=== PATIENT | male | born 1965 | race American Indian/Alaskan Native ===

== ENCOUNTER 2018-07-21 19:07 | Inpatient (IN) | payer SELFPAY ==
[2018-07-21] MEDS ORDERED: DUONEB *Not for PRN Use IH ONE (19:19)
--- NOTE | 2018-07-21 19:19 | Emergency Department Report ---
Stated Complaint: JUAN Time Seen by Provider: 07/21/18 19:14 - HPI History of Present Illness: This is a 52 y.o. male that presents with JUAN for a few days. Patient states he took doxycycline and steroids given to him by a friend. - ROS Review of Systems: cough, sob, chills, and nausea MSE screening note: Focused history and physical exam performed. Due to findings the following was ordered: CXR duoneb ED Disposition for MSE Condition: Stable
--- NOTE | 2018-07-21 21:26 | XRay Report ---
PROCEDURE: XR CHEST ROUTINE 2V TECHNIQUE: 2 views of the chest HISTORY: sob COMPARISONS: None FINDINGS: Enlarged cardiac silhouette has a somewhat globular appearance which may represent pericardial effusi on versus cardiomegaly. There are reticular bilateral interstitial infiltrates. There appears to be sheeting material over the patient. Posterior costophrenic angles are sharp. IMPRESSION: Enlarged cardiac silhouette with a slightly water bottle configuration, consider pericardial effusion . Bilateral diffuse reticular interstitial infiltrates. Consider viral pneumonia or other pneumonia. At ypical for bacterial pneumonia. Findings slightly atypical for congestive heart failure.. This document is electronically signed by Stephany Wren MD., July 21 2018 09:25:06 PM ET
[2018-07-22 03:50] LABS: Basophils % (Auto) 0.5 % (0.0-1.8); Eosinophils # (Auto) 0.1 K/mm3 (0.0-0.4); Eosinophils % (Auto) 1.6 % (0.0-4.3); Hematocrit 45.2 % (35.5-45.6); Hemoglobin 15.2 gm/dl (11.8-15.2); Lymphocytes # (Auto) 2.5 K/mm3 (1.2-5.4); Lymphocytes % (Auto) 31.6 % (13.4-35.0); Mean Corpuscular HGB Conc 34 % (32-34); Mean Corpuscular Volume 93 fl (84-94); Monocytes # (Auto) 0.6 K/mm3 (0.0-0.8); Monocytes % (Auto) 7.8 % (0.0-7.3); Platelet Count 195 K/mm3 (140-440); Red Blood Count 4.85 M/mm3 (3.65-5.03); Red Cell Distribution Width 14.7 % (13.2-15.2)
[2018-07-22 04:00] LABS: INR 1.04 (0.87-1.13)
[2018-07-22 04:01] LABS: Partial Thromboplastin Time 28.3 Sec. (24.2-36.6)
[2018-07-22 04:22] LABS: Alanine Aminotransferase 60 units/L (7-56); Albumin 3.8 g/dL (3.9-5); BUN/Creatinine Ratio 12; Blood Urea Nitrogen 16 mg/dL (9-20); Hemolysis Index 17
[2018-07-22 04:34] LABS: LDL Cholesterol,Direct 97 mg/dL (50-130)
[2018-07-22] MEDS ORDERED: ATIVAN IV ONE (04:58)
[2018-07-22] MEDS ORDERED: LASIX ONE (05:09)
--- NOTE | 2018-07-22 05:19 | Emergency Department Report ---
ED Shortness of Breath HPI - General Chief Complaint: Dyspnea/Respdistress Stated Complaint: JUAN Time Seen by Provider: 07/21/18 19:14 Source: patient Mode of arrival: Stretcher Limitations: No Limitations - History of Present Illness Initial Comments: 52-year-old -[place] male with no past medical history presents to the emergency room for shortness of breath 1 month with the last 2 days getting worse. Patient reports she's had a cough. Patient reports shortness of breath is worse with lying flat and better with sitting up. Patient denies any fever chills no nausea no vomiting. Patient does not have a primary care provider has no past medical history and currently takes no medications on a daily basis. MD Complaint: shortness of breath -: days(s) (2 getting worst), month(s) (1 sob) Severity: moderate Improves With: upright position Worsens With: lying flat, exertion, coughing Associated Symptoms: cough Treatments Prior to Arrival: none - Related Data Home Oxygen Therapy: No Previous Rx's Medication Instructions Recorded Last Taken Type Aspirin 81 mg PO DAILY #30 tab.chew 07/27/18 Unknown Rx AtorvaSTATin [Lipitor] 20 mg PO QHS #30 tab 07/27/18 Unknown Rx Carvedilol [Coreg] 3.125 mg PO BID #60 tablet 07/27/18 Unknown Rx Furosemide [Lasix TAB] 40 mg PO QDAY #30 tablet 07/27/18 Unknown Rx Lisinopril [Zestril TAB] 5 mg PO QDAY #30 tablet 07/27/18 Unknown Rx Potassium Chloride [K-Dur] 10 meq PO QDAY #30 tablet 07/27/18 Unknown Rx Allergies Allergy/AdvReac Type Severity Reaction Status Date / Time No Known Allergies Allergy Unverified 07/21/18 20:38 ED Review of Systems ROS: Stated complaint: JUAN Other details as noted in HPI Comment: All other systems reviewed and negative Respiratory: cough, shortness of breath, SOB with exertion, SOB at rest ED Past Medical Hx - Past Medical History Previous Medical History?: Yes Additional medical history: Punctured lung, Broken ribs - Social History Smoking Status: Never Smoker Substance Use Type: None - Medications Home Medications: Home Medications Medication Instructions Recorded Confirmed Last Taken Type Aspirin 81 mg PO DAILY #30 tab.chew 07/27/18 Unknown Rx AtorvaSTATin [Lipitor] 20 mg PO QHS #30 tab 07/27/18 Unknown Rx Carvedilol [Coreg] 3.125 mg PO BID #60 tablet 07/27/18 Unknown Rx Furosemide [Lasix TAB] 40 mg PO QDAY #30 tablet 07/27/18 Unknown Rx Lisinopril [Zestril TAB] 5 mg PO QDAY #30 tablet 07/27/18 Unknown Rx Potassium Chloride [K-Dur] 10 meq PO QDAY #30 tablet 07/27/18 Unknown Rx ED Physical Exam - General Limitations: No Limitations General appearance: alert, in no apparent distress, other (patient is sitting up right in bed) - Head Head exam: Present: atraumatic, normocephalic - Eye Eye exam: Present: EOMI - ENT ENT exam: Present: mucous membranes moist - Neck Neck exam: Present: normal inspection, full ROM - Respiratory Respiratory exam: Present: decreased breath sounds - Cardiovascular Cardiovascular Exam: Present: tachycardia - GI/Abdominal GI/Abdominal exam: Present: soft, normal bowel sounds. Absent: distended, tenderness - Extremities Exam Extremities exam: Present: pedal edema (trace bilateral) - Back Exam Back exam: Present: normal inspection, full ROM - Neurological Exam Neurological exam: Present: alert, oriented X3 - Psychiatric Psychiatric exam: Present: normal affect, normal mood - Skin Skin exam: Present: warm, dry, intact, normal color. Absent: rash ED Course Vital Signs 07/21/18 07/21/18 07/21/18 19:10 19:40 20:20 Temperature 98.7 F Pulse Rate 114 H Pulse Rate [ 104 H 112 H Bilateral Throughout] Respiratory 18 Rate Respiratory 20 20 Rate [Bilateral Throughout] Blood Pressure 151/118 Blood Pressure [Right] O2 Sat by Pulse 96 Oximetry 07/22/18 07/22/18 07/22/18 03:20 03:34 03:45 Temperature Pulse Rate 102 H 104 H Pulse Rate [ Bilateral Throughout] Respiratory 22 19 Rate Respiratory Rate [Bilateral Throughout] Blood Pressure 151/101 151/105 Blood Pressure 159/111 [Right] O2 Sat by Pulse 96 95 Oximetry 07/22/18 07/22/18 07/22/18 04:00 04:15 04:30 Temperature Pulse Rate 104 H 102 H 102 H Pulse Rate [ Bilateral Throughout] Respiratory 12 19 20 Rate Respiratory Rate [Bilateral Throughout] Blood Pressure 150/106 143/101 148/104 Blood Pressure [Right] O2 Sat by Pulse 95 97 95 Oximetry 07/22/18 07/22/18 07/22/18 04:34 04:45 05:00 Temperature Pulse Rate 104 H 105 H 102 H Pulse Rate [ Bilateral Throughout] Respiratory 20 18 30 H Rate Respiratory Rate [Bilateral Throughout] Blood Pressure 151/105 156/115 Blood Pressure [Right] O2 Sat by Pulse 96 95 94 Oximetry 07/22/18 07/22/18 07/22/18 05:21 05:31 05:45 Temperature Pulse Rate 103 H 101 H 103 H Pulse Rate [ Bilateral Throughout] Respiratory 15 15 22 Rate Respiratory Rate [Bilateral Throughout] Blood Pressure 156/115 128/110 155/109 Blood Pressure [Right] O2 Sat by Pulse 100 96 90 Oximetry 07/22/18 07/22/18 07/22/18 06:13 06:15 06:31 Temperature Pulse Rate 98 H 98 H 96 H Pulse Rate [ Bilateral Throughout] Respiratory 23 26 H 22 Rate Respiratory Rate [Bilateral Throughout] Blood Pressure 131/82 136/84 132/78 Blood Pressure [Right] O2 Sat by Pulse 96 93 92 Oximetry 07/22/18 07/22/18 07/22/18 06:45 07:00 07:15 Temperature Pulse Rate 100 H 98 H 100 H Pulse Rate [ Bilateral Throughout] Respiratory 29 H 19 17 Rate Respiratory Rate [Bilateral Throughout] Blood Pressure 142/97 142/97 160/97 Blood Pressure [Right] O2 Sat by Pulse 97 98 91 Oximetry 07/22/18 07/22/18 07/22/18 07:30 07:45 08:00 Temperature Pulse Rate 103 H 103 H 96 H Pulse Rate [ Bilateral Throughout] Respiratory 24 24 27 H Rate Respiratory Rate [Bilateral Throughout] Blood Pressure 156/105 131/90 120/82 Blood Pressure [Right] O2 Sat by Pulse 98 94 96 Oximetry 07/22/18 07/22/18 07/22/18 08:15 08:30 08:45 Temperature Pulse Rate 99 H 98 H 98 H Pulse Rate [ Bilateral Throughout] Respiratory 27 H 26 H 21 Rate Respiratory Rate [Bilateral Throughout] Blood Pressure 124/88 124/91 142/85 Blood Pressure [Right] O2 Sat by Pulse 94 Oximetry 07/22/18 07/22/18 08:51 08:52 Temperature 98.4 F Pulse Rate 98 H Pulse Rate [ Bilateral Throughout] Respiratory 24 Rate Respiratory Rate [Bilateral Throughout] Blood Pressure 142/85 Blood Pressure [Right] O2 Sat by Pulse 94 Oximetry - Reevaluation(s) Reevaluation #1: 07/22/18 05:[address] Hannah Zhang regarding admission she wants a chest CT before consideration of admission. ED Medical Decision Making - Lab Data Result diagrams: 07/27/18 05:45 07/27/18 05:45 Laboratory Tests 07/22/18 07/22/18 07/22/18 03:37 03:37 03:37 WBC 8.0 RBC 4.85 Hgb 15.2 Hct 45.2 MCV 93 MCH 31 MCHC 34 RDW 14.7 Plt Count 195 Lymph % (Auto) 31.6 [place] % (Auto) 7.8 H Eos % (Auto) 1.6 Baso % (Auto) 0.5 Lymph # 2.5 [place] # 0.6 Eos # 0.1 Baso # 0.0 Seg Neutrophils % 58.5 Seg Neutrophils # 4.7 PT 14.2 INR 1.04 APTT 28.3 Sodium 139 Potassium 3.8 Chloride 102.9 Carbon Dioxide 22 Anion Gap 18 BUN 16 Creatinine 1.3 Estimated GFR > 60 BUN/Creatinine Ratio 12 Glucose 106 H Calcium 9.0 Total Bilirubin 0.50 AST 33 ALT 60 H Alkaline Phosphatase 74 Troponin T 0.040 H NT-Pro-B Natriuret Pep 1858 H Total Protein 6.2 L Albumin 3.8 L Albumin/Globulin Ratio 1.6 Triglycerides 109 Cholesterol 138 LDL Cholesterol Direct 97 - EKG Data Rate: tachycardia - Radiology Data Radiology results: report reviewed Patient: SHANKAR COSTA MR#: [id number] : 1965 Acct:[id number] Age/Sex: 52 / M ADM Date: 07/21/18 Loc: ED Attending Dr: Ordering Physician: POORNIMA GONZALES Date of Service: 07/21/18 Procedure(s): XR chest routine 2V Accession Number(s): [id number] cc: POORNIMA GONZALES Fluoro Time In Minutes: PROCEDURE: XR CHEST ROUTINE 2V TECHNIQUE: 2 views of the chest HISTORY: sob COMPARISONS: None FINDINGS: Enlarged cardiac silhouette has a somewhat globular appearance which may represent pericardial effusion versus cardiomegaly. There are reticular bilateral interstitial infiltrates. There appears to be sheeting material over the patient. Posterior costophrenic angles are sharp. IMPRESSION: Enlarged cardiac silhouette with a slightly water bottle configuration, consider pericardial effusion. Bilateral diffuse reticular interstitial infiltrates. Consider viral pneumonia or other pneumonia. Atypical for bacterial pneumonia. Findings slightly atypical for congestive heart failure.. This document is electronically signed by Stephany Wren MD., July 21 2018 09:25:06 PM ET Transcribed By: MP Dictated By: STEPHANY WREN Electronically Authenticated By: STEPHANY WREN Signed Date/Time: 07/21/182125 DD/ 00 TD/TT: 07/21/182101 Critical care attestation.: If time is entered above; I have spent that time in minutes in the direct care of this critically ill patient, excluding procedure time. ED Disposition Clinical Impression: Acute heart failure Qualifiers: Heart failure type: unspecified Qualified Code(s): I50.9 - Heart failure, unspecified Disposition: -09 OP ADMIT IP TO THIS HOSP Is pt being admited?: Yes Does the pt Need Aspirin: Yes Condition: Stable
[2018-07-22] MEDS ORDERED: LASIX IV ONE (05:28)
--- NOTE | 2018-07-22 06:33 | Cat Scan Report ---
PROCEDURE: CT CHEST WO CON TECHNIQUE: CT imaging is obtained through the chest without contrast HISTORY: sob, elevated trip,abnormaly cxr COMPARISONS: Chest radiographs 07/21/2018 FINDINGS: Cardiomegaly. No pericardial effusion. Thoracic aorta is normal in course and caliber. No pneumothorax. Small to moderate right larger than left pleural effusions. Right perihilar region o f groundglass attenuation measuring up to 3 cm is present on axial series 2, image 69. Smaller ill-de fined areas of groundglass attenuation are present in the superior segment of the right lower lung an d in the right middle lobe measuring up to 2 cm on axial series 2, image 88. Interlobular septal thic kening is present. Bibasilar atelectasis. Evaluation of fine pulmonary parenchymal detail is obscured by respiratory motion. The central airways are patent. No bronchiectasis. Imaged portion of the upper abdomen is remarkable for bilateral nonobstructive nephrolithiasis measur ing up to 2 mm. The superficial soft tissues are unremarkable. No acute bony abnormality or worrisome osseous lesions identified. IMPRESSION: Cardiomegaly, pulmonary edema and small to moderate right greater than left pleural effusions are sug gestive of heart failure. Several right lung groundglass nodules/areas of attenuation measuring up to 3 cm in the right lung ma y be infectious or represent additional sequela of edema. This document is electronically signed by Ori Gomez MD., July 22 2018 06:30:25 AM ET
[2018-07-22 06:53] LABS: HDL Cholesterol 43 mg/dL (40-59)
--- NOTE | 2018-07-22 12:03 | History and Physical Report ---
History of Present Illness Date of admission: 07/22/18 08:21 Chief complaint: sob History of present illness: 52-year-old male with no significant past medical history who presents with shortness of breath for over 3 months. Has gotten worse in the past 2 days. His symptoms have been progressive. He started out having dyspnea on exertion. Has gone to the point now that he can barely walk to the bathroom. He can barely dress himself. He is also complaining of orthopnea, paroxysmal nocturnal dyspnea. The patient denies chest pain. He denies palpitations. He is also complaining of leg edema. Which is bilateral. The patient denies any history of any cardiac conditions, Past History Past Medical History: No medical history Past Surgical History: Other (surgery for broken ribs and punctured lung after he fell off a truck) Social history: smoking, alcohol abuse (4 shots of hard liquor daily), other (he uses powder cocaine every other day) Family history: no significant family history (denies family history of heart failure or hypertension) Medications and Allergies Allergies Allergy/AdvReac Type Severity Reaction Status Date / Time No Known Allergies Allergy Unverified 07/21/18 20:38 Review of Systems All systems: negative Constitutional: no weight loss Ears, nose, mouth and throat: no deferred Cardiovascular: orthopnea, no chest pain Respiratory: cough Gastrointestinal: no abdominal pain Genitourinary Male: no dysuria Rectal: no pain Musculoskeletal: no neck stiffness Integumentary: no rash Neurological: no head injury Psychiatric: no anxiety Endocrine: no cold intolerance Hematologic/Lymphatic: no easy bruising Allergic/Immunologic: no urticaria Exam - Constitutional Vitals: Temp Pulse Resp BP Pulse Ox 98.4 F 98 H 21 142/85 94 07/22/18 08:52 07/22/18 08:45 07/22/18 08:45 07/22/18 08:45 07/22/18 08:45 General appearance: Present: no acute distress, well-nourished - EENT Eyes: Present: PERRL ENT: hearing intact, clear oral mucosa - Neck Neck: Present: supple, normal ROM - Respiratory Respiratory effort: normal Respiratory: bilateral: rales - Cardiovascular Heart Sounds: Present: S1 & S2. Absent: rub, click - Extremities Extremity abnormal: edema Peripheral Pulses: within normal limits - Abdominal General gastrointestinal: Present: soft, non-tender, non-distended, normal bowel sounds Male genitourinary: Present: normal - Integumentary Integumentary: Present: clear, warm, dry - Musculoskeletal Musculoskeletal: gait normal, strength equal bilaterally - Psychiatric Psychiatric: appropriate mood/affect, intact judgment & insight - Neurologic Neurologic: CNII-XII intact, moves all extremities Results - Labs CBC & Chem 7: 07/22/18 03:37 07/22/18 03:37 Labs: Laboratory Last Values WBC 8.0 K/mm3 (4.5-11.0) 07/22/18 03:37 RBC 4.85 M/mm3 (3.65-5.03) 07/22/18 03:37 Hgb 15.2 gm/dl (11.8-15.2) 07/22/18 03:37 Hct 45.2 % (35.5-45.6) 07/22/18 03:37 MCV 93 fl (84-94) 07/22/18 03:37 MCH 31 pg (28-32) 07/22/18 03:37 MCHC 34 % (32-34) 07/22/18 03:37 RDW 14.7 % (13.2-15.2) 07/22/18 03:37 Plt Count 195 K/mm3 (140-440) 07/22/18 03:37 Lymph % (Auto) 31.6 % (13.4-35.0) 07/22/18 03:37 [place] % (Auto) 7.8 % (0.0-7.3) H 07/22/18 03:37 Eos % (Auto) 1.6 % (0.0-4.3) 07/22/18 03:37 Baso % (Auto) 0.5 % (0.0-1.8) 07/22/18 03:37 Lymph # 2.5 K/mm3 (1.2-5.4) 07/22/18 03:37 [place] # 0.6 K/mm3 (0.0-0.8) 07/22/18 03:37 Eos # 0.1 K/mm3 (0.0-0.4) 07/22/18 03:37 Baso # 0.0 K/mm3 (0.0-0.1) 07/22/18 03:37 Seg Neutrophils % 58.5 % (40.0-70.0) 07/22/18 03:37 Seg Neutrophils # 4.7 K/mm3 (1.8-7.7) 07/22/18 03:37 PT 14.2 Sec. (12.2-14.9) 07/22/18 03:37 INR 1.04 (0.87-1.13) 07/22/18 03:37 APTT 28.3 Sec. (24.2-36.6) 07/22/18 03:37 Sodium 139 mmol/L (137-145) 07/22/18 03:37 Potassium 3.8 mmol/L (3.6-5.0) 07/22/18 03:37 Chloride 102.9 mmol/L (98-107) 07/22/18 03:37 Carbon Dioxide 22 mmol/L (22-30) 07/22/18 03:37 Anion Gap 18 mmol/L 07/22/18 03:37 BUN 16 mg/dL (9-20) 07/22/18 03:37 Creatinine 1.3 mg/dL (0.8-1.5) 07/22/18 03:37 Estimated GFR > 60 ml/min 07/22/18 03:37 BUN/Creatinine Ratio 12 % 07/22/18 03:37 Glucose 106 mg/dL (75-100) H 07/22/18 03:37 Calcium 9.0 mg/dL (8.4-10.2) 07/22/18 03:37 Total Bilirubin 0.50 mg/dL (0.1-1.2) 07/22/18 03:37 AST 33 units/L (5-40) 07/22/18 03:37 ALT 60 units/L (7-56) H 07/22/18 03:37 Alkaline Phosphatase 74 units/L (35-129) 07/22/18 03:37 Troponin T 0.033 ng/mL (0.00-0.029) H 07/22/18 07:04 NT-Pro-B Natriuret Pep 1858 pg/mL (0-900) H 07/22/18 03:37 Total Protein 6.2 g/dL (6.3-8.2) L 07/22/18 03:37 Albumin 3.8 g/dL (3.9-5) L 07/22/18 03:37 Albumin/Globulin Ratio 1.6 % 07/22/18 03:37 Triglycerides 109 mg/dL (2-149) 07/22/18 03:37 Cholesterol 138 mg/dL (50-199) 07/22/18 03:37 LDL Cholesterol Direct 97 mg/dL (50-130) 07/22/18 03:37 HDL Cholesterol 43 mg/dL (40-59) 07/22/18 03:37 Cholesterol/HDL Ratio 3.20 % 07/22/18 03:37 Assessment and Plan Assessment and plan: 52M with so significant pmh, who pw sob Diagnosis acute chf pulmonary edema pre-htn Polysubstance abuse; tobacco, cocaine and alcohol Plan IV lasix, obtain echo, cardiology consult highly doubt pna, will monitor off abx -monitor BP curve Patient was counseled greater than 10 minutes on smoking cessation, and he was counseled greater than 20 minutes on cessation of other substances and lifestyle modification. ciwa protocol initiated -dvt ppx- lovenox Plan of care discussed with patient/family: Yes
--- NOTE | 2018-07-22 16:02 | Consultation ---
History of Present Illness Consult date: 07/22/18 Requesting physician: TRACIE ALVARADO Consult reason: congestive heart failure History of present illness: The pt is a 52 YO male with a past medical history of ETOH use, tobacco use, occasional cocaine use. He is previously unknown to our practice. He presented with complaints of SOB, POP, orthopnea and BLE. He states that for approx the past 1 month, he has been progressively SOB with POP. Over the past few days, he has also noted BLE swelling. He denies any chest pain, palpitations, n/v, diaphoresis, dizziness or syncope. He denies any prior cardiac issues, including AMI, CAD or HF. Past History Past Medical History: No medical history Social history: smoking, alcohol abuse, other (occasional cocaine use) Medications and Allergies Allergies Allergy/AdvReac Type Severity Reaction Status Date / Time No Known Allergies Allergy Unverified 07/21/18 20:38 Active Meds: Active Medications Furosemide (Lasix) 40 mg IV BID@0600,1800 BHAVYA Review of Systems Constitutional: no fever, no chills, no sweats Ears, nose, mouth and throat: no ear pain, no nose pain, no sinus pressure, no sinus pain Cardiovascular: orthopnea, edema, dyspnea on exertion, paroxysmal nocturnal dyspnea, leg edema, decreased exercise tolerance, no chest pain, no palpitations, no rapid/irregular heart beat, no syncope, no lightheadedness, no shortness of breath Respiratory: shortness of breath, dyspnea on exertion, no cough, no congestion, no wheezing, no pain on inspiration Gastrointestinal: no abdominal pain, no nausea, no vomiting, no diarrhea, no constipation, no change in bowel habits Genitourinary Male: no dysuria, no hematuria, no flank pain, no discharge, no urinary frequency, no urinary hesitancy Musculoskeletal: no neck stiffness, no neck pain, no shooting arm pain, no arm numbness/tingling, no low back pain, no shooting leg pain Integumentary: no rash, no pruritis, no redness, no sores, no wounds Neurological: no head injury, no paralysis, no weakness, no parathesias, no numbness, no tingling, no seizures, no syncope Psychiatric: no anxiety Endocrine: no cold intolerance, no heat intolerance Hematologic/Lymphatic: no easy bruising, no easy bleeding Allergic/Immunologic: no urticaria, no wheezing Physical Examination Vital Signs Temp Pulse Resp BP Pulse Ox 98.7 F 114 H 18 151/118 96 07/21/18 19:10 07/21/18 19:10 07/21/18 19:10 07/21/18 19:10 07/21/18 19:10 General appearance: no acute distress HEENT: Positive: PERRL, Normocephaly, Mucus Membranes Moist Neck: Positive: neck supple, trachea midline Cardiac: Positive: Reg Rate and Rhythm, S1/S2 Lungs: Positive: Decreased Breath Sounds Neuro: Positive: Grossly Intact Abdomen: Positive: Soft. Negative: Tender Skin: Negative: Rash, Wound Musculoskeletal: No Pain Extremities: Present: edema (trace BLE) Results 07/22/18 03:37 07/22/18 03:37 Cardiac Enzymes 07/22/18 Range/Units 03:37 AST 33 (5-40) units/L Coagulation 07/22/18 Range/Units 03:37 PT 14.2 (12.2-14.9) Sec. INR 1.04 (0.87-1.13) APTT 28.3 (24.2-36.6) Sec. Lipids 07/22/18 Range/Units 03:37 Triglycerides 109 (2-149) mg/dL Cholesterol 138 (50-199) mg/dL HDL Cholesterol 43 (40-59) mg/dL Cholesterol/HDL Ratio 3.20 % CBC 07/22/18 Range/Units 03:37 WBC 8.0 (4.5-11.0) K/mm3 RBC 4.85 (3.65-5.03) M/mm3 Hgb 15.2 (11.8-15.2) gm/dl Hct 45.2 (35.5-45.6) % Plt Count 195 (140-440) K/mm3 Lymph # 2.5 (1.2-5.4) K/mm3 [place] # 0.6 (0.0-0.8) K/mm3 Eos # 0.1 (0.0-0.4) K/mm3 Baso # 0.0 (0.0-0.1) K/mm3 Comprehensive Metabolic Panel 07/22/18 Range/Units 03:37 Sodium 139 (137-145) mmol/L Potassium 3.8 (3.6-5.0) mmol/L Chloride 102.9 (98-107) mmol/L Carbon Dioxide 22 (22-30) mmol/L BUN 16 (9-20) mg/dL Creatinine 1.3 (0.8-1.5) mg/dL Glucose 106 H (75-100) mg/dL Calcium 9.0 (8.4-10.2) mg/dL AST 33 (5-40) units/L ALT 60 H (7-56) units/L Alkaline Phosphatase 74 (35-129) units/L Total Protein 6.2 L (6.3-8.2) g/dL Albumin 3.8 L (3.9-5) g/dL - Imaging and Cardiology Echo: pending EKG: report reviewed, image reviewed EKG interpretations - Telemetry EKG Rhythm: Sinus Rhythm - EKG Sinus rhythms and dysrhythmias: sinus rhythm Chamber hypertrophy or enlargement: left ventricular hypertro Repolarization changes or abnormalities: nonspecific abnormality, ST segment, and/or T wave Assessment and Plan Initiate GDMT and cont IV diuresis as tolerated. Await echo. The patient has been seen in conjunction with Dr. Amarjit Luis who agrees with the assessment and plan of care. - Patient Problems (1) Acute heart failure Current Visit: Yes Status: Acute (2) Elevated troponin Current Visit: Yes Status: Acute (3) HTN (hypertension) Current Visit: Yes Status: Chronic (4) EtOH dependence Current Visit: Yes Status: Chronic (5) Tobacco use Current Visit: Yes Status: Chronic
[2018-07-22] MEDS: LASIX IV SCH (18:04)
[2018-07-22] MEDS ORDERED: TYLENOL PO PRN (18:07)
[2018-07-22] MEDS ORDERED: SODIUM CHLORIDE FLUSH SYRINGE 10 ML IV PRN (18:07)
[2018-07-22] MEDS ORDERED: ZOFRAN IV PRN (18:07)
[2018-07-22] MEDS ORDERED: ATIVAN IV PRN ×2 (18:08)
[2018-07-22] MEDS ORDERED: ATIVAN PO PRN (18:08)
[2018-07-22] MEDS: LOVENOX SUB-Q SCH (22:50)
[2018-07-22] MEDS: COREG PO SCH (22:50)
[2018-07-22] MEDS: SODIUM CHLORIDE FLUSH SYRINGE 10 ML IV SCH (22:50)
[2018-07-23] MEDS: LASIX IV SCH ×2 (06:24→17:38)
[2018-07-23 06:41] LABS: BUN/Creatinine Ratio 9; Blood Urea Nitrogen 13 mg/dL (9-20); Calcium 9.1 mg/dL (8.4-10.2); Hemolysis Index 6
[2018-07-23] MEDS: COREG PO SCH ×2 (09:20→22:37)
[2018-07-23] MEDS: ZESTRIL PO SCH (09:20)
[2018-07-23] MEDS: HABITROL TD SCH (09:20)
[2018-07-23] MEDS: SODIUM CHLORIDE FLUSH SYRINGE 10 ML IV SCH ×2 (09:24→22:38)
--- NOTE | 2018-07-23 10:09 | Progress Note ---
Assessment and Plan Assessment and plan: 52M with so significant pmh, who pw sob Diagnosis acute chf pulmonary edema pre-htn Polysubstance abuse; tobacco, cocaine and alcohol Alcohol withdrawal Plan IV lasix, follow-up echo, cardiology consult appreciated highly doubt pna, will monitor off abx, will repeat chest x-ray tomorrow morning -monitor BP curve, currently normotensive Patient was counseled greater than 10 minutes on smoking cessation, and he was counseled greater than 20 minutes on cessation of other substances and lifestyle modification. ciwa protocol initiated -dvt ppx- lovenox History Interval history: Review of systems Constitutional: No fevers, no malaise, no joint pains CVS: No chest pain, orthopnea, dyspnea on exertion and bipedal edema is improving GI: No abdominal pain, no diarrhea, no vomiting, no constipation Respiratory: No shortness of breath, no wheezing, no coughing Hospitalist Physical - Physical exam Narrative exam: General.: Appears well, no distress, nontoxic HEENT: Moist mucous membranes, extraocular muscles intact, no lymphadenopathy Neck: supple Cardiac: S1-S2 heard Lungs: Crackles in bases Abdomen: soft , nontender, nondistended, bowel sounds positive Extremities: 1+ bipedal pitting edema, interval improvement Skin: no rash or lesions Neurologic: no gross focal deficits Psych: calm, and cooperative - Constitutional Vitals: Temp Pulse Resp BP Pulse Ox 98.4 F 62 20 124/85 95 07/23/18 08:32 07/23/18 08:32 07/23/18 08:32 07/23/18 08:32 07/23/18 08:32 General appearance: Present: no acute distress, well-nourished Results - Labs CBC & Chem 7: 07/22/18 03:37 07/23/18 04:50 Labs: Laboratory Last Values WBC 8.0 K/mm3 (4.5-11.0) 07/22/18 03:37 RBC 4.85 M/mm3 (3.65-5.03) 07/22/18 03:37 Hgb 15.2 gm/dl (11.8-15.2) 07/22/18 03:37 Hct 45.2 % (35.5-45.6) 07/22/18 03:37 MCV 93 fl (84-94) 07/22/18 03:37 MCH 31 pg (28-32) 07/22/18 03:37 MCHC 34 % (32-34) 07/22/18 03:37 RDW 14.7 % (13.2-15.2) 07/22/18 03:37 Plt Count 195 K/mm3 (140-440) 07/22/18 03:37 Lymph % (Auto) 31.6 % (13.4-35.0) 07/22/18 03:37 [place] % (Auto) 7.8 % (0.0-7.3) H 07/22/18 03:37 Eos % (Auto) 1.6 % (0.0-4.3) 07/22/18 03:37 Baso % (Auto) 0.5 % (0.0-1.8) 07/22/18 03:37 Lymph # 2.5 K/mm3 (1.2-5.4) 07/22/18 03:37 [place] # 0.6 K/mm3 (0.0-0.8) 07/22/18 03:37 Eos # 0.1 K/mm3 (0.0-0.4) 07/22/18 03:37 Baso # 0.0 K/mm3 (0.0-0.1) 07/22/18 03:37 Seg Neutrophils % 58.5 % (40.0-70.0) 07/22/18 03:37 Seg Neutrophils # 4.7 K/mm3 (1.8-7.7) 07/22/18 03:37 PT 14.2 Sec. (12.2-14.9) 07/22/18 03:37 INR 1.04 (0.87-1.13) 07/22/18 03:37 APTT 28.3 Sec. (24.2-36.6) 07/22/18 03:37 Sodium 143 mmol/L (137-145) 07/23/18 04:50 Potassium 3.4 mmol/L (3.6-5.0) L 07/23/18 04:50 Chloride 102.0 mmol/L (98-107) 07/23/18 04:50 Carbon Dioxide 25 mmol/L (22-30) 07/23/18 04:50 Anion Gap 19 mmol/L 07/23/18 04:50 BUN 13 mg/dL (9-20) 07/23/18 04:50 Creatinine 1.4 mg/dL (0.8-1.5) 07/23/18 04:50 Estimated GFR > 60 ml/min 07/23/18 04:50 BUN/Creatinine Ratio 9 % 07/23/18 04:50 Glucose 101 mg/dL (75-100) H 07/23/18 04:50 Calcium 9.1 mg/dL (8.4-10.2) 07/23/18 04:50 Total Bilirubin 0.50 mg/dL (0.1-1.2) 07/22/18 03:37 AST 33 units/L (5-40) 07/22/18 03:37 ALT 60 units/L (7-56) H 07/22/18 03:37 Alkaline Phosphatase 74 units/L (35-129) 07/22/18 03:37 Troponin T 0.033 ng/mL (0.00-0.029) H 07/22/18 07:04 NT-Pro-B Natriuret Pep 1858 pg/mL (0-900) H 07/22/18 03:37 Total Protein 6.2 g/dL (6.3-8.2) L 07/22/18 03:37 Albumin 3.8 g/dL (3.9-5) L 07/22/18 03:37 Albumin/Globulin Ratio 1.6 % 07/22/18 03:37 Triglycerides 109 mg/dL (2-149) 07/22/18 03:37 Cholesterol 138 mg/dL (50-199) 07/22/18 03:37 LDL Cholesterol Direct 97 mg/dL (50-130) 07/22/18 03:37 HDL Cholesterol 43 mg/dL (40-59) 07/22/18 03:37 Cholesterol/HDL Ratio 3.20 % 07/22/18 03:37 Active Medications - Current Medications Current Medications: Generic Name Dose Route Start Last Admin Trade Name Freq PRN Reason Stop Dose Admin Acetaminophen 650 mg 07/22/18 18:07 Tylenol PO Q4H PRN Pain MILD(1-3)/Fever >100.5/LAURENT Carvedilol 3.125 mg 07/22/18 22:00 07/23/18 09:20 Coreg PO 3.125 mg BID BHAVYA Administration Enoxaparin Sodium 40 mg 07/22/18 22:00 07/22/18 22:50 Lovenox SUB-Q 40 mg QDAY@2200 BHAVYA Administration Furosemide 40 mg 07/22/18 18:00 07/23/18 06:24 Lasix IV 40 mg BID@0600,1800 BHAVYA Administration Lisinopril 5 mg 07/23/18 10:00 07/23/18 09:20 Zestril PO 5 mg QDAY BHAVYA Administration Lorazepam 2 mg 07/22/18 18:08 07/23/18 00:07 Ativan PO 2 mg Q1H PRN Administration CIWA-Ar 8-15 Lorazepam 4 mg 07/22/18 18:08 Ativan IV Q1H PRN CIWA-Ar 16-25 Lorazepam 4 mg 07/22/18 18:08 Ativan IV Q15MIN PRN CIWA-Ar >25 Nicotine 7 mg 07/23/18 10:00 07/23/18 09:20 Habitrol TD 7 mg QDAY BHAVYA Administration Ondansetron HCl 4 mg 07/22/18 18:07 Zofran IV Q8H PRN Nausea And Vomiting Sodium Chloride 10 ml 07/22/18 22:00 07/23/18 09:24 Sodium Chloride Flush Syringe 10 Ml IV 10 ml BID BHAVYA Administration Sodium Chloride 10 ml 07/22/18 18:07 Sodium Chloride Flush Syringe 10 Ml IV PRN PRN LINE FLUSH
--- NOTE | 2018-07-23 14:21 | Progress Note ---
Assessment and Plan Cont GDMT and cont IV diuresis as tolerated. Await echo. Consider ischemic evaluation pending echo findings. The patient has been seen in conjunction with Dr. Amarjit Luis who agrees with the assessment and plan of care. - Patient Problems (1) Acute heart failure Current Visit: Yes Status: Acute (2) Elevated troponin Current Visit: Yes Status: Acute (3) HTN (hypertension) Current Visit: Yes Status: Chronic (4) EtOH dependence Current Visit: Yes Status: Chronic (5) Tobacco use Current Visit: Yes Status: Chronic Subjective Date of service: 07/23/18 Principal diagnosis: HF Interval history: pt resting in bed, states he is feeling better today. Objective Last Vital Signs Temp 98.4 F 07/23/18 11:03 Pulse 98 H 07/23/18 11:03 Resp 20 07/23/18 11:03 BP 129/90 07/23/18 11:03 Pulse Ox 94 07/23/18 11:03 - Physical Examination General: No Apparent Distress HEENT: Positive: PERRL, Normocephaly, Mucus Membranes Moist Neck: Positive: neck supple, trachea midline Cardiac: Positive: Reg Rate and Rhythm, S1/S2 Lungs: Positive: Decreased Breath Sounds Neuro: Positive: Grossly Intact Abdomen: Positive: Soft. Negative: Tender Skin: Negative: Rash, Wound Musculoskeletal: No Pain Extremities: Present: edema (trace BLE) - Labs and Meds Comprehensive Metabolic Panel 07/23/18 Range/Units 04:50 Sodium 143 (137-145) mmol/L Potassium 3.4 L (3.6-5.0) mmol/L Chloride 102.0 (98-107) mmol/L Carbon Dioxide 25 (22-30) mmol/L BUN 13 (9-20) mg/dL Creatinine 1.4 (0.8-1.5) mg/dL Glucose 101 H (75-100) mg/dL Calcium 9.1 (8.4-10.2) mg/dL - Imaging and Cardiology EKG: report reviewed, image reviewed Echo: pending - EKG Sinus rhythms and dysrhythmias: sinus rhythm Chamber hypertrophy or enlargement: left ventricular hypertro Repolarization changes or abnormalities: nonspecific abnormality, ST segment, and/or T wave
[2018-07-23] MEDS: K-DUR PO SCH (17:38)
[2018-07-23] MEDS: LOVENOX SUB-Q SCH (22:37)
[2018-07-24] MEDS: LASIX IV SCH ×2 (05:53→18:03)
[2018-07-24] MEDS: ZESTRIL PO SCH (09:13)
[2018-07-24] MEDS: COREG PO SCH ×2 (09:13→21:52)
[2018-07-24] MEDS: K-DUR PO SCH (09:13)
[2018-07-24] MEDS: HABITROL TD SCH (09:14)
[2018-07-24] MEDS: SODIUM CHLORIDE FLUSH SYRINGE 10 ML IV SCH ×2 (09:14→21:52)
--- NOTE | 2018-07-24 12:16 | XRay Report ---
CHEST XRAY, 2 VIEWS: History: Shortness of breath. Findings: There is mild cardiomegaly. Pulmonary vessels are within normal limits. Pulmonary venous congestion has decreased significantly since 07/21/18. The lungs are clear and fully expanded. No infiltrate, pleural effusion or pneumothorax. Chronic right rib deformities are noted. IMPRESSION: Cardiomegaly.
--- NOTE | 2018-07-24 13:23 | Progress Note ---
Assessment and Plan Patient is feeling better today. No chest pain. Dyspnea is improving. Echocardiogram showed severe LV dysfunction. Plan is to obtain cardiac catheterization for further evaluation. Case discussed with Dr. Andres. - Patient Problems (1) LV dysfunction Current Visit: Yes Status: Acute (2) Acute heart failure Current Visit: Yes Status: Acute (3) HTN (hypertension) Current Visit: Yes Status: Chronic Subjective Date of service: 07/24/18 Principal diagnosis: HF Interval history: Patient is feeling better today. Denies significant cardiac symptoms. Objective Vital Signs Temp Pulse Resp BP BP Pulse Ox 07/24/18 11:08 98.2 F 96 H 20 122/89 98 07/24/18 07:20 97.9 F 95 H 20 122/90 99 07/24/18 03:56 98.1 F 96 H 18 126/92 98 07/23/18 23:00 98.5 F 96 H 18 127/97 99 07/23/18 20:20 96 H 07/23/18 20:00 98.2 F 107 H 18 136/94 99 07/23/18 15:40 98.0 F 104 H 20 120/86 95 - Physical Examination General: Appears Well, No Apparent Distress HEENT: Positive: PERRL, Normocephaly, Mucus Membranes Moist Neck: Positive: neck supple, trachea midline Cardiac: Positive: Regular Rate Lungs: Positive: clear to auscultation Neuro: Positive: Grossly Intact Abdomen: Positive: Soft. Negative: Tender Skin: Negative: Rash, Wound Musculoskeletal: No Pain Extremities: Present: normal, edema ( ) - Imaging and Cardiology EKG: report reviewed, image reviewed Echo: pending - EKG Sinus rhythms and dysrhythmias: sinus rhythm Chamber hypertrophy or enlargement: left ventricular hypertro Repolarization changes or abnormalities: nonspecific abnormality, ST segment, and/or T wave
--- NOTE | 2018-07-24 17:46 | Progress Note ---
Assessment and Plan 52-year-old male with no significant past medical history who presents with shortness of breath for over 3 months. Has gotten worse in the past 2 days. His symptoms have been progressive. He started out having dyspnea on exertion. Has gone to the point now that he can barely walk to the bathroom. He can barely dress himself. He is also complaining of orthopnea, paroxysmal nocturnal dyspnea. The patient denies chest pain. He denies palpitations. He is also complaining of jada leg edema. The patient denies any history of any cardiac conditions, Acute systolic heart failure Pulmonary edema Pre-htn Polysubstance abuse; tobacco, cocaine and alcohol Alcohol withdrawal Plan IV lasix, Echo showed ejection fraction of 10-15% Discussed with hub cutter apprentice. Patient may need a vest, cardiology consult appreciated highly doubt pna, will monitor off abx, will repeat chest x-ray tomorrow morning -monitor BP curve, currently normotensive Patient was counseled greater than 10 minutes on smoking cessation, and he was counseled greater than 20 minutes on cessation of other substances and lifestyle modification. wa protocol initiated -dvt ppx- lovenox Subjective Date of service: 07/24/18 Principal diagnosis: HF, hypertension Objective - Exam Narrative Exam: Constitutional: Well-nourished well-developed. In no distress Head: Normocephalic atraumatic Eyes: Pupils are equal round and reactive to light Nose: No enlarged turbinates, no septal deviation. Mouth: Moist mucous membranes. Neck: Supple no thyromegaly. No bruit. No JVD Heart: Regular rate and rhythm, S1-S2 normal. No rubs murmurs or gallop Lungs: Clear to auscultation bilaterally. no rales or rhonchi Abdomen: Soft, nontender. Bowel sound are present. Extremities: No edema, no cyanosis, no clubbing. Neuro: Alert oriented Oriented x3. No focal sensory or motor deficit. Skin: No rashes or hyperpigmented spots Musculoskeletal system: No joint pain or swelling Hematological: No petechia or subcutanous hemorrhages. Immunological: No multiple septic spots on the skin Lymphatic: No generalized lymphadenopathy Psychiatry: Euthymic. Calm. - Constitutional Vitals: Vital Signs - 12hr 07/24/18 07/24/18 07/24/18 07:20 11:08 15:55 Temperature 97.9 F 98.2 F 98.0 F Pulse Rate 95 H 96 H 95 H Respiratory 20 20 Rate Blood Pressure 122/90 122/89 Blood Pressure 118/78 [Right] O2 Sat by Pulse 99 98 Oximetry - Labs CBC & Chem 7: 07/22/18 03:37 07/23/18 04:50
[2018-07-24] MEDS: LOVENOX SUB-Q SCH (21:52)
[2018-07-25] MEDS: LASIX IV SCH ×2 (06:05→19:03)
[2018-07-25 07:32] LABS: Basophils % (Auto) 0.6 % (0.0-1.8); Eosinophils # (Auto) 0.1 K/mm3 (0.0-0.4); Eosinophils % (Auto) 2.5 % (0.0-4.3); Hematocrit 47.2 % (35.5-45.6); Hemoglobin 15.8 gm/dl (11.8-15.2); Lymphocytes # (Auto) 2.5 K/mm3 (1.2-5.4); Lymphocytes % (Auto) 43.5 % (13.4-35.0); Mean Corpuscular HGB Conc 33 % (32-34); Mean Corpuscular Volume 94 fl (84-94); Monocytes # (Auto) 0.6 K/mm3 (0.0-0.8); Monocytes % (Auto) 10.3 % (0.0-7.3); Platelet Count 202 K/mm3 (140-440); Red Blood Count 5.03 M/mm3 (3.65-5.03); Red Cell Distribution Width 15.4 % (13.2-15.2)
[2018-07-25 07:56] LABS: Albumin 3.6 g/dL (3.9-5); Calcium 9.4 mg/dL (8.4-10.2)
[2018-07-25] MEDS: K-DUR PO SCH (10:42)
[2018-07-25] MEDS: COREG PO SCH ×2 (10:42→22:10)
[2018-07-25] MEDS: ZESTRIL PO SCH (10:42)
[2018-07-25] MEDS: HABITROL TD SCH (10:42)
--- NOTE | 2018-07-25 10:43 | Progress Note ---
Assessment and Plan Patient is improving. He has significant left ventricular systolic dysfunction. Plan is to obtain cardiac catheterization on Friday for further evaluation. This is explained to the patient in detail again. - Patient Problems (1) LV dysfunction Current Visit: Yes Status: Acute (2) Acute heart failure Current Visit: Yes Status: Acute (3) HTN (hypertension) Current Visit: Yes Status: Chronic Subjective Date of service: 07/25/18 Principal diagnosis: HF, hypertension Interval history: Patient is feeling better today denies chest pain. Dyspnea is improving Objective Vital Signs Temp Pulse Resp BP BP Pulse Ox 07/25/18 08:59 97.7 F 93 H 16 116/69 98 07/25/18 03:21 98.4 F 93 H 20 117/88 95 07/24/18 23:12 98.4 F 91 H 20 102/65 98 07/24/18 20:30 99.0 F 92 H 20 118/86 98 07/24/18 20:16 95 H 07/24/18 15:55 98.0 F 95 H 118/78 07/24/18 11:08 98.2 F 96 H 20 122/89 98 - Physical Examination General: Appears Well, No Apparent Distress HEENT: Positive: PERRL, Normocephaly, Mucus Membranes Moist Neck: Positive: neck supple, trachea midline Cardiac: Positive: Reg Rate and Rhythm Lungs: Positive: clear to auscultation Neuro: Positive: Grossly Intact Abdomen: Positive: Soft. Negative: Tender Skin: Negative: Rash, Wound Musculoskeletal: No Pain Extremities: Present: normal, edema ( ) - Labs and Meds Cardiac Enzymes 07/25/18 Range/Units 06:30 AST 18 (5-40) units/L CBC 07/25/18 Range/Units 06:30 WBC 5.8 (4.5-11.0) K/mm3 RBC 5.03 (3.65-5.03) M/mm3 Hgb 15.8 H (11.8-15.2) gm/dl Hct 47.2 H (35.5-45.6) % Plt Count 202 (140-440) K/mm3 Lymph # 2.5 (1.2-5.4) K/mm3 [place] # 0.6 (0.0-0.8) K/mm3 Eos # 0.1 (0.0-0.4) K/mm3 Baso # 0.0 (0.0-0.1) K/mm3 Comprehensive Metabolic Panel 07/25/18 Range/Units 06:30 Sodium 142 (137-145) mmol/L Potassium 4.4 D (3.6-5.0) mmol/L Chloride 102.1 (98-107) mmol/L Carbon Dioxide 27 (22-30) mmol/L BUN 17 (9-20) mg/dL Creatinine 1.8 H (0.8-1.5) mg/dL Glucose 97 (75-100) mg/dL Calcium 9.4 (8.4-10.2) mg/dL AST 18 (5-40) units/L ALT 35 (7-56) units/L Alkaline Phosphatase 67 (35-129) units/L Total Protein 6.6 (6.3-8.2) g/dL Albumin 3.6 L (3.9-5) g/dL - Imaging and Cardiology EKG: report reviewed, image reviewed Echo: pending - EKG Sinus rhythms and dysrhythmias: sinus rhythm Chamber hypertrophy or enlargement: left ventricular hypertro Repolarization changes or abnormalities: nonspecific abnormality, ST segment, and/or T wave
--- NOTE | 2018-07-25 17:21 | Progress Note ---
Assessment and Plan 52-year-old male with no significant past medical history who presents with shortness of breath for over 3 months. Has gotten worse in the past 2 days. His symptoms have been progressive. He started out having dyspnea on exertion. Has gone to the point now that he can barely walk to the bathroom. He can barely dress himself. He is also complaining of orthopnea, paroxysmal nocturnal dyspnea. The patient denies chest pain. He denies palpitations. He is also complaining of jada leg edema. The patient denies any history of any cardiac conditions, Acute systolic heart failure Pulmonary edema Pre-htn Polysubstance abuse with tobacco, cocaine and alcohol Alcohol withdrawal Plan IV lasix, Echo showed ejection fraction of 10-15% Discussed with pattern clerk. Patient may need a vest. For cardiac cath on 07/27/2018 -monitor BP curve, currently normotensive Patient was counseled greater than 10 minutes on smoking cessation, and he was counseled greater than 20 minutes on cessation of other substances and lifestyle modification. [facility] protocol initiated -dvt ppx- lovenox Subjective Date of service: 07/25/18 Principal diagnosis: HF, hypertension Interval history: Sitting up in bed. Denies any chest pain or shortness of breath and orthopnea or paroxysmal nocturnal dyspnea Objective - Exam Narrative Exam: Constitutional: Well-nourished well-developed. In no distress Head: Normocephalic atraumatic Eyes: Pupils are equal round and reactive to light Nose: No enlarged turbinates, no septal deviation. Mouth: Moist mucous membranes. Neck: Supple no thyromegaly. No bruit. No JVD Heart: Regular rate and rhythm, S1-S2 normal. No rubs murmurs or gallop Lungs: Clear to auscultation bilaterally. no rales or rhonchi Abdomen: Soft, nontender. Bowel sound are present. Extremities: No edema, no cyanosis, no clubbing. Neuro: Alert oriented Oriented x3. No focal sensory or motor deficit. Skin: No rashes or hyperpigmented spots Musculoskeletal system: No joint pain or swelling Hematological: No petechia or subcutanous hemorrhages. Immunological: No multiple septic spots on the skin Lymphatic: No generalized lymphadenopathy Psychiatry: Euthymic. Calm. - Constitutional Vitals: Vital Signs - 12hr 07/25/18 07/25/18 07/25/18 08:59 10:00 12:00 Temperature 97.7 F Pulse Rate 93 H 92 H Respiratory 16 20 Rate Blood Pressure 116/69 O2 Sat by Pulse 98 Oximetry - Labs CBC & Chem 7: 07/25/18 06:30 07/25/18 06:30 Labs: Abnormal lab results 07/25/18 07/25/18 Range/Units 06:30 06:30 Hgb 15.8 H (11.8-15.2) gm/dl Hct 47.2 H (35.5-45.6) % RDW 15.4 H (13.2-15.2) % Lymph % (Auto) 43.5 H (13.4-35.0) % [place] % (Auto) 10.3 H (0.0-7.3) % Creatinine 1.8 H (0.8-1.5) mg/dL Albumin 3.6 L (3.9-5) g/dL
[2018-07-25] MEDS: LOVENOX SUB-Q SCH (22:09)
[2018-07-25] MEDS: SODIUM CHLORIDE FLUSH SYRINGE 10 ML IV SCH (22:14)
[2018-07-26] MEDS: LASIX IV SCH ×2 (05:07→17:46)
[2018-07-26 09:54] LABS: Basophils % (Auto) 0.8 % (0.0-1.8); Eosinophils # (Auto) 0.1 K/mm3 (0.0-0.4); Hematocrit 50.3 % (35.5-45.6); Hemoglobin 16.7 gm/dl (11.8-15.2); Lymphocytes # (Auto) 2.4 K/mm3 (1.2-5.4); Lymphocytes % (Auto) 40.1 % (13.4-35.0); Mean Corpuscular HGB Conc 33 % (32-34); Mean Corpuscular Volume 94 fl (84-94); Monocytes # (Auto) 0.7 K/mm3 (0.0-0.8); Monocytes % (Auto) 11.8 % (0.0-7.3); Platelet Count 230 K/mm3 (140-440); Red Blood Count 5.34 M/mm3 (3.65-5.03); Red Cell Distribution Width 15.6 % (13.2-15.2)
[2018-07-26 10:12] LABS: Albumin 4.3 g/dL (3.9-5); Calcium 9.6 mg/dL (8.4-10.2)
[2018-07-26] MEDS: COREG PO SCH ×2 (10:34→21:21)
[2018-07-26] MEDS: ZESTRIL PO SCH (10:34)
[2018-07-26] MEDS: HABITROL TD SCH (10:35)
[2018-07-26] MEDS: K-DUR PO SCH (10:35)
--- NOTE | 2018-07-26 11:43 | Progress Note ---
Assessment and Plan Clinically patient is improving. Plan is to obtain cardiac catheterization for further evaluation of severe cardiomyopathy. Plan is explained again to the patient. BUN and creatinine are noted to be elevated. Will hold the Lasix and repeat BMP in the morning. - Patient Problems (1) LV dysfunction Current Visit: Yes Status: Acute (2) Acute heart failure Current Visit: Yes Status: Acute (3) HTN (hypertension) Current Visit: Yes Status: Chronic Subjective Date of service: 07/26/18 Principal diagnosis: HF, hypertension Interval history: Patient is ambulating in the room and denies any chest pain or difficulty in breathing. Overall is feeling better Objective Vital Signs Temp Pulse Resp BP BP Pulse Ox 07/26/18 09:22 98.3 F 101 H 16 103/76 96 07/26/18 08:37 98 07/26/18 08:25 91 H 07/26/18 04:03 97.9 F 92 H 24 105/79 96 07/26/18 04:00 97.9 F 24 105/79 98 07/25/18 22:10 91 H 111/71 07/25/18 20:00 98 H 07/25/18 17:23 98.5 F 97 H 16 106/67 99 07/25/18 12:00 92 H - Physical Examination General: Appears Well, No Apparent Distress HEENT: Positive: PERRL, Normocephaly, Mucus Membranes Moist Neck: Positive: neck supple, trachea midline Cardiac: Positive: Reg Rate and Rhythm Lungs: Positive: clear to auscultation Neuro: Positive: Grossly Intact Abdomen: Positive: Soft. Negative: Tender Skin: Negative: Rash, Wound Musculoskeletal: No Pain Extremities: Present: normal, edema ( ) - Labs and Meds Cardiac Enzymes 07/26/18 Range/Units 09:13 AST 20 (5-40) units/L CBC 07/26/18 Range/Units 09:13 WBC 6.1 (4.5-11.0) K/mm3 RBC 5.34 H (3.65-5.03) M/mm3 Hgb 16.7 H (11.8-15.2) gm/dl Hct 50.3 H (35.5-45.6) % Plt Count 230 (140-440) K/mm3 Lymph # 2.4 (1.2-5.4) K/mm3 [place] # 0.7 (0.0-0.8) K/mm3 Eos # 0.1 (0.0-0.4) K/mm3 Baso # 0.0 (0.0-0.1) K/mm3 Comprehensive Metabolic Panel 07/26/18 Range/Units 09:13 Sodium 139 (137-145) mmol/L Potassium 4.3 (3.6-5.0) mmol/L Chloride 97.9 L (98-107) mmol/L Carbon Dioxide 29 (22-30) mmol/L BUN 30 H (9-20) mg/dL Creatinine 1.9 H (0.8-1.5) mg/dL Glucose 107 H (75-100) mg/dL Calcium 9.6 (8.4-10.2) mg/dL AST 20 (5-40) units/L ALT 34 (7-56) units/L Alkaline Phosphatase 69 (35-129) units/L Total Protein 7.7 (6.3-8.2) g/dL Albumin 4.3 (3.9-5) g/dL - Imaging and Cardiology EKG: report reviewed, image reviewed Echo: pending - EKG Sinus rhythms and dysrhythmias: sinus rhythm Chamber hypertrophy or enlargement: left ventricular hypertro Repolarization changes or abnormalities: nonspecific abnormality, ST segment, and/or T wave
--- NOTE | 2018-07-26 12:44 | Progress Note ---
Assessment and Plan 52-year-old male with no significant past medical history who presents with shortness of breath for over 3 months. Has gotten worse in the past 2 days. His symptoms have been progressive. He started out having dyspnea on exertion. Has gone to the point now that he can barely walk to the bathroom. He can barely dress himself. He is also complaining of orthopnea, paroxysmal nocturnal dyspnea. The patient denies chest pain. He denies palpitations. He is also complaining of jada leg edema. The patient denies any history of any cardiac conditions, Acute systolic heart failure Pulmonary edema Polysubstance abuse with tobacco, cocaine and alcohol Alcohol withdrawal Plan IV lasix, Echo showed ejection fraction of 10-15% Discussed with slitter operator. Patient may need a vest. For cardiac cath on 07/27/2018 -monitor BP curve, currently normotensive Patient was counseled greater than 10 minutes on smoking cessation, and he was counseled greater than 20 minutes on cessation of other substances and lifestyle modification. ciwa protocol initiated -dvt ppx- lovenox Subjective Date of service: 07/26/18 Principal diagnosis: Acute SHF, hypertension Interval history: Ambulating in the room. No more shortness of breath or chest pain. Objective - Exam Narrative Exam: Constitutional: Well-nourished well-developed. In no distress. Has a life vest on. Head: Normocephalic atraumatic Eyes: Pupils are equal round and reactive to light Nose: No enlarged turbinates, no septal deviation. Mouth: Moist mucous membranes. Neck: Supple no thyromegaly. No bruit. No JVD Heart: Regular rate and rhythm, S1-S2 normal. No rubs murmurs or gallop Lungs: Clear to auscultation bilaterally. no rales or rhonchi Abdomen: Soft, nontender. Bowel sound are present. Extremities: No edema, no cyanosis, no clubbing. Neuro: Alert oriented Oriented x3. No focal sensory or motor deficit. Skin: No rashes or hyperpigmented spots Musculoskeletal system: No joint pain or swelling Hematological: No petechia or subcutanous hemorrhages. Immunological: No multiple septic spots on the skin Lymphatic: No generalized lymphadenopathy Psychiatry: Euthymic. Calm. - Constitutional Vitals: Vital Signs - 12hr 07/26/18 07/26/18 07/26/18 04:00 04:03 08:25 Temperature 97.9 F 97.9 F Pulse Rate 92 H 91 H Respiratory 24 24 Rate Blood Pressure 105/79 Blood Pressure 105/79 [Right] O2 Sat by Pulse 98 96 Oximetry 07/26/18 07/26/18 08:37 09:22 Temperature 98.3 F Pulse Rate 101 H Respiratory 16 Rate Blood Pressure 103/76 Blood Pressure [Right] O2 Sat by Pulse 98 96 Oximetry - Labs CBC & Chem 7: 07/26/18 09:13 07/26/18 09:13 Labs: Abnormal lab results 07/26/18 07/26/18 Range/Units 09:13 09:13 RBC 5.34 H (3.65-5.03) M/mm3 Hgb 16.7 H (11.8-15.2) gm/dl Hct 50.3 H (35.5-45.6) % RDW 15.6 H (13.2-15.2) % Lymph % (Auto) 40.1 H (13.4-35.0) % [place] % (Auto) 11.8 H (0.0-7.3) % Chloride 97.9 L (98-107) mmol/L BUN 30 H (9-20) mg/dL Creatinine 1.9 H (0.8-1.5) mg/dL Glucose 107 H (75-100) mg/dL
[2018-07-26] MEDS: SODIUM CHLORIDE FLUSH SYRINGE 10 ML IV SCH ×2 (18:11→21:21)
[2018-07-26] MEDS: LOVENOX SUB-Q SCH (21:21)
[2018-07-27 06:07] LABS: Basophils # (Auto) 0.1 K/mm3 (0.0-0.1); Basophils % (Auto) 1.1 % (0.0-1.8); Eosinophils # (Auto) 0.2 K/mm3 (0.0-0.4); Eosinophils % (Auto) 2.7 % (0.0-4.3); Hematocrit 49.4 % (35.5-45.6); Hemoglobin 16.7 gm/dl (11.8-15.2); Lymphocytes % (Auto) 47.3 % (13.4-35.0); Mean Corpuscular HGB Conc 34 % (32-34); Mean Corpuscular Volume 94 fl (84-94); Monocytes # (Auto) 0.7 K/mm3 (0.0-0.8); Monocytes % (Auto) 10.9 % (0.0-7.3); Platelet Count 220 K/mm3 (140-440); Red Blood Count 5.26 M/mm3 (3.65-5.03); Red Cell Distribution Width 15.1 % (13.2-15.2)
[2018-07-27 06:12] LABS: Partial Thromboplastin Time 24.7 Sec. (24.2-36.6)
[2018-07-27 06:23] LABS: Albumin 3.9 g/dL (3.9-5); Calcium 9.4 mg/dL (8.4-10.2)
[2018-07-27] MEDS: LASIX IV SCH (07:15)
[2018-07-27] MEDS: K-DUR PO SCH (10:01)
[2018-07-27] MEDS: COREG PO SCH (10:01)
[2018-07-27] MEDS: ZESTRIL PO SCH (10:02)
[2018-07-27] MEDS ORDERED: XYLOCAINE 2% INFILTRATI ONE (10:05)
[2018-07-27] MEDS ORDERED: CALAN ONE (10:05)
[2018-07-27] MEDS ORDERED: HEPARIN/NS 5000 UNIT/500ML(CATH LAB) 1,000 ML IR ONE (10:05)
[2018-07-27] MEDS ORDERED: NITROGLYCERIN SYRINGE 3 ML ONE (10:05)
[2018-07-27] MEDS ORDERED: HEPARIN 10,000 UNITS/10 ML ONE (10:05)
[2018-07-27] MEDS ORDERED: SUBLIMAZE ONE (10:06)
[2018-07-27] MEDS ORDERED: VERSED ONE (10:06)
[2018-07-27] MEDS ORDERED: NACL 0.9% 500 ML 500 ML ONE (10:11)
[2018-07-27] MEDS ORDERED: HALFPRIN EC PO ONE ×2 (10:26→11:00)
--- NOTE | 2018-07-27 11:27 | Progress Note ---
Assessment and Plan pt has non ischemic cardiomyoapthy, is compensated and renal function is better cont coreg, lisinopril , lasix 40mg and low dose kcl and discuss with patient the need to stop smoking and last cocaine use 1 month ago. pt expressed understanding , may be discharge this pm. and followup with cardiology in one week. - Patient Problems (1) Acute systolic CHF (congestive heart failure), NYHA class 4 Current Visit: Yes Status: Acute (2) NSTEMI (non-ST elevated myocardial infarction) Current Visit: Yes Status: Acute Plan to address problem: type 2 (3) EtOH dependence Current Visit: Yes Status: Chronic Qualifiers: Substance use status: uncomplicated Qualified Code(s): F10.20 - Alcohol dependence, uncomplicated (4) HTN (hypertension) Current Visit: Yes Status: Chronic Qualifiers: Hypertension type: essential hypertension Qualified Code(s): I10 - Essential (primary) hypertension (5) Tobacco use Current Visit: Yes Status: Chronic (6) Acute renal failure Current Visit: Yes Status: Acute Qualifiers: Acute renal failure type: with acute tubular necrosis Qualified Code(s): N17.0 - Acute kidney failure with tubular necrosis Subjective Date of service: 07/27/18 Principal diagnosis: Acute SHF, hypertension Interval history: no pnd Objective Vital Signs Temp Pulse Pulse Pulse Pulse Resp BP 07/27/18 10:02 92 H 112/81 07/27/18 10:01 92 H 112/81 07/27/18 10:00 95 H 95 H 95 H 19 07/27/18 07:31 98.0 F 95 H 20 103/75 07/27/18 04:21 98.3 F 16 98/65 07/26/18 23:50 97.9 F 94 H 16 99/65 07/26/18 19:33 98.5 F 87 16 07/26/18 19:00 91 H 07/26/18 15:45 98.4 F 98 H 18 103/83 BP Pulse Ox 07/27/18 10:02 07/27/18 10:01 07/27/18 10:00 98 07/27/18 07:31 97 07/27/18 04:21 07/26/18 23:50 96 07/26/18 19:33 111/79 98 07/26/18 19:00 07/26/18 15:45 99 - Physical Examination General: Appears Well, No Apparent Distress HEENT: Positive: PERRL, Normocephaly, Mucus Membranes Moist Neck: Positive: neck supple, trachea midline Cardiac: Positive: Reg Rate and Rhythm Lungs: Positive: clear to auscultation Neuro: Positive: Grossly Intact Abdomen: Positive: Soft. Negative: Tender Skin: Negative: Rash, Wound Musculoskeletal: No Pain Extremities: Present: normal. Absent: edema ( ) - Labs and Meds Cardiac Enzymes 07/27/18 Range/Units 05:45 AST 23 (5-40) units/L Coagulation 07/27/18 Range/Units 05:45 PT 13.8 (12.2-14.9) Sec. INR 1.00 (0.87-1.13) APTT 24.7 (24.2-36.6) Sec. CBC 07/27/18 Range/Units 05:45 WBC 6.4 (4.5-11.0) K/mm3 RBC 5.26 H (3.65-5.03) M/mm3 Hgb 16.7 H (11.8-15.2) gm/dl Hct 49.4 H (35.5-45.6) % Plt Count 220 (140-440) K/mm3 Lymph # 3.0 (1.2-5.4) K/mm3 Brule # 0.7 (0.0-0.8) K/mm3 Eos # 0.2 (0.0-0.4) K/mm3 Baso # 0.1 (0.0-0.1) K/mm3 Comprehensive Metabolic Panel 07/27/18 Range/Units 05:45 Sodium 141 (137-145) mmol/L Potassium 4.5 (3.6-5.0) mmol/L Chloride 101.0 (98-107) mmol/L Carbon Dioxide 28 (22-30) mmol/L BUN 25 H (9-20) mg/dL Creatinine 1.7 H (0.8-1.5) mg/dL Glucose 117 H (75-100) mg/dL Calcium 9.4 (8.4-10.2) mg/dL AST 23 (5-40) units/L ALT 36 (7-56) units/L Alkaline Phosphatase 68 (35-129) units/L Total Protein 7.0 (6.3-8.2) g/dL Albumin 3.9 (3.9-5) g/dL - Imaging and Cardiology EKG: report reviewed, image reviewed Echo: report reviewed (severe lv dsyfunction ef 10-15%) Cardiac cath: report reviewed (normal coronaries and severe lv dsyfunction ) - Telemetry EKG Rhythm: Sinus Rhythm - EKG Sinus rhythms and dysrhythmias: sinus rhythm Chamber hypertrophy or enlargement: left ventricular hypertro Repolarization changes or abnormalities: nonspecific abnormality, ST segment, and/or T wave
[2018-07-27] MEDS: HABITROL TD SCH (11:40)
[2018-07-27] MEDS: SODIUM CHLORIDE FLUSH SYRINGE 10 ML IV SCH (12:10)
--- NOTE | 2018-07-27 13:01 | Cardiac Catherization Report ---
LEFT HEART CATHETERIZATION Done by Dr. Mejia. CLINICAL INFORMATION: This is a 52-year-old -Spanish gentleman with severe LV dysfunction, has mild renal insufficiency, history of tobacco and cocaine use, presents with [id number]-PF-didutzpdi CA with severe LV dysfunction is here for a left heart catheterization. DESCRIPTION OF THE PROCEDURE: 1. The patient underwent moderate sedation. Total sedation time was 12 minutes, started at 10:56 a.m. and finished at 11:08 a.m. 0.5 mg Versed and 25 mcg of fentanyl was given. 2. Left heart catheterization was performed via the right radial artery, sterile technique, local anesthesia, 6-Comoran radial sheath inserted. 3. Left system engaged with JL3.5 catheter. Left main is large and patent, bifurcates into large LAD, wraparound LAD is patent. Diagonal 1, 2, 3 and 4 [id number] caliber vessels patent. Circumflex is a large caliber vessel that is patent, goes into a large OM1 is patent. RCA engaged with JR4 catheter, large caliber vessel that is patent from proximally and distally, bifurcates to a large PDA and PLV that are patent. Severe left ventricular dysfunction, ejection fraction 15%. LVEDP 22 mmHg, LV is 101/22, aortic is 103/56. No gradient across the aortic valve on pullback. 5-Comoran catheter taken over guidewire, 6-Comoran radial sheath was discontinued. Radial band applied. No hematoma, no bleeding. SUMMARY: 1. Normal coronaries, large epicardial vessel. This is nonischemic cardiomyopathy. Minimal dye was used, 35 mL of Visipaque was used. 2. Severe left ventricular dysfunction, LVEDP at 22 mmHg. JOB# [id number] KIRILL/NTS
[2018-07-27 16:22] VITALS: BP 108/80
--- NOTE | 2018-07-27 16:56 | Discharge Summary ---
Providers - Providers Date of Admission: 07/22/18 08:21 Date of discharge: 07/27/18 Attending physician: GAURANG KIM 07/22/18 11:58 Consult to Physician [CONS] Routine Comment: Consulting Provider: WILIAM GONSALES Physician Instructions: Reason For Exam: heart failure 07/27/18 11:18 Consult to Cardiac Rehabilitation [CONS] Routine Reason For Exam: Cardiac Rehab Evaluation Primary care physician: SCHEDULING SPECIALIST Hospitalization Reason for admission: CHF Condition: Stable Pertinent studies: CXR - cardiomnegaly Echocardiogram ejection fraction of 10-50% with severe systolic dysfunction CT of the chest that shows slight pleural effusion suggestive of congestive heart failure. Procedures: Cardiac catheterization done on 07/27/2018 that showed no evidence of coronary artery disease Hospital course: 52-year-old male with no significant past medical history who presents with shortness of breath for over 3 months. Has gotten worse in the past 2 days. His symptoms have been progressive. He started having dyspnea on exertion. Has gone to the point now that he can barely walk to the bathroom. He can barely dress himself. He is also complaining of orthopnea, paroxysmal nocturnal dyspnea. The patient denies chest pain. He denies palpitations. He is also complaining of leg edema. Which is bilateral. The patient denies any history of any cardiac conditions. on admission was commenced on diauresis, BB, ACEI and statin. ECHO showed systolic HF with LVEF 10-15 %. Cardiac cath showed normal coronaries. Diagnoses of nonischemic cardiomyopathy was made counselling on alcohol cessation done. Patient was discharged to f/u with PCP and cardiology in 5 and 7 days respectively. Disposition: TO HOME OR SELFCARE Time spent for discharge: 35 mins - Discharge Diagnoses (1) Acute renal failure Status: Acute Qualifiers: Acute renal failure type: with acute tubular necrosis Qualified Code(s): N17.0 - Acute kidney failure with tubular necrosis (2) Acute systolic CHF (congestive heart failure), NYHA class 4 Status: Acute (3) Elevated troponin Status: Acute (4) NSTEMI (non-ST elevated myocardial infarction) Status: Acute (5) EtOH dependence Status: Chronic Qualifiers: Substance use status: uncomplicated Qualified Code(s): F10.20 - Alcohol dependence, uncomplicated Core Measure Documentation - Palliative Care Palliative Care/ Comfort Measures: Not Applicable - Core Measures Any of the following diagnoses?: acute NE, heart failure - Acute NE Discharge Requirements Aspirin at discharge: Yes SIERRA/ARB for LVSD if EF <40%: Yes Beta bella at discharge: Yes Statin for LDL = or >100 mg/dl on DC: Yes - Heart Failure Discharge Requirements SIERRA/ARB for LVSD if EF <40%: Yes Beta bella at discharge: Yes Exam - Physical Exam Narrative exam: Constitutional: Well-nourished well-developed. In no distress. Has a life vest on. Head: Normocephalic atraumatic Eyes: Pupils are equal round and reactive to light Nose: No enlarged turbinates, no septal deviation. Mouth: Moist mucous membranes. Neck: Supple no thyromegaly. No bruit. No JVD Heart: Regular rate and rhythm, S1-S2 normal. No rubs murmurs or gallop Lungs: Clear to auscultation bilaterally. no rales or rhonchi Abdomen: Soft, nontender. Bowel sound are present. Extremities: No edema, no cyanosis, no clubbing. Neuro: Alert oriented Oriented x3. No focal sensory or motor deficit. Skin: No rashes or hyperpigmented spots Musculoskeletal system: No joint pain or swelling Hematological: No petechia or subcutanous hemorrhages. Immunological: No multiple septic spots on the skin Lymphatic: No generalized lymphadenopathy Psychiatry: Euthymic. Calm. - Constitutional Vitals: Temp Pulse Resp BP Pulse Ox 97.9 F 98 H 20 108/80 92 07/27/18 16:21 07/27/18 16:21 07/27/18 16:21 07/27/18 16:21 07/27/18 16:21 Plan Activity: fall precautions Weight Bearing Status: Non-Weight Bearing Diet: low cholesterol, low salt [facility] - 3-5 Days WILIAM GONSALES MD [Staff Physician] - 7 Days Forms: CardCat PCI D/C Instructions Prescriptions: Aspirin 81 mg PO DAILY #30 tab.chew Carvedilol [Coreg] 3.125 mg PO BID #60 tablet Potassium Chloride [K-Dur] 10 meq PO QDAY #30 tablet Furosemide [Lasix TAB] 40 mg PO QDAY #30 tablet AtorvaSTATin [Lipitor] 20 mg PO QHS #30 tab Lisinopril [Zestril TAB] 5 mg PO QDAY #30 tablet
[2018-07-28] MEDS ORDERED: K-DUR PO SCH (10:00)
[2018-07-28] MEDS ORDERED: LASIX IV SCH (10:00)
[2018-07-28] MEDS ORDERED: LASIX PO SCH (10:00)
== END 2018-07-27 18:50 | disposition home or self-care (01) | DRG 280 ==
LOC: ED 19:07 → 4A 07-22 08:21
PROVIDERS: ADMIT Internal Medicine; ATTEND Family Medicine
PROC: 4A023N7 Measurement of Cardiac Sampling and Pressure, Left Heart, Percutaneous Approach (ICD-10-PCS; principal; 2018-07-27)
PROC: B2111ZZ Fluoroscopy of Multiple Coronary Arteries using Low Osmolar Contrast (ICD-10-PCS; 2018-07-27)
DX: I21.A1 Myocardial infarction type 2 (principal); I50.21 Acute systolic (congestive) heart failure; N17.0 Acute kidney failure with tubular necrosis; F10.239 Alcohol dependence with withdrawal, unspecified; I11.0 Hypertensive heart disease with heart failure; F17.200 Nicotine dependence, unspecified, uncomplicated; Y90.0 Blood alcohol level of less than 20 mg/100 ml; F14.10 Cocaine abuse, uncomplicated
CPT/HCPCS: 36415; 71046; 71250; 80048; 80053; 80061; 82962; 83880; 84484; 85025; 85610; 85730; 93005; 93010; 93306; 93458; 94640; G0378; C1894; J1644; J1650; J1940; J2060; J2250; J3010; J7040; Q9967

== ENCOUNTER 2019-05-05 06:40 | Inpatient (IN) | payer SELFPAY ==
[2019-05-05 07:24] LABS: Basophils % (Auto) 0.5 % (0.0-1.8); Eosinophils # (Auto) 0.1 K/mm3 (0.0-0.4); Eosinophils % (Auto) 1.3 % (0.0-4.3); Hematocrit 46.9 % (35.5-45.6); Hemoglobin 15.7 gm/dl (11.8-15.2); Lymphocytes # (Auto) 1.5 K/mm3 (1.2-5.4); Lymphocytes % (Auto) 27.1 % (13.4-35.0); Mean Corpuscular HGB Conc 34 % (32-34); Mean Corpuscular Volume 89 fl (84-94); Monocytes # (Auto) 0.5 K/mm3 (0.0-0.8); Monocytes % (Auto) 10.1 % (0.0-7.3); Platelet Count 185 K/mm3 (140-440); Red Blood Count 5.25 M/mm3 (3.65-5.03); Red Cell Distribution Width 14.4 % (13.2-15.2)
[2019-05-05 07:54] LABS: Albumin 3.6 g/dL (3.9-5); Calcium 9.4 mg/dL (8.4-10.2)
--- NOTE | 2019-05-05 07:54 | XRay Report ---
CHEST 2 VIEWS INDICATION: Dyspnea. COMPARISON: 07/24/2018 FINDINGS: Support devices: None. Heart: Slightly increased mild to moderate cardiomegaly. Lungs/pleura: Slightly increased pulmonary venous congestion. No infiltrate, pleural effusion or pne umothorax. Additional findings: Multiple chronic right rib deformities. IMPRESSION: Cardiomegaly and pulmonary venous congestion minimally increased since 07/24/2018. No CHF. Signer Name: Maximo Frank Jr, MD Signed: 05/05/2019 7:50 AM Workstation Name: [id number]
[2019-05-05 08:27] LABS: Chol/HDL Ratio 3.63 %
[2019-05-05] MEDS ORDERED: FUROSEMIDE 40 MG/4 ML INJ IV ONE (12:55)
[2019-05-05] MEDS ORDERED: ASPIRIN 81 MG TAB CHEW PO ONE (12:55)
--- NOTE | 2019-05-05 13:07 | Emergency Department Report ---
ED Shortness of Breath HPI - General Chief Complaint: Dyspnea/Respdistress Stated Complaint: JUAN Time Seen by Provider: 05/05/19 12:53 Source: patient Mode of arrival: Ambulatory Limitations: No Limitations - History of Present Illness Initial Comments: Patient reports he was admitted in June for similar symptoms dyspnea on exertion, PND. Reports he was told he had CHF. Reports non-compliant with medications since last June. Denies drugs/alcohol. MD Complaint: shortness of breath -: days(s) Severity: moderate Consistency: other (worsening) Known History Of: congestive heart failure Context: medication noncompliance - Related Data Previous Rx's Medication Instructions Recorded Last Taken Type Aspirin 81 mg PO DAILY #30 tab.chew 07/27/18 Unknown Rx AtorvaSTATin [Lipitor] 20 mg PO QHS #30 tab 07/27/18 Unknown Rx Furosemide [Lasix TAB] 40 mg PO QDAY #30 tablet 07/27/18 Unknown Rx Potassium Chloride [K-Dur] 10 meq PO QDAY #30 tablet 07/27/18 Unknown Rx carvediloL [Coreg] 3.125 mg PO BID #60 tablet 07/27/18 Unknown Rx lisinopriL [Zestril TAB] 5 mg PO QDAY #30 tablet 07/27/18 Unknown Rx Allergies Allergy/AdvReac Type Severity Reaction Status Date / Time No Known Allergies Allergy Unverified 07/21/18 20:38 ED Review of Systems ROS: Stated complaint: JUAN Other details as noted in HPI Other: GENERAL: No weight change, fatigue, fever, chills, or night sweats SKIN: No changes in skin or hair, no itching, no rashes, no jaundice HEAD: No trauma EYES: No blurriness, tearing, itching, acute visual loss, conjunctival discolo ration, or scleral icterus EARS: No hearing loss, tinnitus, vertigo, or earache NOSE: No rhinorrhea, stuffiness, sneezing, itching, or epistaxis MOUTH: No bleeding gums, hoarseness, sore throat, or swelling CARDIAC: Reports dyspnea on exertion, orthopnea, PND. No new murmur, chest pain, palpitations, or edema RESPIRATORY: No wheeze, cough, sputum production, hemoptysis GI: No abdominal pain, nausea, vomiting, dysphagia, diarrhea, constipation, hematemesis, melena, hematochezia URINARY: No frequency, urgency, polyuria, dysuria, hematuria, or incontinence MUSCULOSKELETAL: No muscle weakness, joint stiffness, decrease in range of motion, redness, swelling NEUROLOGIC: No headache, syncope, loss of sensation, numbness, tingling, tremors, weakness, paralysis, seizures HEMATOLOGIC: No anemia, easy bruising, bleeding, petechiae, or purpura ENDOCRINE: No hot or cold intolerance, sweating, polyuria, polydipsia or, polyphagia no thyroid problems PSYCHIATRIC: No change in mood, no anxiety, no depression ED Past Medical Hx - Past Medical History Hx Congestive Heart Failure: Yes Hx Diabetes: No Hx Asthma: No Hx COPD: No Additional medical history: Punctured lung, Broken ribs - Social History Smoking Status: Current Every Day Smoker - Medications Home Medications: Home Medications Medication Instructions Recorded Confirmed Last Taken Type Aspirin 81 mg PO DAILY #30 tab.chew 07/27/18 05/05/19 Unknown Rx AtorvaSTATin [Lipitor] 20 mg PO QHS #30 tab 07/27/18 05/05/19 Unknown Rx Furosemide [Lasix TAB] 40 mg PO QDAY #30 tablet 07/27/18 05/05/19 Unknown Rx Potassium Chloride [K-Dur] 10 meq PO QDAY #30 tablet 07/27/18 05/05/19 Unknown Rx carvediloL [Coreg] 3.125 mg PO BID #60 tablet 07/27/18 05/05/19 Unknown Rx lisinopriL [Zestril TAB] 5 mg PO QDAY #30 tablet 07/27/18 05/05/19 Unknown Rx ED Physical Exam - General Limitations: No Limitations - Other Other exam information: GENERAL: Patient in mild acute distress HEAD: Normocephalic, atraumatic EYES: PERRLA, EOM intact, no scleral icterus, no conjunctival hemorrhage, visual kwan and acuity wnl NOSE: No tenderness, discharge, sinus tenderness MOUTH: No erythema, bleeding, exudate HEART: Tachycardia, no murmur, S1-S2 are auscultated, no edema, pulses are symmetric LUNGS: Bibasilar rales, No respiratory distress. Bilateral breath sounds, No tachypnea, No retractions, No wheezing ABDOMEN: Normal bowel sounds, abdomen soft, no tenderness, no rebound, no guarding, no distention, no masses, no CVA tenderness MUSCULOSKELETAL: Normal joint range of motion, no redness, no swelling, no tenderness NEUROLOGIC: GCS 15, Alert and Oriented x3, Cranial nerves intact, normal sensation, normal strength, no cerebellar deficit, NIHSS 0 SKIN: Skin is warm and dry, no wounds, no rashes ED Course Vital Signs 05/05/19 05/05/19 05/05/19 06:47 07:03 12:50 Temperature 97.3 F L Pulse Rate 102 H 99 H Respiratory 24 15 Rate Blood Pressure 127/99 Blood Pressure [Right] O2 Sat by Pulse 100 Oximetry 05/05/19 05/05/19 05/05/19 13:00 13:06 14:00 Temperature 97.9 F Pulse Rate 103 H 94 H 94 H Respiratory 18 14 17 Rate Blood Pressure 128/97 131/97 Blood Pressure 128/97 [Right] O2 Sat by Pulse 98 98 98 Oximetry 05/05/19 16:28 Temperature 98.7 F Pulse Rate 93 H Respiratory 20 Rate Blood Pressure Blood Pressure 119/89 [Right] O2 Sat by Pulse 97 Oximetry ED Medical Decision Making - Lab Data Result diagrams: 05/05/19 07:03 05/05/19 07:03 Laboratory Results - last 24 hr 05/05/19 05/05/19 05/05/19 07:03 07:03 07:03 WBC 5.4 RBC 5.25 H Hgb 15.7 H Hct 46.9 H MCV 89 MCH 30 MCHC 34 RDW 14.4 Plt Count 185 Lymph % (Auto) 27.1 [place] % (Auto) 10.1 H Eos % (Auto) 1.3 Baso % (Auto) 0.5 Lymph # 1.5 [place] # 0.5 Eos # 0.1 Baso # 0.0 Seg Neutrophils % 61.0 Seg Neutrophils # 3.3 PT INR APTT D-Dimer 1047.40 H Sodium 142 Potassium 4.5 Chloride 105.8 Carbon Dioxide 23 Anion Gap 18 BUN 30 H Creatinine 1.6 H Estimated GFR 55 BUN/Creatinine Ratio 19 Glucose 115 H Calcium 9.4 Total Bilirubin 0.50 AST 75 H ALT 126 H Alkaline Phosphatase 90 Troponin T 0.508 H* NT-Pro-B Natriuret Pep Total Protein 6.7 Albumin 3.6 L Albumin/Globulin Ratio 1.2 Triglycerides 89 Cholesterol 131 LDL Cholesterol Direct 86 HDL Cholesterol 36 L Cholesterol/HDL Ratio 3.63 05/05/19 05/05/19 07:03 14:03 WBC RBC Hgb Hct MCV MCH MCHC RDW Plt Count Lymph % (Auto) [place] % (Auto) Eos % (Auto) Baso % (Auto) Lymph # [place] # Eos # Baso # Seg Neutrophils % Seg Neutrophils # PT 14.9 INR 1.15 H APTT 28.7 D-Dimer Sodium Potassium Chloride Carbon Dioxide Anion Gap BUN Creatinine Estimated GFR BUN/Creatinine Ratio Glucose Calcium Total Bilirubin AST ALT Alkaline Phosphatase Troponin T NT-Pro-B Natriuret Pep 6514 H Total Protein Albumin Albumin/Globulin Ratio Triglycerides Cholesterol LDL Cholesterol Direct HDL Cholesterol Cholesterol/HDL Ratio - EKG Data When compared to previous EKG there are: no significant change - Radiology Data Radiology results: report reviewed - Medical Decision Making At 1631 Dr. Ramirez hospitalist updated. Request consult cardiology in the ER and call back with cardiology recommendations. At 1732 Dr. Donald cardiology recommends admit and will see on consult. At 1734 Dr. Ramirez accepts admission. Critical Care Time: Yes Critical care time in (mins) excluding proc time.: 35 Critical care attestation.: If time is entered above; I have spent that time in minutes in the direct care of this critically ill patient, excluding procedure time. 35 ED Disposition Clinical Impression: NSTEMI (non-ST elevated myocardial infarction), Noncompliance with medication regimen Acute exacerbation of CHF (congestive heart failure) Qualifiers: Heart failure type: unspecified Qualified Code(s): I50.9 - Heart failure, unspecified Disposition: 09 OP ADMIT IP TO THIS HOSP Is pt being admited?: Yes Condition: Stable Referrals: PRIMARY CARE, [Primary Care Provider] - 3-5 Days
[2019-05-05 14:37] LABS: INR 1.15 (0.87-1.13)
[2019-05-05 14:41] LABS: Partial Thromboplastin Time 28.7 Sec. (24.2-36.6)
--- NOTE | 2019-05-05 16:11 | Cat Scan Report ---
CTA CHEST WITH IV CONTRAST INDICATION / CLINICAL INFORMATION: sob, elevated ddimer. TECHNIQUE: Axial CT images were obtained through the chest after injection of 60 cc Omnipaque 350 milligrams per cent IV contrast. 3 plane MIP and/or 3D reconstructions were produced. All CT scans at this location are performed using CT dose reduction for ALARA by means of automated exposure control. COMPARISON: None available. FINDINGS: PULMONARY ARTERIES: No pulmonary emboli. THORACIC AORTA: No significant abnormality. HEART: Mild cardiac enlargement is present. CORONARY ARTERIES: No significant calcification. PLEURA: No pleural effusion. No pneumothorax. LYMPH NODES: No significant adenopathy. LUNGS: No acute air space or interstitial disease. ADDITIONAL FINDINGS: None. UPPER ABDOMEN: No acute findings. SKELETAL STRUCTURES: No significant osseous abnormality. IMPRESSION: 1. No CT evidence for pulmonary embolism. 2. Cardiac enlargement Signer Name: Carlos De Dios MD Signed: 05/05/2019 4:06 PM Workstation Name: [id number]
[2019-05-05] MEDS ORDERED: HEPARIN 10,000 UNITS/10 ML VIAL IV ONE (16:17)
[2019-05-05] MEDS ORDERED: HEPARIN/ 0.45% NACL DRIP 25,000 UNIT/500 ML BAG IV SCH (17:00)
--- NOTE | 2019-05-05 18:24 | History and Physical Report ---
History of Present Illness Chief complaint: I cannot breathe when my chest feels kind of tight History of present illness: 53-year-old male with hypertension, Systolic CHF(EF 10%), nicotine dependence, cocaine dependence presents to ED for evaluation. Patient states that he has experienced difficulty breathing and tightness in his chest over the past 12 hours with persistent symptoms over the same timeframe. Patient acknowledges Orthopnea/PND, decreased exercise tolerance, dyspnea on exertion, and subjective weight gain over the past 2 weeks. Patient transported to [facility] via private vehicle. Patient seen and evaluated in the emergency department. Patient lab and imaging studies reviewed. Patient found to have clinical findings and symptoms consistent with CHF decompensation, as well as elevated troponin levels consistent with NSTEMI. Patient initiated on heparin drip in the emergency department. Cardiology team consulted in ED. Patient admitted to telemetry for medical stabilization and evaluation due to increased risk of cardiac decompensation. Patient denies fever, chills, chest pain, palpitations, syncope, bright red blood per rectum, hemoptysis, productive cough, recent ill contacts. Prior admission on 07/22/2018 reviewed. All medication listed at time of admission have been reconciled. Past History Past Medical History: heart failure, other (See HPI) Past Surgical History: No surgical history, Other (Reviewed) Social history: single, smoking Family history: hypertension Medications and Allergies Allergies Allergy/AdvReac Type Severity Reaction Status Date / Time No Known Allergies Allergy Unverified 07/21/18 20:38 Home Medications Medication Instructions Recorded Confirmed Last Taken Type Aspirin 81 mg PO DAILY #30 tab.chew 07/27/18 05/05/19 Unknown Rx AtorvaSTATin [Lipitor] 20 mg PO QHS #30 tab 07/27/18 05/05/19 Unknown Rx Furosemide [Lasix TAB] 40 mg PO QDAY #30 tablet 07/27/18 05/05/19 Unknown Rx Potassium Chloride [K-Dur] 10 meq PO QDAY #30 tablet 07/27/18 05/05/19 Unknown Rx carvediloL [Coreg] 3.125 mg PO BID #60 tablet 07/27/18 05/05/19 Unknown Rx lisinopriL [Zestril TAB] 5 mg PO QDAY #30 tablet 07/27/18 05/05/19 Unknown Rx Active Meds: Active Medications Heparin Sodium/Sodium Chloride (Heparin/ 0.45% Nacl-25,000 Unit/500 Ml) 25,000 unit in 500 mls @ 20 mls/hr IV TITRATE BHAVYA; Protocol Last Admin: 05/05/19 16:44 Dose: 1,000 units/hr, 20 mls/hr Documented by: Review of Systems Constitutional: weight gain, no weight loss, no fever, no chills, no sweats Ears, nose, mouth and throat: no ear pain, no ear discharge, no tinnitis, no nasal congestion Cardiovascular: orthopnea, edema, shortness of breath, dyspnea on exertion, paroxysmal nocturnal dyspnea, decreased exercise tolerance, no chest pain Respiratory: no cough, no cough with sputum, no excessive sputum, no hemoptysis Gastrointestinal: no nausea, no vomiting, no diarrhea, no constipation Genitourinary Male: no hematuria, no flank pain, no discharge, no urinary frequency, no urinary hesitancy Rectal: no pain, no incontinence, no bleeding Musculoskeletal: no neck stiffness, no neck pain, no shooting arm pain, no low back pain, no shooting leg pain Integumentary: no rash, no pruritis, no redness, no sores, no wounds Neurological: no paralysis, no weakness, no parathesias, no numbness, no tingling, no seizures Psychiatric: no anxiety, no memory loss, no change in sleep habits, no sleep disturbances, no insomnia, no change in appetite Endocrine: no cold intolerance, no heat intolerance, no polyphagia, no excessive thirst, no polydipsia, no polyuria Hematologic/Lymphatic: no easy bruising, no easy bleeding, no lymphadenopathy Allergic/Immunologic: no urticaria, no allergic rhinitis, no persistent infections, no angioedema Exam - Constitutional Vitals: Temp Pulse Resp BP Pulse Ox 98.7 F 82 22 148/119 97 05/05/19 16:28 05/05/19 17:01 05/05/19 17:01 05/05/19 17:01 05/05/19 16:28 General appearance: Present: mild distress - EENT Eyes: Present: PERRL ENT: hearing intact, clear oral mucosa - Neck Neck: Present: supple, normal ROM - Respiratory Respiratory effort: normal Respiratory: bilateral: CTA - Cardiovascular Heart Sounds: Present: S1 & S2. Absent: rub, click - Extremities Extremities: pulses symmetrical Extremity abnormal: edema Peripheral Pulses: within normal limits - Abdominal General gastrointestinal: Present: soft, non-tender, non-distended, normal bowel sounds Male genitourinary: Present: normal - Integumentary Integumentary: Present: clear, warm, dry - Musculoskeletal Musculoskeletal: gait normal, strength equal bilaterally - Psychiatric Psychiatric: appropriate mood/affect, intact judgment & insight - Neurologic Neurologic: CNII-XII intact, moves all extremities Results - Labs CBC & Chem 7: 05/05/19 07:03 05/05/19 19:38 Labs: Abnormal lab results 05/05/19 05/05/19 05/05/19 Range/Units 07:03 07:03 07:03 RBC 5.25 H (3.65-5.03) M/mm3 Hgb 15.7 H (11.8-15.2) gm/dl Hct 46.9 H (35.5-45.6) % [place] % (Auto) 10.1 H (0.0-7.3) % INR (0.87-1.13) D-Dimer 1047.40 H (0-234) ng/mlDDU BUN 30 H (9-20) mg/dL Creatinine 1.6 H (0.8-1.5) mg/dL Glucose 115 H (75-100) mg/dL AST 75 H (5-40) units/L ALT 126 H (7-56) units/L Troponin T 0.508 H* (0.00-0.029) ng/mL NT-Pro-B Natriuret Pep (0-900) pg/mL Albumin 3.6 L (3.9-5) g/dL HDL Cholesterol 36 L (40-59) mg/dL 05/05/19 05/05/19 Range/Units 07:03 14:03 RBC (3.65-5.03) M/mm3 Hgb (11.8-15.2) gm/dl Hct (35.5-45.6) % [place] % (Auto) (0.0-7.3) % INR 1.15 H (0.87-1.13) D-Dimer (0-234) ng/mlDDU BUN (9-20) mg/dL Creatinine (0.8-1.5) mg/dL Glucose (75-100) mg/dL AST (5-40) units/L ALT (7-56) units/L Troponin T (0.00-0.029) ng/mL NT-Pro-B Natriuret Pep 6514 H (0-900) pg/mL Albumin (3.9-5) g/dL HDL Cholesterol (40-59) mg/dL Assessment and Plan - Patient Problems (1) NSTEMI (non-ST elevated myocardial infarction) Current Visit: No Status: Acute Plan to address problem: Patient initiated on heparin drip in ED as per ED staff. Cardiology team consulted in ED. Pending repeat urine drug screen. Pain control. Supportive care (2) CHF (congestive heart failure) Current Visit: No Status: Acute Qualifiers: Heart failure type: systolic Heart failure chronicity: acute on chronic Qualified Code(s): I50.23 - Acute on chronic systolic (congestive) heart failure Plan to address problem: Strict I's/O, daily weight, BNP, pulse oximetry, supplemental oxygen, chest x- ray,afterload reduction, cardiology consulted in ED. (3) CHRIS (acute kidney injury) Current Visit: No Status: Acute Plan to address problem: Monitor urine output every shift, avoid nephrotoxic agent, repeat BMP to monitor serum creatinine. (4) Nicotine dependence Current Visit: No Status: Acute Qualifiers: Nicotine product type: cigarettes Substance use status: in withdrawal Qualified Code(s): F17.213 - Nicotine dependence, cigarettes, with withdrawal Plan to address problem: Supportive care, smoking cessation counseling, +15 minutes. (5) DVT prophylaxis Current Visit: No Status: Acute Plan to address problem: SCDs to bilateral lower extremities while in bed, patient on heparin drip.
[2019-05-05] MEDS ORDERED: ACETAMINOPHEN 325 MG TAB PO PRN (18:26)
[2019-05-05] MEDS ORDERED: ALBUTEROL 2.5 MG/3 ML NEBU IH PRN (18:26)
[2019-05-05] MEDS ORDERED: ONDANSETRON 4 MG/2 ML INJ IV PRN (18:26)
[2019-05-05 20:17] LABS: BUN/Creatinine Ratio 17; Blood Urea Nitrogen 24 mg/dL (9-20); Calcium 8.9 mg/dL (8.4-10.2); Hemolysis Index 11
[2019-05-05] MEDS ORDERED: carvediloL 3.125 MG TAB ONE (22:12)
[2019-05-05] MEDS ORDERED: FAMOTIDINE 20 MG TAB ONE (22:12)
[2019-05-05] MEDS: carvediloL 3.125 MG TAB PO SCH (22:15)
[2019-05-05] MEDS: FAMOTIDINE 10 MG TAB PO SCH (23:08)
[2019-05-06 01:36] LABS: Bilirubin,Urine NEG (Negative); Blood,Urine SM (Negative); Color,Urine Straw (Yellow); WBC,Urine < 1.0 /HPF (0.0-6.0)
[2019-05-06 01:50] LABS: Amphetamine Screen,Urine PRESUMPTIVE NEGATIVE; Benzodiazepines Screen,Urine PRESUMPTIVE NEGATIVE; Cannabinoid Screen,Urine PRESUMPTIVE NEGATIVE; Methadone Screen,Urine PRESUMPTIVE NEGATIVE; Opiate Screen,Urine PRESUMPTIVE NEGATIVE
[2019-05-06 02:10] LABS: Cocaine Screen,Urine PRESUMPTIVE POSITIVE
[2019-05-06] MEDS: FUROSEMIDE 20 MG/2 ML INJ IV SCH ×2 (06:04→17:58)
[2019-05-06 06:51] LABS: BUN/Creatinine Ratio 15; Blood Urea Nitrogen 19 mg/dL (9-20); Calcium 8.8 mg/dL (8.4-10.2); Hemolysis Index 8
[2019-05-06] MEDS ORDERED: ASPIRIN 81 MG TAB CHEW PO SCH (10:00)
[2019-05-06] MEDS: carvediloL 3.125 MG TAB PO SCH ×2 (11:01→23:39)
[2019-05-06] MEDS: FAMOTIDINE 10 MG TAB PO SCH ×2 (11:02→23:00)
[2019-05-06] MEDS: LISINOPRIL 5 MG TAB PO SCH (11:02)
[2019-05-06] MEDS: POTASSIUM CHLORIDE ER 10 MEQ TAB PO SCH (11:02)
--- NOTE | 2019-05-06 12:16 | Consultation ---
History of Present Illness Consult date: 05/06/19 Requesting physician: JILLIAN EL Consult reason: elevated troponin History of present illness: The pt is a 53 YO male with a past medical history of NICMP, HFrEF, HTN, ETOH use, tobacco use, cocaine use. He has been seen by our practice on a prior admission and has admittedly been noncompliant with OP follow up. He presented with complaints of SOB, POP, orthopnea and BLE for several days prior to arrival. Since discharge from [facility] in July,, he has only intermittently taken lasix and "over the counter water pills". He denies any chest pain, palpitations, n/v, diaphoresis, dizziness or syncope. He admits to recent cocaine use although he did recently quit smoking tobacco, no recent ETOH use. Echo done 07/22/2018 showed EF 10-15%, mild to mod LVH, abnormal diastolic function, LA mildly dilated, mod MR. LHC done 07/27/2018 showed normal coronaries, EF 15%. Past History Past Medical History: heart failure, other (See HPI) Past Surgical History: No surgical history, Other (Reviewed) Social history: single, smoking Family history: hypertension Medications and Allergies Allergies Allergy/AdvReac Type Severity Reaction Status Date / Time No Known Allergies Allergy Unverified 07/21/18 20:38 Home Medications Medication Instructions Recorded Confirmed Last Taken Type Aspirin 81 mg PO DAILY #30 tab.chew 07/27/18 05/05/19 Unknown Rx AtorvaSTATin [Lipitor] 20 mg PO QHS #30 tab 07/27/18 05/05/19 Unknown Rx Furosemide [Lasix TAB] 40 mg PO QDAY #30 tablet 07/27/18 05/05/19 Unknown Rx Potassium Chloride [K-Dur] 10 meq PO QDAY #30 tablet 07/27/18 05/05/19 Unknown Rx carvediloL [Coreg] 3.125 mg PO BID #60 tablet 07/27/18 05/05/19 Unknown Rx lisinopriL [Zestril TAB] 5 mg PO QDAY #30 tablet 07/27/18 05/05/19 Unknown Rx Active Meds: Active Medications Acetaminophen (Tylenol) 650 mg PO Q4H PRN PRN Reason: Pain MILD(1-3)/Fever >100.5/LAURENT Albuterol (Proventil) 2.5 mg IH Q4HRT PRN PRN Reason: Shortness Of Breath Aspirin (Baby Aspirin) 81 mg PO DAILY [facility] Last Admin: 05/06/19 10:59 Dose: 81 mg Documented by: Atorvastatin Calcium (Lipitor) 20 mg PO QHS [facility] Last Admin: 05/05/19 22:15 Dose: 20 mg Documented by: Carvedilol (Coreg) 3.125 mg PO BID [facility] Last Admin: 05/06/19 11:01 Dose: 3.125 mg Documented by: Famotidine (Pepcid) 10 mg PO BID [facility] Last Admin: 05/06/19 11:02 Dose: 10 mg Documented by: Furosemide (Lasix) 20 mg IV 0600,1800 [facility] Last Admin: 05/06/19 06:04 Dose: 20 mg Documented by: Heparin Sodium/Sodium Chloride (Heparin/ 0.45% Nacl-25,000 Unit/500 Ml) 25,000 unit in 500 mls @ 20 mls/hr IV TITRATE [facility]; Protocol Last Titration: 05/06/19 07:10 Dose: 1,300 units/hr, 26 mls/hr Documented by: Lisinopril (Zestril) 5 mg PO QDAY [facility] Last Admin: 05/06/19 11:02 Dose: 5 mg Documented by: Ondansetron HCl (Zofran) 4 mg IV Q8H PRN PRN Reason: Nausea And Vomiting Potassium Chloride (K-Dur) 10 meq PO QDAY [facility] Last Admin: 05/06/19 11:02 Dose: 10 meq Documented by: Sodium Chloride (Sodium Chloride Flush Syringe 10 Ml) 10 ml IV BID [facility] Last Admin: 05/06/19 11:02 Dose: 10 ml Documented by: Sodium Chloride (Sodium Chloride Flush Syringe 10 Ml) 10 ml IV PRN PRN PRN Reason: LINE FLUSH Sodium Chloride (Sodium Chloride Flush Syringe 10 Ml) 10 ml IV PRN PRN PRN Reason: LINE FLUSH Review of Systems Constitutional: no fever, no chills, no sweats Ears, nose, mouth and throat: no ear pain, no nose pain, no sinus pressure, no sinus pain Cardiovascular: orthopnea, shortness of breath, dyspnea on exertion, paroxysmal nocturnal dyspnea, high blood pressure, leg edema, decreased exercise tolerance, no chest pain, no palpitations, no rapid/irregular heart beat, no syncope, no lightheadedness Respiratory: shortness of breath, dyspnea on exertion, no cough, no congestion, no wheezing, no pain on inspiration Gastrointestinal: no abdominal pain, no nausea, no vomiting, no diarrhea, no constipation, no change in bowel habits Genitourinary Male: no dysuria, no hematuria, no flank pain, no discharge, no urinary frequency, no urinary hesitancy Musculoskeletal: no neck stiffness, no neck pain, no shooting arm pain, no arm numbness/tingling, no low back pain, no shooting leg pain Integumentary: no rash, no pruritis, no redness, no sores, no wounds Neurological: no head injury, no paralysis, no weakness, no parathesias, no numbness, no tingling, no seizures, no syncope Psychiatric: no anxiety Endocrine: no cold intolerance, no heat intolerance Hematologic/Lymphatic: no easy bruising, no easy bleeding Allergic/Immunologic: no urticaria, no wheezing Physical Examination Vital Signs Pulse Resp BP Pulse Ox 102 H 24 127/99 100 05/05/19 06:47 05/05/19 06:47 05/05/19 06:47 05/05/19 06:47 General appearance: no acute distress HEENT: Positive: PERRL, Normocephaly, Mucus Membranes Moist Neck: Positive: neck supple, trachea midline Cardiac: Positive: Reg Rate and Rhythm, S1/S2 Lungs: Positive: Decreased Breath Sounds Neuro: Positive: Grossly Intact Abdomen: Negative: Tender Male genitourinary: Negative: tender Skin: Negative: Rash Musculoskeletal: No Pain Extremities: Absent: edema Results 05/05/19 07:03 05/06/19 06:01 Cardiac Enzymes 05/05/19 Range/Units 07:03 AST 75 H (5-40) units/L Coagulation 05/05/19 Range/Units 14:03 PT 14.9 (12.2-14.9) Sec. INR 1.15 H (0.87-1.13) APTT 28.7 (24.2-36.6) Sec. Lipids 05/05/19 Range/Units 07:03 Triglycerides 89 (2-149) mg/dL Cholesterol 131 (50-199) mg/dL HDL Cholesterol 36 L (40-59) mg/dL Cholesterol/HDL Ratio 3.63 % Comprehensive Metabolic Panel 05/05/19 05/05/1920 Range/Units 07:03 19:38 06:01 Sodium 142 141 141 (137-145) mmol/L Potassium 4.5 3.8 4.0 (3.6-5.0) mmol/L Chloride 105.8 101.0 105.1 (98-107) mmol/L Carbon Dioxide 23 24 20 L (22-30) mmol/L BUN 30 H 24 H 19 (9-20) mg/dL Creatinine 1.6 H 1.4 1.3 (0.8-1.5) mg/dL Glucose 115 H 98 131 H (75-100) mg/dL Calcium 9.4 8.9 8.8 (8.4-10.2) mg/dL AST 75 H (5-40) units/L ALT 126 H (7-56) units/L Alkaline Phosphatase 90 (35-129) units/L Total Protein 6.7 (6.3-8.2) g/dL Albumin 3.6 L (3.9-5) g/dL - Imaging and Cardiology Echo: report reviewed (07/22/2018 showed EF 10-15%, mild to mod LVH, abnormal diastolic function, LA mildly dilated, mod MR. ) Cardiac cath: report reviewed (07/27/2018 showed normal coronaries, EF 15%. ) EKG: report reviewed, image reviewed EKG interpretations - Telemetry EKG Rhythm: Sinus Rhythm - EKG Sinus rhythms and dysrhythmias: sinus rhythm Chamber hypertrophy or enlargement: left ventricular hypertro Assessment and Plan Agree with present cardiac management. CE elevation appears c/w NSTEMI type II. ECG NAF, pt denies any occurrence of chest pain. LHC 07/27/2018 showed normal coronaries. No indication for additional ischemic evaluation at this time. Cont to trend Henrik and f/u ECG in AM. D/c heparin gtt. The patient has been seen in conjunction with Dr. Addison who agrees with the assessment and plan of care. - Patient Problems (1) Acute HFrEF (heart failure with reduced ejection fraction) Current Visit: Yes Status: Acute (2) NICM (nonischemic cardiomyopathy) Current Visit: Yes Status: Chronic (3) HTN (hypertension) Current Visit: Yes Status: Chronic Qualifiers: Hypertension type: essential hypertension Qualified Code(s): I10 - Essential (primary) hypertension (4) NSTEMI (non-ST elevated myocardial infarction) Current Visit: Yes Status: Acute Plan to address problem: suspect type II (5) Cocaine use Current Visit: Yes Status: Chronic (6) Noncompliance Current Visit: Yes Status: Chronic
--- NOTE | 2019-05-06 13:49 | Discharge Summary ---
Providers - Providers Date of Admission: 05/05/19 18:26 Attending physician: JILLIAN EL 05/05/19 Consult to Cardiac Rehabilitation [CONS] Routine Reason For Exam: Phase I 05/05/19 18:34 Consult to Physician [CONS] Routine Comment: Consulting Provider: SAUMYA STANTON Physician Instructions: Reason For Exam: nstemi Primary care physician: ARCHITECTURAL INSPECTOR Hospitalization Condition: Stable - Discharge Diagnoses (1) NSTEMI (non-ST elevated myocardial infarction) Status: Acute (2) CHF (congestive heart failure) Status: Acute Qualifiers: Heart failure type: systolic Heart failure chronicity: acute on chronic Qualified Code(s): I50.23 - Acute on chronic systolic (congestive) heart failure (3) CHRIS (acute kidney injury) Status: Acute (4) Nicotine dependence Status: Acute Qualifiers: Nicotine product type: cigarettes Substance use status: in withdrawal Qualified Code(s): F17.213 - Nicotine dependence, cigarettes, with withdrawal (5) DVT prophylaxis Status: Acute Exam - Constitutional Vitals: Temp Pulse Resp BP Pulse Ox 98.6 F 90 20 126/80 96 05/06/19 08:16 05/06/19 11:52 05/06/19 11:52 05/06/19 11:52 05/06/19 11:52 Plan Follow up with: MALAIKA TODD MD [Primary Care Provider] - 3-5 Days
--- NOTE | 2019-05-06 16:47 | Progress Note ---
Assessment and Plan - Patient Problems (1) CHF (congestive heart failure) Current Visit: No Status: Acute Qualifiers: Heart failure type: systolic Heart failure chronicity: acute on chronic Qualified Code(s): I50.23 - Acute on chronic systolic (congestive) heart failure Plan to address problem: Strict I's/O, daily weight, BNP, pulse oximetry, supplemental oxygen, chest x- ray,afterload reduction, cardiology consulted in ED. discharge home pending conclusion of cardiac work-up/treatment plan. (2) NSTEMI (non-ST elevated myocardial infarction) Current Visit: Yes Status: Acute Plan to address problem: Supportive care. Symptoms suspected secondary to cocaine ingestion. (3) CHRIS (acute kidney injury) Current Visit: No Status: Acute Plan to address problem: Monitor urine output every shift, avoid nephrotoxic agent, repeat BMP to monitor serum creatinine. (4) Nicotine dependence Current Visit: No Status: Acute Qualifiers: Nicotine product type: cigarettes Substance use status: in withdrawal Qualified Code(s): F17.213 - Nicotine dependence, cigarettes, with withdrawal Plan to address problem: Supportive care, smoking cessation counseling, +15 minutes. (5) DVT prophylaxis Current Visit: No Status: Acute Plan to address problem: SCDs to bilateral lower extremities while in bed, patient on heparin drip. History Interval history: 53-year-old gentleman hospital day 2 with cocaine induced chest pain, chronic congestive heart failure. Patient resting comfortably. Patient ambulating in his room. Patient denies fever, chills, chest pain, palpitations, nausea vomiting diarrhea, leg swelling, calf pain, shortness of breath. Patient pending conclusion of cardiac evaluation/work-up. Hospitalist Physical - Constitutional Vitals: Temp Pulse Resp BP Pulse Ox 98.9 F 87 18 98/71 98 05/06/19 15:48 05/06/19 15:48 05/06/19 15:48 05/06/19 15:48 05/06/19 15:48 General appearance: Present: no acute distress - EENT Eyes: Present: PERRL ENT: hearing intact - Neck Neck: Present: supple - Respiratory Respiratory effort: normal Respiratory: bilateral: CTA - Cardiovascular Rhythm: regular Heart Sounds: Present: S1 & S2 - Extremities Extremities: no ischemia Peripheral Pulses: within normal limits - Abdominal General gastrointestinal: soft, non-tender, non-distended - Integumentary Integumentary: Present: clear, warm, dry - Psychiatric Psychiatric: appropriate mood/affect, cooperative - Neurologic Neurologic: CNII-XII intact Results - Labs CBC & Chem 7: 05/05/19 07:03 05/06/19 06:01 Labs: Laboratory Last Values WBC 5.4 K/mm3 (4.5-11.0) 05/05/19 07:03 RBC 5.25 M/mm3 (3.65-5.03) H 05/05/19 07:03 Hgb 15.7 gm/dl (11.8-15.2) H 05/05/19 07:03 Hct 46.9 % (35.5-45.6) H 05/05/19 07:03 MCV 89 fl (84-94) 05/05/19 07:03 MCH 30 pg (28-32) 05/05/19 07:03 MCHC 34 % (32-34) 05/05/19 07:03 RDW 14.4 % (13.2-15.2) 05/05/19 07:03 Plt Count 185 K/mm3 (140-440) 05/05/19 07:03 Lymph % (Auto) 27.1 % (13.4-35.0) 05/05/19 07:03 [place] % (Auto) 10.1 % (0.0-7.3) H 05/05/19 07:03 Eos % (Auto) 1.3 % (0.0-4.3) 05/05/19 07:03 Baso % (Auto) 0.5 % (0.0-1.8) 05/05/19 07:03 Lymph # 1.5 K/mm3 (1.2-5.4) 05/05/19 07:03 [place] # 0.5 K/mm3 (0.0-0.8) 05/05/19 07:03 Eos # 0.1 K/mm3 (0.0-0.4) 05/05/19 07:03 Baso # 0.0 K/mm3 (0.0-0.1) 05/05/19 07:03 Seg Neutrophils % 61.0 % (40.0-70.0) 05/05/19 07:03 Seg Neutrophils # 3.3 K/mm3 (1.8-7.7) 05/05/19 07:03 PT 14.9 Sec. (12.2-14.9) 05/05/19 14:03 INR 1.15 (0.87-1.13) H 05/05/19 14:03 APTT 28.7 Sec. (24.2-36.6) 05/05/19 14:03 D-Dimer 1047.40 ng/mlDDU (0-234) H 05/05/19 07:03 Heparin Anti-Xa Level < 0.10 U.I./ml (0.3-0.7) L 05/06/19 13:27 Sodium 141 mmol/L (137-145) 05/06/19 06:01 Potassium 4.0 mmol/L (3.6-5.0) 05/06/19 06:01 Chloride 105.1 mmol/L (98-107) 05/06/19 06:01 Carbon Dioxide 20 mmol/L (22-30) L 05/06/19 06:01 Anion Gap 20 mmol/L 05/06/19 06:01 BUN 19 mg/dL (9-20) 05/06/19 06:01 Creatinine 1.3 mg/dL (0.8-1.5) 05/06/19 06:01 Estimated GFR > 60 ml/min 05/06/19 06:01 BUN/Creatinine Ratio 15 % 05/06/19 06:01 Glucose 131 mg/dL (75-100) H 05/06/19 06:01 Calcium 8.8 mg/dL (8.4-10.2) 05/06/19 06:01 Total Bilirubin 0.50 mg/dL (0.1-1.2) 05/05/19 07:03 AST 75 units/L (5-40) H 05/05/19 07:03 ALT 126 units/L (7-56) H 05/05/19 07:03 Alkaline Phosphatase 90 units/L (35-129) 05/05/19 07:03 Troponin T 0.422 ng/mL (0.00-0.029) H* 05/06/19 00:35 NT-Pro-B Natriuret Pep 6514 pg/mL (0-900) H 05/05/19 07:03 Total Protein 6.7 g/dL (6.3-8.2) 05/05/19 07:03 Albumin 3.6 g/dL (3.9-5) L 05/05/19 07:03 Albumin/Globulin Ratio 1.2 % 05/05/19 07:03 Triglycerides 89 mg/dL (2-149) 05/05/19 07:03 Cholesterol 131 mg/dL (50-199) 05/05/19 07:03 LDL Cholesterol Direct 86 mg/dL (50-130) 05/05/19 07:03 HDL Cholesterol 36 mg/dL (40-59) L 05/05/19 07:03 Cholesterol/HDL Ratio 3.63 % 05/05/19 07:03 Urine Color Straw (Yellow) 05/05/19 16:33 Urine Turbidity Clear (Clear) 05/05/19 16:33 Urine pH 6.0 (5.0-7.0) 05/05/19 16:33 Ur Specific [place] 1.011 (1.003-1.030) 05/05/19 16:33 Urine Protein 30 mg/dl mg/dL (Negative) 05/05/19 16:33 Urine Glucose (UA) Neg mg/dL (Negative) 05/05/19 16:33 Urine Ketones Neg mg/dL (Negative) 05/05/19 16:33 Urine Blood Sm (Negative) 05/05/19 16:33 Urine Nitrite Neg (Negative) 05/05/19 16:33 Urine Bilirubin Neg (Negative) 05/05/19 16:33 Urine Urobilinogen 2.0 mg/dL (<2.0) 05/05/19 16:33 Ur Leukocyte Esterase Neg (Negative) 05/05/19 16:33 Urine WBC (Auto) < 1.0 /HPF (0.0-6.0) 05/05/19 16:33 Urine RBC (Auto) 1.0 /HPF (0.0-6.0) 05/05/19 16:33 Urine Opiates Screen Presumptive negative 05/05/19 16:33 Urine Methadone Screen Presumptive negative 05/05/19 16:33 Ur Barbiturates Screen Presumptive negative 05/05/19 16:33 Ur Phencyclidine Scrn Presumptive negative 05/05/19 16:33 Ur Amphetamines Screen Presumptive negative 05/05/19 16:33 U Benzodiazepines Scrn Presumptive negative 05/05/19 16:33 Urine Cocaine Screen Presumptive positive 05/05/19 16:33 U Marijuana (THC) Screen Presumptive negative 05/05/19 16:33 Drugs of Abuse Note Disclamer 05/05/19 16:33 Active Medications - Current Medications Current Medications: Generic Name Dose Route Start Last Admin Trade Name Joseq PRN Reason Stop Dose Admin Acetaminophen 650 mg 05/05/19 18:26 Tylenol PO Q4H PRN Pain MILD(1-3)/Fever >100.5/LAURENT Albuterol 2.5 mg 05/05/19 18:26 Proventil IH Q4HRT PRN Shortness Of Breath Carvedilol 3.125 mg 05/05/19 22:00 05/06/19 11:01 Coreg PO 3.125 mg BID BHAVYA Administration Famotidine 10 mg 05/05/19 22:00 05/06/19 11:02 Pepcid PO 10 mg BID BHAVYA Administration Furosemide 20 mg 05/06/19 06:00 05/06/19 06:04 Lasix IV 20 mg 0600,1800 BHAVYA Administration Lisinopril 5 mg 05/06/19 10:00 05/06/19 11:02 Zestril PO 5 mg QDAY BHAVYA Administration Ondansetron HCl 4 mg 05/05/19 18:26 Zofran IV Q8H PRN Nausea And Vomiting Potassium Chloride 10 meq 05/06/19 10:00 05/06/19 11:02 K-Dur PO 10 meq QDAY BHAVYA Administration Sodium Chloride 10 ml 05/05/19 22:00 05/06/19 11:02 Sodium Chloride Flush Syringe 10 Ml IV 10 ml BID BHAVYA Administration Sodium Chloride 10 ml 05/05/19 18:26 Sodium Chloride Flush Syringe 10 Ml IV PRN PRN LINE FLUSH Sodium Chloride 10 ml 05/05/19 18:32 Sodium Chloride Flush Syringe 10 Ml IV PRN PRN LINE FLUSH
[2019-05-07] MEDS: FUROSEMIDE 20 MG/2 ML INJ IV SCH (06:38)
[2019-05-07 06:48] LABS: Calcium 9.3 mg/dL (8.4-10.2)
[2019-05-07 08:12] VITALS: BP 115/71
[2019-05-07] MEDS: FAMOTIDINE 10 MG TAB PO SCH (10:01)
[2019-05-07] MEDS: carvediloL 3.125 MG TAB PO SCH (10:01)
[2019-05-07] MEDS: POTASSIUM CHLORIDE ER 10 MEQ TAB PO SCH (10:02)
[2019-05-07] MEDS: LISINOPRIL 5 MG TAB PO SCH (10:02)
--- NOTE | 2019-05-07 11:22 | Discharge Summary ---
Providers - Providers Date of Admission: 05/05/19 18:26 Attending physician: JILLIAN EL 05/05/19 Consult to Cardiac Rehabilitation [CONS] Routine Reason For Exam: Phase I 05/05/19 18:34 Consult to Physician [CONS] Routine Comment: Consulting Provider: SAUMYA STANTON Physician Instructions: Reason For Exam: nstemi Primary care physician: STERILE [employer] PROCESSOR Hospitalization Condition: Stable - Discharge Diagnoses (1) CHF (congestive heart failure) Status: Acute Qualifiers: Heart failure type: systolic Heart failure chronicity: acute on chronic Qualified Code(s): I50.23 - Acute on chronic systolic (congestive) heart failure (2) NSTEMI (non-ST elevated myocardial infarction) Status: Acute (3) CHRIS (acute kidney injury) Status: Acute (4) Nicotine dependence Status: Acute Qualifiers: Nicotine product type: cigarettes Substance use status: in withdrawal Qualified Code(s): F17.213 - Nicotine dependence, cigarettes, with withdrawal (5) DVT prophylaxis Status: Acute Exam - Constitutional Vitals: Temp Pulse Resp BP Pulse Ox 97.6 F 63 18 115/71 95 05/07/19 07:56 05/07/19 10:02 05/07/19 08:28 05/07/19 10:02 05/07/19 08:49 Plan Follow up with: JEANETH ALMONTE MD [Staff Physician] - 7 Days PRIMARY CARE, [Primary Care Provider] - 3-5 Days Prescriptions: Aspirin [Aspirin BABY CHEW TAB] 81 mg PO QDAY #30 tab.chew carvediloL [Coreg] 3.125 mg PO BID #60 tablet Furosemide [Lasix TAB] 40 mg PO QDAY #30 tablet Potassium Chloride 10 meq PO DAILY #30 tablet.er Lisinopril [Zestril] 5 mg PO DAILY #30 tablet
--- NOTE | 2019-05-07 11:46 | Progress Note ---
Assessment and Plan Currently stable cardiac status. Pt is anxious to discharge, states he has to leave the hospital today. Pt may discharge home from cardiology standpoint on listed home cardiac regimen. We will plan to evaluate for AICD candidacy as OP. Recommend follow up in our office with Dr. Addison within 3-5 days ([phone]). Pt verbalizes understanding and states he will call and make his appt. The patient has been seen in conjunction with Dr. Addison who agrees with the assessment and plan of care. - Patient Problems (1) Acute HFrEF (heart failure with reduced ejection fraction) Current Visit: Yes Status: Acute (2) NICM (nonischemic cardiomyopathy) Current Visit: Yes Status: Chronic (3) HTN (hypertension) Current Visit: Yes Status: Chronic Qualifiers: Hypertension type: essential hypertension Qualified Code(s): I10 - Essential (primary) hypertension (4) NSTEMI (non-ST elevated myocardial infarction) Current Visit: Yes Status: Acute (5) Cocaine use Current Visit: Yes Status: Chronic (6) Noncompliance Current Visit: Yes Status: Chronic Subjective Date of service: 05/07/19 Principal diagnosis: hf Interval history: pt ambulating around unit, states he is feeling well, is anxious to discharge, states he has to leave the hospital today. in SR on tele. Objective Last Vital Signs Temp 97.6 F 05/07/19 07:56 Pulse 63 05/07/19 10:02 Resp 18 05/07/19 08:28 BP 115/71 05/07/19 10:02 Pulse Ox 95 05/07/19 08:49 - Physical Examination General: No Apparent Distress HEENT: Positive: PERRL, Normocephaly, Mucus Membranes Moist Neck: Positive: neck supple, trachea midline Cardiac: Positive: Reg Rate and Rhythm, S1/S2 Lungs: Positive: Decreased Breath Sounds Neuro: Positive: Grossly Intact Abdomen: Negative: Tender Skin: Negative: Rash Musculoskeletal: No Pain Extremities: Absent: edema - Labs and Meds Comprehensive Metabolic Panel 05/07/19 Range/Units 06:03 Sodium 144 (137-145) mmol/L Potassium 4.6 (3.6-5.0) mmol/L Chloride 103.2 (98-107) mmol/L Carbon Dioxide 30 D (22-30) mmol/L BUN 25 H (9-20) mg/dL Creatinine 1.6 H (0.8-1.5) mg/dL Glucose 100 (75-100) mg/dL Calcium 9.3 (8.4-10.2) mg/dL - Imaging and Cardiology EKG: report reviewed, image reviewed Echo: report reviewed (07/22/2018 showed EF 10-15%, mild to mod LVH, abnormal diastolic function, LA mildly dilated, mod MR. ) Cardiac cath: report reviewed (07/27/2018 showed normal coronaries, EF 15%. ) - EKG Sinus rhythms and dysrhythmias: sinus rhythm Chamber hypertrophy or enlargement: left ventricular hypertro
== END 2019-05-07 11:49 | disposition home or self-care (01) | DRG 280 ==
LOC: ED 06:40 → 4A 18:26
PROVIDERS: ADMIT Internal Medicine; ATTEND Internal Medicine
DX: I21.4 Non-ST elevation (NSTEMI) myocardial infarction (principal); I50.23 Acute on chronic systolic (congestive) heart failure; F14.20 Cocaine dependence, uncomplicated; N17.9 Acute kidney failure, unspecified; F17.213 Nicotine dependence, cigarettes, with withdrawal; I42.0 Dilated cardiomyopathy; I11.0 Hypertensive heart disease with heart failure; Z79.82 Long term (current) use of aspirin; Z91.14 Patient's other noncompliance with medication regimen
CPT/HCPCS: 36415; 71046; 71275; 80048; 80053; 80061; 80307; 81001; 83880; 84484; 85025; 85379; 85520; 85610; 85730; 87116; 93005; 93010; G0378; A9270-GY; J1644; J1940; Q9967

== ENCOUNTER 2020-10-16 20:17 | Inpatient (IN) | payer SELFPAY ==
--- NOTE | 2020-10-16 20:37 | Event Note ---
ED Screening Note Date of service: 10/16/20 Time: 20:33 ED Screening Note: 55 year old male with pmhx of CHF presents to ED with stroke like symptoms. Onset was around 11pm last night. He reports sudden onset of peripheral vision loss from the left eye, left-sided facial numbness and weakness to left upper and lower extremities. He denies any chest pain or SOB. His physical exam in triage shows no obvious neuro deficits. He states he has not noticed any improvement in his symptoms since he started last night. His vital signs are stable out in triage This initial assessment/diagnostic orders/clinical plan/treatment(s) is/are subject to change based on patients health status, clinical progression and re- assessment by fellow clinical providers in the ED. Further treatment and workup at subsequent clinical providers discretion. Patient/guardian urged not to elope from the ED as their condition may be serious if not clinically assessed and managed. Initial orders include: Stroke order set /visual acuity
--- NOTE | 2020-10-16 20:46 | Emergency Department Report ---
ED Neuro Deficit HPI - General Chief Complaint: Neuro Symptoms/Deficit Stated Complaint: Left-sided blurry vision, left arm, left leg numbness Time Seen by Provider: 10/16/20 20:43 Source: patient, RN notes reviewed Mode of arrival: Ambulatory Limitations: No Limitations - History of Present Illness Initial Comments: The patient is a 55-year-old gentleman. He reports that he is right-hand dominant. He presents to the ER today with a complaint of monocular left-sided blurry vision, and the left lateral/temporal aspect of his visual field, last known well time is an 11:00 PM, October 15, 2020, also has a history of nonischemic cardiomyopathy, heart failure with preserved ejection fraction, hypertension, alcohol abuse, tobacco abuse, cocaine abuse. The patient denies physical pain. The patient denies Covid symptomatology. The patient also reports left arm, and leg numbness, without weakness. He patient denies additional symptoms. -: days(s) Location: left arm, left leg, other (Left-sided visual field) Presenting Symptoms: Present: Blurred/Loss of Vision. Absent: Weak/Paralyzed One Side, Sudden, Severe Headache, Facial Droop/Numbness, Unable to Speak Clear ly History of same: No Place: home Quality: numb Improves With: none Worsens With: none On Anticoagulants: No Context: gradual onset Associated Symptoms: denies other symptoms - Related Data Home Medications: Previous Rx's Medication Instructions Recorded Last Taken Type Aspirin 81 mg PO DAILY #30 tab.chew 07/27/18 Unknown Rx AtorvaSTATin [Lipitor] 20 mg PO QHS #30 tab 07/27/18 Unknown Rx Furosemide [Lasix TAB] 40 mg PO QDAY #30 tablet 07/27/18 Unknown Rx Potassium Chloride [K-Dur] 10 meq PO QDAY #30 tablet 07/27/18 Unknown Rx carvediloL [Coreg] 3.125 mg PO BID #60 tablet 07/27/18 Unknown Rx lisinopriL [Zestril TAB] 5 mg PO QDAY #30 tablet 07/27/18 Unknown Rx Aspirin [Aspirin BABY CHEW TAB] 81 mg PO QDAY #30 tab.chew 05/07/19 Unknown Rx Furosemide [Lasix TAB] 40 mg PO QDAY #30 tablet 05/07/19 Unknown Rx Lisinopril [Zestril] 5 mg PO DAILY #30 tablet 05/07/19 Unknown Rx Potassium Chloride 10 meq PO DAILY #30 tablet.er 05/07/19 Unknown Rx carvediloL [Coreg] 3.125 mg PO BID #60 tablet 05/07/19 Unknown Rx Allergies/Adverse Reactions: Allergies Allergy/AdvReac Type Severity Reaction Status Date / Time No Known Allergies Allergy Verified 10/16/20 21:25 ED Review of Systems ROS: Stated complaint: POSSIBLE STROKE Other details as noted in HPI Constitutional: other (Denies loss of taste and smell). denies: fever Eyes: vision change. denies: eye pain, eye discharge ENT: denies: epistaxis Respiratory: denies: cough Cardiovascular: denies: chest pain Gastrointestinal: denies: abdominal pain Genitourinary: denies: dysuria Musculoskeletal: denies: back pain Neurological: numbness Hematological/Lymphatic: denies: easy bleeding ED Past Medical Hx - Past Medical History Previous Medical History?: Yes Hx Hypertension: Yes Hx Congestive Heart Failure: Yes Hx Diabetes: No Hx Asthma: No Hx COPD: No Additional medical history: Punctured lung, Broken ribs - Surgical History Past Surgical History?: No - Social History Smoking Status: Unknown if ever smoked - Medications Home Medications: Home Medications Medication Instructions Recorded Confirmed Last Taken Type Aspirin 81 mg PO DAILY #30 tab.chew 07/27/18 05/05/19 Unknown Rx AtorvaSTATin [Lipitor] 20 mg PO QHS #30 tab 07/27/18 05/05/19 Unknown Rx Furosemide [Lasix TAB] 40 mg PO QDAY #30 tablet 07/27/18 05/05/19 Unknown Rx Potassium Chloride [K-Dur] 10 meq PO QDAY #30 tablet 07/27/18 05/05/19 Unknown Rx carvediloL [Coreg] 3.125 mg PO BID #60 tablet 07/27/18 05/05/19 Unknown Rx lisinopriL [Zestril TAB] 5 mg PO QDAY #30 tablet 07/27/18 05/05/19 Unknown Rx Aspirin [Aspirin BABY CHEW TAB] 81 mg PO QDAY #30 tab.chew 05/07/19 Unknown Rx Furosemide [Lasix TAB] 40 mg PO QDAY #30 tablet 05/07/19 Unknown Rx Lisinopril [Zestril] 5 mg PO DAILY #30 tablet 05/07/19 Unknown Rx Potassium Chloride 10 meq PO DAILY #30 tablet.er 05/07/19 Unknown Rx carvediloL [Coreg] 3.125 mg PO BID #60 tablet 05/07/19 Unknown Rx ED Neuro Physical Exam - General Limitations: No Limitations General appearance: alert, in no apparent distress Suspected Stroke: Yes - Head Head exam: Present: atraumatic, normocephalic - Eye Eye exam: Present: normal appearance, PERRL, EOMI, other (Visual acuity intact to finger counting, color perception, reading at a close distance). Absent: nystagmus - ENT ENT exam: Present: normal exam, normal orophraynx, mucous membranes moist, normal external ear exam - Neck Neck exam: Present: normal inspection, full ROM. Absent: tenderness, meningismus - Respiratory Respiratory exam: Present: normal lung sounds bilaterally. Absent: respiratory distress, wheezes, rales, rhonchi, stridor, decreased breath sounds - Cardiovascular Cardiovascular Exam: Present: regular rate, normal rhythm, normal heart sounds. Absent: bradycardia, tachycardia, irregular rhythm, systolic murmur, diastolic murmur, rubs, gallop - GI/Abdominal GI/Abdominal exam: Present: soft. Absent: distended, tenderness, guarding, rebound, rigid, pulsatile mass - Rectal Rectal exam: Present: deferred - Extremities Exam Extremities exam: Present: normal inspection, full ROM, other (2+ pulses noted in the bilateral upper and lower extremities. There is no palpable cord. negative Homans sign. Muscular compartments are soft. The pelvis is stable.). Absent: pedal edema, calf tenderness - Back Exam Back exam: Present: normal inspection, full ROM. Absent: tenderness, CVA tenderness (R), CVA tenderness (L), paraspinal tenderness, vertebral tenderness - Neurological Exam Neurological exam: Present: alert, oriented X3, CN II-XII intact (There is no facial droop. The tongue is midline. Extraocular movements are intact bi laterally. Shoulder shrug is intact bilaterally. Hearing is intact bilaterally. Visual acuity intact to finger counting, color perception, reading at a close distance in the bilateral eyes. Trace), motor sensory deficit (There is decreased sensation to the light touch, left arm, left leg) - NIHSS Assessment Interval: Baseline 1a. Level of Consciousness: alert/keenly responsive 1b. LOC Questions: answers both correctly 1c. LOC Commands: performs tasks correctly 2. Best Gaze: normal 3. Visual: partial hemianopia 4. Facial Palsy: normal symmetrical movement 5b. Motor Arm Right: no drift 5a. Motor Arm Left: no drift 6a. Motor Leg Left: no drift 6b. Motor Leg Right: no drift 7. Limb Ataxia: absent 8. Sensory: mild/moderate sensory loss 9. Best Language: no aphasia 10. Dysarthria: normal 11. Extinction/Inattention: no abnormality Total Score: 2 Stroke Severity: Minor Stroke - Psychiatric Psychiatric exam: Present: normal affect, normal mood - Skin Skin exam: Present: warm, dry, intact, normal color. Absent: rash ED Course Vital Signs 10/16/20 10/16/20 10/16/20 20:28 21:22 22:22 Temperature 98.3 F Pulse Rate 47 L 95 H 87 Respiratory 18 17 15 Rate Blood Pressure 115/70 124/77 [Left] Blood Pressure 128/77 [Right] O2 Sat by Pulse 98 96 100 Oximetry - Lab Data Result diagrams: 10/16/20 21:04 10/16/20 21:48 Lab Results 10/16/20 10/16/20 10/16/20 Range/Units 21:04 21:04 21:04 WBC 5.7 (4.5-11.0) K/mm3 RBC 4.93 (3.65-5.03) M/mm3 Hgb 15.1 (11.8-15.2) gm/dl Hct 45.9 H (35.5-45.6) % MCV 93 (84-94) fl MCH 31 (28-32) pg MCHC 33 (32-34) % RDW 14.2 (13.2-15.2) % Plt Count 161 (140-440) K/mm3 Lymph % (Auto) 27.8 (13.4-35.0) % Blount % (Auto) 9.0 H (0.0-7.3) % Eos % (Auto) 1.3 (0.0-4.3) % Baso % (Auto) 1.0 (0.0-1.8) % Lymph # (Auto) 1.6 (1.2-5.4) K/mm3 Blount # (Auto) 0.5 (0.0-0.8) K/mm3 Eos # (Auto) 0.1 (0.0-0.4) K/mm3 Baso # (Auto) 0.1 (0.0-0.1) K/mm3 Seg Neutrophils % 60.9 (40.0-70.0) % Seg Neutrophils # 3.5 (1.8-7.7) K/mm3 PT 15.9 H (12.2-14.9) Sec. INR 1.22 H (0.87-1.13) APTT 29.6 (24.2-36.6) Sec. Thrombin Time 17.3 (15.1-19.6) Sec. Sodium (137-145) mmol/L Potassium (3.6-5.0) mmol/L Chloride (98-107) mmol/L Carbon Dioxide (22-30) mmol/L Anion Gap mmol/L BUN (9-20) mg/dL Creatinine (0.8-1.3) mg/dL Estimated GFR ml/min BUN/Creatinine Ratio % Glucose (75-100) mg/dL Calcium (8.4-10.2) mg/dL Magnesium 1.80 (1.7-2.3) mg/dL Total Creatine Kinase 87 (55-170) units/L CK-MB (CK-2) 3.0 (0.0-4.0) ng/mL CK-MB (CK-2) Rel Index 3.4 (0-4) Troponin T 0.099 H (0.00-0.029) ng/mL Plasma/Serum Alcohol (0-0.07) % 10/16/20 10/16/20 Range/Units 21:04 21:48 WBC (4.5-11.0) K/mm3 RBC (3.65-5.03) M/mm3 Hgb (11.8-15.2) gm/dl Hct (35.5-45.6) % MCV (84-94) fl MCH (28-32) pg MCHC (32-34) % RDW (13.2-15.2) % Plt Count (140-440) K/mm3 Lymph % (Auto) (13.4-35.0) % Blount % (Auto) (0.0-7.3) % Eos % (Auto) (0.0-4.3) % Baso % (Auto) (0.0-1.8) % Lymph # (Auto) (1.2-5.4) K/mm3 Blount # (Auto) (0.0-0.8) K/mm3 Eos # (Auto) (0.0-0.4) K/mm3 Baso # (Auto) (0.0-0.1) K/mm3 Seg Neutrophils % (40.0-70.0) % Seg Neutrophils # (1.8-7.7) K/mm3 PT (12.2-14.9) Sec. INR (0.87-1.13) APTT (24.2-36.6) Sec. Thrombin Time (15.1-19.6) Sec. Sodium 136 L (137-145) mmol/L Potassium 4.2 (3.6-5.0) mmol/L Chloride 99.7 (98-107) mmol/L Carbon Dioxide 27 (22-30) mmol/L Anion Gap 14 mmol/L BUN 37 H (9-20) mg/dL Creatinine 1.9 H (0.8-1.3) mg/dL Estimated GFR 45 ml/min BUN/Creatinine Ratio 19 % Glucose 112 H (75-100) mg/dL Calcium 9.2 (8.4-10.2) mg/dL Magnesium (1.7-2.3) mg/dL Total Creatine Kinase (55-170) units/L CK-MB (CK-2) (0.0-4.0) ng/mL CK-MB (CK-2) Rel Index (0-4) Troponin T (0.00-0.029) ng/mL Plasma/Serum Alcohol < 0.01 (0-0.07) % - EKG Data -: EKG Interpreted by Ri EKG shows normal: sinus rhythm 10/16/20 22:14 EKG interpreted at 21: 15 Sinus rhythm, 91 bpm, normal P wave axis, left axis deviation, left anterior fascicular block, QTC prolonged, left ventricular hypertrophy, abnormal EKG, not a STEMI, PVC, unchanged from prior EKG from May 05, 2019. - Radiology Data Radiology results: report reviewed, image reviewed CT head/brain wo con INDICATION / CLINICAL INFORMATION: 55 years Male; stroke like symptoms. TECHNIQUE: Routine CT head without contrast. All CT scans at this location are performed using CT dose reduction for ALARA by means of automated exposure control. COMPARISON: None. FINDINGS: BRAIN / INTRACRANIAL CONTENTS: Large lacunar infarct is seen in the lateral thalamic region on the right, most likely involving the posterior limb of the internal capsule. This finding measures 18-19 mm in maximum dimension and appears to be acute/subacute in age. There are not no signs of associated hemorrhage. There may be old, very small branch peripheral infarcts in the right MCA territory, predominantly in a parietal lobe. Otherwise, no acute hemorrhage, mass effect, midline shift, hydrocephalus, or acute, large territorial infarct. No signs of significant atrophy or chronic infarct. There are mild areas of decreased attenuation in the white matter of the cerebral hemispheres. These are nonspecific findings and may be related to microangiopathy (hypertension, diabetes, atherosclerosis), given the patient's age. CRANIOCERVICAL JUNCTION: No significant abnormality. ORBITS: No significant abnormality of visualized orbits. SINUSES / MASTOIDS: Visualized paranasal sinuses and mastoid air cells are essentially clear. ADDITIONAL FINDINGS: None. IMPRESSION: 1. Acute/early subacute lacunar infarct in the gangliocapsular region on the right as described above, without signs of hemorrhagic transformation. CODE STROKE: Exam Completed (ERP IMPLEMENTATION CONSULTANT/CDT): 10/16/20202052 (note, the current time of the dictation is 2049) Exam Reviewed (ERP IMPLEMENTATION CONSULTANT/CDT): 2037 Time of Communication (ERP IMPLEMENTATION CONSULTANT/CDT): 2044 Licensed Practitioner Receiving Report: Dr. Payton Signer Name: Isai Francisco MD, III Signed: 10/16/2020 8:51 PM Workstation Name: [facility] CT angio head INDICATION / CLINICAL INFORMATION: 55 years Male; cva. TECHNIQUE: Thin cut axial images obtained through the head during IV bolus contrast administration. Sagittal, coronal, and 3 plane MIP reconstructions performed by the technologist. NASCET type criteria used evaluate stenoses. Automated exposure control utilized for radiation reduction purposes. COMPARISON: None available. FINDINGS: INTERNAL CAROTID ARTERIES: No significant narrowing appreciated. VERTEBROBASILAR SYSTEM: No significant narr owing appreciated. DISTAL BRANCHES: Distal branches of the anterior, middle, and posterior cerebral arteries are fairly symmetric in appearance and number. ANEURYSM: 1-2 mm focus of dilatation is seen distally along the inferior surface of the communicating portion of the right internal carotid artery. This finding most likely represents a small infundibulum associated with a very small, non-visible posterior communicating artery on the right. However, a very small aneurysm cannot entirely be excluded. ADDITIONAL FINDINGS: Remainder of the surrounding soft tissues are grossly normal. IMPRESSION: 1. No significant narrowing appreciated. 2. Infundibulum versus very small aneurysm of the communicating portion of the right internal carotid artery as described above. Signer Name: Isai Francisco MD, III Signed: 10/16/2020 8:56 PM Workstation Name: [email or web address] CT angio neck INDICATION / CLINICAL INFORMATION: 55 years Male; cva. TECHNIQUE: Thin cut axial images obtained through the head during IV bolus contrast administration. Sagittal, coronal, and 3 plane MIP reconstructions performed by the technologist. NASCET type criteria used evaluate stenoses. All CT scans at this location are performed using CT dose reduction for ALARA by means of automated exposure control. COMPARISON: None available. FINDINGS: ARCH: Normal aortic arch branching suggested. CAROTID ARTERIES: The visualized common and internal carotid arteries are widely patent. Mild atherosclerotic d isease is seen at the origin of the right internal carotid artery-not felt to be hemodynamically significant. VERTEBRAL ARTERIES: Codominant vertebral system seen. No significant stenosis appreciated. ADDITIONAL FINDINGS: Disc space narrowing seen at C3-4 and C4-5. There is osseous foraminal narrowing on the right at these levels largely related uncinate and some degree of facet hypertrophy. Similar findings to lesser degree noted on the left at C4-5. Moderate facet hypertrophy seen on the right at C2-3. IMPRESSION: No significant stenosis appreciated on this CTA of the neck. Signer Name: Isai Francisco MD, III Signed: 10/16/2020 8:59 PM Workstation Name: [employer] - Medical Decision Making Differential diagnosis, including but not limited to: Stroke Assessment and plan: 55-year-old gentleman, presenting with left-sided monocular temporal visual field blurry vision/loss of vision, left arm, left leg numbness. Last known well time is 11:00 PM yesterday, more than 4.5 hours after last known well time, he is therefore not a TPA candidate. His examination is unlikely to be consistent with a large vessel occlusion, however, he is seen by stroke neurology, Dr. Tierney Laura, who recommended emergent CT angiogram head and neck to evaluate for large vessel occlusion and dissection, which were not present. Incidental arterial findings noted, history is not suggestive of ruptured aneurysm, and he will require MRI, MRA to better delineate cerebral anatomy, as well as identify stroke locus. He is not having chest pain, elevated troponin is likely a type II troponin leak, likely secondary to subacute stroke. He will be given fluids and aspirin, we will allow for permissive hypertension, admission is recommended to the medical service. The patient is amenable to this plan of care. Hospital physician, Dr. Elvira Berg to admit to [facility] - Core Measures Measure Exclusions: not indicated - Thrombolytic Inclusion/Exclusion Thrombolytic Exclusion Criteria: Symptom Onset > 3 Hours Critical care attestation.: If time is entered above; I have spent that time in minutes in the direct care of this critically ill patient, excluding procedure time. ED Disposition Clinical Impression: CVA (cerebral vascular accident) Disposition: OP ADMIT IP TO THIS HOSP Is pt being admited?: Yes Condition: Good Referrals: PRIMARY CARE,MD [Primary Care Provider] - 3-5 Days
--- NOTE | 2020-10-16 21:05 | Consultation ---
History of Present Illness History of present illness: [facility] Consult Note # Demographics Consult Type: Acute Stroke Level 2 (4.5-24 hrs) Patient Location: Emergency Room First Name: Brad Last Name: Yovany Date of : 1965 Age: 55 Gender: Male Time of Initial Page ( Time): 10/16/2020, 20:37 Time of Return Call ( Time): 10/16/2020, 20:37 # HPI History: 55 year-old male presents with left arm weakness/numbness and left- sided vision loss. Symptoms began last night before bed and have persisted since. # Scores Time of exam and NIHSS (): 10/16/2020, 20:41 Level of Consciousness 1a: [0] = Alert; keenly responsive LOC Questions 1b: [0] = Answers both questions correctly LOC Commands 1c: [0] = Performs both tasks correctly Best Gaze 2: [0] = Normal Visual 3: [1] = Partial hemianopia Facial Palsy 4: [1] = Minor paralysis Motor Arm Left 5a: [0] = No drift Motor Arm Right 5b: [0] = No drift Motor Leg Left 6a: [0] = No drift Motor Leg Right 6b: [0] = No drift Limb Ataxia 7: [0] = Absent Sensory 8: [1] = Iqsu-du-pucanket sensory loss Best Language 9: [0] = No aphasia Dysarthria 10: [0] = Normal Extinction and Inattention 11: [0] = No abnormality NIHSS Total: 3 # Exam Vitals: vital signs reviewed # Data Head CT: right basal ganglia ischemic stroke (subacute to chronic) # Assessment Impression: Ischemic Stroke (Subacute) # Plan Thrombolytic/Intervention: NOT IV Thrombolytic or IA Intervention Thrombolytic Exclusion: > 4.5 hours Intraarterial Exclusion: clinically consistent with small vessel disease CTA pending Labs: hemoglobin A1c lipid panel Imaging: (urgency: STAT): CT Angiogram Head and CT Angiogram Neck AND call back with results if abnormal Imaging: (urgency: routine): MRI Brain without contrast Diagnostic Test: echo with bubble study Therapy/Evaluation: NPO until swallow evaluation PT/OT evaluation speech/swallow consultation Medication: aspirin 81 mg PLUS clopidogrel (Plavix) 75 mg for 21 days, then monotherapy therafter start statin with goal of LDL < 70 Other: permissive hypertension telemetry monitoring I have discussed my recommendations with the referring provider Disposition: admit # Logistics Telemedicine: Interactive 2 way audio and visual telecommunication technology was utilized during this visit Medications and Allergies Allergies Allergy/AdvReac Type Severity Reaction Status Date / Time No Known Allergies Allergy Unverified 07/21/18 20:38 Home Medications Medication Instructions Recorded Confirmed Last Taken Type Aspirin 81 mg PO DAILY #30 tab.chew 07/27/18 05/05/19 Unknown Rx AtorvaSTATin [Lipitor] 20 mg PO QHS #30 tab 07/27/18 05/05/19 Unknown Rx Furosemide [Lasix TAB] 40 mg PO QDAY #30 tablet 07/27/18 05/05/19 Unknown Rx Potassium Chloride [K-Dur] 10 meq PO QDAY #30 tablet 07/27/18 05/05/19 Unknown Rx carvediloL [Coreg] 3.125 mg PO BID #60 tablet 07/27/18 05/05/19 Unknown Rx lisinopriL [Zestril TAB] 5 mg PO QDAY #30 tablet 07/27/18 05/05/19 Unknown Rx Aspirin [Aspirin BABY CHEW TAB] 81 mg PO QDAY #30 tab.chew 05/07/19 Unknown Rx Furosemide [Lasix TAB] 40 mg PO QDAY #30 tablet 05/07/19 Unknown Rx Lisinopril [Zestril] 5 mg PO DAILY #30 tablet 05/07/19 Unknown Rx Potassium Chloride 10 meq PO DAILY #30 tablet.er 05/07/19 Unknown Rx carvediloL [Coreg] 3.125 mg PO BID #60 tablet 05/07/19 Unknown Rx Physical Examination - Vital Signs Vital Signs: Vital Signs Temp Pulse Resp BP Pulse Ox 98.3 F 47 L 18 128/77 98 10/16/20 20:28 10/16/20 20:28 10/16/20 20:28 10/16/20 20:28 10/16/20 20:28
[2020-10-16 21:13] LABS: Basophils # (Auto) 0.1 K/mm3 (0.0-0.1); Eosinophils # (Auto) 0.1 K/mm3 (0.0-0.4); Eosinophils % (Auto) 1.3 % (0.0-4.3); Hematocrit 45.9 % (35.5-45.6); Hemoglobin 15.1 gm/dl (11.8-15.2); Lymphocytes # (Auto) 1.6 K/mm3 (1.2-5.4); Lymphocytes % (Auto) 27.8 % (13.4-35.0); Mean Corpuscular HGB Conc 33 % (32-34); Mean Corpuscular Volume 93 fl (84-94); Monocytes # (Auto) 0.5 K/mm3 (0.0-0.8); Platelet Count 161 K/mm3 (140-440); Red Blood Count 4.93 M/mm3 (3.65-5.03); Red Cell Distribution Width 14.2 % (13.2-15.2)
[2020-10-16 21:24] LABS: INR 1.22 (0.87-1.13); Partial Thromboplastin Time 29.6 Sec. (24.2-36.6); Thrombin Time 17.3 Sec. (15.1-19.6)
--- NOTE | 2020-10-16 21:56 | Cat Scan Report ---
CT head/brain wo con INDICATION / CLINICAL INFORMATION: 55 years Male; stroke like symptoms. TECHNIQUE: Routine CT head without contrast. All CT scans at this location are performed using CT dos e reduction for ALARA by means of automated exposure control. COMPARISON: None. FINDINGS: BRAIN / INTRACRANIAL CONTENTS: Large lacunar infarct is seen in the lateral thalamic region on the ri ght, most likely involving the posterior limb of the internal capsule. This finding measures 18-19 mm in maximum dimension and appears to be acute/subacute in age. There are not no signs of associated h emorrhage. There may be old, very small branch peripheral infarcts in the right MCA territory, predominantly in a parietal lobe. Otherwise, no acute hemorrhage, mass effect, midline shift, hydrocephalus, or acute, large territori al infarct. No signs of significant atrophy or chronic infarct. There are mild areas of decreased attenuation in the white matter of the cerebral hemispheres. These are nonspecific findings and may be related to microangiopathy (hypertension, diabetes, atheroscleros is), given the patient's age. CRANIOCERVICAL JUNCTION: No significant abnormality. ORBITS: No significant abnormality of visualized orbits. SINUSES / MASTOIDS: Visualized paranasal sinuses and mastoid air cells are essentially clear. ADDITIONAL FINDINGS: None. IMPRESSION: 1. Acute/early subacute lacunar infarct in the gangliocapsular region on the right as described above , without signs of hemorrhagic transformation. CODE STROKE: Exam Completed (MARKETING BUSINESS ANALYST/CDT): 10/16/20202052 (note, the current time of the dictation is 2049) Exam Reviewed (MARKETING BUSINESS ANALYST/CDT): 2037 Time of Communication (MARKETING BUSINESS ANALYST/CDT): 2044 Licensed Practitioner Receiving Report: Dr. Payton Signer Name: Isai Francisco MD, III Signed: 10/16/2020 9:51 PM Workstation Name: [facility] DEPARTMENTMeena
--- NOTE | 2020-10-16 22:01 | Cat Scan Report ---
CT angio head INDICATION / CLINICAL INFORMATION: 55 years Male; cva. TECHNIQUE: Thin cut axial images obtained through the head during IV bolus contrast administration. S agittal, coronal, and 3 plane MIP reconstructions performed by the technologist. NASCET type criteria used evaluate stenoses. Automated exposure control utilized for radiation reduction purposes. COMPARISON: None available. FINDINGS: INTERNAL CAROTID ARTERIES: No significant narrowing appreciated. VERTEBROBASILAR SYSTEM: No significant narrowing appreciated. DISTAL BRANCHES: Distal branches of the anterior, middle, and posterior cerebral arteries are fairly symmetric in appearance and number. ANEURYSM: 1-2 mm focus of dilatation is seen distally along the inferior surface of the communicating portion of the right internal carotid artery. This finding most likely represents a small infundibul um associated with a very small, non-visible posterior communicating artery on the right. However, a very small aneurysm cannot entirely be excluded. ADDITIONAL FINDINGS: Remainder of the surrounding soft tissues are grossly normal. IMPRESSION: 1. No significant narrowing appreciated. 2. Infundibulum versus very small aneurysm of the communicating portion of the right internal carotid artery as described above. Signer Name: Isai Francisco MD, III Signed: 10/16/2020 9:56 PM Workstation Name: [id number]
--- NOTE | 2020-10-16 22:04 | Cat Scan Report ---
CT angio neck INDICATION / CLINICAL INFORMATION: 55 years Male; cva. TECHNIQUE: Thin cut axial images obtained through the head during IV bolus contrast administration. S agittal, coronal, and 3 plane MIP reconstructions performed by the technologist. NASCET type criteria used evaluate stenoses. All CT scans at this location are performed using CT dose reduction for ALAR A by means of automated exposure control. COMPARISON: None available. FINDINGS: ARCH: Normal aortic arch branching suggested. CAROTID ARTERIES: The visualized common and internal carotid arteries are widely patent. Mild atheros clerotic disease is seen at the origin of the right internal carotid artery-not felt to be hemodynami kenzie significant. VERTEBRAL ARTERIES: Codominant vertebral system seen. No significant stenosis appreciated. ADDITIONAL FINDINGS: Disc space narrowing seen at C3-4 and C4-5. There is osseous foraminal narrowing on the right at these levels largely related uncinate and some degree of facet hypertrophy. Similar findings to lesser degree noted on the left at C4-5. Moderate facet hypertrophy seen on the right at C2-3. IMPRESSION: No significant stenosis appreciated on this CTA of the neck. Signer Name: Isai Francisco MD, III Signed: 10/16/2020 9:59 PM Workstation Name: [facility]DEyewitness SurveillanceJUSTIN VILLE [id number]
[2020-10-16 22:05] LABS: Calcium 9.2 mg/dL (8.4-10.2)
[2020-10-16] MEDS ORDERED: ASPIRIN 81 MG TAB CHEW PO ONE ×2 (22:12→22:23)
[2020-10-16] MEDS ORDERED: SODIUM CHLORIDE 0.9% 500 ML 500 ML IV ONE (22:12)
[2020-10-16] MEDS ORDERED: CLOPIDOGREL 75 MG TAB PO ONE (22:23)
--- NOTE | 2020-10-16 22:50 | History and Physical Report ---
History of Present Illness Date of examination: 10/16/20 Date of admission: 10/16/2020 Chief complaint: Left sided weakness Left sided blurry vision History of present illness: 55-year-old -Chinese male with known history of hypertension and nonischemic cardiomyopathy, tobacco and alcohol abuse presents to the emergency room today with a complaint of left-sided blurry vision. He also indicates that he has had some numbness in the left upper left lower extremity. He denies any weakness. Last well-known time was at about 11 PM yesterday October 15, 2020. He denies any headache or dizziness, no nausea vomiting, no fever or chills, no chest pain or shortness of breath. Patient was evaluated by the teleneurologist and deemed not to be a TPA candidat e. Work-up in the emergency room today reveals acute/early subacute lacunar infarct in the gangliocapsular region on the right. No signs of hemorrhagic transformation. CTA head and Neck- unremarkable. Patient is being admitted for CVA work-up. Aspirin and Plavix has been recommended by the neurologist. Past History Past Medical History: hypertension, hyperlipidemia, other (Ischemic cardiomyopathy) Past Surgical History: No surgical history Social history: smoking, alcohol abuse, IV drug use (Cocaine abuse) Family history: no significant family history Medications and Allergies Allergies Allergy/AdvReac Type Severity Reaction Status Date / Time No Known Allergies Allergy Verified 10/16/20 23:25 Home Medications Medication Instructions Recorded Confirmed Last Taken Type Aspirin 81 mg PO DAILY #30 tab.chew 07/27/18 05/05/19 Unknown Rx AtorvaSTATin [Lipitor] 20 mg PO QHS #30 tab 07/27/18 05/05/19 Unknown Rx Furosemide [Lasix TAB] 40 mg PO QDAY #30 tablet 07/27/18 05/05/19 Unknown Rx Potassium Chloride [K-Dur] 10 meq PO QDAY #30 tablet 07/27/18 05/05/19 Unknown Rx carvediloL [Coreg] 3.125 mg PO BID #60 tablet 07/27/18 05/05/19 Unknown Rx lisinopriL [Zestril TAB] 5 mg PO QDAY #30 tablet 07/27/18 05/05/19 Unknown Rx Aspirin [Aspirin BABY CHEW TAB] 81 mg PO QDAY #30 tab.chew 05/07/19 Unknown Rx Furosemide [Lasix TAB] 40 mg PO QDAY #30 tablet 05/07/19 Unknown Rx Lisinopril [Zestril] 5 mg PO DAILY #30 tablet 05/07/19 Unknown Rx Potassium Chloride 10 meq PO DAILY #30 tablet.er 05/07/19 Unknown Rx carvediloL [Coreg] 3.125 mg PO BID #60 tablet 05/07/19 Unknown Rx Review of Systems Constitutional: no fever, no chills Ears, nose, mouth and throat: no nasal congestion, no sore throat Cardiovascular: no chest pain, no palpitations Respiratory: no cough, no shortness of breath Gastrointestinal: no abdominal pain, no nausea, no vomiting, no diarrhea Genitourinary Male: no dysuria, no hematuria, no flank pain Musculoskeletal: no neck pain, no low back pain Integumentary: no rash, no pruritis Neurological: numbness (left upper extremity), loss of vision (On left eye), no headaches, no change in speech, no confusion Psychiatric: no anxiety, no depression Endocrine: no polyphagia, no polydipsia, no polyuria Exam - Constitutional Vitals: Temp Pulse Resp BP Pulse Ox 98.3 F 87 15 124/77 100 10/16/20 20:28 10/16/20 22:22 10/16/20 22:22 10/16/20 22:22 10/16/20 22:22 General appearance: Present: no acute distress, well-nourished - EENT Eyes: Present: PERRL, EOM intact. Absent: scleral icterus ENT: hearing intact, clear oral mucosa, dentition normal - Neck Neck: Present: supple, normal ROM - Respiratory Respiratory effort: normal Respiratory: bilateral: CTA - Cardiovascular Rhythm: regular Heart Sounds: Present: S1 & S2. Absent: gallop, systolic murmur, diastolic murmur, rub - Extremities Extremities: no ischemia, pulses intact, pulses symmetrical, No edema, normal temperature, normal color, Full ROM Peripheral Pulses: within normal limits - Abdominal General gastrointestinal: Present: soft, non-tender, non-distended, normal bowel sounds. Absent: mass - Integumentary Integumentary: Present: clear, warm, dry. Absent: rash - Musculoskeletal Musculoskeletal: strength equal bilaterally - Psychiatric Psychiatric: appropriate mood/affect, intact judgment & insight, memory intact, cooperative - Neurologic Neurologic: CNII-XII intact, no focal deficits, moves all extremities, other (Mild decreased sensory sensation on left upper and lower extremity) HEART Score - HEART Score Troponin: Troponin T 0.099 ng/mL (0.00-0.029) H 10/16/20 21:04 Results - Labs CBC & Chem 7: 10/16/20 21:04 10/16/20 21:48 Labs: Abnormal lab results 10/16/20 10/16/20 10/16/20 Range/Units 21:04 21:04 21:04 Hct 45.9 H (35.5-45.6) % Wilcox % (Auto) 9.0 H (0.0-7.3) % PT 15.9 H (12.2-14.9) Sec. INR 1.22 H (0.87-1.13) Sodium (137-145) mmol/L BUN (9-20) mg/dL Creatinine (0.8-1.3) mg/dL Glucose (75-100) mg/dL Troponin T 0.099 H (0.00-0.029) ng/mL 10/16/20 Range/Units 21:48 Hct (35.5-45.6) % Wilcox % (Auto) (0.0-7.3) % PT (12.2-14.9) Sec. INR (0.87-1.13) Sodium 136 L (137-145) mmol/L BUN 37 H (9-20) mg/dL Creatinine 1.9 H (0.8-1.3) mg/dL Glucose 112 H (75-100) mg/dL Troponin T (0.00-0.029) ng/mL Assessment and Plan - Patient Problems (1) CVA (cerebral vascular accident) Current Visit: Yes Status: Acute Plan to address problem: Patient admitted and placed on telemetry. We will commence patient on aspirin and Plavix as recommended by the neurologist. Patient will also be placed on statin. Consult placed to neurologist for follow-up. (2) Elevated troponin Current Visit: No Status: Acute Plan to address problem: Possibly troponin leak. Patient has denied any chest pain. (3) EtOH dependence Current Visit: No Status: Chronic Qualifiers: Substance use status: uncomplicated Qualified Code(s): F10.20 - Alcohol dependence, uncomplicated Plan to address problem: Patient will be placed on CIWA protocol. (4) HTN (hypertension) Current Visit: No Status: Chronic Qualifiers: Hypertension type: essential hypertension Qualified Code(s): I10 - Essential (primary) hypertension Plan to address problem: We will resume routine home medications and monitor vital signs closely. (5) Tobacco use Current Visit: No Status: Chronic Plan to address problem: Patient counseled on quitting tobacco use. We will offer nicotine patch as needed. (6) DVT prophylaxis Current Visit: No Status: Acute Plan to address problem: Patient placed on subcutaneous heparin. (7) Full code status Current Visit: Yes Status: Acute Plan to address problem: Patient is full code.
[2020-10-16] MEDS ORDERED: MORPHINE 2 MG/1 ML INJ IV PRN (23:20)
[2020-10-16] MEDS ORDERED: MAGNESIUM HYDROXIDE (MOM) ORAL LIQD UDC PO PRN ×2 (23:20)
[2020-10-16] MEDS ORDERED: ACETAMINOPHEN 325 MG TAB PO PRN ×2 (23:20)
[2020-10-16] MEDS ORDERED: METOCLOPRAMIDE 10 MG TAB PO PRN (23:20)
[2020-10-16] MEDS ORDERED: PROMETHAZINE 25 MG RECT SUPP PR PRN (23:20)
[2020-10-16] MEDS ORDERED: ONDANSETRON 4 MG/2 ML INJ IV PRN ×2 (23:20)
[2020-10-17] MEDS: HEPARIN 5,000 UNIT/1 ML VIAL SUB-Q SCH ×2 (05:36→13:39)
[2020-10-17 05:59] LABS: Basophils % (Auto) 0.5 % (0.0-1.8); Eosinophils # (Auto) 0.1 K/mm3 (0.0-0.4); Hematocrit 46.3 % (35.5-45.6); Hemoglobin 15.6 gm/dl (11.8-15.2); Lymphocytes # (Auto) 1.9 K/mm3 (1.2-5.4); Lymphocytes % (Auto) 35.9 % (13.4-35.0); Mean Corpuscular HGB Conc 34 % (32-34); Mean Corpuscular Volume 92 fl (84-94); Monocytes # (Auto) 0.6 K/mm3 (0.0-0.8); Monocytes % (Auto) 10.9 % (0.0-7.3); Platelet Count 167 K/mm3 (140-440); Red Blood Count 5.02 M/mm3 (3.65-5.03)
[2020-10-17 06:13] LABS: Calcium 9.1 mg/dL (8.4-10.2); Chol/HDL Ratio 3.66 %
[2020-10-17 06:17] LABS: INR 1.09 (0.87-1.13)
[2020-10-17] MEDS ORDERED: ASPIRIN 325 MG TAB PO SCH (10:00)
--- NOTE | 2020-10-17 10:19 | Magnetic Resonance Report ---
MRI BRAIN WITHOUT CONTRAST INDICATION / CLINICAL INFORMATION: Left-sided weakness. TECHNIQUE: Multiplanar, multisequence MR images of the brain were obtained. COMPARISON: Head CT on 10/16/2020 FINDINGS: BRAIN / INTRACRANIAL CONTENTS: There are multifocal acute infarcts involving the right TERMINAL MAKEUP OPERATOR territory including in the posterior mesial right temporal lobe, right thalamus, and mesial right occipital lob e. There is no associated hemorrhage or adverse mass effect. There is also a small focus of acute lacunar infarct in the left frontal silva radiata. Ventricular and cisternal size appears normal for age. CRANIOCERVICAL JUNCTION: No significant abnormality. VASCULAR FLOW-VOIDS: No significant abnormality. ORBITS: No significant abnormality of visualized orbits. SINUSES / MASTOIDS: No significant abnormality of visualized sinuses and mastoid air cells. ADDITIONAL FINDINGS: None. IMPRESSION: 1. Multifocal acute infarcts in the right TERMINAL MAKEUP OPERATOR territory including the right temporal and occipital lo bes and right thalamus. 2. Small focus of acute infarct in the left frontal silva radiata. 3. No hemorrhage or adverse mass effect. Signer Name: Bishop Schilling MD Signed: 10/17/2020 10:14 AM Workstation Name: [email or web address]
--- NOTE | 2020-10-17 12:20 | Vascular Lab Report ---
DUPLEX DOPPLER ULTRASOUND CAROTID, BILATERAL INDICATION / CLINICAL INFORMATION: Stroke. COMPARISON: CTA neck 10/16/2020. FINDINGS: RIGHT CAROTID: Intimal thickening noted within the CCA. Noncalcified atherosclerotic plaque is visual ized within the bulb and proximal ICA. - PLAQUE ESTIMATE (%): < 50% - CCA velocity: 57 cm/sec. - ICA peak systolic velocity: 72 cm/sec. - ICA/CCA PSV Ratio: Less than 2. Right Vertebral Artery: Antegrade flow. LEFT CAROTID: Intimal thickening noted within the CCA and bulb. - PLAQUE ESTIMATE (%): < 50% - CCA velocity: 63 cm/sec. - ICA peak systolic velocity: 83 cm/sec. - ICA/CCA PSV Ratio: Less than 2. Left Vertebral Artery: Antegrade flow. IMPRESSION: 1. Right Internal Carotid Artery: Less than 50% diameter stenosis. 2. Left Internal Carotid Artery: Less than 50% diameter stenosis. 3. Arrhythmia noted throughout exam. Velocity criteria are extrapolated from diameter data as defined by the Society of Radiologists in Ul trasound Consensus Conference, Radiology 2003; 229;340-346. NO STENOSIS (NORMAL) - Plaque = none; ICA PSV < 125 cm/sec; ICA/CCA PSV Ratio < 2.0 <50% STENOSIS - Plaque < 50%; ICA PSV < 125 cm/sec; ICA/CCA PSV Ratio < 2.0 50-69% STENOSIS - Plaque > 50%; ICA PSV = 125-230 cm/sec; ICA/CCA PSV Ratio = 2.0-4.0 >70% BUT <100% STENOSIS - Plaque > 50%; ICA PSV > 230 cm/sec; ICA/CCA PSV Ratio > 4.0 NEAR OCCLUSION - Plaque = visible lumen; ICA PSV = high/low/none; ICA/CCA PSV Ratio = variable TOTAL OCCLUSION - Plaque = no lumen; ICA PSV = none; ICA/CCA PSV Ratio = N/A Scribed by: Anna Jackson RDMS, RVT Scribed: 10/17/2020 11:08 AM I have reviewed the images, agree with this report, and edited this report as needed. Signer Name: Jae Duong MD Signed: 10/17/2020 12:15 PM Workstation Name: [id number]
--- NOTE | 2020-10-17 14:55 | Consultation ---
History of Present Illness Consult date: 10/17/20 Reason for Consult: Stroke Chief complaint: Left-sided numbness History of present illness: 55 yo male, right-handed, with htn, cardiomyopathy, chf, hx of debrillator placed and removed, who presents with acute onset of left-sided vision change with vertigo with left-sided numbness and weakness at approximately 23:00 on 10/15/20. In fact he was so vertiginous that he fell on the restroom floor, used the restroom, vomited saliva and then felt so bad that he decided to sleep it off. Yesterday he woke up with the same symptoms, talked to a friend, who was concerned about a stroke and so the patient decided to present to the hospital. Patient notes that he did not realize that he was having a stroke otherwise he would have come in, on the night of the itself. Notes improvement in his vision and his numbness/weakness in the last 24 hours. Notes episodes of hyperventilation w/ palpitations. Past History Past Medical History: hypertension, hyperlipidemia, other (Ischemic cardiomyopathy) Past Surgical History: No surgical history, Other (defibrillator placed/removed;) Social history: smoking, alcohol abuse, IV drug use (Cocaine abuse) Family history: no significant family history Medications and Allergies Allergies Allergy/AdvReac Type Severity Reaction Status Date / Time No Known Allergies Allergy Verified 10/16/20 23:25 Home Medications Medication Instructions Recorded Confirmed Last Taken Type Aspirin 81 mg PO DAILY #30 tab.chew 07/27/18 10/17/20 10/15/20 09:00 Rx AtorvaSTATin [Lipitor] 20 mg PO QHS #30 tab 07/27/18 10/17/20 10/15/20 21:00 Rx Furosemide [Lasix TAB] 40 mg PO QDAY #30 tablet 07/27/18 10/17/20 10/16/20 09:00 Rx Potassium Chloride [K-Dur] 10 meq PO QDAY #30 tablet 07/27/18 10/17/20 10/16/20 09:00 Rx carvediloL [Coreg] 3.125 mg PO BID #60 tablet 07/27/18 10/17/20 10/16/20 09:00 Rx lisinopriL [Zestril TAB] 5 mg PO QDAY #30 tablet 07/27/18 10/17/20 10/16/20 0 9:00 Rx Aspirin [Aspirin BABY CHEW TAB] 81 mg PO QDAY #30 tab.chew 05/07/19 10/17/20 10/16/20 09:00 Rx Furosemide [Lasix TAB] 40 mg PO QDAY #30 tablet 05/07/19 10/17/20 10/16/20 09:00 Rx Lisinopril [Zestril] 5 mg PO DAILY #30 tablet 05/07/19 10/17/20 10/16/20 09:00 Rx Potassium Chloride 10 meq PO DAILY #30 tablet.er 05/07/19 10/17/20 10/16/20 09:00 Rx carvediloL [Coreg] 3.125 mg PO BID #60 tablet 05/07/19 10/17/20 10/16/20 09:00 Rx Active Meds: Active Medications Acetaminophen (Acetaminophen 325 Mg Tab) 650 mg PO Q4H PRN PRN Reason: Pain, Mild (1-3) Aspirin (Aspirin 325 Mg Tab) 325 mg PO QDAY [facility] Last Admin: 10/17/20 10:21 Dose: 325 mg Documented by: Atorvastatin Calcium (Atorvastatin 40 Mg Tab) 40 mg PO QHS [facility] Bisacodyl (Bisacodyl 10 Mg Rect Supp) 10 mg [place] QDAY PRN PRN Reason: Constipation Carvedilol (Carvedilol 3.125 Mg Tab) 3.125 mg PO BID BHAVYA Furosemide (Furosemide 20 Mg Tab) 20 mg PO QDAY [facility] Heparin Sodium (Porcine) (Heparin 5,000 Unit/1 Ml Vial) 5,000 unit SUB-Q Q8HR [facility] Last Admin: 10/17/20 13:39 Dose: 5,000 unit Documented by: Magnesium Hydroxide (Magnesium Hydroxide (Mom) Oral Liqd Udc) 30 ml PO Q4H PRN PRN Reason: Constipation Metoclopramide HCl (Metoclopramide 10 Mg Tab) 10 mg PO Q6H PRN PRN Reason: Nausea And Vomiting Morphine Sulfate (Morphine 2 Mg/1 Ml Inj) 2 mg IV Q4H PRN PRN Reason: Pain, Moderate (4-6) Ondansetron HCl (Ondansetron 4 Mg/2 Ml Inj) 4 mg IV Q8H PRN PRN Reason: Nausea And Vomiting Promethazine HCl (Promethazine 25 Mg Rect Supp) 25 mg [place]V Q6H PRN PRN Reason: Nausea And Vomiting Sodium Chloride (Sodium Chloride 0.9% 10 Ml Flush Syringe) 10 ml IV BID BHAVYA Last Admin: 10/17/20 10:21 Dose: 10 ml Documented by: Sodium Chloride (Sodium Chloride 0.9% 10 Ml Flush Syringe) 10 ml IV PRN PRN PRN Reason: LINE FLUSH Review of Systems All systems: negative (as per HPI;) Physical Examination - Vital Signs Vital Signs: Vital Signs Temp Pulse Resp BP Pulse Ox 98.3 F 47 L 18 128/77 98 10/16/20 20:28 10/16/20 20:28 10/16/20 20:28 10/16/20 20:28 10/16/20 20:28 - Physical Exam Narrative exam: Gen: nad, well-nourished; Head: normocephalic; Eyes: no gaze deviation; no ptosis; ENT: normal vocalization; CVS: warm and well-perfused; Pulm: no respiratory distress; GI: appears non-distended, protuberant; Ext: no cyanosis at distal extremities; Skin: no acute rash or hives at distal extremities; Heme: no pathologic bruising at distal extremities; Neuro: alert, oriented to name, age, month, year, surroundings, no dysarthria, no aphasia, CN 2 - PERRL, visual kwan grossly intact, CN 3, 4, 6 - EOMI, CN 5 - facial sensation symmetric to light touch, CN 7 - facial movement symmetric, CN 8 - hearing grossly intact, CN 9, 10 - uvula midline, CN 11 - shrug symmetric, CN 12 - tongue midline; Motor - at least 4/5 in all exts with drift at left arm/leg; Sensory - light touch asymmetric w/ "increased sensitivity / roughness" at left arm/leg, Cerebellar - fnf /hts intact, Gait - deferred secondary to fall risk; NIHSS (1a.) Level of Consciousness:0 (1b.) LOC Questions:0 (1c.) LOC Commands:0 (2.) Best Gaze:0 (3.) Visual:0 (4.) Facial Palsy:0 (5a.) Motor Arm, Left:1 (5b.) Motor Arm, Right:0 (6a.) Motor Leg, Left:1 (6b.) Motor Leg, Right:0 (7.) Limb Ataxia:0 (8.) Sensory:1 (9.) Best Language:0 (10.) Dysarthria:0 (11.) Extinction and Inattention:0 NIHSS Total Score: 3 Results - Laboratory Findings CBC and BMP: 10/17/20 05:25 10/17/20 05:25 Abnormal Lab Findings: Abnormal Labs 10/16/20 10/16/20 10/16/20 21:04 21:04 21:04 Hgb Hct 45.9 H Lymph % (Auto) [place] % (Auto) 9.0 H PT 15.9 H INR 1.22 H Sodium BUN Creatinine Glucose POC Glucose Troponin T 0.099 H 10/16/20 10/16/20 10/17/20 21:15 21:48 05:25 Hgb 15.6 H Hct 46.3 H Lymph % (Auto) 35.9 H [place] % (Auto) 10.9 H PT INR Sodium 136 L BUN 37 H Creatinine 1.9 H Glucose 112 H POC Glucose 124 H Troponin T 10/17/20 05:25 Hgb Hct Lymph % (Auto) [place] % (Auto) PT INR Sodium BUN 32 H Creatinine 1.6 H Glucose POC Glucose Troponin T Assessment and Plan 55 yo male, right-handed, with htn, cardiomyopathy, chf, tobacco abuse, hx of debrillator placed and removed, who presents with acute onset of left-sided vision change with vertigo with left-sided numbness and weakness at approximately 23:00 on 10/15/20. Presented outside the tPA window and no LVO. Noted with a cardioembolic stroke in the setting of known cardiomyopathy with EF of 15-20%. 1. Acute Ischemic (Cardioembolic) Stroke - recommend anticoagulation with literature showing EF of <25 % with high risk of cardioembolic infarcts; recommend tte/maxime, cardiology consult (inpatient), cardiac monitoring for underlying paroxysmal afib, pt notes he is quitting tobacco, ldl, tsh-t4, pt/ot evaluation/monitoring. 2. Left-sided visual change - recommend outpatient ophthalmology e valuation/monitoring. 3. HTN - 24 more hours of permissive htn and then may normalize. 4. Left Hemiparesis w/ paresthesias - pt/ot evaluation/monitoring. 5. Vertgio - resolved at present. 6. Tobacco Abuse - pt notes he is quitting tobacco; may consider smoking cessation program. Maykel Freed MD Neurology
--- NOTE | 2020-10-17 15:31 | Progress Note ---
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 -- HTN Resume home meds after 24 hours --Left Hemiparesis w/ paresthesias - pt/ot evaluation/monitoring. -- Vertgio - resolved at present. --Tobacco Abuse - pt notes he is quitting tobacco; may consider smoking c essation program. --DVT prophylaxis, continue Lovenox for now --Full CODE STATUS Brief history: 55-year-old -Thai male with known history of hypertension and non ischemic cardiomyopathy, tobacco and alcohol abuse presents to the emergency room with a complaint of left-sided blurry vision, some numbness in the left upper left lower extremity. Patient was evaluated by the teleneurologist and deemed not to be a TPA candidate. Work-up in the emergency room reveals acute/early subacute lacunar infarct in the gangliocapsular region on the right. No signs of hemorrhagic transformation. CTA head and Neck- unremarkable. Patient was not admitted for CVA work-up Daily clinical course: 10/17/20; MRI suggestive for embolic CVA bilaterally. Neurology recommended anticoagulation in light of chronic nonischemic cardiomyopathy with ejection fraction less than 25% and to pursue DIOR while inpatient. Ordered for DIOR and consulted cardiology. Pending PT OT eval. Continue to follow clinically. Subjective Date of service: 10/17/20 Interval history: Patient seen and examined. Medical records and medication list reviewed. No acute event overnight noted by the RN. Patient wants to leave but discussed and explained the importance of the test that being pending right now. Discussed plan of care at bedside with patient. Ordered for DIOR Objective - Exam Narrative Exam: GENERAL: well-developed and well-nourished -Thai male lying on bed appeared to be in no discomfort. HEENT: Normocephalic. Atraumatic. No conjunctival congestion or icterus. Patient has moist mucous membranes. NECK: Supple. Trachea midline. CHEST/LUNGS: Clear to auscultated bilaterally, breathing nonlabored. No wheezes crackles or rhonchi. HEART/CARDIOVASCULAR: Regular in rate and rhythm. S1 and S2 positive. ABDOMEN: Abdomen is soft, nontender. Patient has normal bowel sounds. SKIN: There is no rash. Warm and dry. NEURO: Left-sided weakness. Follows command. MUSCULOSKELETAL: No joint effusion or tenderness. EXTRIMITY: No edema, no cyanosis or clubbing. PSYCH: Cooperative. - Constitutional Vitals: Vital Signs - 12hr 10/17/20 03:59 Temperature 98.2 F Pulse Rate 93 H Respiratory 18 Rate Blood Pressure 125/88 O2 Sat by Pulse 99 Oximetry - Labs CBC & Chem 7: 10/17/20 05:25 10/17/20 05:25 Labs: Abnormal lab results 10/16/20 10/16/20 10/16/20 Range/Units 21:04 21:04 21:04 Hgb (11.8-15.2) gm/dl Hct 45.9 H (35.5-45.6) % Lymph % (Auto) (13.4-35.0) % [place] % (Auto) 9.0 H (0.0-7.3) % PT 15.9 H (12.2-14.9) Sec. INR 1.22 H (0.87-1.13) Sodium (137-145) mmol/L BUN (9-20) mg/dL Creatinine (0.8-1.3) mg/dL Glucose (75-100) mg/dL POC Glucose (70-105) mg/dL Troponin T 0.099 H (0.00-0.029) ng/mL 10/16/20 10/16/20 10/17/20 Range/Units 21:15 21:48 05:25 Hgb 15.6 H (11.8-15.2) gm/dl Hct 46.3 H (35.5-45.6) % Lymph % (Auto) 35.9 H (13.4-35.0) % [place] % (Auto) 10.9 H (0.0-7.3) % PT (12.2-14.9) Sec. INR (0.87-1.13) Sodium 136 L (137-145) mmol/L BUN 37 H (9-20) mg/dL Creatinine 1.9 H (0.8-1.3) mg/dL Glucose 112 H (75-100) mg/dL POC Glucose 124 H (70-105) mg/dL Troponin T (0.00-0.029) ng/mL 10/17/20 Range/Units 05:25 Hgb (11.8-15.2) gm/dl Hct (35.5-45.6) % Lymph % (Auto) (13.4-35.0) % [place] % (Auto) (0.0-7.3) % PT (12.2-14.9) Sec. INR (0.87-1.13) Sodium (137-145) mmol/L BUN 32 H (9-20) mg/dL Creatinine 1.6 H (0.8-1.3) mg/dL Glucose (75-100) mg/dL POC Glucose (70-105) mg/dL Troponin T (0.00-0.029) ng/mL HEART Score - HEART Score Troponin: Troponin T 0.099 ng/mL (0.00-0.029) H 10/16/20 21:04
[2020-10-17 16:40] VITALS: BP 118/85
[2020-10-17] MEDS ORDERED: carvediloL 3.125 MG TAB PO SCH (22:00)
[2020-10-18] MEDS ORDERED: FUROSEMIDE 20 MG TAB PO SCH (10:00)
--- NOTE | 2020-10-18 19:17 | Electrocardiograph Report ---
[facility] Test Date: 2020-10-16 Test Time: 21:15:50 Pat Name: SHANKAR COSTA Department: Room: A473 1 Gender: M Remote Medical Coder: JUNI MACARIOB: 1965 Requested By: ALEX JESSICA Order Number: [id number] Reading MD: Cece Vela Measurements Intervals [place] Rate: 91 P: 60 OK: 171 QRS: -35 QRSD: 125 T: 82 QT: 412 QTc: 507 Interpretive Statements Sinus rhythm Intermittent PACs and PVCs Probable left atrial enlargement Left ventricular hypertrophy No previous ECG available for comparison Electronically Signed On 10-18-2020 19:16:36 EDT by Cece Vela
--- NOTE | 2020-10-20 08:00 | Discharge Summary ---
Providers - Providers Date of Admission: 10/17/20 08:57 Date of discharge: 10/17/20 Attending physician: THA SEGURA 10/16/20 23:20 Consult to Dietitian/Nutrition [CONS] Routine Physician Instructions: Reason For Exam: Reason for Consult: Nutrition Recommendations Reason for Consult: Diet education Consult to Physician [CONS] Routine Comment: Consulting Provider: CRISTINO STAPLES Physician Instructions: Reason For Exam: CVA Occupational Therapy Evaluate and Treat [CONS] Routine Comment: Reason For Exam: Neuro deficits Physical Therapy Evaluation and Treat [CONS] Routine Comment: Reason For Exam: Neuro deficits 10/17/20 15:26 Consult to Physician [CONS] Routine Comment: Consulting Provider: GRADY HOPPER Physician Instructions: Reason For Exam: DIOR Primary care physician: BANK VAULT CLERK Hospitalization Condition: Good Hospital course: 55-year-old -Cuban male with known history of hypertension and nonischemic cardiomyopathy, tobacco and alcohol abuse presents to the emergency room with a complaint of left-sided blurry vision, some numbness in the left upper left lower extremity. Patient was evaluated by the teleneurologist and deemed not to be a TPA candidate. Work-up in the emergency room reveals acute/early subacute lacunar infarct in the gangliocapsular region on the right. No signs of hemorrhagic transformation. CTA head and Neck- unremarkable. Patient was not admitted for CVA work-up Daily clinical course: 10/17/20; MRI suggestive for embolic CVA bilaterally. Neurology recommended anticoagulation in light of chronic nonischemic cardiomyopathy with ejection fraction less than 25% and to pursue DIOR while inpatient. Ordered for DIOR and consulted cardiology. Pending PT OT eval. but patient decided to leave [place]. Disposition: LEFT AGAINST MEDICAL ADVICE Final Discharge Diagnosis (Prints w/discharge instructions): Acute ischemic CVA. Chronic CHF with EF 15 to 20%. Left-sided visual change. Left-sided hemiparesis. Hypertension. Vertigo. Tobacco abuse. Noncompliance Time spent for discharge: 34 minutes Core Measure Documentation - Palliative Care Palliative Care/ Comfort Measures: Not Applicable - Core Measures Any of the following diagnoses?: stroke - Stroke Discharge Requirements Statin for LDL = or >70 mg/dl on DC: Yes (Left AMA) Anticoag for atrial fib/atrial flutter: Not Applicable (Left AMA) Antithrombotic for ischemic stroke: Yes Exam - Constitutional Vitals: Temp Pulse Resp BP Pulse Ox 98.0 F 98 H 18 118/85 99 10/17/20 15:28 10/17/20 15:28 10/17/20 15:28 10/17/20 15:28 10/17/20 15:28 Plan Follow up with: PRIMARY CARE, [Primary Care Provider] - 3-5 Days Forms: AMA Form
== END 2020-10-17 18:43 | disposition left against medical advice (07) | DRG 65 ==
LOC: ED 20:17 → 4A 23:16 → OBSVTOIN 10-17 08:57
PROVIDERS: ADMIT Internal Medicine Geriatric Medicine; ATTEND Internal Medicine
DX: I63.9 Cerebral infarction, unspecified (principal); I42.9 Cardiomyopathy, unspecified; F10.20 Alcohol dependence, uncomplicated; I10 Essential (primary) hypertension; E78.5 Hyperlipidemia, unspecified; Z79.82 Long term (current) use of aspirin; Z79.899 Other long term (current) drug therapy
CPT/HCPCS: 36415; 70450; 70496; 70498; 70551; 80048; 80061; 80320; 82550; 82553; 82962; 83735; 84484; 85025; 85610; 85670; 85730; 93005; 93306; 93880; 96374; 99406; G0378; G0480; J1644; J7040; Q9967

== ENCOUNTER 2021-05-13 08:03 | Emergency (ER) | payer SELFPAY ==
--- NOTE | 2021-05-13 08:33 | Emergency Department Report ---
ED Shortness of Breath HPI - General Chief Complaint: Dyspnea/Respdistress Stated Complaint: JUAN Time Seen by Provider: 05/13/21 08:26 Source: patient, family, old records reviewed Mode of arrival: Wheelchair Limitations: Physical Limitation - History of Present Illness Initial Comments: 55 year old male with past medical hx of CVA x 4, HTN, CHF, vertigo, tobacco abuse and non compliance presents to ED with complaints of SOB. Onset was 2-3 days ago. He reports SOB at rest and on exertion with associated substernal chest heaviness, nonproductive cough, nausea, diarrhea, and generalized weakness. He states that he felt dizzy this morning and was concerned that symptoms related to another stroke and so he came to the ER. Patient states that he has some mild swelling around his ankle which he thinks could be related to gout but has not had any significant increase in swelling to the lower extremities. He denies any fever or chills. No wheezing. He denies any abdominal pain. He denies any UTI symptoms. He denies any ill contacts or recent travel. He has not gotten COVID-19 testing has been sick. He states that he is never got any of the COVID-19 vaccines. Complaint: shortness of breath -: days(s) (2-3) - Related Data Previous Rx's Medication Instructions Recorded Last Taken Type Aspirin 81 mg PO DAILY #30 tab.chew 07/27/18 10/15/20 09:00 Rx AtorvaSTATin [Lipitor] 20 mg PO QHS #30 tab 07/27/18 10/15/20 21:00 Rx Potassium Chloride [K-Dur] 10 meq PO QDAY #30 tablet 07/27/18 10/16/20 09:00 Rx carvediloL [Coreg] 3.125 mg PO BID #60 tablet 07/27/18 10/16/20 09:00 Rx lisinopriL [Zestril TAB] 5 mg PO QDAY #30 tablet 07/27/18 10/16/20 09:00 Rx Aspirin [Aspirin BABY CHEW TAB] 81 mg PO QDAY #30 tab.chew 05/07/19 10/16/20 09:00 Rx Furosemide [Lasix TAB] 40 mg PO QDAY #30 tablet 05/07/19 10/16/20 09:00 Rx Lisinopril [Zestril] 5 mg PO DAILY #30 tablet 05/07/19 10/16/20 09:00 Rx Potassium Chloride 10 meq PO DAILY #30 tablet.er 05/07/19 10/16/20 09:00 Rx carvediloL [Coreg] 3.125 mg PO BID #60 tablet 05/07/19 10/16/20 09:00 Rx Furosemide [Lasix] 60 mg PO QDAY #15 tablet 05/13/21 Unknown Rx Hyoscyamine Subl [Levsin Sl 0.125 0.125 mg SL Q4HR PRN #15 tablet 05/13/21 Unknown Rx TAB] Ondansetron [Zofran Odt] 4 mg PO Q8HR PRN #15 tab.rapdis 05/13/21 Unknown Rx Allergies Allergy/AdvReac Type Severity Reaction Status Date / Time No Known Allergies Allergy Verified 10/16/20 23:25 ED Review of Systems ROS: Stated complaint: JUAN Other details as noted in HPI Comment: All other systems reviewed and negative Constitutional: weakness. denies: chills, fever ENT: other (mild rhinorrhea) Respiratory: cough, shortness of breath, SOB with exertion. denies: wheezing Cardiovascular: chest pain Gastrointestinal: nausea, diarrhea Neurological: weakness (generalized weakness), vertigo ED Past Medical Hx - Past Medical History Previous Medical History?: Yes Hx Hypertension: Yes Hx CVA: Yes Hx Congestive Heart Failure: Yes Hx Diabetes: No Hx Asthma: No Hx COPD: No Additional medical history: Punctured lung, Broken ribs - Surgical History Past Surgical History?: No - Social History Smoking Status: Current Every Day Smoker - Medications Home Medications: Home Medications Medication Instructions Recorded Confirmed Last Taken Type Aspirin 81 mg PO DAILY #30 tab.chew 07/27/18 10/17/20 10/15/20 09:00 Rx AtorvaSTATin [Lipitor] 20 mg PO QHS #30 tab 07/27/18 10/17/20 10/15/20 21:00 Rx Potassium Chloride [K-Dur] 10 meq PO QDAY #30 tablet 07/27/18 10/17/20 10/16/20 09:00 Rx carvediloL [Coreg] 3.125 mg PO BID #60 tablet 07/27/18 10/17/20 10/16/20 09:00 Rx lisinopriL [Zestril TAB] 5 mg PO QDAY #30 tablet 07/27/18 10/17/20 10/16/20 09:00 Rx Aspirin [Aspirin BABY CHEW TAB] 81 mg PO QDAY #30 tab.chew 05/07/19 10/17/20 10/16/20 09:00 Rx Furosemide [Lasix TAB] 40 mg PO QDAY #30 tablet 05/07/19 10/17/20 10/16/20 09:00 Rx Lisinopril [Zestril] 5 mg PO DAILY #30 tablet 05/07/19 10/17/20 10/16/20 09:00 Rx Potassium Chloride 10 meq PO DAILY #30 tablet.er 05/07/19 10/17/20 10/16/20 09:00 Rx carvediloL [Coreg] 3.125 mg PO BID #60 tablet 05/07/19 10/17/20 10/16/20 09:00 Rx Furosemide [Lasix] 60 mg PO QDAY #15 tablet 05/13/21 Unknown Rx Hyoscyamine Subl [Levsin Sl 0.125 0.125 mg SL Q4HR PRN #15 tablet 05/13/21 Unknown Rx TAB] Ondansetron [Zofran Odt] 4 mg PO Q8HR PRN #15 tab.rapdis 05/13/21 Unknown Rx ED Physical Exam - General Limitations: Physical Limitation General appearance: alert, in no apparent distress, anxious - Head Head exam: Present: atraumatic, normocephalic, normal inspection - Eye Eye exam: Present: normal appearance, PERRL, EOMI Pupils: Present: normal accommodation - Neck Neck exam: Present: normal inspection, full ROM. Absent: meningismus - Respiratory Respiratory exam: Present: rales (base of right lung). Absent: respiratory distress - Cardiovascular Cardiovascular Exam: Present: regular rate, normal rhythm, normal heart sounds - Extremities Exam Extremities exam: Present: normal inspection, full ROM. Absent: pedal edema, calf tenderness - Neurological Exam Neurological exam: Present: alert, oriented X3, CN II-XII intact. Absent: motor sensory deficit - Psychiatric Psychiatric exam: Present: normal mood, anxious - Skin Skin exam: Present: intact ED Course Vital Signs 05/13/21 05/13/21 05/13/21 08:16 10:35 11:13 Temperature 98.0 F 98.1 F Pulse Rate 99 H 103 H Respiratory 24 22 20 Rate Blood Pressure 133/97 Blood Pressure 124/100 [Right] O2 Sat by Pulse 100 100 Oximetry 05/13/21 13:18 Temperature 98.7 F Pulse Rate 102 H Respiratory 18 Rate Blood Pressure Blood Pressure 137/97 [Right] O2 Sat by Pulse 98 Oximetry ED Medical Decision Making - Lab Data Result diagrams: 05/13/21 09:26 05/13/21 09:26 Echocardiogram report September 2020: Conclusion Left Ventricle : Left ventricle is severely dilated. There is severe global hypokinesis of the left ventricle. Mild concentric left ventricular hypertrophy. LVEF is 15-20%. Right Ventricle : Right ventricle is mildly dilated. Atria : Left atrium is mildly dilated. Mitral Valve : Moderate mitral regurgitation. Pericardium : There is no pericardial effusion. Cardiac catheterization 2019: Normal coronary arteries. Large apical vessel. This is a nonischemic cardiomyopathy. Severe LVH dysfunction. - EKG Data EKG shows normal: sinus rhythm Rate: normal (99) - EKG Data When compared to previous EKG there are: no significant change Interpretation: nonspecific ST-T wave nirmala, LVH - Radiology Data Radiology results: report reviewed Patient: SHANKAR COSTA MR#: [id number] : 1965 Acct:[id number] Age/Sex: 55 / M ADM Date: 05/13/21 Loc: ED Attending Dr: Ordering Physician: ALEX JESSICA Date of Service: 05/13/21 Procedure(s): XR chest routine 2V Accession Number(s): [id number] cc: ALEX JESSICA Fluoro Time In Minutes: XR chest routine 2V INDICATION / CLINICAL INFORMATION: Dyspnea. COMPARISON: 05/05/2019 FINDINGS: SUPPORT DEVICES: None. HEART /PULMONARY VASCULATURE: The heart is enlarged. Pulmonary vasculature is not significantly congested. LUNGS / PLEURA: Lung volumes are slightly diminished. No definite airspace consolidation is identified. No sizable pleural effusion. No pneumothorax. ADDITIONAL FINDINGS: No significant additional findings. IMPRESSION: Cardiomegaly without overt failure or other acute chest process. Signer Name: Milton De La Garza MD Signed: 05/13/2021 9:01 AM Workstation Name: [id number] Transcribed By: EAN Dictated By: MILTON DE LA GARZA MD Electronically Authenticated By: MILTON DE LA GARZA MD Signed Date/Time: 05/13/21900 DD/ 9 TD/TT: Patient: SHANKAR COSTA MR#: [id number] : 1965 Acct:[id number] Age/Sex: 55 / M ADM Date: 05/13/21 Loc: ED Attending Dr: Ordering Physician: ALEX JESSICA Date of Service: 05/13/21 Procedure(s): CT abdomen pelvis wo con Accession Number(s): [id number] cc: ALEX JESSICA CT ABDOMEN AND PELVIS WITHOUT CONTRAST INDICATION / CLINICAL INFORMATION: abd pain/diarrhea. TECHNIQUE: Axial CT images were obtained through the abdomen and pelvis without IV contrast. All CT scans at this location are performed using CT dose reduction for ALARA by means of automated exposure control. COMPARISON: None available. FINDINGS: LOWER CHEST: The heart is markedly enlarged. No pericardial effusion. Patchy groundglass opacities and interlobular septal thickening in the lung bases. LIVER: No significant abnormality GALLBLADDER/BILIARY TREE: No significant abnormality PANCREAS: No significant abnormality SPLEEN: No significant abnormality ADRENALS: No significant abnormality KIDNEYS / URETER: Right renal cyst. Punctate nonobstructive nephrolithiasis noted bilaterally. No ureteral stone or hydronephrosis. URINARY BLADDER: No significant abnormality REPRODUCTIVE ORGANS: No significant abnormality STOMACH / BOWEL: Small bowel is normal in caliber. There is mild mural thickening and pericolonic inflammatory stranding of the distal descending colon. The appendix is normal in caliber. LYMPH NODES: No significant adenopathy. VASCULATURE: No significant abnormality. OTHER: No free air, free fluid, or focal fluid collection is identified. SKELETAL SYSTEM: There are pars defects at L4 with grade 1 anterolisthesis and severe disc and endplate changes. Moderate degenerative this disease at L5-S1. No acute process. IMPRESSION: 1. Mild infectious or inflammatory colitis of the distal descending colon. 2. Cardiomegaly with patchy groundglass opacities and interlobular septal thickening in the lung bases, consistent with pulmonary edema/CHF. 3. Punctate bilateral nonobstructive nephrolithiasis. No ureteral calculus or hydronephrosis 4. Other incidental findings as above. Signer Name: Milton De La Garza MD Signed: 05/13/2021 10:57 AM Workstation Name: [id number] Transcribed By: EAN Dictated By: MILTON DE L AGARZA MD Electronically Authenticated By: MILTON DE LA GARZA MD Signed Date/Time: 05/13/21 105 DD/ 1053 TD/TT: - Medical Decision Making Labs and CXR reviewed Work up today suggest CHF exacerbation and a CT abdomen shows colitis. Patient's VS have been reviewed, and stable including the fact that he is not hypoxic. Patient currently observed sitting comfortably in recliner engaging in conversation with other patients in the reassessment. He did have a couple episodes of diarrhea during his stay, but this has improved after he received Lomotil, and pain medication. He is not toxic, and not in any respiratory distress. He is not ill-appearing. His CT scan showed colitis but otherwise no other abnormality. Suspect that this is probably more viral and given that his white count is normal, and he is afebrile there is no indication for starting patient on antibiotics at this time. Discussed case as well all results with Dr. Allen, recommend giving patient a IV bolus of Lasix at 80 mg and since patient is not any respiratory distress and is not hypoxic patient can be discharged home and will increase his dose of Lasix for few days. Discussed all results and dx with patient. Patient thinks he takes lasix 40mg daily, so we will increase that to 60mg daily x 5 days; he will also be given medication to help with nausea, and abdominal cramps and he can take Imodium [id number] to help with any diarrhea. Patient was given clear instructions to follow-up with his PCP this week and he understands that if at any point the symptoms worsens to return immediately to the ER. Critical care attestation.: If time is entered above; I have spent that time in minutes in the direct care of this critically ill patient, excluding procedure time. ED Disposition Clinical Impression: CHF (congestive heart failure), Diarrhea, Colitis Disposition: HOME / SELF CARE / HOMELESS Is pt being admited?: No Does the pt Need Aspirin: No Condition: Stable Additional Instructions: The next 5 days we recommend that you increase your Lasix to 60 mg daily, after 5 days she can go back to her usual dose of Lasix. You can take the Levsin to help with abdominal cramps on the Zofran to help with any nausea vomiting. It is important that you to follow-up with your primary care doctor either Friday or Friday. Return to the ER if your symptoms worsens or changes in any way Prescriptions: Furosemide [Lasix] 60 mg PO QDAY #15 tablet Hyoscyamine Subl [Levsin Sl 0.125 TAB] 0.125 mg SL Q4HR PRN #15 tablet PRN Reason: abdominal Spasms Ondansetron [Zofran Odt] 4 mg PO Q8HR PRN #15 tab.rapdis PRN Reason: nausea/vomiting Referrals: PRIMARY CARE, [Primary Care Provider] - 2-3 Days Time of Disposition: 13:04
--- NOTE | 2021-05-13 09:05 | XRay Report ---
XR chest routine 2V INDICATION / CLINICAL INFORMATION: Dyspnea. COMPARISON: 05/05/2019 FINDINGS: SUPPORT DEVICES: None. HEART /PULMONARY VASCULATURE: The heart is enlarged. Pulmonary vasculature is not significantly conge sted. LUNGS / PLEURA: Lung volumes are slightly diminished. No definite airspace consolidation is identifie d. No sizable pleural effusion. No pneumothorax. ADDITIONAL FINDINGS: No significant additional findings. IMPRESSION: Cardiomegaly without overt failure or other acute chest process. Signer Name: Marcos De La Garza MD Signed: 05/13/2021 9:01 AM Workstation Name: [id number]
[2021-05-13 09:49] LABS: Basophils % (Auto) 0.7 % (0.0-1.8); Hematocrit 47.5 % (35.5-45.6); Hemoglobin 15.2 gm/dl (11.8-15.2); Lymphocytes # (Auto) 1.3 K/mm3 (1.2-5.4); Lymphocytes % (Auto) 26.6 % (13.4-35.0); Mean Corpuscular HGB Conc 32 % (32-34); Mean Corpuscular Volume 92 fl (84-94); Monocytes # (Auto) 0.3 K/mm3 (0.0-0.8); Monocytes % (Auto) 6.6 % (0.0-7.3); Platelet Count 157 K/mm3 (140-440); Red Blood Count 5.18 M/mm3 (3.65-5.03); Red Cell Distribution Width 14.4 % (13.2-15.2)
[2021-05-13 10:14] LABS: Albumin 4.1 g/dL (3.9-5); Calcium 9.5 mg/dL (8.4-10.2)
[2021-05-13] MEDS ORDERED: oxyCODONE /ACETAMINOPHEN 5-325MG TAB PO ONE (10:24)
[2021-05-13] MEDS ORDERED: ONDANSETRON 4 MG/2 ML INJ IV ONE ×2 (10:24→11:52)
--- NOTE | 2021-05-13 11:01 | Cat Scan Report ---
CT ABDOMEN AND PELVIS WITHOUT CONTRAST INDICATION / CLINICAL INFORMATION: abd pain/diarrhea. TECHNIQUE: Axial CT images were obtained through the abdomen and pelvis without IV contrast. All CT scans at this location are performed using CT dose reduction for ALARA by means of automated exposure control. COMPARISON: None available. FINDINGS: LOWER CHEST: The heart is markedly enlarged. No pericardial effusion. Patchy groundglass opacities an d interlobular septal thickening in the lung bases. LIVER: No significant abnormality GALLBLADDER/BILIARY TREE: No significant abnormality PANCREAS: No significant abnormality SPLEEN: No significant abnormality ADRENALS: No significant abnormality KIDNEYS / URETER: Right renal cyst. Punctate nonobstructive nephrolithiasis noted bilaterally. No ure teral stone or hydronephrosis. URINARY BLADDER: No significant abnormality REPRODUCTIVE ORGANS: No significant abnormality STOMACH / BOWEL: Small bowel is normal in caliber. There is mild mural thickening and pericolonic inf lammatory stranding of the distal descending colon. The appendix is normal in caliber. LYMPH NODES: No significant adenopathy. VASCULATURE: No significant abnormality. OTHER: No free air, free fluid, or focal fluid collection is identified. SKELETAL SYSTEM: There are pars defects at L4 with grade 1 anterolisthesis and severe disc and endpla te changes. Moderate degenerative this disease at L5-S1. No acute process. IMPRESSION: 1. Mild infectious or inflammatory colitis of the distal descending colon. 2. Cardiomegaly with patchy groundglass opacities and interlobular septal thickening in the lung base s, consistent with pulmonary edema/CHF. 3. Punctate bilateral nonobstructive nephrolithiasis. No ureteral calculus or hydronephrosis 4. Other incidental findings as above. Signer Name: Marcos De La Garza MD Signed: 05/13/2021 10:57 AM Workstation Name: [id number]
[2021-05-13] MEDS ORDERED: FUROSEMIDE 40 MG/4 ML INJ IV ONE ×2 (11:13→11:22)
[2021-05-13] MEDS ORDERED: DIPHENOXYLATE/ATROPINE TAB PO ONE (11:22)
[2021-05-13 13:22] VITALS: BP 137/97
--- NOTE | 2021-05-15 09:20 | Electrocardiograph Report ---
[facility] Test Date: 2021-05-13 Test Time: 08:31:43 Pat Name: SHANKAR COSTA Department: Room: Gender: M [employer] Supervisor: GLENNA MACARIOB: 1965 Requested By: ALEX JESSICA Order Number: [id number] Reading MD: Gabriele Luis Measurements Intervals [place] Rate: 99 P: 60 [place]: 176 QRS: -47 QRSD: 119 T: 88 QT: 380 QTc: 489 Interpretive Statements Sinus rhythm Probable left atrial enlargement Nonspecific IVCD with LAD LVH with secondary repolarization abnormality Inferior infarct, old Anterior ST elevation, probably due to LVH Compared to ECG 10/16/2020 21:15:50 Intraventricular conduction delay now present Early repolarization now present Myocardial infarct finding now present ST (T wave) deviation now present Ventricular premature complex(es) no longer present Electronically Signed On 05-15-2021 9:20:14 EST by Gabriele Luis
== END 2021-05-13 13:21 | disposition home or self-care (01) ==
LOC: ED 08:03
DX: I50.9 Heart failure, unspecified (principal); I11.0 Hypertensive heart disease with heart failure; F17.200 Nicotine dependence, unspecified, uncomplicated; K52.9 Noninfective gastroenteritis and colitis, unspecified
CPT/HCPCS: 36415; 71046; 74176; 80053; 83690; 83880; 84484; 85025; 93005; 96374; 96375; 96376; 99284; J1940; J2405

== ENCOUNTER 2021-06-18 19:48 | Emergency (ER) | payer SELFPAY ==
[2021-06-18 23:08] VITALS: BP 112/84
== END 2021-06-19 01:55 | disposition left against medical advice (07) ==
LOC: ED 19:48
DX: R11.10 Vomiting, unspecified (principal); Z53.21 Procedure and treatment not carried out due to patient leaving prior to being seen by health care provider

== ENCOUNTER 2021-06-22 18:49 | Inpatient (IN) | payer SELFPAY ==
[2021-06-22] MEDS ORDERED: ONDANSETRON 4 MG/2 ML INJ IV ONE (19:15)
[2021-06-22] MEDS ORDERED: SODIUM CHLORIDE 0.9% 1000 ML 1,000 ML IV ONE (19:15)
--- NOTE | 2021-06-22 19:41 | Emergency Department Report ---
HPI - General Chief Complaint: Weakness Time Seen by Provider: 06/22/21 19:01 - HPI HPI: Room 22 The patient is a 55-year-old male present with a chief complaint of shortness of breath nausea vomiting. The patient states for approximate 1 week he has had shortness of breath and a cough has been nonproductive. Patient denies history of fever. Patient also states for the approximate same on the time he has had nausea vomiting. Patient states he has been unable to eat or take his medications for the past week secondary to the nausea vomiting. Patient admits to some diarrhea. The patient states he has not been vaccinated against COVID. ED Past Medical Hx - Past Medical History Hx Hypertension: Yes Hx CVA: Yes Hx Congestive Heart Failure: Yes Additional medical history: Punctured lung, Broken ribs - Surgical History Past Surgical History?: No - Family History Family history: no significant - Social History Smoking Status: Former Smoker (None x3-weeks) Substance Use Type: None (Denies illicit drug use) - Medications Home Medications: Home Medications Medication Instructions Recorded Confirmed Last Taken Type Aspirin 81 mg PO DAILY #30 tab.chew 07/27/18 10/17/20 10/15/20 09:00 Rx AtorvaSTATin [Lipitor] 20 mg PO QHS #30 tab 07/27/18 10/17/20 10/15/20 21:00 Rx Potassium Chloride [K-Dur] 10 meq PO QDAY #30 tablet 07/27/18 10/17/20 10/16/20 09:00 Rx carvediloL [Coreg] 3.125 mg PO BID #60 tablet 07/27/18 10/17/20 10/16/20 09:00 Rx lisinopriL [Zestril TAB] 5 mg PO QDAY #30 tablet 07/27/18 10/17/20 10/16/20 09:00 Rx Aspirin [Aspirin BABY CHEW TAB] 81 mg PO QDAY #30 tab.chew 05/07/19 10/17/20 10/16/20 09:00 Rx Furosemide [Lasix TAB] 40 mg PO QDAY #30 tablet 05/07/19 10/17/20 10/16/20 09:00 Rx Lisinopril [Zestril] 5 mg PO DAILY #30 tablet 05/07/19 10/17/20 10/16/20 09:00 Rx Potassium Chloride 10 meq PO DAILY #30 tablet.er 05/07/19 10/17/20 10/16/20 09:00 Rx carvediloL [Coreg] 3.125 mg PO BID #60 tablet 05/07/19 10/17/20 10/16/20 09:00 Rx Furosemide [Lasix] 60 mg PO QDAY #15 tablet 05/13/21 Unknown Rx Hyoscyamine Subl [Levsin Sl 0.125 0.125 mg SL Q4HR PRN #15 tablet 05/13/21 Unknown Rx TAB] Ondansetron [Zofran Odt] 4 mg PO Q8HR PRN #15 tab.rapdis 05/13/21 Unknown Rx ED Review of Systems ROS: Stated complaint: generalized weakness Other details as noted in HPI Constitutional: denies: fever Eyes: denies: eye pain ENT: denies: throat pain Respiratory: cough, shortness of breath Cardiovascular: denies: chest pain Endocrine: no symptoms reported Gastrointestinal: nausea, vomiting, diarrhea Genitourinary: denies: dysuria Musculoskeletal: denies: back pain Neurological: denies: headache Physical Exam - Physical Exam Vital Signs: Vital Signs 06/22/21 18:54 Temperature 97.4 F L Pulse Rate 123 H Respiratory 16 Rate O2 Sat by Pulse 100 Oximetry Physical Exam: GENERAL: The patient is well-developed well-nourished male lying on stretcher exhibiting increased work of breathing. [] HEENT: Normocephalic. Atraumatic. Extraocular motions are intact. Patient has moist mucous membranes. NECK: Supple. Trachea midline CHEST/LUNGS: Clear to auscultation. There is increased work of breathing noted. HEART/CARDIOVASCULAR: Regular. There is no tachycardia. There is no gallop rub or murmur. ABDOMEN: Abdomen is soft, nontender. Patient has normal bowel sounds. There is no abdominal distention. SKIN: There is no rash. There is trace bilateral lower extremity pitting edema. There is no diaphoresis. NEURO: The patient is awake, alert, and oriented. The patient is cooperative. The patient has no focal neurologic deficits. The patient has normal speech. GCS 15 MUSCULOSKELETAL: There is no evidence of acute injury. ED Course Vital Signs 06/22/21 18:54 Temperature 97.4 F L Pulse Rate 123 H Respiratory 16 Rate O2 Sat by Pulse 100 Oximetry - Consultations Consultation #1: 06/22/21 22:05 Nephrology paged ED Medical Decision Making - Lab Data Result diagrams: 06/22/21 19:57 06/22/21 19:57 Laboratory Tests 06/22/21 06/22/21 06/22/21 19:56 19:57 19:57 WBC 10.4 RBC 4.91 Hgb 14.6 Hct 46.4 H MCV 94 MCH 30 MCHC 32 RDW 15.4 H Plt Count 83 L Lymph % (Auto) 11.8 L [place] % (Auto) 11.1 H Eos % (Auto) 0.0 Baso % (Auto) 0.3 Lymph # (Auto) 1.2 [place] # (Auto) 1.2 H Eos # (Auto) 0.0 Baso # (Auto) 0.0 Add Manual Diff Complete Total Counted 100 Seg Neutrophils % 76.8 H Seg Neuts % (Manual) 81.0 H Band Neutrophils % 1.0 Lymphocytes % (Manual) 7.0 L Reactive Lymphs % (Man) 0 Monocytes % (Manual) 11.0 H Eosinophils % (Manual) 0 Basophils % (Manual) 0 Metamyelocytes % 0 Myelocytes % 0 Promyelocytes % 0 Blast Cells % 0 Nucleated RBC % 3.0 H Seg Neutrophils # 8.0 H Seg Neutrophils # Man 8.4 H Band Neutrophils # 0.1 Lymphocytes # (Manual) 0.7 L Abs React Lymphs (Man) 0.0 Monocytes # (Manual) 1.1 H Eosinophils # (Manual) 0.0 Basophils # (Manual) 0.0 Metamyelocytes # 0.0 Myelocytes # 0.0 Promyelocytes # 0.0 Blast Cells # 0.0 WBC Morphology Not Reportable Hypersegmented Neuts Not Reportable Hyposegmented Neuts Not Reportable Hypogranular Neuts Not Reportable Smudge Cells Not Reportable Toxic Granulation Not Reportable Toxic Vacuolation Not Reportable Dohle Bodies Not Reportable Pelger-Huet Anomaly Not Reportable Annie Rods Not Reportable Platelet Estimate Appears decreased Clumped Platelets Not Reportable Plt Clumps, EDTA Not Reportable Large Platelets Not Reportable Giant Platelets Not Reportable Platelet Satelliting Not Reportable Plt Morphology Comment Not Reportable RBC Morphology Normal Dimorphic RBCs Not Reportable Polychromasia Not Reportable Hypochromasia Not Reportable Poikilocytosis Not Reportable Anisocytosis Not Reportable Microcytosis Not Reportable Macrocytosis Not Reportable Spherocytes Not Reportable Pappenheimer Bodies Not Reportable Sickle Cells Not Reportable Target Cells Not Reportable Tear Drop Cells Not Reportable Ovalocytes Not Reportable Helmet Cells Not Reportable Stewart-[place]onan Bodies Not Reportable [place] Rings Not Reportable Juliane Cells Not Reportable Bite Cells Not Reportable Crenated Cell Not Reportable Elliptocytes Not Reportable Acanthocytes (Spur) Not Reportable Rouleaux Not Reportable Hemoglobin C Crystals Not Reportable Schistocytes Not Reportable Malaria parasites Not Reportable Erik Bodies Not Reportable Hem Pathologist Commnt No PT 37.9 H INR 3.52 H D-Dimer Sodium Potassium Chloride Carbon Dioxide Anion Gap BUN Creatinine Estimated GFR BUN/Creatinine Ratio Glucose POC Glucose Lactic Acid Calcium Total Bilirubin AST ALT Alkaline Phosphatase Total Creatine Kinase CK-MB (CK-2) CK-MB (CK-2) Rel Index Troponin T NT-Pro-B Natriuret Pep Total Protein Albumin Albumin/Globulin Ratio Triglycerides Cholesterol LDL Cholesterol Direct HDL Cholesterol Cholesterol/HDL Ratio Influenza A (Rapid) Negative Influenza B (Rapid) Negative 06/22/21 06/22/21 06/22/21 19:57 19:57 19:57 WBC RBC Hgb Hct MCV MCH MCHC RDW Plt Count Lymph % (Auto) [place] % (Auto) Eos % (Auto) Baso % (Auto) Lymph # (Auto) [place] # (Auto) Eos # (Auto) Baso # (Auto) Add Manual Diff Total Counted Seg Neutrophils % Seg Neuts % (Manual) Band Neutrophils % Lymphocytes % (Manual) Reactive Lymphs % (Man) Monocytes % (Manual) Eosinophils % (Manual) Basophils % (Manual) Metamyelocytes % Myelocytes % Promyelocytes % Blast Cells % Nucleated RBC % Seg Neutrophils # Seg Neutrophils # Man Band Neutrophils # Lymphocytes # (Manual) Abs React Lymphs (Man) Monocytes # (Manual) Eosinophils # (Manual) Basophils # (Manual) Metamyelocytes # Myelocytes # Promyelocytes # Blast Cells # WBC Morphology Hypersegmented Neuts Hyposegmented Neuts Hypogranular Neuts Smudge Cells Toxic Granulation Toxic Vacuolation Dohle Bodies Pelger-Huet Anomaly Annie Rods Platelet Estimate Clumped Platelets Plt Clumps, EDTA Large Platelets Giant Platelets Platelet Satelliting Plt Morphology Comment RBC Morphology Dimorphic RBCs Polychromasia Hypochromasia Poikilocytosis Anisocytosis Microcytosis Macrocytosis Spherocytes Pappenheimer Bodies Sickle Cells Target Cells Tear Drop Cells Ovalocytes Helmet Cells Stewart-Noonan Bodies [place] Rings [place] Cells Bite Cells Crenated Cell Elliptocytes Acanthocytes (Spur) Rouleaux Hemoglobin C Crystals Schistocytes Malaria parasites Erik Bodies Hem Pathologist Commnt PT INR D-Dimer > 234 H Sodium 125 L Potassium 6.6 H* Chloride 87.6 L Carbon Dioxide 13 L Anion Gap 31 BUN 93 H Creatinine 3.9 H Estimated GFR 19 BUN/Creatinine Ratio 24 Glucose 111 H POC Glucose Lactic Acid 7.60 H* Calcium 8.8 Total Bilirubin 6.40 H AST 809 H ALT 1735 H Alkaline Phosphatase 109 Total Creatine Kinase 570 H CK-MB (CK-2) 11.8 H CK-MB (CK-2) Rel Index 2.0 Troponin T 0.067 H NT-Pro-B Natriuret Pep 58669 H Total Protein 7.0 Albumin 4.1 Albumin/Globulin Ratio 1.4 Triglycerides 90 Cholesterol 103 LDL Cholesterol Direct 61 HDL Cholesterol 26 L Cholesterol/HDL Ratio 3.96 Influenza A (Rapid) Influenza B (Rapid) 06/22/21 22:19 WBC RBC Hgb Hct MCV MCH MCHC RDW Plt Count Lymph % (Auto) [place] % (Auto) Eos % (Auto) Baso % (Auto) Lymph # (Auto) [place] # (Auto) Eos # (Auto) Baso # (Auto) Add Manual Diff Total Counted Seg Neutrophils % Seg Neuts % (Manual) Band Neutrophils % Lymphocytes % (Manual) Reactive Lymphs % (Man) Monocytes % (Manual) Eosinophils % (Manual) Basophils % (Manual) Metamyelocytes % Myelocytes % Promyelocytes % Blast Cells % Nucleated RBC % Seg Neutrophils # Seg Neutrophils # Man Band Neutrophils # Lymphocytes # (Manual) Abs React Lymphs (Man) Monocytes # (Manual) Eosinophils # (Manual) Basophils # (Manual) Metamyelocytes # Myelocytes # Promyelocytes # Blast Cells # WBC Morphology Hypersegmented Neuts Hyposegmented Neuts Hypogranular Neuts Smudge Cells Toxic Granulation Toxic Vacuolation Dohle Bodies Pelger-Huet Anomaly Annie Rods Platelet Estimate Clumped Platelets Plt Clumps, EDTA Large Platelets Giant Platelets Platelet Satelliting Plt Morphology Comment RBC Morphology Dimorphic RBCs Polychromasia Hypochromasia Poikilocytosis Anisocytosis Microcytosis Macrocytosis Spherocytes Pappenheimer Bodies Sickle Cells Target Cells Tear Drop Cells Ovalocytes Helmet Cells Stewart-Noonan Bodies [place] Rings Juliane Cells Bite Cells Crenated Cell Elliptocytes Acanthocytes (Spur) Rouleaux Hemoglobin C Crystals Schistocytes Malaria parasites Erik Bodies Hem Pathologist Commnt PT INR D-Dimer Sodium Potassium Chloride Carbon Dioxide Anion Gap BUN Creatinine Estimated GFR BUN/Creatinine Ratio Glucose POC Glucose 63 L Lactic Acid Calcium Total Bilirubin AST ALT Alkaline Phosphatase Total Creatine Kinase CK-MB (CK-2) CK-MB (CK-2) Rel Index Troponin T NT-Pro-B Natriuret Pep Total Protein Albumin Albumin/Globulin Ratio Triglycerides Cholesterol LDL Cholesterol Direct HDL Cholesterol Cholesterol/HDL Ratio Influenza A (Rapid) Influenza B (Rapid) - EKG Data -: EKG Interpreted by Me EKG shows normal: sinus rhythm Rate: tachycardia (108 beats per) - EKG Data When compared to previous EKG there are: no significant change Interpretation: unchanged when compared t (05/13/2021) - Radiology Data Radiology results: report reviewed (Chest x-ray), image reviewed (Chest x-ray) interpreted by me: Chest x-ray-no definite focal infiltrates. No pneumothorax. Cardiomegaly [facility] [address] [place] [address] XRay Report Signed Patient: SHANKAR COSTA MR#: [id number] : 1965 Acct:[id number] Age/Sex: 55 / M ADM Date: 06/22/21 Loc: ED Attending Dr: Ordering Physician: NAM RYAN MD Date of Service: 06/22/21 Procedure(s): XR chest 1V ap Accession Number(s): [id number] cc: NAM RYAN MD Fluoro Time In Minutes: CHEST 1 VIEW 06/22/2021 7:18 PM INDICATION / CLINICAL INFORMATION: Shortness of breath. COMPARISON: 2 views of the chest from 05/13/2021. FINDINGS: SUPPORT DEVICES: None. HEART / MEDIASTINUM: Similar cardiomegaly without additional significant abnormalities. LUNGS / PLEURA: No significant pulmonary abnormality. No significant pleural effusion. No pneumothorax. ADDITIONAL FINDINGS: No significant additional findings. IMPRESSION: Stable marked cardiomegaly without new acute findings. Signer Name: Gio Fofana MD Signed: 06/22/2021 7:42 PM Workstation Name: [id number] Transcribed By: [place] Dictated By: Gio Fofana MD Electronically Authenticated By: Gio Fofana MD Signed Date/Time: 06/22/211941 DD/ 40 TD/TT: Print Cancel - Differential Diagnosis Pneumonia, COVID-19, Critical care attestation.: If time is entered above; I have spent that time in minutes in the direct care of this critically ill patient, excluding procedure time. ED Disposition Clinical Impression: Shortness of breath, Acute renal failure, Hyperkalemia, CHF (congestive heart failure) Disposition: ADMITTED INPATIENT Is pt being admited?: Yes Does the pt Need Aspirin: No Condition: Fair Referrals: MAME RICHARDS MD [Primary Care Provider] - 3-5 Days Time of Disposition: 22:23 (Hospitalist called (Dr. Beltrán))
--- NOTE | 2021-06-22 19:46 | XRay Report ---
CHEST 1 VIEW 06/22/2021 7:18 PM INDICATION / CLINICAL INFORMATION: Shortness of breath. COMPARISON: 2 views of the chest from 05/13/2021. FINDINGS: SUPPORT DEVICES: None. HEART / MEDIASTINUM: Similar cardiomegaly without additional significant abnormalities. LUNGS / PLEURA: No significant pulmonary abnormality. No significant pleural effusion. No pneumothora x. ADDITIONAL FINDINGS: No significant additional findings. IMPRESSION: Stable marked cardiomegaly without new acute findings. Signer Name: Gio Fofana MD Signed: 06/22/2021 7:42 PM Workstation Name: [id number]
[2021-06-22 20:42] LABS: Hematocrit 46.4 % (35.5-45.6); Hemoglobin 14.6 gm/dl (11.8-15.2); Mean Corpuscular HGB Conc 32 % (32-34); Mean Corpuscular Volume 94 fl (84-94); Monocytes # (Auto) 1.2 K/mm3 (0.0-0.8); Monocytes % (Auto) 11.1 % (0.0-7.3); Red Blood Count 4.91 M/mm3 (3.65-5.03); Red Cell Distribution Width 15.4 % (13.2-15.2)
[2021-06-22 20:45] LABS: INR 3.52 (0.87-1.13); Platelet Count 83 K/mm3 (140-440)
[2021-06-22 20:59] LABS: Creatine Kinase MB 11.8 ng/mL (0.0-4.0)
[2021-06-22 21:03] LABS: Albumin 4.1 g/dL (3.9-5); Calcium 8.8 mg/dL (8.4-10.2)
[2021-06-22 21:19] LABS: Band Neutrophils # (Manual) 0.1 K/mm3; Basophils % (Manual) 0 % (0.0-1.8); Eosinophils % (Manual) 0 % (0.0-4.3); Platelet Estimate Appears Decreased; Total Cells Counted 100
[2021-06-22 21:32] LABS: RBC Morphology Normal
[2021-06-22 21:33] LABS: Basophils % (Auto) 0.3 % (0.0-1.8); Lymphocytes # (Auto) 1.2 K/mm3 (1.2-5.4); Lymphocytes % (Auto) 11.8 % (13.4-35.0)
[2021-06-22 21:42] LABS: Chol/HDL Ratio 3.96 %
[2021-06-22] MEDS ORDERED: DEXTROSE 50% IN WATER (25GM) 50 ML SYRINGE IV ONE (21:51)
[2021-06-22] MEDS ORDERED: INSULIN REGULAR, HUMAN 100 UNITS/1 ML IV ONE (21:51)
[2021-06-22] MEDS ORDERED: CALC GLUCONATE 1GM/NS 100 ML 1 GM/100 ML BAG IV ONE (21:51)
[2021-06-22] MEDS ORDERED: SODIUM BICARB 8.4% 50 MEQ/50 ML VIAL IV ONE (21:51)
[2021-06-22] MEDS ORDERED: SODIUM POLYSTYRENE 15 GM/60 ML ORAL LIQD PO ONE (21:51)
[2021-06-22] MEDS ORDERED: LEVALBUTEROL 0.63 MG/3 ML NEBU IH ONE (22:14)
[2021-06-22] MEDS ORDERED: DEXTROSE 10% *Hypoglycemia IV ONE ×2 (22:14→22:15)
[2021-06-22] MEDS ORDERED: METOCLOPRAMIDE 10 MG/2 ML INJ IV ONE (22:32)
[2021-06-22] MEDS ORDERED: DEXTROSE 5% IN WATER 1,000 ML with SODIUM BICARBONATE 150 MEQ IV SCH (23:00)
[2021-06-22] MEDS ORDERED: SODIUM CHLORIDE 0.9% 1000 ML 1,000 ML ONE (23:09)
[2021-06-22] MEDS ORDERED: D10W 250 ML IV SOLN IV STA (23:51)
[2021-06-23] MEDS ORDERED: ALBUTEROL 2.5 MG/3 ML NEBU IH PRN (01:48)
[2021-06-23] MEDS ORDERED: HYDROmorphone 1 MG/1 ML INJ IV PRN (01:48)
[2021-06-23] MEDS ORDERED: MORPHINE 2 MG/1 ML INJ IV PRN (01:48)
[2021-06-23] MEDS ORDERED: ONDANSETRON 4 MG/2 ML INJ IV PRN (01:48)
[2021-06-23] MEDS ORDERED: ACETAMINOPHEN 325 MG TAB PO PRN (01:48)
[2021-06-23] MEDS ORDERED: HYOSCYAMINE SUBL 0.125 MG TAB SL PRN (01:52)
--- NOTE | 2021-06-23 01:58 | History and Physical Report ---
History of Present Illness Date of examination: 06/23/21 Date of admission: 06/23/21 Chief complaint: Shortness of breath Weakness History of present illness: 55-year-old male present with a chief complaint of shortness of breath nausea vomiting. The patient states for approximate 1 week he has had shortness of breath and a cough has been nonproductive. Patient denies history of fever. Patient also states for the approximate same on the time he has had nausea vomiting. Patient states he has been unable to eat or take his medications for the past week secondary to the nausea vomiting. Patient admits to some diarrhea. The patient states he has not been vaccinated against COVID. In the emergency room patient is found to have potassium of 6.6, BUN 93 cre atinine 3.9, lactic acid 7.60, troponin 0 0.067, BNP 55354, AST 809 and ALT 1735. Subsequently Case discussed with nephrology patient already get insulin D50 Kayexalate and calcium gluconate repeat the BMP and nephrology will see the patient in the morning Past History Past Medical History: heart failure, hypertension, stroke, other (Punctured lung, broken ribs) Social history: other (Former smoker) Medications and Allergies Allergies Allergy/AdvReac Type Severity Reaction Status Date / Time No Known Allergies Allergy Verified 10/16/20 23:25 Home Medications Medication Instructions Recorded Confirmed Last Taken Type Aspirin 81 mg PO DAILY #30 tab.chew 07/27/18 10/17/20 10/15/20 09:00 Rx AtorvaSTATin [Lipitor] 20 mg PO QHS #30 tab 07/27/18 10/17/20 10/15/20 21:00 Rx Potassium Chloride [K-Dur] 10 meq PO QDAY #30 tablet 07/27/18 10/17/20 10/16/20 09:00 Rx carvediloL [Coreg] 3.125 mg PO BID #60 tablet 07/27/18 10/17/20 10/16/20 09:00 Rx lisinopriL [Zestril TAB] 5 mg PO QDAY #30 tablet 07/27/18 10/17/20 10/16/20 09:00 Rx Aspirin [Aspirin BABY CHEW TAB] 81 mg PO QDAY #30 tab.chew 05/07/19 10/17/20 10/16/20 09:00 Rx Furosemide [Lasix TAB] 40 mg PO QDAY #30 tablet 05/07/19 10/17/20 10/16/20 09:00 Rx Lisinopril [Zestril] 5 mg PO DAILY #30 tablet 05/07/19 10/17/20 10/16/20 09:00 Rx Potassium Chloride 10 meq PO DAILY #30 tablet.er 05/07/19 10/17/20 10/16/20 09:00 Rx carvediloL [Coreg] 3.125 mg PO BID #60 tablet 05/07/19 10/17/20 10/16/20 09:00 Rx Furosemide [Lasix] 60 mg PO QDAY #15 tablet 05/13/21 Unknown Rx Hyoscyamine Subl [Levsin Sl 0.125 0.125 mg SL Q4HR PRN #15 tablet 05/13/21 Unknown Rx TAB] Ondansetron [Zofran Odt] 4 mg PO Q8HR PRN #15 tab.rapdis 05/13/21 Unknown Rx Active Meds: Active Medications Sodium Bicarbonate 150 meq/ (Dextrose) 1,150 mls @ 100 mls/hr IV DIRECT BHAVYA Last Admin: 06/23/21 00:15 Dose: 100 mls/hr Review of Systems Constitutional: weakness Cardiovascular: edema, shortness of breath, dyspnea on exertion Respiratory: shortness of breath, dyspnea on exertion Gastrointestinal: nausea, vomiting Exam - Constitutional Vitals: Temp Pulse Resp BP Pulse Ox 97.4 F L 122 H 24 117/93 100 06/22/21 23:48 06/23/21 00:16 06/23/21 00:16 06/23/21 00:16 06/23/21 00:16 General appearance: Present: mild distress, well-nourished - EENT Eyes: Present: PERRL ENT: hearing intact, clear oral mucosa - Neck Neck: Present: supple, normal ROM - Respiratory Respiratory effort: normal Respiratory: bilateral: rales - Cardiovascular Heart Sounds: Present: S1 & S2. Absent: rub, click - Extremities Extremities: pulses symmetrical, No edema Peripheral Pulses: within normal limits - Abdominal General gastrointestinal: Present: soft, non-tender, non-distended, normal bowel sounds Male genitourinary: Present: normal - Integumentary Integumentary: Present: clear, warm, dry - Musculoskeletal Musculoskeletal: gait normal, strength equal bilaterally - Psychiatric Psychiatric: appropriate mood/affect, intact judgment & insight - Neurologic Neurologic: CNII-XII intact, moves all extremities HEART Score - HEART Score Troponin: Troponin T 0.067 ng/mL (0.00-0.029) H 06/22/21 19:57 Results - Labs CBC & Chem 7: 06/22/21 19:57 06/22/21 19:57 Labs: Laboratory Last Values WBC 10.4 K/mm3 (4.5-11.0) 06/22/21 19:57 RBC 4.91 M/mm3 (3.65-5.03) 06/22/21 19:57 Hgb 14.6 gm/dl (11.8-15.2) 06/22/21 19:57 Hct 46.4 % (35.5-45.6) H 06/22/21 19:57 MCV 94 fl (84-94) 06/22/21 19:57 MCH 30 pg (28-32) 06/22/21 19:57 MCHC 32 % (32-34) 06/22/21 19:57 RDW 15.4 % (13.2-15.2) H 06/22/21 19:57 Plt Count 83 K/mm3 (140-440) L 06/22/21 19:57 Lymph % (Auto) 11.8 % (13.4-35.0) L 06/22/21 19:57 Branch % (Auto) 11.1 % (0.0-7.3) H 06/22/21 19:57 Eos % (Auto) 0.0 % (0.0-4.3) 06/22/21 19:57 Baso % (Auto) 0.3 % (0.0-1.8) 06/22/21 19:57 Lymph # (Auto) 1.2 K/mm3 (1.2-5.4) 06/22/21 19:57 Branch # (Auto) 1.2 K/mm3 (0.0-0.8) H 06/22/21 19:57 Eos # (Auto) 0.0 K/mm3 (0.0-0.4) 06/22/21 19:57 Baso # (Auto) 0.0 K/mm3 (0.0-0.1) 06/22/21 19:57 Add Manual Diff Complete 06/22/21 19:57 Total Counted 100 06/22/21 19:57 Seg Neutrophils % 76.8 % (40.0-70.0) H 06/22/21 19:57 Seg Neuts % (Manual) 81.0 % (40.0-70.0) H 06/22/21 19:57 Band Neutrophils % 1.0 % 06/22/21 19:57 Lymphocytes % (Manual) 7.0 % (13.4-35.0) L 06/22/21 19:57 Reactive Lymphs % (Man) 0 % 06/22/21 19:57 Monocytes % (Manual) 11.0 % (0.0-7.3) H 06/22/21 19:57 Eosinophils % (Manual) 0 % (0.0-4.3) 06/22/21 19:57 Basophils % (Manual) 0 % (0.0-1.8) 06/22/21 19:57 Metamyelocytes % 0 % 06/22/21 19:57 Myelocytes % 0 % 06/22/21 19:57 Promyelocytes % 0 % 06/22/21 19:57 Blast Cells % 0 % 06/22/21 19:57 Nucleated RBC % 3.0 % (0.0-0.9) H 06/22/21 19:57 Seg Neutrophils # 8.0 K/mm3 (1.8-7.7) H 06/22/21 19:57 Seg Neutrophils # Man 8.4 K/mm3 (1.8-7.7) H 06/22/21 19:57 Band Neutrophils # 0.1 K/mm3 06/22/21 19:57 Lymphocytes # (Manual) 0.7 K/mm3 (1.2-5.4) L 06/22/21 19:57 Abs React Lymphs (Man) 0.0 K/mm3 06/22/21 19:57 Monocytes # (Manual) 1.1 K/mm3 (0.0-0.8) H 06/22/21 19:57 Eosinophils # (Manual) 0.0 K/mm3 (0.0-0.4) 06/22/21 19:57 Basophils # (Manual) 0.0 K/mm3 (0.0-0.1) 06/22/21 19:57 Metamyelocytes # 0.0 K/mm3 06/22/21 19:57 Myelocytes # 0.0 K/mm3 06/22/21 19:57 Promyelocytes # 0.0 K/mm3 06/22/21 19:57 Blast Cells # 0.0 K/mm3 06/22/21 19:57 WBC Morphology Not Reportable 06/22/21 19:57 Hypersegmented Neuts Not Reportable 06/22/21 19:57 Hyposegmented Neuts Not Reportable 06/22/21 19:57 Hypogranular Neuts Not Reportable 06/22/21 19:57 Smudge Cells Not Reportable 06/22/21 19:57 Toxic Granulation Not Reportable 06/22/21 19:57 Toxic Vacuolation Not Reportable 06/22/21 19:57 Dohle Bodies Not Reportable 06/22/21 19:57 Pelger-Huet Anomaly Not Reportable 06/22/21 19:57 Annie Rods Not Reportable 06/22/21 19:57 Platelet Estimate Appears decreased 06/22/21 19:57 Clumped Platelets Not Reportable 06/22/21 19:57 Plt Clumps, EDTA Not Reportable 06/22/21 19:57 Large Platelets Not Reportable 06/22/21 19:57 Giant Platelets Not Reportable 06/22/21 19:57 Platelet Satelliting Not Reportable 06/22/21 19:57 Plt Morphology Comment Not Reportable 06/22/21 19:57 RBC Morphology Normal 06/22/21 19:57 Dimorphic RBCs Not Reportable 06/22/21 19:57 Polychromasia Not Reportable 06/22/21 19:57 Hypochromasia Not Reportable 06/22/21 19:57 Poikilocytosis Not Reportable 06/22/21 19:57 Anisocytosis Not Reportable 06/22/21 19:57 Microcytosis Not Reportable 06/22/21 19:57 Macrocytosis Not Reportable 06/22/21 19:57 Spherocytes Not Reportable 06/22/21 19:57 Pappenheimer Bodies Not Reportable 06/22/21 19:57 Sickle Cells Not Reportable 06/22/21 19:57 Target Cells Not Reportable 06/22/21 19:57 Tear Drop Cells Not Reportable 06/22/21 19:57 Ovalocytes Not Reportable 06/22/21 19:57 Helmet Cells Not Reportable 06/22/21 19:57 Stewart-[place]wey Bodies Not Reportable 06/22/21 19:57 [place] Rings Not Reportable 06/22/21 19:57 [place] Cells Not Reportable 06/22/21 19:57 Bite Cells Not Reportable 06/22/21 19:57 Crenated Cell Not Reportable 06/22/21 19:57 Elliptocytes Not Reportable 06/22/21 19:57 Acanthocytes (Spur) Not Reportable 06/22/21 19:57 Rouleaux Not Reportable 06/22/21 19:57 Hemoglobin C Crystals Not Reportable 06/22/21 19:57 Schistocytes Not Reportable 06/22/21 19:57 Malaria parasites Not Reportable 06/22/21 19:57 Erik Bodies Not Reportable 06/22/21 19:57 Hem Pathologist Commnt No 06/22/21 19:57 PT 37.9 Sec. (12.2-14.9) H 06/22/21 19:57 INR 3.52 (0.87-1.13) H 06/22/21 19:57 D-Dimer > 234 ng/mlDDU (0-234) H 06/22/21 19:57 Sodium 125 mmol/L (137-145) L 06/22/21 19:57 Potassium 6.6 mmol/L (3.6-5.0) H* 06/22/21 19:57 Chloride 87.6 mmol/L (98-107) L 06/22/21 19:57 Carbon Dioxide 13 mmol/L (22-30) L 06/22/21 19:57 Anion Gap 31 mmol/L 06/22/21 19:57 BUN 93 mg/dL (9-20) H 06/22/21 19:57 Creatinine 3.9 mg/dL (0.8-1.3) H 06/22/21 19:57 Estimated GFR 19 ml/min 06/22/21 19:57 BUN/Creatinine Ratio 24 % 06/22/21 19:57 Glucose 111 mg/dL (75-100) H 06/22/21 19:57 POC Glucose 200 mg/dL (70-105) H 06/23/21 00:51 Lactic Acid 7.60 mmol/L (0.7-2.0) H* 06/22/21 19:57 Calcium 8.8 mg/dL (8.4-10.2) 06/22/21 19:57 Total Bilirubin 6.40 mg/dL (0.1-1.2) H 06/22/21 19:57 AST 809 units/L (5-40) H 06/22/21 19:57 ALT 1735 units/L (7-56) H 06/22/21 19:57 Alkaline Phosphatase 109 units/L (35-129) 06/22/21 19:57 Total Creatine Kinase 570 units/L (55-170) H 06/22/21 19:57 CK-MB (CK-2) 11.8 ng/mL (0.0-4.0) H 06/22/21 19:57 CK-MB (CK-2) Rel Index 2.0 (0-4) 06/22/21 19:57 Troponin T 0.067 ng/mL (0.00-0.029) H 06/22/21 19:57 NT-Pro-B Natriuret Pep 11317 pg/mL (0-900) H 06/22/21 19:57 Total Protein 7.0 g/dL (6.3-8.2) 06/22/21 19:57 Albumin 4.1 g/dL (3.9-5) 06/22/21 19:57 Albumin/Globulin Ratio 1.4 % 06/22/21 19:57 Triglycerides 90 mg/dL (2-149) 06/22/21 19:57 Cholesterol 103 mg/dL (50-199) 06/22/21 19:57 LDL Cholesterol Direct 61 mg/dL (50-130) 06/22/21 19:57 HDL Cholesterol 26 mg/dL (40-59) L 06/22/21 19:57 Cholesterol/HDL Ratio 3.96 % 06/22/21 19:57 Influenza A (Rapid) Negative (Negative) 06/22/21 19:56 Influenza B (Rapid) Negative (Negative) 06/22/21 19:56 Microbiology: Microbiology 06/22/21 19:57 Peripheral/Venous Blood Culture - Preliminary Culture in Progress 06/22/21 19:57 Peripheral/Venous Blood Culture - Preliminary Culture in Progress - Imaging and Cardiology Chest x-ray: report reviewed Assessment and Plan VTE prophylaxis?: Chemical Plan of care discussed with patient/family: Yes - Patient Problems (1) Acute renal failure Current Visit: Yes Status: Acute Qualifiers: Plan to address problem: Admit the patient to the [facility]. Avoid nephrotoxic drug. Patient already get 10 units of insulin, D50, calcium gluconate 1 g x 1 dose and Kayexalate 30 g p.o. every 4 hours x2 dose. We consulted nephrology for evaluation. We recheck the BMP (2) Shortness of breath Current Visit: Yes Status: Acute Plan to address problem: Patient is on BiPAP. DuoNeb by nebulizer every 4 hours. Albuterol via nebulizer every 4 hours as needed (3) Acute HFrEF (heart failure with reduced ejection fraction) Current Visit: No Status: Acute Plan to address problem: Fluid restriction. Maintain input output. Daily weight. Continue the home medication. Echocardiogram. Cardiology evaluation (4) CVA (cerebral vascular accident) Current Visit: No Status: Acute Plan to address problem: Stable. Aspirin 81 mg p.o. daily. Lipitor 20 mg p.o. nightly. We will continue the home medication (5) Elevated troponin Current Visit: No Status: Acute Plan to address problem: Aspirin 81 mg p.o. daily. Lipitor 20 mg p.o. nightly. Coreg 3.125 mg p.o. twice daily. Echocardiogram. Serial cardiac enzymes. Cardiology evaluation (6) Lactic acidosis Current Visit: Yes Status: Acute Plan to address problem: We will consult nephrology for evaluation. We also put the patient on Rocephin 2 g IV daily and Zithromax to 50 mg p.o. daily. We recheck the lactic acid level (7) DVT prophylaxis Current Visit: No Status: Acute Plan to address problem: Heparin 5000 units subcu every 12 hours for DVT prophylaxis. Protonix 40 mg p.o. twice daily for GI prophylaxis. Patient is a full code
[2021-06-23 02:32] LABS: Calcium 8.8 mg/dL (8.4-10.2)
[2021-06-23] MEDS: cefTRIAXone/NS 2 GM/100 ML 2 GM/100 ML BAG IV SCH (03:21)
[2021-06-23] MEDS: IPRATROPIUM/ALBUTEROL SULFATE 3 ML AMPUL.NEB IH SCH ×2 (08:41)
--- NOTE | 2021-06-23 09:08 | Consultation ---
History of Present Illness - Reason for Consult Consult date: 06/23/21 acute renal failure - History of Present Illness 55 year old M admitted with SHOB, N/V. Pt has also had cough. He has had low appetite. He has been found to have CHRIS with hyperkalemia and congested CXR. He is making some urine. He was give medical management for his K which is trending down now. ROS: As in HPI otherwise 12 point review of systems -ve Past History Past Medical History: heart failure, hypertension, stroke, other (Punctured lung, broken ribs) Social history: other (Former smoker) Medications and Allergies Allergies Allergy/AdvReac Type Severity Reaction Status Date / Time No Known Allergies Allergy Verified 10/16/20 23:25 Home Medications Medication Instructions Recorded Confirmed Last Taken Type Aspirin 81 mg PO DAILY #30 tab.chew 07/27/18 10/17/20 10/15/20 09:00 Rx AtorvaSTATin [Lipitor] 20 mg PO QHS #30 tab 07/27/18 10/17/20 10/15/20 21:00 Rx Potassium Chloride [K-Dur] 10 meq PO QDAY #30 tablet 07/27/18 10/17/20 10/16/20 09:00 Rx carvediloL [Coreg] 3.125 mg PO BID #60 tablet 07/27/18 10/17/20 10/16/20 09:00 Rx lisinopriL [Zestril TAB] 5 mg PO QDAY #30 tablet 07/27/18 10/17/20 10/16/20 09:00 Rx Aspirin [Aspirin BABY CHEW TAB] 81 mg PO QDAY #30 tab.chew 05/07/19 10/17/20 10/16/20 09:00 Rx Furosemide [Lasix TAB] 40 mg PO QDAY #30 tablet 05/07/19 10/17/20 10/16/20 09:00 Rx Lisinopril [Zestril] 5 mg PO DAILY #30 tablet 05/07/19 10/17/20 10/16/20 09:00 Rx Potassium Chloride 10 meq PO DAILY #30 tablet.er 05/07/19 10/17/20 10/16/20 09:00 Rx carvediloL [Coreg] 3.125 mg PO BID #60 tablet 05/07/19 10/17/20 10/16/20 09:00 Rx Furosemide [Lasix] 60 mg PO QDAY #15 tablet 05/13/21 Unknown Rx Hyoscyamine Subl [Levsin Sl 0.125 0.125 mg SL Q4HR PRN #15 tablet 05/13/21 Unknown Rx TAB] Ondansetron [Zofran Odt] 4 mg PO Q8HR PRN #15 tab.rapdis 05/13/21 Unknown Rx Active Meds: Active Medications Acetaminophen (Acetaminophen 325 Mg Tab) 650 mg PO Q4H PRN PRN Reason: Pain MILD(1-3)/Fever >100.5/LAURENT Albuterol (Albuterol 2.5 Mg/3 Ml Nebu) 2.5 mg IH Q3HRT PRN PRN Reason: Shortness Of Breath Albuterol/Ipratropium (Ipratropium/Albuterol Sulfate 3 Ml Ampul.Neb) 1 ampul IH Q6HRT [facility] Last Admin: 06/23/21 08:41 Dose: 1 ampul Aspirin (Aspirin 81 Mg Tab Chew) 81 mg PO DAILY [facility] Atorvastatin Calcium (Atorvastatin 20 Mg Tab) 20 mg PO QHS BHAVYA Azithromycin (Azithromycin 250 Mg Tab) 250 mg PO QDAY BHAVYA; Protocol Carvedilol (Carvedilol 3.125 Mg Tab) 3.125 mg PO BID BHAVYA Famotidine (Famotidine 10 Mg Tab) 10 mg PO BID BHAVYA Furosemide (Furosemide 20 Mg Tab) 60 mg PO QDAY [facility] Heparin Sodium (Porcine) (Heparin 5,000 Unit/1 Ml Vial) 5,000 unit SUB-Q Q12HR [facility] Hydromorphone HCl (Hydromorphone 1 Mg/1 Ml Inj) 0.5 mg IV Q3H PRN PRN Reason: Pain , Severe (7-10) Hyoscyamine (Hyoscyamine Subl 0.125 Mg Tab) 0.125 mg SL Q4HR PRN PRN Reason: abdominal Spasms Sodium Bicarbonate 150 meq/ (Dextrose) 1,150 mls @ 100 mls/hr IV DIRECT BHAVYA Last Admin: 06/23/21 00:15 Dose: 100 mls/hr Ceftriaxone Sodium (Rocephin/Ns 2 Gm/100 Ml) 2 gm in 100 mls @ 200 mls/hr IV Q24H BHAVYA; Protocol Last Admin: 06/23/21 03:21 Dose: 200 mls/hr Morphine Sulfate (Morphine 2 Mg/1 Ml Inj) 2 mg IV Q4H PRN PRN Reason: Pain, Moderate (4-6) Ondansetron HCl (Ondansetron 4 Mg/2 Ml Inj) 4 mg IV Q8H PRN PRN Reason: Nausea And Vomiting Sodium Chloride (Sodium Chloride 0.9% 10 Ml Flush Syringe) 10 ml IV BID BHAVYA Sodium Chloride (Sodium Chloride 0.9% 10 Ml Flush Syringe) 10 ml IV PRN PRN PRN Reason: LINE FLUSH Exam - Vital Signs Vital signs: Vital Signs Temp Pulse Resp Pulse Ox 97.4 F L 123 H 16 100 06/22/21 18:54 06/22/21 18:54 06/22/21 18:54 06/22/21 18:54 - Physical Exam Narrative exam: General appearance: Present: mild distress, well-nourished - EENT Eyes: Present: PERRL ENT: hearing intact, clear oral mucosa - Neck Neck: Present: supple, normal ROM - Respiratory Respiratory effort: normal Respiratory: bilateral: rales - Cardiovascular Heart Sounds: Present: S1 & S2. Absent: rub, click - Extremities Extremities: pulses symmetrical, No edema Peripheral Pulses: within normal limits - Abdominal General gastrointestinal: Present: soft, non-tender, non-distended, normal bowel sounds Male genitourinary: Present: normal - Integumentary Integumentary: Present: clear, warm, dry - Musculoskeletal Musculoskeletal: gait normal, strength equal bilaterally - Psychiatric Psychiatric: appropriate mood/affect, intact judgment & insight - Neurologic Neurologic: CNII-XII intact, moves all extremities Results - Lab Results 06/22/21 19:57 06/23/21 10:04 Most recent lab results Calcium 8.8 mg/dL (8.4-10.2) 06/23/21 01:55 Assessment and Plan Acute renal failure on top of CKD Metabolic acidosis Hyperkalemia Shortness of breath Acute HFrEF (heart failure with reduced ejection fraction) CVA (cerebral vascular accident) Elevated troponin Lactic acidosis -K better with medical management -CXR congested, stop bicarb drip, start bicarb tablets, on lasix -Check Urine studies, CK level, Renal US -Renally dose all meds -Avoid nephrotoxic meds -On milrinone drip, in ICU Adrian Albarran MD
[2021-06-23 09:19] LABS: Bilirubin,Urine NEG (Negative); Blood,Urine NEG (Negative); Color,Urine Yellow (Yellow); Mucus,Urine FEW /HPF
--- NOTE | 2021-06-23 09:32 | Electrocardiograph Report ---
Test Date: 2021-06-22 Test Time: 20:02:15 Pat Name: SHANKAR COSTA Department: Room: [place] [address] Gender: M Program Clerk: JUSTIN : 1965 Requested By: NAM RYAN Order Number: [id number] Reading MD: Denise Donald Measurements Intervals [place] Rate: 108 P: 97 LA: 170 QRS: 269 QRSD: 127 T: 64 QT: 383 QTc: 514 Interpretive Statements Sinus tachycardia Nonspecific IVCD with LAD Consider left ventricular hypertrophy Inferior infarct, old Anterior Q waves, possibly due to LVH Compared to ECG 05/13/2021 08:31:43 Q waves now present Sinus rhythm no longer present Early repolarization no longer present ST (T wave) deviation no longer present Myocardial infarct finding still present Electronically Signed On 06-23-2021 9:32:18 EST by Denise Donald
--- NOTE | 2021-06-23 09:45 | Consultation ---
History of Present Illness Consult date: 06/23/21 Requesting physician: AARON ADAM Consult reason: congestive heart failure, elevated troponin, hypertension, shortness of breath History of present illness: 55-year-old gentleman with multiple medical problems who is followed by Dr. Mando Addison at [facility] certified medical coding specialist presents to the emergency department complaining of increasing shortness of breath, nausea, and vomiting x1 week. In the emergency department he is tachycardic. He has a sodium of 125, a potassium of 6.6, creatinine of 3.9 platelets 83 AST 809 ALT 1735 BNP 29,000. He reports that in the past week he was coughing significantly and was unable to hold down anything orally. A chest x-ray does not reveal any acute findings except for cardiomegaly. A twelve-lead EKG reveals sinus tachycardia at 108 bpm with intraventricular conduction delay and left axis deviation. Past History Past Medical History: heart failure, hypertension, stroke, other (Punctured lung, broken ribs) Social history: other (Former smoker) Family history: other (Hypertension) Medications and Allergies Allergies Allergy/AdvReac Type Severity Reaction Status Date / Time No Known Allergies Allergy Verified 10/16/20 23:25 Home Medications Medication Instructions Recorded Confirmed Last Taken Type Aspirin 81 mg PO DAILY #30 tab.chew 07/27/18 10/17/20 10/15/20 09:00 Rx AtorvaSTATin [Lipitor] 20 mg PO QHS #30 tab 07/27/18 10/17/20 10/15/20 21:00 Rx Potassium Chloride [K-Dur] 10 meq PO QDAY #30 tablet 07/27/18 10/17/20 10/16/20 09:00 Rx carvediloL [Coreg] 3.125 mg PO BID #60 tablet 07/27/18 10/17/20 10/16/20 09:00 Rx lisinopriL [Zestril TAB] 5 mg PO QDAY #30 tablet 07/27/18 10/17/20 10/16/20 09:00 Rx Aspirin [Aspirin BABY CHEW TAB] 81 mg PO QDAY #30 tab.chew 05/07/19 10/17/20 10/16/20 09:00 Rx Furosemide [Lasix TAB] 40 mg PO QDAY #30 tablet 05/07/19 10/17/20 10/16/20 09:00 Rx Lisinopril [Zestril] 5 mg PO DAILY #30 tablet 05/07/19 10/17/20 10/16/20 09:00 Rx Potassium Chloride 10 meq PO DAILY #30 tablet.er 05/07/19 10/17/20 10/16/20 09:00 Rx carvediloL [Coreg] 3.125 mg PO BID #60 tablet 05/07/19 10/17/20 10/16/20 09:00 Rx Furosemide [Lasix] 60 mg PO QDAY #15 tablet 05/13/21 Unknown Rx Hyoscyamine Subl [Levsin Sl 0.125 0.125 mg SL Q4HR PRN #15 tablet 05/13/21 Unknown Rx TAB] Ondansetron [Zofran Odt] 4 mg PO Q8HR PRN #15 tab.rapdis 05/13/21 Unknown Rx Active Meds: Active Medications Acetaminophen (Acetaminophen 325 Mg Tab) 650 mg PO Q4H PRN PRN Reason: Pain MILD(1-3)/Fever >100.5/LAURENT Albuterol (Albuterol 2.5 Mg/3 Ml Nebu) 2.5 mg IH Q3HRT PRN PRN Reason: Shortness Of Breath Albuterol/Ipratropium (Ipratropium/Albuterol Sulfate 3 Ml Ampul.Neb) 1 ampul IH Q6HRT [facility] Last Admin: 06/23/21 08:41 Dose: 1 ampul Aspirin (Aspirin 81 Mg Tab Chew) 81 mg PO DAILY [facility] Atorvastatin Calcium (Atorvastatin 20 Mg Tab) 20 mg PO QHS [facility] Azithromycin (Azithromycin 250 Mg Tab) 250 mg PO QDAY [facility]; Protocol Carvedilol (Carvedilol 3.125 Mg Tab) 3.125 mg PO BID [facility] Famotidine (Famotidine 10 Mg Tab) 10 mg PO BID [facility] Furosemide (Furosemide 20 Mg Tab) 60 mg PO QDAY [facility] Heparin Sodium (Porcine) (Heparin 5,000 Unit/1 Ml Vial) 5,000 unit SUB-Q Q12HR [facility] Hydromorphone HCl (Hydromorphone 1 Mg/1 Ml Inj) 0.5 mg IV Q3H PRN PRN Reason: Pain , Severe (7-10) Hyoscyamine (Hyoscyamine Subl 0.125 Mg Tab) 0.125 mg SL Q4HR PRN PRN Reason: abdominal Spasms Sodium Bicarbonate 150 meq/ (Dextrose) 1,150 mls @ 100 mls/hr IV DIRECT BHAVYA Last Admin: 06/23/21 00:15 Dose: 100 mls/hr Ceftriaxone Sodium (Rocephin/Ns 2 Gm/100 Ml) 2 gm in 100 mls @ 200 mls/hr IV Q24H BHAVYA; Protocol Last Admin: 06/23/21 03:21 Dose: 200 mls/hr Morphine Sulfate (Morphine 2 Mg/1 Ml Inj) 2 mg IV Q4H PRN PRN Reason: Pain, Moderate (4-6) Ondansetron HCl (Ondansetron 4 Mg/2 Ml Inj) 4 mg IV Q8H PRN PRN Reason: Nausea And Vomiting Sodium Chloride (Sodium Chloride 0.9% 10 Ml Flush Syringe) 10 ml IV BID BHAVYA Sodium Chloride (Sodium Chloride 0.9% 10 Ml Flush Syringe) 10 ml IV PRN PRN PRN Reason: LINE FLUSH Review of Systems Constitutional: fatigue, weakness, no fever Ears, nose, mouth and throat: deferred Cardiovascular: orthopnea, palpitations, shortness of breath, dyspnea on exertion, no chest pain, no edema Respiratory: cough, no hemoptysis Gastrointestinal: nausea, vomiting, diarrhea Genitourinary Male: other (Decreased urinary output) Rectal: no pain, no incontinence Musculoskeletal: no neck stiffness, no neck pain Integumentary: no rash Neurological: weakness, no paralysis Psychiatric: no memory loss, no change in sleep habits Hematologic/Lymphatic: no easy bruising, no easy bleeding Physical Examination Vital Signs Temp Pulse Resp Pulse Ox 97.4 F L 123 H 16 100 06/22/21 18:54 06/22/21 18:54 06/22/21 18:54 06/22/21 18:54 General appearance: other (Moderate distress) HEENT: Positive: PERRL Neck: Negative: neck supple, trachea midline Cardiac: Positive: Regular Rhythm, Tachycardia Lungs: Positive: Decreased Breath Sounds Neuro: Positive: Grossly Intact Abdomen: Positive: Soft, Decreased Bowel Sounds Male genitourinary: Positive: deferred Skin: Negative: Rash Extremities: Present: warm Results 06/22/21 19:57 06/23/21 01:55 Cardiac Enzymes 06/22/21 Range/Units 19:57 AST 809 H (5-40) units/L CK-MB (CK-2) 11.8 H (0.0-4.0) ng/mL Coagulation 06/22/21 Range/Units 19:57 PT 37.9 H (12.2-14.9) Sec. INR 3.52 H (0.87-1.13) Lipids 06/22/21 Range/Units 19:57 Triglycerides 90 (2-149) mg/dL Cholesterol 103 (50-199) mg/dL HDL Cholesterol 26 L (40-59) mg/dL Cholesterol/HDL Ratio 3.96 % CBC 06/22/21 Range/Units 19:57 WBC 10.4 (4.5-11.0) K/mm3 RBC 4.91 (3.65-5.03) M/mm3 Hgb 14.6 (11.8-15.2) gm/dl Hct 46.4 H (35.5-45.6) % Plt Count 83 L (140-440) K/mm3 Lymph # (Auto) 1.2 (1.2-5.4) K/mm3 [place] # (Auto) 1.2 H (0.0-0.8) K/mm3 Eos # (Auto) 0.0 (0.0-0.4) K/mm3 Baso # (Auto) 0.0 (0.0-0.1) K/mm3 Comprehensive Metabolic Panel 06/22/21 06/23/21 Range/Units 19:57 01:55 Sodium 125 L 131 L (137-145) mmol/L Potassium 6.6 H* 5.1 H D (3.6-5.0) mmol/L Chloride 87.6 L 90.9 L (98-107) mmol/L Carbon Dioxide 13 L 17 L (22-30) mmol/L BUN 93 H 95 H (9-20) mg/dL Creatinine 3.9 H 4.0 H (0.8-1.3) mg/dL Glucose 111 H 159 H (75-100) mg/dL Calcium 8.8 8.8 (8.4-10.2) mg/dL AST 809 H (5-40) units/L ALT 1735 H (7-56) units/L Alkaline Phosphatase 109 (35-129) units/L Total Protein 7.0 (6.3-8.2) g/dL Albumin 4.1 (3.9-5) g/dL - Imaging and Cardiology Echo: report reviewed (ECHO 10/16/20: EF 15-20%, moderate MR) Cardiac cath: report reviewed ([facility] 2018: No angiographically significant CAD) EKG interpretations - Telemetry EKG Rhythm: Sinus Tachycardia Assessment and Plan ECHO 10/16/20: Severe global hypokinesis of the LV, EF15-20%, mild RVE, mod MR Echo done 07/22/2018 showed EF 10-15%, mild to mod LVH, abnormal diastolic function, LA mildly dilated, mod MR. LHC done 07/27/2018 showed normal coronaries, EF 15%, LVEDP 22mmHg. 55-year-old male Acute renal failure Hyponatremia Hyperkalemia Acute on chronic HFrEF 20% Respiratory failure Sinus tachycardia Transaminitis Hypertension CVA Noncompliance History of tobacco/EtOH/cocaine (patient denies tobacco/EtOH/cocaine in the past year) Consider IV inotropes/milrinone drip Strict I's and O's Hold carvedilol/lisinopril/Lipitor for now
[2021-06-23] MEDS: carvediloL 3.125 MG TAB PO SCH (09:59)
[2021-06-23] MEDS: ASPIRIN 81 MG TAB CHEW PO SCH (09:59)
[2021-06-23] MEDS: FAMOTIDINE 10 MG TAB PO SCH (10:00)
[2021-06-23] MEDS ORDERED: FUROSEMIDE 40 MG TAB PO SCH (10:00)
[2021-06-23] MEDS ORDERED: AZITHROMYCIN 250 MG TAB PO SCH (10:00)
[2021-06-23] MEDS ORDERED: FUROSEMIDE 20 MG TAB PO SCH (10:00)
[2021-06-23] MEDS ORDERED: HEPARIN 5,000 UNIT/1 ML VIAL SUB-Q SCH (10:00)
[2021-06-23] MEDS ORDERED: FAMOTIDINE 20 MG TAB PO SCH (10:00)
[2021-06-23 11:03] LABS: Calcium 8.6 mg/dL (8.4-10.2)
--- NOTE | 2021-06-23 11:48 | Event Note ---
Date: 06/23/21 Patient seen and examined remains 100% saturation on nasal cannula oxygen. He feels a sensation of shortness of breath and based on discussion with quality technician fiberglass will be started on milrinone drip. We will also put pulmonary consultation for evaluation on him. Trial of anxiety medications which is a low-dose Xanax. Discussed with nursing staff at bedside
[2021-06-23] MEDS: MILRINONE-D5W 20 MG/100 ML 20 MG/100 ML BAG IV SCH (13:15)
[2021-06-23] MEDS: ALPRAZolam 0.25 MG TAB PO PRN (13:20)
[2021-06-23] MEDS: ENOXAPARIN 100 MG/1 ML INJ SUB-Q SCH (16:41)
[2021-06-23] MEDS: FUROSEMIDE 40 MG/4 ML INJ IV SCH (17:57)
[2021-06-23 18:23] LABS: Bilirubin,Urine NEG (Negative); Blood,Urine SM (Negative); Color,Urine Yellow (Yellow); Hyaline Casts,Urine 2 /LPF; Protein,Urine <15 mg/dL mg/dL (Negative); Urobilinogen,Urine < 2.0 mg/dL (<2.0)
[2021-06-23 18:28] LABS: Protein/Creatinine Ratio,Urine 0.21
[2021-06-24] MEDS: carvediloL 3.125 MG TAB PO SCH (00:48)
[2021-06-24] MEDS: FAMOTIDINE 10 MG TAB PO SCH ×3 (00:48→22:05)
[2021-06-24] MEDS: ENOXAPARIN 100 MG/1 ML INJ SUB-Q SCH ×2 (00:48→22:05)
[2021-06-24] MEDS: SODIUM BICARBONATE 650 MG TAB PO SCH ×4 (00:52→20:18)
[2021-06-24] MEDS: ALPRAZolam 0.25 MG TAB PO PRN ×2 (00:56→22:07)
[2021-06-24] MEDS: cefTRIAXone/NS 2 GM/100 ML 2 GM/100 ML BAG IV SCH ×2 (01:15→22:09)
[2021-06-24] MEDS: MILRINONE-D5W 20 MG/100 ML 20 MG/100 ML BAG IV SCH ×2 (01:15→20:33)
[2021-06-24] MEDS: FUROSEMIDE 40 MG/4 ML INJ IV SCH ×2 (06:09→18:48)
[2021-06-24] MEDS ORDERED: ASPIRIN 81 MG TAB CHEW PO SCH (10:00)
--- NOTE | 2021-06-24 10:17 | Progress Note ---
Assessment and Plan Assessment and plan: 55-year-old male present with a chief complaint of shortness of breath nausea vomiting. The patient states for approximate 1 week he has had shortness of breath and a cough has been nonproductive. Patient denies history of fever. Patient also states for the approximate same on the time he has had nausea vomiting. Patient states he has been unable to eat or take his medications for the past week secondary to the nausea vomiting. Patient admits to some diarrhea. The patient states he has not been vaccinated against COVID. In the emergency room patient is found to have potassium of 6.6, BUN 93 creatinine 3.9, lactic acid 7.60, troponin 0 0.067, BNP 08619, AST 809 and ALT 1735. Subsequently Case discussed with nephrology patient already get insulin D50 Kayexalate and calcium gluconate repeat the BMP and nephrology will see the patient in the morning Acute hypoxic respiratory failure Acute on chronic combined systolic and diastolic congestive heart failure with last echo on 07/22/2018 noted to have ejection fraction of 10 to 15%. Sinus tachycardia likely indicating on the management cardiomyopathy Cardiomyopathy Acute kidney injury with vasomotor nephropathy Hyponatremia Hyperkalemia now resolved Transaminitis History of CVA Noncompliance Prior history of substance abuse including tobacco, EtOH, cocaine although patient states been sober for over a year. Systemic inflammatory response syndrome without organ dysfunction Lactic acidosis Anxiety Plan Continue supportive care Patient was started on milrinone drip this was held this morning due to hypotension We will discontinue beta-blockers at this time. Resume milrinone as allowed by hemodynamics and will defer to cardiology for further management. Continue diuresis if okay with nephrology and research scientist. Patient confirms improved respiration with increased urine output Await for today's labs Monitor and replace electrolytes as needed Medication compliance discussed with the patient in detail Continue as needed Xanax for anxiety. Continue aspirin we will hold Lipitor per suggestion by cardiology at this time likely due to elevated Ck DVT and GI prophylaxis Oxygen for supportive therapy History Interval history: Patient seen and examined this morning resting comfortably. States that his breathing has much improved he is actually off oxygen at this time. Heart rate is still elevated. Hospitalist Physical - Physical exam Narrative exam: VITAL SIGNS: Reviewed. GENERAL: The patient appears normally developed, Vital signs as documented. HEAD: No signs of head trauma. EYES: Pupils are equal. Extraocular motions intact. EARS: Hearing grossly intact. MOUTH: Oropharynx is normal. NECK: No adenopathy, no JVD. CHEST: Chest with clear breath sounds bilaterally. No wheezes, rales, or rhonchi. CARDIAC: Tachycardia but with Regular rate and rhythm. S1 and S2, without murmurs, gallops, or rubs. VASCULAR: No Edema. Peripheral pulses normal and equal in all extremities. ABDOMEN: Soft, non tender and non distended. No rebound or guarding, and no masses palpated. Bowel Sounds normal. MUSCULOSKELETAL: Good range of motion of all major joints. Extremities without clubbing, cyanosis or edema. NEUROLOGIC EXAM: Alert and oriented x 3 No focal sensory or strength def icits. Speech normal. Follows commands. PSYCHIATRIC: Mood normal. SKIN: detail exam as documented in skin assessment - Constitutional Vitals: Temp Pulse Resp BP Pulse Ox 97.5 F L 144 H 16 106/56 96 06/24/21 04:00 06/24/21 07:10 06/24/21 07:10 06/24/21 06:21 06/24/21 08:33 General appearance: Present: other (Moderate distress) HEART Score - HEART Score Troponin: Troponin T 0.067 ng/mL (0.00-0.029) H 06/22/21 19:57 Results - Labs CBC & Chem 7: 06/22/21 19:57 06/23/21 10:04 Labs: Laboratory Last Values WBC 10.4 K/mm3 (4.5-11.0) 06/22/21 19:57 RBC 4.91 M/mm3 (3.65-5.03) 06/22/21 19:57 Hgb 14.6 gm/dl (11.8-15.2) 06/22/21 19:57 Hct 46.4 % (35.5-45.6) H 06/22/21 19:57 MCV 94 fl (84-94) 06/22/21 19:57 MCH 30 pg (28-32) 06/22/21 19:57 MCHC 32 % (32-34) 06/22/21 19:57 RDW 15.4 % (13.2-15.2) H 06/22/21 19:57 Plt Count 83 K/mm3 (140-440) L 06/22/21 19:57 Lymph % (Auto) 11.8 % (13.4-35.0) L 06/22/21 19:57 [place] % (Auto) 11.1 % (0.0-7.3) H 06/22/21 19:57 Eos % (Auto) 0.0 % (0.0-4.3) 06/22/21 19:57 Baso % (Auto) 0.3 % (0.0-1.8) 06/22/21 19:57 Lymph # (Auto) 1.2 K/mm3 (1.2-5.4) 06/22/21 19:57 [place] # (Auto) 1.2 K/mm3 (0.0-0.8) H 06/22/21 19:57 Eos # (Auto) 0.0 K/mm3 (0.0-0.4) 06/22/21 19:57 Baso # (Auto) 0.0 K/mm3 (0.0-0.1) 06/22/21 19:57 Add Manual Diff Complete 06/22/21 19:57 Total Counted 100 06/22/21 19:57 Seg Neutrophils % 76.8 % (40.0-70.0) H 06/22/21 19:57 Seg Neuts % (Manual) 81.0 % (40.0-70.0) H 06/22/21 19:57 Band Neutrophils % 1.0 % 06/22/21 19:57 Lymphocytes % (Manual) 7.0 % (13.4-35.0) L 06/22/21 19:57 Reactive Lymphs % (Man) 0 % 06/22/21 19:57 Monocytes % (Manual) 11.0 % (0.0-7.3) H 06/22/21 19:57 Eosinophils % (Manual) 0 % (0.0-4.3) 06/22/21 19:57 Basophils % (Manual) 0 % (0.0-1.8) 06/22/21 19:57 Metamyelocytes % 0 % 06/22/21 19:57 Myelocytes % 0 % 06/22/21 19:57 Promyelocytes % 0 % 06/22/21 19:57 Blast Cells % 0 % 06/22/21 19:57 Nucleated RBC % 3.0 % (0.0-0.9) H 06/22/21 19:57 Seg Neutrophils # 8.0 K/mm3 (1.8-7.7) H 06/22/21 19:57 Seg Neutrophils # Man 8.4 K/mm3 (1.8-7.7) H 06/22/21 19:57 Band Neutrophils # 0.1 K/mm3 06/22/21 19:57 Lymphocytes # (Manual) 0.7 K/mm3 (1.2-5.4) L 06/22/21 19:57 Abs React Lymphs (Man) 0.0 K/mm3 06/22/21 19:57 Monocytes # (Manual) 1.1 K/mm3 (0.0-0.8) H 06/22/21 19:57 Eosinophils # (Manual) 0.0 K/mm3 (0.0-0.4) 06/22/21 19:57 Basophils # (Manual) 0.0 K/mm3 (0.0-0.1) 06/22/21 19:57 Metamyelocytes # 0.0 K/mm3 06/22/21 19:57 Myelocytes # 0.0 K/mm3 06/22/21 19:57 Promyelocytes # 0.0 K/mm3 06/22/21 19:57 Blast Cells # 0.0 K/mm3 06/22/21 19:57 WBC Morphology Not Reportable 06/22/21 19:57 Hypersegmented Neuts Not Reportable 06/22/21 19:57 Hyposegmented Neuts Not Reportable 06/22/21 19:57 Hypogranular Neuts Not Reportable 06/22/21 19:57 Smudge Cells Not Reportable 06/22/21 19:57 Toxic Granulation Not Reportable 06/22/21 19:57 Toxic Vacuolation Not Reportable 06/22/21 19:57 Dohle Bodies Not Reportable 06/22/21 19:57 Pelger-Huet Anomaly Not Reportable 06/22/21 19:57 Annie Rods Not Reportable 06/22/21 19:57 Platelet Estimate Appears decreased 06/22/21 19:57 Clumped Platelets Not Reportable 06/22/21 19:57 Plt Clumps, EDTA Not Reportable 06/22/21 19:57 Large Platelets Not Reportable 06/22/21 19:57 Giant Platelets Not Reportable 06/22/21 19:57 Platelet Satelliting Not Reportable 06/22/21 19:57 Plt Morphology Comment Not Reportable 06/22/21 19:57 RBC Morphology Normal 06/22/21 19:57 Dimorphic RBCs Not Reportable 06/22/21 19:57 Polychromasia Not Reportable 06/22/21 19:57 Hypochromasia Not Reportable 06/22/21 19:57 Poikilocytosis Not Reportable 06/22/21 19:57 Anisocytosis Not Reportable 06/22/21 19:57 Microcytosis Not Reportable 06/22/21 19:57 Macrocytosis Not Reportable 06/22/21 19:57 Spherocytes Not Reportable 06/22/21 19:57 Pappenheimer Bodies Not Reportable 06/22/21 19:57 Sickle Cells Not Reportable 06/22/21 19:57 Target Cells Not Reportable 06/22/21 19:57 Tear Drop Cells Not Reportable 06/22/21 19:57 Ovalocytes Not Reportable 06/22/21 19:57 Helmet Cells Not Reportable 06/22/21 19:57 Stewart-Rote Bodies Not Reportable 06/22/21 19:57 Froid Rings Not Reportable 06/22/21 19:57 Juliane Cells Not Reportable 06/22/21 19:57 Bite Cells Not Reportable 06/22/21 19:57 Crenated Cell Not Reportable 06/22/21 19:57 Elliptocytes Not Reportable 06/22/21 19:57 Acanthocytes (Spur) Not Reportable 06/22/21 19:57 Rouleaux Not Reportable 06/22/21 19:57 Hemoglobin C Crystals Not Reportable 06/22/21 19:57 Schistocytes Not Reportable 06/22/21 19:57 Malaria parasites Not Reportable 06/22/21 19:57 Erik Bodies Not Reportable 06/22/21 19:57 Hem Pathologist Commnt No 06/22/21 19:57 PT 37.9 Sec. (12.2-14.9) H 06/22/21 19:57 INR 3.52 (0.87-1.13) H 06/22/21 19:57 D-Dimer > 234 ng/mlDDU (0-234) H 06/22/21 19:57 Sodium 129 mmol/L (137-145) L 06/23/21 10:04 Potassium 4.7 mmol/L (3.6-5.0) 06/23/21 10:04 Chloride 92.2 mmol/L (98-107) L 06/23/21 10:04 Carbon Dioxide 18 mmol/L (22-30) L 06/23/21 10:04 Anion Gap 24 mmol/L 06/23/21 10:04 BUN 89 mg/dL (9-20) H 06/23/21 10:04 Creatinine 3.2 mg/dL (0.8-1.3) H 06/23/21 10:04 Estimated GFR 24 ml/min 06/23/21 10:04 BUN/Creatinine Ratio 28 % 06/23/21 10:04 Glucose 179 mg/dL (75-100) H 06/23/21 10:04 POC Glucose 191 mg/dL (70-105) H 06/23/21 07:21 Lactic Acid 6.60 mmol/L (0.7-2.0) H* 06/23/21 01:55 Calcium 8.6 mg/dL (8.4-10.2) 06/23/21 10:04 Total Bilirubin 6.40 mg/dL (0.1-1.2) H 06/22/21 19:57 AST 809 units/L (5-40) H 06/22/21 19:57 ALT 1735 units/L (7-56) H 06/22/21 19:57 Alkaline Phosphatase 109 units/L (35-129) 06/22/21 19:57 Total Creatine Kinase 503 units/L (55-170) H 06/23/21 10:04 CK-MB (CK-2) 11.8 ng/mL (0.0-4.0) H 06/22/21 19:57 CK-MB (CK-2) Rel Index 2.0 (0-4) 06/22/21 19:57 Troponin T 0.067 ng/mL (0.00-0.029) H 06/22/21 19:57 NT-Pro-B Natriuret Pep 36544 pg/mL (0-900) H 06/23/21 10:04 Total Protein 7.0 g/dL (6.3-8.2) 06/22/21 19:57 Albumin 4.1 g/dL (3.9-5) 06/22/21 19:57 Albumin/Globulin Ratio 1.4 % 06/22/21 19:57 Triglycerides 90 mg/dL (2-149) 06/22/21 19:57 Cholesterol 103 mg/dL (50-199) 06/22/21 19:57 LDL Cholesterol Direct 61 mg/dL (50-130) 06/22/21 19:57 HDL Cholesterol 26 mg/dL (40-59) L 06/22/21 19:57 Cholesterol/HDL Ratio 3.96 % 06/22/21 19:57 Urine Color Yellow (Yellow) 06/23/21 Unknown Urine Color Yellow (Yellow) 06/23/21 Unknown Urine Turbidity Clear (Clear) 06/23/21 Unknown Urine Turbidity Clear (Clear) 06/23/21 Unknown Urine pH 5.0 (5.0-7.0) 06/23/21 Unknown Urine pH 5.0 (5.0-7.0) 06/23/21 Unknown Ur Specific [place] 1.011 (1.003-1.030) 06/23/21 Unknown Ur Specific [place] 1.016 (1.003-1.030) 06/23/21 Unknown Urine Protein 30 mg/dl mg/dL (Negative) 06/23/21 Unknown Urine Protein <15 mg/dl mg/dL (Negative) 06/23/21 Unknown Urine Glucose (UA) 50 mg/dL (Negative) 06/23/21 Unknown Urine Glucose (UA) Neg mg/dL (Negative) 06/23/21 Unknown Urine Ketones Neg mg/dL (Negative) 06/23/21 Unknown Urine Ketones Neg mg/dL (Negative) 06/23/21 Unknown Urine Blood Neg (Negative) 06/23/21 Unknown Urine Blood Sm (Negative) 06/23/21 Unknown Urine Nitrite Neg (Negative) 06/23/21 Unknown Urine Nitrite Neg (Negative) 06/23/21 Unknown Urine Bilirubin Neg (Negative) 06/23/21 Unknown Urine Bilirubin Neg (Negative) 06/23/21 Unknown Urine Urobilinogen 2.0 mg/dL (<2.0) 06/23/21 Unknown Urine Urobilinogen < 2.0 mg/dL (<2.0) 06/23/21 Unknown Ur Leukocyte Esterase Neg (Negative) 06/23/21 Unknown Ur Leukocyte Esterase Neg (Negative) 06/23/21 Unknown Urine WBC (Auto) 1.0 /HPF (0.0-6.0) 06/23/21 Unknown Urine WBC (Auto) 1.0 /HPF (0.0-6.0) 06/23/21 Unknown Urine RBC (Auto) 2.0 /HPF (0.0-6.0) 06/23/21 Unknown Urine RBC (Auto) 4.0 /HPF (0.0-6.0) 06/23/21 Unknown U Epithel Cells (Auto) < 1.0 /HPF (0-13.0) 06/23/21 Unknown U Epithel Cells (Auto) < 1.0 /HPF (0-13.0) 06/23/21 Unknown Hyaline Casts 2 /LPF 06/23/21 Unknown Urine Mucus Few /HPF 06/23/21 Unknown Urine Creatinine 67.0 mg/dL (0.1-20.0) H 06/23/21 Unknown Protein/Creatinin Ratio 0.21 06/23/21 Unknown Urine Sodium 14 mmol/L 06/23/21 Unknown Urine Total Protein 14 mg/dL (5-11.8) H 06/23/21 Unknown Influenza A (Rapid) Negative (Negative) 06/22/21 19:56 Influenza B (Rapid) Negative (Negative) 06/22/21 19:56 Microbiology: Microbiology 06/22/21 19:57 Peripheral/Venous Blood Culture - Preliminary NO GROWTH AFTER 24 HOURS 06/22/21 19:57 Peripheral/Venous Blood Culture - Preliminary NO GROWTH AFTER 24 HOURS Sanchez/IV: Voiding Method Urinal Active Medications - Current Medications Current Medications: Generic Name Dose Route Start Last Admin Trade Name Freq PRN Reason Stop Dose Admin Acetaminophen 650 mg 06/23/21 01:48 Acetaminophen 325 Mg Tab PO Q4H PRN Pain MILD(1-3)/Fever >100.5/LAURENT Albuterol 2.5 mg 06/23/21 01:48 Albuterol 2.5 Mg/3 Ml Nebu IH Q3HRT PRN Shortness Of Breath Alprazolam 0.25 mg 06/23/21 12:00 06/24/21 00:56 Alprazolam 0.25 Mg Tab PO 0.25 mg Q8H PRN Administration Anxiety Aspirin 81 mg 06/23/21 10:00 06/23/21 09:59 Aspirin 81 Mg Tab Chew PO 81 mg DAILY BHAVYA Administration Atorvastatin Calcium 20 mg 06/23/21 22:00 06/24/21 00:48 Atorvastatin 20 Mg Tab PO 20 mg QHS BHAVYA Administration Azithromycin 500 mg 06/24/21 10:00 Azithromycin 250 Mg Tab PO QDAY [facility] Protocol Enoxaparin Sodium 90 mg 06/24/21 22:00 Enoxaparin 100 Mg/1 Ml Inj 1 mg/kg (90 mg) SUB-Q Q24H [facility] Protocol Famotidine 10 mg 06/23/21 10:00 06/24/21 00:48 Famotidine 10 Mg Tab PO 10 mg BID BHAVYA Administration Furosemide 40 mg 06/23/21 18:00 06/24/21 06:09 Furosemide 40 Mg/4 Ml Inj IV 40 mg 0600,1800 [facility] Administration Hydromorphone HCl 0.5 mg 06/23/21 01:48 Hydromorphone 1 Mg/1 Ml Inj IV Q3H PRN Pain , Severe (7-10) Hyoscyamine 0.125 mg 06/23/21 01:52 Hyoscyamine Subl 0.125 Mg Tab SL Q4HR PRN abdominal Spasms Milrinone Lactate/Dextrose 20 mg in 100 mls @ 9.696 mls/hr 06/23/21 12:00 06/24/21 06:04 Milrinone-D5w 20 Mg/100 Ml IV 0 mcg/kg/min DIRECT BHAVYA 0 mls/hr Infusion Protocol 0.375 MCG/KG/MIN Ceftriaxone Sodium 2 gm in 100 mls @ 200 mls/hr 06/24/21 22:00 Rocephin/Ns 2 Gm/100 Ml IV Q24H [facility] Protocol Morphine Sulfate 2 mg 06/23/21 01:48 Morphine 2 Mg/1 Ml Inj IV Q4H PRN Pain, Moderate (4-6) Ondansetron HCl 4 mg 06/23/21 01:48 Ondansetron 4 Mg/2 Ml Inj IV Q8H PRN Nausea And Vomiting Sodium Bicarbonate 1,300 mg 06/23/21 20:00 06/24/21 00:52 Sodium Bicarbonate 650 Mg Tab PO 1,300 mg TID BHAVYA Administration Sodium Chloride 10 ml 06/23/21 10:00 06/24/21 00:54 Sodium Chloride 0.9% 10 Ml Flush Syringe IV 10 ml BID BHAVYA Administration Sodium Chloride 10 ml 06/23/21 01:48 Sodium Chloride 0.9% 10 Ml Flush Syringe IV PRN PRN LINE FLUSH
--- NOTE | 2021-06-24 10:22 | Progress Note ---
Assessment and Plan Acute renal failure on top of CKD Metabolic acidosis Hyperkalemia Shortness of breath Acute HFrEF (heart failure with reduced ejection fraction) CVA (cerebral vascular accident) Elevated troponin Lactic acidosis -K better with medical management -CXR has been congested, on lasix -On bicarb tabs for acidosis -Check Urine studies, Renal US -CK 503, monitor. -Renally dose all meds -Avoid nephrotoxic meds -On milrinone drip, in ICU Adrian Albarran MD Subjective Date of service: 06/24/21 Interval history: Making urine. In IMCU. On Milrinone drip. Objective - Exam Narrative Exam: General appearance: Present: mild distress, well-nourished - EENT Eyes: Present: PERRL ENT: hearing intact, clear oral mucosa - Neck Neck: Present: supple, normal ROM - Respiratory Respiratory effort: normal Respiratory: bilateral: rales - Cardiovascular Heart Sounds: Present: S1 & S2. Absent: rub, click - Extremities Extremities: pulses symmetrical, No edema Peripheral Pulses: within normal limits - Abdominal General gastrointestinal: Present: soft, non-tender, non-distended, normal bowel sounds Male genitourinary: Present: normal - Integumentary Integumentary: Present: clear, warm, dry - Musculoskeletal Musculoskeletal: gait normal, strength equal bilaterally - Psychiatric Psychiatric: appropriate mood/affect, intact judgment & insight - Neurologic Neurologic: CNII-XII intact, moves all extremities - Vital Signs Vital signs: Vital Signs - 12hr 06/23/21 06/23/21 06/24/21 23:00 23:58 00:00 Temperature 97.9 F Pulse Rate 135 H Pulse Rate [ From Monitor] Pulse Rate [ 131 H 133 H Left Brachial] Respiratory 13 27 H 14 Rate Respiratory Rate [Chest] Blood Pressure 108/71 108/71 105/80 O2 Sat by Pulse 100 99 99 Oximetry 06/24/21 06/24/21 06/24/21 00:05 00:48 01:00 Temperature Pulse Rate 135 H 144 H Pulse Rate [ From Monitor] Pulse Rate [ 138 H Left Brachial] Respiratory 14 Rate Respiratory Rate [Chest] Blood Pressure 105/80 O2 Sat by Pulse 99 Oximetry 06/24/21 06/24/21 06/24/21 02:00 03:00 03:20 Temperature Pulse Rate 131 H Pulse Rate [ From Monitor] Pulse Rate [ 130 H 130 H Left Brachial] Respiratory 15 15 Rate Respiratory Rate [Chest] Blood Pressure 95/65 97/65 O2 Sat by Pulse 98 99 Oximetry 06/24/21 06/24/21 06/24/21 04:00 05:00 06:21 Temperature 97.5 F L Pulse Rate Pulse Rate [ 131 H From Monitor] Pulse Rate [ 131 H 128 H 131 H Left Brachial] Respiratory 18 15 19 Rate Respiratory Rate [Chest] Blood Pressure 107/73 98/62 106/56 O2 Sat by Pulse 95 94 97 Oximetry 06/24/21 06/24/21 06/24/21 06:25 07:10 08:33 Temperature Pulse Rate 144 H Pulse Rate [ From Monitor] Pulse Rate [ Left Brachial] Respiratory 16 Rate Respiratory 19 Rate [Chest] Blood Pressure O2 Sat by Pulse 97 96 Oximetry - Lab 06/24/21 10:30 06/23/21 10:04 Most recent lab results Calcium 8.6 mg/dL (8.4-10.2) 06/23/21 10:04 Urine Creatinine 67.0 mg/dL (0.1-20.0) H 06/23/21 Unknown Urine Sodium 14 mmol/L 06/23/21 Unknown Urine Total Protein 14 mg/dL (5-11.8) H 06/23/21 Unknown Medications & Allergies - Medications Allergies/Adverse Reactions: Allergies No Known Allergies Allergy (Verified 10/16/20 23:25) Home Medications: Home Medications Medication Instructions Recorded Confirmed Last Taken Type Aspirin 81 mg PO DAILY #30 tab.chew 07/27/18 06/23/21 06/19/21 09:00 Rx AtorvaSTATin [Lipitor] 20 mg PO QHS #30 tab 07/27/18 06/23/21 06/19/21 22:00 Rx lisinopriL [Zestril TAB] 5 mg PO QDAY #30 tablet 07/27/18 06/23/21 06/20/21 09:00 Rx Furosemide [Lasix TAB] 40 mg PO QDAY #30 tablet 05/07/19 06/23/21 06/19/21 09:00 Rx Potassium Chloride 10 meq PO DAILY #30 tablet.er 05/07/19 06/23/21 06/19/21 09:00 Rx carvediloL [Coreg] 3.125 mg PO BID #60 tablet 01/02/1406/23/21 06/20/21 09:00 Rx Hyoscyamine Subl [Levsin Sl 0.125 0.125 mg SL Q4HR PRN #15 tablet 05/13/21 06/23/21 06/19/21 15:00 Rx TAB] Ondansetron [Zofran Odt] 4 mg PO Q8HR PRN #15 tab.rapdis 05/13/21 06/23/21 06/19/21 09:00 Rx Active Medications: Generic Name Dose Route Start Last Admin Trade Name Freq PRN Reason Stop Dose Admin Acetaminophen 650 mg 06/23/21 01:48 Acetaminophen 325 Mg Tab PO Q4H PRN Pain MILD(1-3)/Fever >100.5/LAURENT Albuterol 2.5 mg 06/23/21 01:48 Albuterol 2.5 Mg/3 Ml Nebu IH Q3HRT PRN Shortness Of Breath Alprazolam 0.25 mg 06/23/21 12:00 06/24/21 00:56 Alprazolam 0.25 Mg Tab PO 0.25 mg Q8H PRN Administration Anxiety Aspirin 81 mg 06/23/21 10:00 06/23/21 09:59 Aspirin 81 Mg Tab Chew PO 81 mg DAILY BHAVYA Administration Atorvastatin Calcium 20 mg 06/23/21 22:00 06/24/21 00:48 Atorvastatin 20 Mg Tab PO 20 mg QHS BHAVYA Administration Azithromycin 500 mg 06/24/21 10:00 Azithromycin 250 Mg Tab PO QDAY [facility] Protocol Enoxaparin Sodium 90 mg 06/24/21 22:00 Enoxaparin 100 Mg/1 Ml Inj 1 mg/kg (90 mg) SUB-Q Q24H [facility] Protocol Famotidine 10 mg 06/23/21 10:00 06/24/21 00:48 Famotidine 10 Mg Tab PO 10 mg BID BHAVYA Administration Furosemide 40 mg 06/23/21 18:00 06/24/21 06:09 Furosemide 40 Mg/4 Ml Inj IV 40 mg 0600,1800 BHAVYA Administration Hydromorphone HCl 0.5 mg 06/23/21 01:48 Hydromorphone 1 Mg/1 Ml Inj IV Q3H PRN Pain , Severe (7-10) Hyoscyamine 0.125 mg 06/23/21 01:52 Hyoscyamine Subl 0.125 Mg Tab SL Q4HR PRN abdominal Spasms Milrinone Lactate/Dextrose 20 mg in 100 mls @ 9.696 mls/hr 06/23/21 12:00 06/24/21 06:04 Milrinone-D5w 20 Mg/100 Ml IV 0 mcg/kg/min DIRECT BHAVYA 0 mls/hr Infusion Protocol 0.375 MCG/KG/MIN Ceftriaxone Sodium 2 gm in 100 mls @ 200 mls/hr 06/24/21 22:00 Rocephin/Ns 2 Gm/100 Ml IV Q24H BHAVYA Protocol Morphine Sulfate 2 mg 06/23/21 01:48 Morphine 2 Mg/1 Ml Inj IV Q4H PRN Pain, Moderate (4-6) Ondansetron HCl 4 mg 06/23/21 01:48 Ondansetron 4 Mg/2 Ml Inj IV Q8H PRN Nausea And Vomiting Sodium Bicarbonate 1,300 mg 06/23/21 20:00 06/24/21 00:52 Sodium Bicarbonate 650 Mg Tab PO 1,300 mg TID BHAVYA Administration Sodium Chloride 10 ml 06/23/21 10:00 06/24/21 00:54 Sodium Chloride 0.9% 10 Ml Flush Syringe IV 10 ml BID BHAVYA Administration Sodium Chloride 10 ml 06/23/21 01:48 Sodium Chloride 0.9% 10 Ml Flush Syringe IV PRN PRN LINE FLUSH
[2021-06-24] MEDS: ASPIRIN 81 MG TAB CHEW PO SCH (10:50)
[2021-06-24] MEDS: AZITHROMYCIN 250 MG TAB PO SCH (10:50)
[2021-06-24 10:55] LABS: Basophils % (Auto) 0.1 % (0.0-1.8); Eosinophils % (Auto) 0.6 % (0.0-4.3); Hematocrit 41.5 % (35.5-45.6); Hemoglobin 13.2 gm/dl (11.8-15.2); Lymphocytes # (Auto) 0.5 K/mm3 (1.2-5.4); Lymphocytes % (Auto) 9.4 % (13.4-35.0); Mean Corpuscular HGB Conc 32 % (32-34); Mean Corpuscular Volume 93 fl (84-94); Monocytes # (Auto) 0.5 K/mm3 (0.0-0.8); Monocytes % (Auto) 10.4 % (0.0-7.3); Red Blood Count 4.45 M/mm3 (3.65-5.03); Red Cell Distribution Width 15.1 % (13.2-15.2)
[2021-06-24 11:06] LABS: Platelet Count 59 K/mm3 (140-440)
--- NOTE | 2021-06-24 12:06 | Consultation ---
History of Present Illness Consult date: 06/24/21 Requesting physician: AARON ADAM Reason for consult: hypoxemia History of present illness: 55 y/o male with known systolic heart failure and cardiomegaly admitted with acute respiratory failure requiring continuous bipap. CXR is stable but just shows massive heart size. Pulmonary consulted given need for bipap therapy. Past History Past Medical History: heart failure, hypertension, stroke, other (Punctured lung, broken ribs) Social history: other (Former smoker) Family history: other (Hypertension) Medications and Allergies Allergies Allergy/AdvReac Type Severity Reaction Status Date / Time No Known Allergies Allergy Verified 10/16/20 23:25 Home Medications Medication Instructions Recorded Confirmed Last Taken Type Aspirin 81 mg PO DAILY #30 tab.chew 07/27/18 06/23/21 06/19/21 09:00 Rx AtorvaSTATin [Lipitor] 20 mg PO QHS #30 tab 07/27/18 06/23/21 06/19/21 22:00 Rx lisinopriL [Zestril TAB] 5 mg PO QDAY #30 tablet 07/27/18 06/23/21 06/20/21 09:00 Rx Furosemide [Lasix TAB] 40 mg PO QDAY #30 tablet 05/07/19 06/23/21 06/19/21 09:00 Rx Potassium Chloride 10 meq PO DAILY #30 tablet.er 05/07/19 06/23/21 06/19/21 09:00 Rx carvediloL [Coreg] 3.125 mg PO BID #60 tablet 05/07/19 06/23/21 06/20/21 09:00 Rx Hyoscyamine Subl [Levsin Sl 0.125 0.125 mg SL Q4HR PRN #15 tablet 05/13/21 06/23/21 06/19/21 15:00 Rx TAB] Ondansetron [Zofran Odt] 4 mg PO Q8HR PRN #15 tab.rapdis 05/13/21 06/23/21 06/19/21 09:00 Rx Active Meds: Active Medications Acetaminophen (Acetaminophen 325 Mg Tab) 650 mg PO Q4H PRN PRN Reason: Pain MILD(1-3)/Fever >100.5/LAURENT Albuterol (Albuterol 2.5 Mg/3 Ml Nebu) 2.5 mg IH Q3HRT PRN PRN Reason: Shortness Of Breath Alprazolam (Alprazolam 0.25 Mg Tab) 0.25 mg PO Q8H PRN PRN Reason: Anxiety Last Admin: 06/24/21 00:56 Dose: 0.25 mg Aspirin (Aspirin 81 Mg Tab Chew) 81 mg PO DAILY [facility] Last Admin: 06/24/21 10:50 Dose: 81 mg Atorvastatin Calcium (Atorvastatin 20 Mg Tab) 20 mg PO QHS [facility] Last Admin: 06/24/21 00:48 Dose: 20 mg Azithromycin (Azithromycin 250 Mg Tab) 500 mg PO QDAY [facility]; Protocol Last Admin: 06/24/21 10:50 Dose: 500 mg Enoxaparin Sodium (Enoxaparin 100 Mg/1 Ml Inj) 90 mg 1 mg/kg (90 mg) SUB-Q Q24H [facility]; Protocol Famotidine (Famotidine 10 Mg Tab) 10 mg PO BID [facility] Last Admin: 06/24/21 10:51 Dose: 10 mg Furosemide (Furosemide 40 Mg/4 Ml Inj) 40 mg IV 0600,1800 [facility] Last Admin: 06/24/21 06:09 Dose: 40 mg Hydromorphone HCl (Hydromorphone 1 Mg/1 Ml Inj) 0.5 mg IV Q3H PRN PRN Reason: Pain , Severe (7-10) Hyoscyamine (Hyoscyamine Subl 0.125 Mg Tab) 0.125 mg SL Q4HR PRN PRN Reason: abdominal Spasms Milrinone Lactate/Dextrose (Milrinone-D5w 20 Mg/100 Ml) 20 mg in 100 mls @ 9.696 mls/hr IV DIRECT BHAVYA; Protocol Last Infusion: 06/24/21 06:04 Dose: 0 mcg/kg/min, 0 mls/hr Ceftriaxone Sodium (Rocephin/Ns 2 Gm/100 Ml) 2 gm in 100 mls @ 200 mls/hr IV Q24H [facility]; Protocol Morphine Sulfate (Morphine 2 Mg/1 Ml Inj) 2 mg IV Q4H PRN PRN Reason: Pain, Moderate (4-6) Ondansetron HCl (Ondansetron 4 Mg/2 Ml Inj) 4 mg IV Q8H PRN PRN Reason: Nausea And Vomiting Sodium Bicarbonate (Sodium Bicarbonate 650 Mg Tab) 1,300 mg PO TID [facility] Last Admin: 06/24/21 10:50 Dose: 1,300 mg Sodium Chloride (Sodium Chloride 0.9% 10 Ml Flush Syringe) 10 ml IV BID BHAVYA Last Admin: 06/24/21 10:51 Dose: 10 ml Sodium Chloride (Sodium Chloride 0.9% 10 Ml Flush Syringe) 10 ml IV PRN PRN PRN Reason: LINE FLUSH Physical Examination Vital signs: Vital Signs Temp Pulse Resp Pulse Ox 97.4 F L 123 H 16 100 06/22/21 18:54 06/22/21 18:54 06/22/21 18:54 06/22/21 18:54 General appearance: appears uncomfortable Eyes: non-icteric Neck: supple Ascultation: Bilateral: diminished breath sounds (secondary to heart size) Percussion: Bilateral: not dull Cardiovascular: other (tachycardic) Gastrointestinal: soft Results - Laboratory Findings CBC and BMP: 06/24/21 10:30 06/23/21 10:04 PT/INR, D-dimer PT 37.9 Sec. (12.2-14.9) H 06/22/21 19:57 INR 3.52 (0.87-1.13) H 06/22/21 19:57 D-Dimer > 234 ng/mlDDU (0-234) H 06/22/21 19:57 Abnormal lab findings: Abnormal Labs 06/22/21 06/22/21 06/22/21 19:57 19:57 19:57 Hct 46.4 H RDW 15.4 H Plt Count 83 L Lymph % (Auto) 11.8 L [place] % (Auto) 11.1 H Lymph # (Auto) [place] # (Auto) 1.2 H Seg Neutrophils % 76.8 H Seg Neuts % (Manual) 81.0 H Lymphocytes % (Manual) 7.0 L Monocytes % (Manual) 11.0 H Nucleated RBC % 3.0 H Seg Neutrophils # 8.0 H Seg Neutrophils # Man 8.4 H Lymphocytes # (Manual) 0.7 L Monocytes # (Manual) 1.1 H PT 37.9 H INR 3.52 H D-Dimer Sodium 125 L Potassium 6.6 H* Chloride 87.6 L Carbon Dioxide 13 L BUN 93 H Creatinine 3.9 H Glucose 111 H POC Glucose Lactic Acid Total Bilirubin 6.40 H AST 809 H ALT 1735 H Total Creatine Kinase 570 H CK-MB (CK-2) 11.8 H Troponin T 0.067 H NT-Pro-B Natriuret Pep 83899 H HDL Cholesterol 26 L Urine Creatinine Urine Total Protein 06/22/21 06/22/21 06/22/21 19:57 19:57 22:19 Hct RDW Plt Count Lymph % (Auto) [place] % (Auto) Lymph # (Auto) [place] # (Auto) Seg Neutrophils % Seg Neuts % (Manual) Lymphocytes % (Manual) Monocytes % (Manual) Nucleated RBC % Seg Neutrophils # Seg Neutrophils # Man Lymphocytes # (Manual) Monocytes # (Manual) PT INR D-Dimer > 234 H Sodium Potassium Chloride Carbon Dioxide BUN Creatinine Glucose POC Glucose 63 L Lactic Acid 7.60 H* Total Bilirubin AST ALT Total Creatine Kinase CK-MB (CK-2) Troponin T NT-Pro-B Natriuret Pep HDL Cholesterol Urine Creatinine Urine Total Protein 06/22/21 06/23/21 06/23/21 23:30 00:05 00:51 Hct RDW Plt Count Lymph % (Auto) [place] % (Auto) Lymph # (Auto) [place] # (Auto) Seg Neutrophils % Seg Neuts % (Manual) Lymphocytes % (Manual) Monocytes % (Manual) Nucleated RBC % Seg Neutrophils # Seg Neutrophils # Man Lymphocytes # (Manual) Monocytes # (Manual) PT INR D-Dimer Sodium Potassium Chloride Carbon Dioxide BUN Creatinine Glucose POC Glucose 109 H 199 H 200 H Lactic Acid Total Bilirubin AST ALT Total Creatine Kinase CK-MB (CK-2) Troponin T NT-Pro-B Natriuret Pep HDL Cholesterol Urine Creatinine Urine Total Protein 06/23/21 06/23/21 06/23/21 01:55 01:55 04:17 Hct RDW Plt Count Lymph % (Auto) [place] % (Auto) Lymph # (Auto) [place] # (Auto) Seg Neutrophils % Seg Neuts % (Manual) Lymphocytes % (Manual) Monocytes % (Manual) Nucleated RBC % Seg Neutrophils # Seg Neutrophils # Man Lymphocytes # (Manual) Monocytes # (Manual) PT INR D-Dimer Sodium 131 L Potassium 5.1 H D Chloride 90.9 L Carbon Dioxide 17 L BUN 95 H Creatinine 4.0 H Glucose 159 H POC Glucose 181 H Lactic Acid 6.60 H* Total Bilirubin AST ALT Total Creatine Kinase CK-MB (CK-2) Troponin T NT-Pro-B Natriuret Pep HDL Cholesterol Urine Creatinine Urine Total Protein 06/23/21 06/23/21 06/23/21 07:21 10:04 10:04 Hct RDW Plt Count Lymph % (Auto) [place] % (Auto) Lymph # (Auto) [place] # (Auto) Seg Neutrophils % Seg Neuts % (Manual) Lymphocytes % (Manual) Monocytes % (Manual) Nucleated RBC % Seg Neutrophils # Seg Neutrophils # Man Lymphocytes # (Manual) Monocytes # (Manual) PT INR D-Dimer Sodium 129 L Potassium Chloride 92.2 L Carbon Dioxide 18 L BUN 89 H Creatinine 3.2 H Glucose 179 H POC Glucose 191 H Lactic Acid Total Bilirubin AST ALT Total Creatine Kinase CK-MB (CK-2) Troponin T NT-Pro-B Natriuret Pep 49379 H HDL Cholesterol Urine Creatinine Urine Total Protein 06/23/21 06/23/21 06/24/21 10:04 Unknown 10:30 Hct RDW Plt Count 59 L Lymph % (Auto) 9.4 L [place] % (Auto) 10.4 H Lymph # (Auto) 0.5 L [place] # (Auto) Seg Neutrophils % 79.5 H Seg Neuts % (Manual) Lymphocytes % (Manual) Monocytes % (Manual) Nucleated RBC % Seg Neutrophils # Seg Neutrophils # Man Lymphocytes # (Manual) Monocytes # (Manual) PT INR D-Dimer Sodium Potassium Chloride Carbon Dioxide BUN Creatinine Glucose POC Glucose Lactic Acid Total Bilirubin AST ALT Total Creatine Kinase 503 H CK-MB (CK-2) Troponin T NT-Pro-B Natriuret Pep HDL Cholesterol Urine Creatinine 67.0 H Urine Total Protein 14 H - Diagnostic Findings Chest x-ray: image reviewed Assessment and Plan 55 y/o with acute respiratory failure secondary to CHF exacerbation. Bipap for support. Likely needs QHS as he could have a central component of TRACY Agree with cards and inotropic therapy/support Volume restriction Guarded prognosis.
[2021-06-24 17:30] LABS: Calcium 7.3 mg/dL (8.4-10.2)
[2021-06-25] MEDS: carvediloL 3.125 MG TAB PO SCH (01:16)
[2021-06-25] MEDS: FUROSEMIDE 40 MG/4 ML INJ IV SCH (06:49)
[2021-06-25 08:57] LABS: Hematocrit 39.5 % (35.5-45.6); Hemoglobin 12.6 gm/dl (11.8-15.2); Mean Corpuscular HGB Conc 32 % (32-34); Mean Corpuscular Volume 93 fl (84-94); Red Blood Count 4.24 M/mm3 (3.65-5.03); Red Cell Distribution Width 15.9 % (13.2-15.2)
[2021-06-25 08:59] LABS: Platelet Count 66 K/mm3 (140-440)
[2021-06-25 09:22] LABS: Calcium 7.6 mg/dL (8.4-10.2)
--- NOTE | 2021-06-25 09:31 | Progress Note ---
Assessment and Plan Assessment and plan: 55-year-old male present with a chief complaint of shortness of breath nausea vomiting. The patient states for approximate 1 week he has had shortness of breath and a cough has been nonproductive. Patient denies history of fever. Patient also states for the approximate same on the time he has had nausea vomiting. Patient states he has been unable to eat or take his medications for the past week secondary to the nausea vomiting. Patient admits to some diarrhea. The patient states he has not been vaccinated against COVID. In the emergency room patient is found to have potassium of 6.6, BUN 93 creatinine 3.9, lactic acid 7.60, troponin 0 0.067, BNP 87789, AST 809 and ALT 1735. Subsequently Case discussed with nephrology patient already get insulin D50 Kayexalate and calcium gluconate repeat the BMP and nephrology will see the patient in the morning Acute hypoxic respiratory failure Acute on chronic combined systolic and diastolic congestive heart failure with last echo on 07/22/2018 noted to have ejection fraction of 10 to 15%. Sinus tachycardia likely indicating on the management cardiomyopathy Cardiomyopathy Acute kidney injury with vasomotor nephropathy Hyponatremia Hyperkalemia now resolved Transaminitis History of CVA Noncompliance Prior history of substance abuse including tobacco, EtOH, cocaine although patient states been sober for over a year. Systemic inflammatory response syndrome without organ dysfunction Lactic acidosis Anxiety Plan 06/25: The IV milrinone dose will be reduced to 0.125/kg, in response to low blood pressure. Continue supportive care. We will also decrease Lasix to 20 mg IV twice daily await further input from cardiology. There is some improvement in renal function will monitor closely. Plan discussed with the patient Continue supportive care We will discontinue beta-blockers at this time. Resume milrinone as allowed by hemodynamics and will defer to cardiology for further management. 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 Patient confirms improved respiration with increased urine output Await for today's labs Monitor and replace electrolytes as needed Medication compliance discussed with the patient in detail Continue as needed Xanax for anxiety. Continue aspirin we will hold Lipitor per suggestion by cardiology at this time likely due to elevated Ck DVT and GI prophylaxis Oxygen for supportive therapy History Interval history: Patient seen and examined this morning resting comfortably. Sitting up this morning reports continued improvement with respiration and continued improvement in urine output although heart rate still elevated. Has been off the milrinone drip due to blood pressure. Hospitalist Physical - Physical exam Narrative exam: VITAL SIGNS: Reviewed. GENERAL: The patient appears normally developed, Vital signs as documented. Sitting up today. HEAD: No signs of head trauma. EYES: Pupils are equal. Extraocular motions intact. EARS: Hearing grossly intact. MOUTH: Oropharynx is normal. NECK: No adenopathy, no JVD. CHEST: Chest with clear breath sounds bilaterally. No wheezes, rales, or rhonchi. CARDIAC: Tachycardia but with Regular rate and rhythm. S1 and S2, without murmurs, gallops, or rubs. VASCULAR: No Edema. Peripheral pulses normal and equal in all extremities. ABDOMEN: Soft, non tender and non distended. No rebound or guarding, and no masses palpated. Bowel Sounds normal. MUSCULOSKELETAL: Good range of motion of all major joints. Extremities without clubbing, cyanosis or edema. NEUROLOGIC EXAM: Alert and oriented x 3 No focal sensory or strength deficits. Speech normal. Follows commands. PSYCHIATRIC: Mood normal. SKIN: detail exam as documented in skin assessment - Constitutional Vitals: Temp Pulse Resp BP Pulse Ox 98.9 F 132 H 18 103/68 100 06/25/21 07:24 06/25/21 09:01 06/25/21 09:01 06/25/21 09:01 06/25/21 09:01 General appearance: Present: other (Moderate distress) HEART Score - HEART Score Troponin: Troponin T 0.067 ng/mL (0.00-0.029) H 06/22/21 19:57 Results - Labs CBC & Chem 7: 06/25/21 08:46 06/25/21 08:46 Labs: Laboratory Last Values WBC 4.1 K/mm3 (4.5-11.0) L 06/25/21 08:46 RBC 4.24 M/mm3 (3.65-5.03) 06/25/21 08:46 Hgb 12.6 gm/dl (11.8-15.2) 06/25/21 08:46 Hct 39.5 % (35.5-45.6) 06/25/21 08:46 MCV 93 fl (84-94) 06/25/21 08:46 MCH 30 pg (28-32) 06/25/21 08:46 MCHC 32 % (32-34) 06/25/21 08:46 RDW 15.9 % (13.2-15.2) H 06/25/21 08:46 Plt Count 66 K/mm3 (140-440) L 06/25/21 08:46 Lymph % (Auto) 9.4 % (13.4-35.0) L 06/24/21 10:30 [place] % (Auto) 10.4 % (0.0-7.3) H 06/24/21 10:30 Eos % (Auto) 0.6 % (0.0-4.3) 06/24/21 10:30 Baso % (Auto) 0.1 % (0.0-1.8) 06/24/21 10:30 Lymph # (Auto) 0.5 K/mm3 (1.2-5.4) L 06/24/21 10:30 [place] # (Auto) 0.5 K/mm3 (0.0-0.8) 06/24/21 10:30 Eos # (Auto) 0.0 K/mm3 (0.0-0.4) 06/24/21 10:30 Baso # (Auto) 0.0 K/mm3 (0.0-0.1) 06/24/21 10:30 Add Manual Diff Complete 06/22/21 19:57 Total Counted 100 06/22/21 19:57 Seg Neutrophils % 79.5 % (40.0-70.0) H 06/24/21 10:30 Seg Neuts % (Manual) 81.0 % (40.0-70.0) H 06/22/21 19:57 Band Neutrophils % 1.0 % 06/22/21 19:57 Lymphocytes % (Manual) 7.0 % (13.4-35.0) L 06/22/21 19:57 Reactive Lymphs % (Man) 0 % 06/22/21 19:57 Monocytes % (Manual) 11.0 % (0.0-7.3) H 06/22/21 19:57 Eosinophils % (Manual) 0 % (0.0-4.3) 06/22/21 19:57 Basophils % (Manual) 0 % (0.0-1.8) 06/22/21 19:57 Metamyelocytes % 0 % 06/22/21 19:57 Myelocytes % 0 % 06/22/21 19:57 Promyelocytes % 0 % 06/22/21 19:57 Blast Cells % 0 % 06/22/21 19:57 Nucleated RBC % 3.0 % (0.0-0.9) H 06/22/21 19:57 Seg Neutrophils # 4.0 K/mm3 (1.8-7.7) 06/24/21 10:30 Seg Neutrophils # Man 8.4 K/mm3 (1.8-7.7) H 06/22/21 19:57 Band Neutrophils # 0.1 K/mm3 06/22/21 19:57 Lymphocytes # (Manual) 0.7 K/mm3 (1.2-5.4) L 06/22/21 19:57 Abs React Lymphs (Man) 0.0 K/mm3 06/22/21 19:57 Monocytes # (Manual) 1.1 K/mm3 (0.0-0.8) H 06/22/21 19:57 Eosinophils # (Manual) 0.0 K/mm3 (0.0-0.4) 06/22/21 19:57 Basophils # (Manual) 0.0 K/mm3 (0.0-0.1) 06/22/21 19:57 Metamyelocytes # 0.0 K/mm3 06/22/21 19:57 Myelocytes # 0.0 K/mm3 06/22/21 19:57 Promyelocytes # 0.0 K/mm3 06/22/21 19:57 Blast Cells # 0.0 K/mm3 06/22/21 19:57 WBC Morphology Not Reportable 06/22/21 19:57 Hypersegmented Neuts Not Reportable 06/22/21 19:57 Hyposegmented Neuts Not Reportable 06/22/21 19:57 Hypogranular Neuts Not Reportable 06/22/21 19:57 Smudge Cells Not Reportable 06/22/21 19:57 Toxic Granulation Not Reportable 06/22/21 19:57 Toxic Vacuolation Not Reportable 06/22/21 19:57 Dohle Bodies Not Reportable 06/22/21 19:57 Pelger-Huet Anomaly Not Reportable 06/22/21 19:57 Annie Rods Not Reportable 06/22/21 19:57 Platelet Estimate Appears decreased 06/22/21 19:57 Clumped Platelets Not Reportable 06/22/21 19:57 Plt Clumps, EDTA Not Reportable 06/22/21 19:57 Large Platelets Not Reportable 06/22/21 19:57 Giant Platelets Not Reportable 06/22/21 19:57 Platelet Satelliting Not Reportable 06/22/21 19:57 Plt Morphology Comment Not Reportable 06/22/21 19:57 RBC Morphology Normal 06/22/21 19:57 Dimorphic RBCs Not Reportable 06/22/21 19:57 Polychromasia Not Reportable 06/22/21 19:57 Hypochromasia Not Reportable 06/22/21 19:57 Poikilocytosis Not Reportable 06/22/21 19:57 Anisocytosis Not Reportable 06/22/21 19:57 Microcytosis Not Reportable 06/22/21 19:57 Macrocytosis Not Reportable 06/22/21 19:57 Spherocytes Not Reportable 06/22/21 19:57 Pappenheimer Bodies Not Reportable 06/22/21 19:57 Sickle Cells Not Reportable 06/22/21 19:57 Target Cells Not Reportable 06/22/21 19:57 Tear Drop Cells Not Reportable 06/22/21 19:57 Ovalocytes Not Reportable 06/22/21 19:57 Helmet Cells Not Reportable 06/22/21 19:57 [place] Bodies Not Reportable 06/22/21 19:57 [place] Rings Not Reportable 06/22/21 19:57 Juliane Cells Not Reportable 06/22/21 19:57 Bite Cells Not Reportable 06/22/21 19:57 Crenated Cell Not Reportable 06/22/21 19:57 Elliptocytes Not Reportable 06/22/21 19:57 Acanthocytes (Spur) Not Reportable 06/22/21 19:57 Rouleaux Not Reportable 06/22/21 19:57 Hemoglobin C Crystals Not Reportable 06/22/21 19:57 Schistocytes Not Reportable 06/22/21 19:57 Malaria parasites Not Reportable 06/22/21 19:57 Erik Bodies Not Reportable 06/22/21 19:57 Hem Pathologist Commnt No 06/22/21 19:57 PT 37.9 Sec. (12.2-14.9) H 02/25/22 19:57 INR 3.52 (0.87-1.13) H 06/22/21 19:57 D-Dimer > 234 ng/mlDDU (0-234) H 06/22/21 19:57 Sodium 137 mmol/L (137-145) 06/25/21 08:46 Potassium 3.1 mmol/L (3.6-5.0) L 06/25/21 08:46 Chloride 93.4 mmol/L (98-107) L 06/25/21 08:46 Carbon Dioxide 30 mmol/L (22-30) 06/25/21 08:46 Anion Gap 17 mmol/L 06/25/21 08:46 BUN 50 mg/dL (9-20) H 06/25/21 08:46 Creatinine 1.9 mg/dL (0.8-1.3) H 06/25/21 08:46 Estimated GFR 45 ml/min 06/25/21 08:46 BUN/Creatinine Ratio 26 % 06/25/21 08:46 Glucose 189 mg/dL (75-100) H 06/25/21 08:46 POC Glucose 111 mg/dL (70-105) H 06/25/21 07:16 Lactic Acid 6.60 mmol/L (0.7-2.0) H* 06/23/21 01:55 Calcium 7.6 mg/dL (8.4-10.2) L 06/25/21 08:46 Total Bilirubin 6.40 mg/dL (0.1-1.2) H 06/22/21 19:57 AST 809 units/L (5-40) H 06/22/21 19:57 ALT 1735 units/L (7-56) H 06/22/21 19:57 Alkaline Phosphatase 109 units/L (35-129) 06/22/21 19:57 Total Creatine Kinase 503 units/L (55-170) H 06/23/21 10:04 CK-MB (CK-2) 11.8 ng/mL (0.0-4.0) H 06/22/21 19:57 CK-MB (CK-2) Rel Index 2.0 (0-4) 06/22/21 19:57 Troponin T 0.067 ng/mL (0.00-0.029) H 06/22/21 19:57 NT-Pro-B Natriuret Pep 90116 pg/mL (0-900) H 06/23/21 10:04 Total Protein 7.0 g/dL (6.3-8.2) 06/22/21 19:57 Albumin 4.1 g/dL (3.9-5) 06/22/21 19:57 Albumin/Globulin Ratio 1.4 % 06/22/21 19:57 Triglycerides 90 mg/dL (2-149) 06/22/21 19:57 Cholesterol 103 mg/dL (50-199) 06/22/21 19:57 LDL Cholesterol Direct 61 mg/dL (50-130) 06/22/21 19:57 HDL Cholesterol 26 mg/dL (40-59) L 06/22/21 19:57 Cholesterol/HDL Ratio 3.96 % 06/22/21 19:57 Urine Color Yellow (Yellow) 06/23/21 Unknown Urine Color Yellow (Yellow) 06/23/21 Unknown Urine Turbidity Clear (Clear) 06/23/21 Unknown Urine Turbidity Clear (Clear) 06/23/21 Unknown Urine pH 5.0 (5.0-7.0) 06/23/21 Unknown Urine pH 5.0 (5.0-7.0) 06/23/21 Unknown Ur Specific [place] 1.011 (1.003-1.030) 06/23/21 Unknown Ur Specific [place] 1.016 (1.003-1.030) 06/23/21 Unknown Urine Protein 30 mg/dl mg/dL (Negative) 06/23/21 Unknown Urine Protein <15 mg/dl mg/dL (Negative) 06/23/21 Unknown Urine Glucose (UA) 50 mg/dL (Negative) 06/23/21 Unknown Urine Glucose (UA) Neg mg/dL (Negative) 06/23/21 Unknown Urine Ketones Neg mg/dL (Negative) 06/23/21 Unknown Urine Ketones Neg mg/dL (Negative) 06/23/21 Unknown Urine Blood Neg (Negative) 06/23/21 Unknown Urine Blood Sm (Negative) 06/23/21 Unknown Urine Nitrite Neg (Negative) 06/23/21 Unknown Urine Nitrite Neg (Negative) 06/23/21 Unknown Urine Bilirubin Neg (Negative) 06/23/21 Unknown Urine Bilirubin Neg (Negative) 06/23/21 Unknown Urine Urobilinogen 2.0 mg/dL (<2.0) 06/23/21 Unknown Urine Urobilinogen < 2.0 mg/dL (<2.0) 06/23/21 Unknown Ur Leukocyte Esterase Neg (Negative) 06/23/21 Unknown Ur Leukocyte Esterase Neg (Negative) 06/23/21 Unknown Urine WBC (Auto) 1.0 /HPF (0.0-6.0) 06/23/21 Unknown Urine WBC (Auto) 1.0 /HPF (0.0-6.0) 06/23/21 Unknown Urine RBC (Auto) 2.0 /HPF (0.0-6.0) 06/23/21 Unknown Urine RBC (Auto) 4.0 /HPF (0.0-6.0) 06/23/21 Unknown U Epithel Cells (Auto) < 1.0 /HPF (0-13.0) 06/23/21 Unknown U Epithel Cells (Auto) < 1.0 /HPF (0-13.0) 06/23/21 Unknown Hyaline Casts 2 /LPF 06/23/21 Unknown Urine Mucus Few /HPF 06/23/21 Unknown Urine Creatinine 67.0 mg/dL (0.1-20.0) H 06/23/21 Unknown Protein/Creatinin Ratio 0.21 06/23/21 Unknown Urine Sodium 14 mmol/L 06/23/21 Unknown Urine Total Protein 14 mg/dL (5-11.8) H 06/23/21 Unknown Nasal Screen MRSA (PCR) Positive (Negative) 06/23/21 Unknown Coronavirus (PCR) Negative (Negative) 06/24/21 Unknown Influenza A (Rapid) Negative (Negative) 06/22/21 19:56 Influenza B (Rapid) Negative (Negative) 06/22/21 19:56 Microbiology: Microbiology 06/22/21 19:57 Peripheral/Venous Blood Culture - Preliminary NO GROWTH AFTER 48 HOURS 06/22/21 19:57 Peripheral/Venous Blood Culture - Preliminary NO GROWTH AFTER 48 HOURS Sanchez/IV: Voiding Method Urinal Active Medications - Current Medications Current Medications: Generic Name Dose Route Start Last Admin Trade Name Freq PRN Reason Stop Dose Admin Acetaminophen 650 mg 06/23/21 01:48 Acetaminophen 325 Mg Tab PO Q4H PRN Pain MILD(1-3)/Fever >100.5/LAURENT Albuterol 2.5 mg 02/26/22 01:48 Albuterol 2.5 Mg/3 Ml Nebu IH Q3HRT PRN Shortness Of Breath Alprazolam 0.25 mg 06/23/21 12:00 06/24/21 22:07 Alprazolam 0.25 Mg Tab PO 0.25 mg Q8H PRN Administration Anxiety Aspirin 81 mg 06/23/21 10:00 06/24/21 10:50 Aspirin 81 Mg Tab Chew PO 81 mg DAILY BHAVYA Administration Atorvastatin Calcium 20 mg 06/23/21 22:00 06/24/21 22:05 Atorvastatin 20 Mg Tab PO 20 mg QHS BHAVYA Administration Azithromycin 500 mg 06/24/21 10:00 06/24/21 10:50 Azithromycin 250 Mg Tab PO 500 mg QDAY BHAVYA Administration Protocol Enoxaparin Sodium 90 mg 06/24/21 22:00 06/24/21 22:05 Enoxaparin 100 Mg/1 Ml Inj 1 mg/kg (90 mg) 90 mg SUB-Q Administration Q24H BHAVYA Protocol Famotidine 10 mg 06/23/21 10:00 06/24/21 22:05 Famotidine 10 Mg Tab PO 10 mg BID BHAVYA Administration Furosemide 40 mg 06/23/21 18:00 06/25/21 06:49 Furosemide 40 Mg/4 Ml Inj IV 40 mg 0600,1800 BHAVYA Administration Hydromorphone HCl 0.5 mg 06/23/21 01:48 Hydromorphone 1 Mg/1 Ml Inj IV Q3H PRN Pain , Severe (7-10) Hyoscyamine 0.125 mg 06/23/21 01:52 Hyoscyamine Subl 0.125 Mg Tab SL Q4HR PRN abdominal Spasms Milrinone Lactate/Dextrose 20 mg in 100 mls @ 9.696 mls/hr 06/23/21 12:00 06/24/21 20:33 Milrinone-D5w 20 Mg/100 Ml IV 0.375 mcg/kg/min DIRECT BHAVYA 9.696 mls/hr Administration Protocol 0.375 MCG/KG/MIN Ceftriaxone Sodium 2 gm in 100 mls @ 200 mls/hr 06/24/21 22:00 06/24/21 22:09 Rocephin/Ns 2 Gm/100 Ml IV 200 mls/hr Q24H BHAVYA Administration Protocol Morphine Sulfate 2 mg 06/23/21 01:48 Morphine 2 Mg/1 Ml Inj IV Q4H PRN Pain, Moderate (4-6) Ondansetron HCl 4 mg 06/23/21 01:48 Ondansetron 4 Mg/2 Ml Inj IV Q8H PRN Nausea And Vomiting Sodium Bicarbonate 1,300 mg 06/23/21 20:00 06/24/21 20:18 Sodium Bicarbonate 650 Mg Tab PO 1,300 mg TID BHAVYA Administration Sodium Chloride 10 ml 06/23/21 10:00 06/24/21 22:06 Sodium Chloride 0.9% 10 Ml Flush Syringe IV 10 ml BID BHAVYA Administration Sodium Chloride 10 ml 06/23/21 01:48 Sodium Chloride 0.9% 10 Ml Flush Syringe IV PRN PRN LINE FLUSH
[2021-06-25] MEDS: MILRINONE-D5W 20 MG/100 ML 20 MG/100 ML BAG IV SCH (09:32)
[2021-06-25] MEDS: SODIUM BICARBONATE 650 MG TAB PO SCH ×3 (10:51→22:03)
[2021-06-25] MEDS: AZITHROMYCIN 250 MG TAB PO SCH (10:51)
[2021-06-25] MEDS: FAMOTIDINE 10 MG TAB PO SCH ×2 (10:51→22:04)
[2021-06-25] MEDS: ASPIRIN 81 MG TAB CHEW PO SCH (10:51)
[2021-06-25] MEDS ORDERED: POTASSIUM CHLORIDE ER 20 MEQ TAB PO SCH (11:00)
--- NOTE | 2021-06-25 12:24 | Progress Note ---
Assessment and Plan 55 y/o with acute respiratory failure secondary to CHF exacerbation. 06/25/21: Continue nightly bipap therapy. Wean FiO2 as tolerated. Bipap for support. Likely needs QHS as he could have a central component of TRACY Agree with cards and inotropic therapy/support Volume restriction Guarded prognosis. Subjective Date of service: 06/25/21 Interval history: Asleep on nasal cannula. HR is still tachy. Objective Vital Signs - 12hr 06/25/21 06/25/21 06/25/21 00:30 00:50 01:00 Temperature Pulse Rate 127 H 128 H 129 H Pulse Rate [ From Monitor] Respiratory 17 16 Rate Blood Pressure 96/61 102/68 O2 Sat by Pulse 100 100 Oximetry 06/25/21 06/25/21 06/25/21 01:31 02:00 02:31 Temperature Pulse Rate 130 H 131 H 130 H Pulse Rate [ From Monitor] Respiratory 18 27 H 11 L Rate Blood Pressure 102/68 97/69 97/69 O2 Sat by Pulse 100 100 100 Oximetry 06/25/21 06/25/21 06/25/21 03:01 03:31 03:53 Temperature 98.0 F Pulse Rate 134 H 132 H Pulse Rate [ From Monitor] Respiratory 17 16 Rate Blood Pressure 92/64 92/64 O2 Sat by Pulse 100 100 Oximetry 06/25/21 06/25/21 06/25/21 04:00 04:15 04:31 Temperature Pulse Rate 129 H 129 H 129 H Pulse Rate [ 129 H From Monitor] Respiratory 17 15 Rate Blood Pressure 101/66 101/66 O2 Sat by Pulse 100 99 Oximetry 06/25/21 06/25/21 06/25/21 05:00 05:31 06:00 Temperature Pulse Rate 130 H 130 H 131 H Pulse Rate [ From Monitor] Respiratory 14 20 14 Rate Blood Pressure 101/67 101/67 95/67 O2 Sat by Pulse 99 100 98 Oximetry 06/25/21 06/25/21 06/25/21 06:31 07:00 07:24 Temperature 98.9 F Pulse Rate 131 H 131 H Pulse Rate [ From Monitor] Respiratory 16 16 Rate Blood Pressure 95/67 104/66 O2 Sat by Pulse 99 100 Oximetry 06/25/21 06/25/21 06/25/21 07:31 08:00 08:31 Temperature Pulse Rate 132 H 133 H 130 H Pulse Rate [ 130 H From Monitor] Respiratory 18 15 18 Rate Blood Pressure 104/66 103/68 103/68 O2 Sat by Pulse 100 98 99 Oximetry 06/25/21 06/25/21 06/25/21 09:01 09:31 10:00 Temperature Pulse Rate 132 H 134 H 131 H Pulse Rate [ From Monitor] Respiratory 18 26 H 17 Rate Blood Pressure 103/68 103/68 105/63 O2 Sat by Pulse 100 100 99 Oximetry 06/25/21 06/25/21 06/25/21 10:31 11:00 11:01 Temperature 98.3 F Pulse Rate 131 H 133 H Pulse Rate [ From Monitor] Respiratory 14 21 Rate Blood Pressure 105/63 104/73 O2 Sat by Pulse 100 100 Oximetry Constitutional: appears uncomfortable Eyes: non-icteric Neck: supple Ascultation: Bilateral: diminished breath sounds (secondary to heart size) Percussion: Bilateral: not dull Cardiovascular: other (tachycardic) Gastrointestinal: soft CBC and BMP: 06/25/21 08:46 06/25/21 08:46 ABG, PT/INR, D-dimer: PT/INR, D-dimer PT 37.9 Sec. (12.2-14.9) H 06/22/21 19:57 INR 3.52 (0.87-1.13) H 06/22/21 19:57 D-Dimer > 234 ng/mlDDU (0-234) H 06/22/21 19:57 Abnormal lab findings: Abnormal Labs 06/22/21 06/22/21 06/22/21 19:57 19:57 19:57 WBC Hct 46.4 H RDW 15.4 H Plt Count 83 L Lymph % (Auto) 11.8 L [place] % (Auto) 11.1 H Lymph # (Auto) [place] # (Auto) 1.2 H Seg Neutrophils % 76.8 H Seg Neuts % (Manual) 81.0 H Lymphocytes % (Manual) 7.0 L Monocytes % (Manual) 11.0 H Nucleated RBC % 3.0 H Seg Neutrophils # 8.0 H Seg Neutrophils # Man 8.4 H Lymphocytes # (Manual) 0.7 L Monocytes # (Manual) 1.1 H PT 37.9 H INR 3.52 H D-Dimer Sodium 125 L Potassium 6.6 H* Chloride 87.6 L Carbon Dioxide 13 L BUN 93 H Creatinine 3.9 H Glucose 111 H POC Glucose Lactic Acid Calcium Total Bilirubin 6.40 H AST 809 H ALT 1735 H Total Creatine Kinase 570 H CK-MB (CK-2) 11.8 H Troponin T 0.067 H NT-Pro-B Natriuret Pep 43518 H HDL Cholesterol 26 L Urine Creatinine Urine Total Protein 06/22/21 06/22/21 06/22/21 19:57 19:57 22:19 WBC Hct RDW Plt Count Lymph % (Auto) [place] % (Auto) Lymph # (Auto) [place] # (Auto) Seg Neutrophils % Seg Neuts % (Manual) Lymphocytes % (Manual) Monocytes % (Manual) Nucleated RBC % Seg Neutrophils # Seg Neutrophils # Man Lymphocytes # (Manual) Monocytes # (Manual) PT INR D-Dimer > 234 H Sodium Potassium Chloride Carbon Dioxide BUN Creatinine Glucose POC Glucose 63 L Lactic Acid 7.60 H* Calcium Total Bilirubin AST ALT Total Creatine Kinase CK-MB (CK-2) Troponin T NT-Pro-B Natriuret Pep HDL Cholesterol Urine Creatinine Urine Total Protein 06/22/21 06/23/21 06/23/21 23:30 00:05 00:51 WBC Hct RDW Plt Count Lymph % (Auto) [place] % (Auto) Lymph # (Auto) [place] # (Auto) Seg Neutrophils % Seg Neuts % (Manual) Lymphocytes % (Manual) Monocytes % (Manual) Nucleated RBC % Seg Neutrophils # Seg Neutrophils # Man Lymphocytes # (Manual) Monocytes # (Manual) PT INR D-Dimer Sodium Potassium Chloride Carbon Dioxide BUN Creatinine Glucose POC Glucose 109 H 199 H 200 H Lactic Acid Calcium Total Bilirubin AST ALT Total Creatine Kinase CK-MB (CK-2) Troponin T NT-Pro-B Natriuret Pep HDL Cholesterol Urine Creatinine Urine Total Protein 06/23/21 06/23/21 06/23/21 01:55 01:55 04:17 WBC Hct RDW Plt Count Lymph % (Auto) [place] % (Auto) Lymph # (Auto) [place] # (Auto) Seg Neutrophils % Seg Neuts % (Manual) Lymphocytes % (Manual) Monocytes % (Manual) Nucleated RBC % Seg Neutrophils # Seg Neutrophils # Man Lymphocytes # (Manual) Monocytes # (Manual) PT INR D-Dimer Sodium 131 L Potassium 5.1 H D Chloride 90.9 L Carbon Dioxide 17 L BUN 95 H Creatinine 4.0 H Glucose 159 H POC Glucose 181 H Lactic Acid 6.60 H* Calcium Total Bilirubin AST ALT Total Creatine Kinase CK-MB (CK-2) Troponin T NT-Pro-B Natriuret Pep HDL Cholesterol Urine Creatinine Urine Total Protein 06/23/21 06/23/21 06/23/21 07:21 10:04 10:04 WBC Hct RDW Plt Count Lymph % (Auto) [place] % (Auto) Lymph # (Auto) [place] # (Auto) Seg Neutrophils % Seg Neuts % (Manual) Lymphocytes % (Manual) Monocytes % (Manual) Nucleated RBC % Seg Neutrophils # Seg Neutrophils # Man Lymphocytes # (Manual) Monocytes # (Manual) PT INR D-Dimer Sodium 129 L Potassium Chloride 92.2 L Carbon Dioxide 18 L BUN 89 H Creatinine 3.2 H Glucose 179 H POC Glucose 191 H Lactic Acid Calcium Total Bilirubin AST ALT Total Creatine Kinase CK-MB (CK-2) Troponin T NT-Pro-B Natriuret Pep 51044 H HDL Cholesterol Urine Creatinine Urine Total Protein 06/23/21 06/23/21 06/24/21 10:04 Unknown 10:30 WBC Hct RDW Plt Count 59 L Lymph % (Auto) 9.4 L [place] % (Auto) 10.4 H Lymph # (Auto) 0.5 L [place] # (Auto) Seg Neutrophils % 79.5 H Seg Neuts % (Manual) Lymphocytes % (Manual) Monocytes % (Manual) Nucleated RBC % Seg Neutrophils # Seg Neutrophils # Man Lymphocytes # (Manual) Monocytes # (Manual) PT INR D-Dimer Sodium Potassium Chloride Carbon Dioxide BUN Creatinine Glucose POC Glucose Lactic Acid Calcium Total Bilirubin AST ALT Total Creatine Kinase 503 H CK-MB (CK-2) Troponin T NT-Pro-B Natriuret Pep HDL Cholesterol Urine Creatinine 67.0 H Urine Total Protein 14 H 06/24/21 06/24/21 06/25/21 17:00 21:07 07:16 WBC Hct RDW Plt Count Lymph % (Auto) [place] % (Auto) Lymph # (Auto) [place] # (Auto) Seg Neutrophils % Seg Neuts % (Manual) Lymphocytes % (Manual) Monocytes % (Manual) Nucleated RBC % Seg Neutrophils # Seg Neutrophils # Man Lymphocytes # (Manual) Monocytes # (Manual) PT INR D-Dimer Sodium 132 L Potassium 3.4 L D Chloride 92.1 L Carbon Dioxide BUN 66 H Creatinine 2.3 H Glucose 133 H POC Glucose 182 H 111 H Lactic Acid Calcium 7.3 L D Total Bilirubin AST ALT Total Creatine Kinase CK-MB (CK-2) Troponin T NT-Pro-B Natriuret Pep HDL Cholesterol Urine Creatinine Urine Total Protein 06/25/21 06/25/21 06/25/21 08:46 08:46 10:56 WBC 4.1 L Hct RDW 15.9 H Plt Count 66 L Lymph % (Auto) [place] % (Auto) Lymph # (Auto) [place] # (Auto) Seg Neutrophils % Seg Neuts % (Manual) Lymphocytes % (Manual) Monocytes % (Manual) Nucleated RBC % Seg Neutrophils # Seg Neutrophils # Man Lymphocytes # (Manual) Monocytes # (Manual) PT INR D-Dimer Sodium Potassium 3.1 L Chloride 93.4 L Carbon Dioxide BUN 50 H Creatinine 1.9 H Glucose 189 H POC Glucose 153 H Lactic Acid Calcium 7.6 L Total Bilirubin AST ALT Total Creatine Kinase CK-MB (CK-2) Troponin T NT-Pro-B Natriuret Pep HDL Cholesterol Urine Creatinine Urine Total Protein
--- NOTE | 2021-06-25 12:31 | Progress Note ---
Assessment and Plan Acute renal failure on top of CKD Metabolic acidosis Hyperkalemia Shortness of breath Acute HFrEF (heart failure with reduced ejection fraction) CVA (cerebral vascular accident) Elevated troponin Lactic acidosis -Cr is trending down -good UOP -On bicarb tabs for acidosis -Renally dose all meds -Avoid nephrotoxic meds Subjective Date of service: 06/25/21 Principal diagnosis: CHRIS Interval history: SOB is better Objective - Vital Signs Vital signs: Vital Signs - 12hr 06/25/21 06/25/21 06/25/21 00:30 00:50 01:00 Temperature Pulse Rate 127 H 128 H 129 H Pulse Rate [ From Monitor] Respiratory 17 16 Rate Blood Pressure 96/61 102/68 O2 Sat by Pulse 100 100 Oximetry 06/25/21 06/25/21 06/25/21 01:31 02:00 02:31 Temperature Pulse Rate 130 H 131 H 130 H Pulse Rate [ From Monitor] Respiratory 18 27 H 11 L Rate Blood Pressure 102/68 97/69 97/69 O2 Sat by Pulse 100 100 100 Oximetry 06/25/21 06/25/21 06/25/21 03:01 03:31 03:53 Temperature 98.0 F Pulse Rate 134 H 132 H Pulse Rate [ From Monitor] Respiratory 17 16 Rate Blood Pressure 92/64 92/64 O2 Sat by Pulse 100 100 Oximetry 06/25/21 06/25/21 06/25/21 04:00 04:15 04:31 Temperature Pulse Rate 129 H 129 H 129 H Pulse Rate [ 129 H From Monitor] Respiratory 17 15 Rate Blood Pressure 101/66 101/66 O2 Sat by Pulse 100 99 Oximetry 06/25/21 06/25/21 06/25/21 05:00 05:31 06:00 Temperature Pulse Rate 130 H 130 H 131 H Pulse Rate [ From Monitor] Respiratory 14 20 14 Rate Blood Pressure 101/67 101/67 95/67 O2 Sat by Pulse 99 100 98 Oximetry 06/25/21 06/25/21 06/25/21 06:31 07:00 07:24 Temperature 98.9 F Pulse Rate 131 H 131 H Pulse Rate [ From Monitor] Respiratory 16 16 Rate Blood Pressure 95/67 104/66 O2 Sat by Pulse 99 100 Oximetry 06/25/21 06/25/21 06/25/21 07:31 08:00 08:31 Temperature Pulse Rate 132 H 133 H 130 H Pulse Rate [ 130 H From Monitor] Respiratory 18 15 18 Rate Blood Pressure 104/66 103/68 103/68 O2 Sat by Pulse 100 98 99 Oximetry 06/25/21 06/25/21 06/25/21 09:01 09:31 10:00 Temperature Pulse Rate 132 H 134 H 131 H Pulse Rate [ From Monitor] Respiratory 18 26 H 17 Rate Blood Pressure 103/68 103/68 105/63 O2 Sat by Pulse 100 100 99 Oximetry 06/25/21 06/25/21 06/25/21 10:31 11:00 11:01 Temperature 98.3 F Pulse Rate 131 H 133 H Pulse Rate [ From Monitor] Respiratory 14 21 Rate Blood Pressure 105/63 104/73 O2 Sat by Pulse 100 100 Oximetry - General Appearance General appearance: well-developed, well-nourished EENT: ATNC, PERRL, mucous membranes moist Neck: no JVD, no carotid bruit Respiratory: Present: Decreased Breath Sounds Cardiology: tachycardia Gastrointestinal: normoactive bowel sounds, no tenderness, no distended, no masses Integumentary: no rash, warm and dry Neurologic: no focal deficit, no asterixis, alert and oriented x3 Musculoskeletal: other (trace pitting edema in BLE) Psychiatric: mood/affect appropriate, cooperative - Lab 06/25/21 08:46 06/25/21 08:46 Most recent lab results Calcium 7.6 mg/dL (8.4-10.2) L 06/25/21 08:46 Urine Creatinine 67.0 mg/dL (0.1-20.0) H 06/23/21 Unknown Urine Sodium 14 mmol/L 06/23/21 Unknown Urine Total Protein 14 mg/dL (5-11.8) H 06/23/21 Unknown Medications & Allergies - Medications Allergies/Adverse Reactions: Allergies No Known Allergies Allergy (Verified 10/16/20 23:25) Home Medications: Home Medications Medication Instructions Recorded Confirmed Last Taken Type Aspirin 81 mg PO DAILY #30 tab.chew 07/27/18 06/23/21 06/19/21 09:00 Rx AtorvaSTATin [Lipitor] 20 mg PO QHS #30 tab 07/27/18 06/23/21 06/19/21 22:00 Rx lisinopriL [Zestril TAB] 5 mg PO QDAY #30 tablet 07/27/18 06/23/21 06/20/21 09:00 Rx Furosemide [Lasix TAB] 40 mg PO QDAY #30 tablet 05/07/19 06/23/21 06/19/21 09:00 Rx Potassium Chloride 10 meq PO DAILY #30 tablet.er 05/07/19 06/23/21 06/19/21 09:00 Rx carvediloL [Coreg] 3.125 mg PO BID #60 tablet 05/07/19 06/23/21 06/20/21 09:00 Rx Hyoscyamine Subl [Levsin Sl 0.125 0.125 mg SL Q4HR PRN #15 tablet 05/13/21 06/23/21 06/19/21 15:00 Rx TAB] Ondansetron [Zofran Odt] 4 mg PO Q8HR PRN #15 tab.rapdis 05/13/21 06/23/21 06/19/21 09:00 Rx Active Medications: Generic Name Dose Route Start Last Admin Trade Name Freq PRN Reason Stop Dose Admin Acetaminophen 650 mg 06/23/21 01:48 Acetaminophen 325 Mg Tab PO Q4H PRN Pain MILD(1-3)/Fever >100.5/LAURENT Albuterol 2.5 mg 06/23/21 01:48 Albuterol 2.5 Mg/3 Ml Nebu IH Q3HRT PRN Shortness Of Breath Alprazolam 0.25 mg 06/23/21 12:00 06/24/21 22:07 Alprazolam 0.25 Mg Tab PO 0.25 mg Q8H PRN Administration Anxiety Atorvastatin Calcium 20 mg 06/23/21 22:00 06/24/21 22:05 Atorvastatin 20 Mg Tab PO 20 mg QHS BHAVYA Administration Enoxaparin Sodium 90 mg 06/24/21 22:00 06/24/21 22:05 Enoxaparin 100 Mg/1 Ml Inj 1 mg/kg (90 mg) 90 mg SUB-Q Administration Q24H BHAVYA Protocol Famotidine 10 mg 06/23/21 10:00 06/25/21 10:51 Famotidine 10 Mg Tab PO 10 mg BID BHAVYA Administration Furosemide 20 mg 06/25/21 18:00 Furosemide 20 Mg/2 Ml Inj IV 0600,1800 BHAVYA Hydromorphone HCl 0.5 mg 06/23/21 01:48 Hydromorphone 1 Mg/1 Ml Inj IV Q3H PRN Pain , Severe (7-10) Hyoscyamine 0.125 mg 06/23/21 01:52 Hyoscyamine Subl 0.125 Mg Tab SL Q4HR PRN abdominal Spasms Ceftriaxone Sodium 2 gm in 100 mls @ 200 mls/hr 06/24/21 22:00 06/24/21 22:09 Rocephin/Ns 2 Gm/100 Ml IV 06/25/21 22:29 200 mls/hr Q24H BHAVYA Administration Protocol Morphine Sulfate 2 mg 06/23/21 01:48 Morphine 2 Mg/1 Ml Inj IV Q4H PRN Pain, Moderate (4-6) Ondansetron HCl 4 mg 06/23/21 01:48 Ondansetron 4 Mg/2 Ml Inj IV Q8H PRN Nausea And Vomiting Potassium Chloride 40 meq 06/25/21 11:00 06/25/21 11:18 Potassium Chloride Er 20 Meq Tab PO 06/25/21 15:00 40 meq ONCE@1100 BHAVYA Administration Sodium Bicarbonate 1,300 mg 06/23/21 20:00 06/25/21 10:51 Sodium Bicarbonate 650 Mg Tab PO 1,300 mg TID BHAVYA Administration Sodium Chloride 10 ml 06/23/21 10:00 06/25/21 10:51 Sodium Chloride 0.9% 10 Ml Flush Syringe IV 10 ml BID BHAVYA Administration Sodium Chloride 10 ml 06/23/21 01:48 Sodium Chloride 0.9% 10 Ml Flush Syringe IV PRN PRN LINE FLUSH
--- NOTE | 2021-06-25 13:19 | XRay Report ---
CHEST 1 VIEW INDICATION: lung scan. COMPARISON: 06/22/2021 FINDINGS: Support devices: None. Heart: Moderate cardiomegaly is present although decreased since 06/22/2021 exam. Lungs/Pleura: The lungs are clear with no evidence for infiltrate, pleural effusion or pneumothorax. Additional findings: None. IMPRESSION: Cardiomegaly. Lungs clear. Signer Name: Maximo Frank Jr, MD Signed: 06/25/2021 1:14 PM Workstation Name: [id number]
--- NOTE | 2021-06-25 14:09 | Nuclear Medicine Report ---
NUCLEAR MEDICINE PERFUSION SCAN INDICATION: pulmonary embolism. Shortness of breath. Hypoxia. CORRELATION: AP chest performed the same day RADIOPHARMACEUTICAL: Perfusion: 5.2 mCi Tc-99m MAA given IV FINDINGS: Perfusion images show symmetric and uniform radiotracer distribution throughout bilateral lung zones with no evidence of unmatched segmental perfusion defects. The cardiac shadow is mildly enlarged. IMPRESSION: Very low probability perfusion scan for pulmonary embolism. Signer Name: Maximo Frank Jr, MD Signed: 06/25/2021 2:05 PM Workstation Name: [id number]
--- NOTE | 2021-06-25 15:27 | Vascular Lab Report ---
DUPLEX DOPPLER LOWER EXTREMITY VEINS, BILATERAL INDICATION / CLINICAL INFORMATION: dvt. TECHNIQUE: Duplex doppler imaging was performed through the veins of both lower extremities using gonzalo ous compression and other maneuvers. COMPARISON: None available. FINDINGS: RIGHT COMMON FEMORAL VEIN: Negative. RIGHT FEMORAL VEIN: Negative. RIGHT POPLITEAL VEIN: Negative. RIGHT CALF VEINS: Negative. LEFT COMMON FEMORAL VEIN: Negative. LEFT FEMORAL VEIN: Negative. LEFT POPLITEAL VEIN: Negative. LEFT CALF VEINS: Negative. ADDITIONAL FINDINGS: None. IMPRESSION: 1. No sonographic evidence for DVT in either lower extremity. Scribed by: Anna Jackson RDMS, RVT, JULIET Scribed: 06/25/2021 12:49 PM I have reviewed the images, agree with this report, and edited this report as needed. Signer Name: Randolph Camacho MD Signed: 06/25/2021 3:14 PM Workstation Name: [id number]
--- NOTE | 2021-06-25 15:48 | Progress Note ---
Assessment and Plan 55-year-old gentleman with multiple medical problems who is followed by Dr. Mando Addison at [facility] family program specialist presents to the emergency department complaining of increasing shortness of breath, nausea, and vomiting x1 week Acute renal failure-nephrology follow Hyponatremia Hyperkalemia Acute on chronic HFrEF Respiratory failure Sinus tachycardia Transaminitis Hypertension CVA Noncompliance History of tobacco/EtOH/cocaine (patient denies tobacco/EtOH/cocaine in the past year) Echo 06/23/2021-EF 10 to 15%. Severe global hypokinesis of LV. LV is severely dilated. Right ventricle is moderate to severely dilated. Severe mitral regurgitation ECHO 10/16/20: Severe global hypokinesis of the LV, EF15-20%, mild RVE, mod MR Echo done 07/22/2018 showed EF 10-15%, mild to mod LVH, abnormal diastolic function, LA mildly dilated, mod MR. LHC done 07/27/2018 showed normal coronaries, EF 15%, LVEDP 22mmHg Plan: Agree with Lasix for diuresis strict I's and O's Hold carvedilol/lisinopril/Lipitor for now due to soft BP, elevated creatinine, and transaminitis Will stop aspirin due to thrombocytopenia and normal coronaries per previous cardiac cath Due to sinus tach rate trending in 130s will hold milrinone for now. Patient seen in conjunction with Dr. Luis who agrees with this plan of care - Patient Problems (1) Acute renal failure Current Visit: Yes Status: Acute Qualifiers: (2) Lactic acidosis Current Visit: Yes Status: Acute (3) Shortness of breath Current Visit: Yes Status: Acute (4) Acute HFrEF (heart failure with reduced ejection fraction) Current Visit: No Status: Acute (5) Nicotine dependence Current Visit: No Status: Acute Qualifiers: Nicotine product type: cigarettes Substance use status: in withdrawal Qualified Code(s): F17.213 - Nicotine dependence, cigarettes, with withdrawal (6) Cocaine use Current Visit: No Status: Chronic (7) EtOH dependence Current Visit: No Status: Chronic Qualifiers: Substance use status: uncomplicated Qualified Code(s): F10.20 - Alcohol dependence, uncomplicated (8) NICM (nonischemic cardiomyopathy) Current Visit: No Status: Chronic Subjective Date of service: 06/25/21 Principal diagnosis: CHRIS, HFreF Interval history: Patient resting in bed in no acute distress. Patient reports feeling better Patient trending sinus tach 130s on monitor Objective Vital Signs Temp Pulse Pulse Resp BP Pulse Ox 06/25/21 13:00 130 H 16 105/68 100 06/25/21 12:57 130 H 104/73 06/25/21 12:01 131 H 24 104/73 100 06/25/21 11:31 131 H 18 104/73 100 06/25/21 11:01 133 H 21 104/73 100 06/25/21 11:00 98.3 F 06/25/21 10:31 131 H 14 105/63 100 06/25/21 10:00 131 H 17 105/63 100 06/25/21 09:31 134 H 26 H 103/68 100 06/25/21 09:01 132 H 18 103/68 100 06/25/21 08:31 130 H 18 103/68 99 06/25/21 08:00 133 H 130 H 15 103/68 98 06/25/21 07:31 132 H 18 104/66 100 06/25/21 07:24 98.9 F 06/25/21 07:00 131 H 16 104/66 100 06/25/21 06:31 131 H 16 95/67 99 06/25/21 06:00 131 H 14 95/67 98 06/25/21 05:31 130 H 20 101/67 100 06/25/21 05:00 130 H 14 101/67 99 06/25/21 04:31 129 H 15 101/66 99 06/25/21 04:15 129 H 06/25/21 04:00 129 H 129 H 17 101/66 100 06/25/21 03:53 98.0 F 06/25/21 03:31 132 H 16 92/64 100 06/25/21 03:01 134 H 17 92/64 100 06/25/21 02:31 130 H 11 L 97/69 100 06/25/21 02:00 131 H 27 H 97/69 100 06/25/21 01:31 130 H 18 102/68 100 06/25/21 01:00 129 H 16 102/68 100 06/25/21 00:50 128 H 06/25/21 00:30 127 H 17 96/61 100 06/25/21 00:05 129 H 23 96/61 100 06/25/21 00:00 128 H 128 H 17 96/61 100 06/24/21 23:59 97.8 F 06/24/21 23:30 127 H 94/70 100 06/24/21 23:00 126 H 94/70 100 06/24/21 22:30 128 H 102/72 06/24/21 22:00 129 H 18 102/72 100 06/24/21 21:30 128 H 19 94/64 100 06/24/21 21:00 128 H 22 101/76 100 06/24/21 20:45 128 H 23 101/76 100 06/24/21 20:30 126 H 22 101/76 100 06/24/21 20:00 97.3 F L 140 H 25 H 85/66 100 06/24/21 19:37 98 06/24/21 19:30 128 H 18 85/66 97 06/24/21 19:00 129 H 20 85/66 97 06/24/21 18:50 126 H 17 62 98 06/24/21 18:40 126 H 15 97 06/24/21 18:30 125 H 14 /62 93 06/24/21 18:21 97.5 F L 06/24/21 18:20 125 H 15 96 06/24/21 18:10 126 H 17 98 06/24/21 18:00 127 H 19 97 06/24/21 17:50 128 H 17 94/42 99 06/24/21 17:40 128 H 18 94/42 95 06/24/21 17:30 130 H 21 94/42 98 06/24/21 17:20 129 H 18 94/42 100 06/24/21 17:10 127 H 16 94/42 98 06/24/21 17:00 127 H 18 94/42 96 06/24/21 16:50 127 H 14 90/58 95 06/24/21 16:40 127 H 14 /58 96 06/24/21 16:30 127 H 14 /58 96 06/24/21 16:20 127 H 13 90/58 95 06/24/21 16:10 126 H 14 90/58 94 06/24/21 16:00 126 H 127 H 13 /58 100 06/24/21 15:50 126 H 15 105/71 95 - Physical Examination General: No Apparent Distress HEENT: Positive: PERRL Neck: Negative: neck supple, trachea midline Cardiac: Positive: Regular Rhythm, Tachycardia Lungs: Positive: Decreased Breath Sounds Neuro: Positive: Grossly Intact Abdomen: Positive: Soft, Decreased Bowel Sounds Skin: Negative: Rash Extremities: Present: upper extr. pulses, edema, warm - Labs and Meds CBC 06/25/21 Range/Units 08:46 WBC 4.1 L (4.5-11.0) K/mm3 RBC 4.24 (3.65-5.03) M/mm3 Hgb 12.6 (11.8-15.2) gm/dl Hct 39.5 (35.5-45.6) % Plt Count 66 L (140-440) K/mm3 Comprehensive Metabolic Panel 06/24/21 06/25/21 Range/Units 17:00 08:46 Sodium 132 L 137 (137-145) mmol/L Potassium 3.4 L D 3.1 L (3.6-5.0) mmol/L Chloride 92.1 L 93.4 L (98-107) mmol/L Carbon Dioxide 27 D 30 (22-30) mmol/L BUN 66 H 50 H (9-20) mg/dL Creatinine 2.3 H 1.9 H (0.8-1.3) mg/dL Glucose 133 H 189 H (75-100) mg/dL Calcium 7.3 L D 7.6 L (8.4-10.2) mg/dL - Imaging and Cardiology Echo: report reviewed (ECHO 10/16/20: EF 15-20%, moderate MR) Cardiac cath: report reviewed ([facility] 2018: No angiographically significant CAD) - Telemetry EKG Rhythm: Sinus Tachycardia - EKG Sinus rhythms and dysrhythmias: sinus tachycardia
--- NOTE | 2021-06-25 17:50 | Ultrasound Report ---
ULTRASOUND RENAL INDICATION: namrata. COMPARISON: No relevant prior imaging study available. FINDINGS: RIGHT KIDNEY: Size: 11.6 x 5.2 x 5.5 cm. Echogenicity: Normal. Parenchymal thickness: Normal. Hydronephrosis: None. Cyst or mass: Multiple simple right renal cysts measure up to 2.2 cm along the lower pole. No solid l esions. Stones: Multiple probable renal stones measure up to 3.9 mm. LEFT KIDNEY: Size: 12.8 x 5.8 x 4.7 cm. Echogenicity: Normal. Parenchymal thickness: Mild thinning. Hydronephrosis: None. Cyst or mass: None. Stones: None. Urinary Bladder: No significant abnormality. Free Fluid: None. Additional Findings: None. IMPRESSION 1. No acute sonographic abnormality of the kidneys. 2. Nonobstructive right renal stones measuring up to 3.9 mm. 3. Multiple simple right renal cyst measuring up to 2.2 cm. Signer Name: Gio Fofana MD Signed: 06/25/2021 5:45 PM Workstation Name: [id number]
[2021-06-25] MEDS: FUROSEMIDE 20 MG/2 ML INJ IV SCH (19:01)
[2021-06-25] MEDS: cefTRIAXone/NS 2 GM/100 ML 2 GM/100 ML BAG IV SCH (22:03)
[2021-06-25] MEDS: ENOXAPARIN 100 MG/1 ML INJ SUB-Q SCH (22:03)
[2021-06-26] MEDS: FUROSEMIDE 20 MG/2 ML INJ IV SCH ×2 (06:35→18:08)
--- NOTE | 2021-06-26 07:34 | Progress Note ---
Assessment and Plan Assessment and plan: 55-year-old male present with a chief complaint of shortness of breath nausea vomiting. The patient states for approximate 1 week he has had shortness of breath and a cough has been nonproductive. Patient denies history of fever. Patient also states for the approximate same on the time he has had nausea vomiting. Patient states he has been unable to eat or take his medications for the past week secondary to the nausea vomiting. Patient admits to some diarrhea. The patient states he has not been vaccinated against COVID. In the emergency room patient is found to have potassium of 6.6, BUN 93 creatinine 3.9, lactic acid 7.60, troponin 0 0.067, BNP 45499, AST 809 and ALT 1735. Subsequently Case discussed with nephrology patient already get insulin D50 Kayexalate and calcium gluconate repeat the BMP and nephrology will see the patient in the morning Acute hypoxic respiratory failure Acute on chronic combined systolic and diastolic congestive heart failure with last echo on 07/22/2018 noted to have ejection fraction of 10 to 15%. Sinus tachycardia likely indicating on the management cardiomyopathy Cardiomyopathy Acute kidney injury with vasomotor nephropathy Hyponatremia Hyperkalemia now resolved Transaminitis History of CVA Noncompliance Prior history of substance abuse including tobacco, EtOH, cocaine although patient states been sober for over a year. Systemic inflammatory response syndrome without organ dysfunction Lactic acidosis Anxiety Thrombocytopenia Plan 06/25: The IV milrinone dose will be reduced to 0.125/kg, in response to low blood pressure. Continue supportive care. We will also decrease Lasix to 20 mg IV twice daily await further input from cardiology. There is some improvement in renal function will monitor closely. Plan discussed with the patient 06/26: Hold anticoagulatng considering thormbocytpenia Continue supportive care We will discontinue beta-blockers at this time. Resume milrinone as allowed by hemodynamics and will defer to cardiology for further management. Continue diuresis if okay with nephrology and machine bander and cellophaner. Patient confirms improved respiration with increased urine output Await for today's labs Monitor and replace electrolytes as needed Medication compliance discussed with the patient in detail Continue as needed Xanax for anxiety. Continue aspirin we will hold Lipitor per suggestion by cardiology at this time likely due to elevated Ck DVT and GI prophylaxis Oxygen for supportive therapy Hospitalist Physical - Constitutional Vitals: Temp Pulse Resp BP Pulse Ox 98.4 F 137 H 15 105/72 96 06/26/21 04:00 06/26/21 06:00 06/26/21 06:00 06/26/21 06:00 06/26/21 06:00 General appearance: Present: other (Moderate distress) HEART Score - HEART Score Troponin: Troponin T 0.067 ng/mL (0.00-0.029) H 06/22/21 19:57 Results - Labs CBC & Chem 7: 06/25/21 08:46 06/25/21 08:46 Labs: Laboratory Last Values WBC 4.1 K/mm3 (4.5-11.0) L 06/25/21 08:46 RBC 4.24 M/mm3 (3.65-5.03) 06/25/21 08:46 Hgb 12.6 gm/dl (11.8-15.2) 06/25/21 08:46 Hct 39.5 % (35.5-45.6) 06/25/21 08:46 MCV 93 fl (84-94) 06/25/21 08:46 MCH 30 pg (28-32) 06/25/21 08:46 MCHC 32 % (32-34) 06/25/21 08:46 RDW 15.9 % (13.2-15.2) H 06/25/21 08:46 Plt Count 66 K/mm3 (140-440) L 06/25/21 08:46 Lymph % (Auto) 9.4 % (13.4-35.0) L 06/24/21 10:30 [place] % (Auto) 10.4 % (0.0-7.3) H 06/24/21 10:30 Eos % (Auto) 0.6 % (0.0-4.3) 06/24/21 10:30 Baso % (Auto) 0.1 % (0.0-1.8) 06/24/21 10:30 Lymph # (Auto) 0.5 K/mm3 (1.2-5.4) L 06/24/21 10:30 [place] # (Auto) 0.5 K/mm3 (0.0-0.8) 06/24/21 10:30 Eos # (Auto) 0.0 K/mm3 (0.0-0.4) 06/24/21 10:30 Baso # (Auto) 0.0 K/mm3 (0.0-0.1) 06/24/21 10:30 Add Manual Diff Complete 06/22/21 19:57 Total Counted 100 06/22/21 19:57 Seg Neutrophils % 79.5 % (40.0-70.0) H 06/24/21 10:30 Seg Neuts % (Manual) 81.0 % (40.0-70.0) H 06/22/21 19:57 Band Neutrophils % 1.0 % 06/22/21 19:57 Lymphocytes % (Manual) 7.0 % (13.4-35.0) L 06/22/21 19:57 Reactive Lymphs % (Man) 0 % 06/22/21 19:57 Monocytes % (Manual) 11.0 % (0.0-7.3) H 06/22/21 19:57 Eosinophils % (Manual) 0 % (0.0-4.3) 06/22/21 19:57 Basophils % (Manual) 0 % (0.0-1.8) 06/22/21 19:57 Metamyelocytes % 0 % 06/22/21 19:57 Myelocytes % 0 % 06/22/21 19:57 Promyelocytes % 0 % 06/22/21 19:57 Blast Cells % 0 % 06/22/21 19:57 Nucleated RBC % 3.0 % (0.0-0.9) H 06/22/21 19:57 Seg Neutrophils # 4.0 K/mm3 (1.8-7.7) 06/24/21 10:30 Seg Neutrophils # Man 8.4 K/mm3 (1.8-7.7) H 06/22/21 19:57 Band Neutrophils # 0.1 K/mm3 06/22/21 19:57 Lymphocytes # (Manual) 0.7 K/mm3 (1.2-5.4) L 06/22/21 19:57 Abs React Lymphs (Man) 0.0 K/mm3 06/22/21 19:57 Monocytes # (Manual) 1.1 K/mm3 (0.0-0.8) H 06/22/21 19:57 Eosinophils # (Manual) 0.0 K/mm3 (0.0-0.4) 06/22/21 19:57 Basophils # (Manual) 0.0 K/mm3 (0.0-0.1) 06/22/21 19:57 Metamyelocytes # 0.0 K/mm3 06/22/21 19:57 Myelocytes # 0.0 K/mm3 06/22/21 19:57 Promyelocytes # 0.0 K/mm3 06/22/21 19:57 Blast Cells # 0.0 K/mm3 06/22/21 19:57 WBC Morphology Not Reportable 06/22/21 19:57 Hypersegmented Neuts Not Reportable 06/22/21 19:57 Hyposegmented Neuts Not Reportable 06/22/21 19:57 Hypogranular Neuts Not Reportable 06/22/21 19:57 Smudge Cells Not Reportable 06/22/21 19:57 Toxic Granulation Not Reportable 06/22/21 19:57 Toxic Vacuolation Not Reportable 06/22/21 19:57 Dohle Bodies Not Reportable 06/22/21 19:57 Pelger-Huet Anomaly Not Reportable 06/22/21 19:57 Annie Rods Not Reportable 06/22/21 19:57 Platelet Estimate Appears decreased 06/22/21 19:57 Clumped Platelets Not Reportable 06/22/21 19:57 Plt Clumps, EDTA Not Reportable 06/22/21 19:57 Large Platelets Not Reportable 06/22/21 19:57 Giant Platelets Not Reportable 06/22/21 19:57 Platelet Satelliting Not Reportable 06/22/21 19:57 Plt Morphology Comment Not Reportable 06/22/21 19:57 RBC Morphology Normal 06/22/21 19:57 Dimorphic RBCs Not Reportable 06/22/21 19:57 Polychromasia Not Reportable 06/22/21 19:57 Hypochromasia Not Reportable 06/22/21 19:57 Poikilocytosis Not Reportable 06/22/21 19:57 Anisocytosis Not Reportable 06/22/21 19:57 Microcytosis Not Reportable 06/22/21 19:57 Macrocytosis Not Reportable 06/22/21 19:57 Spherocytes Not Reportable 06/22/21 19:57 Pappenheimer Bodies Not Reportable 06/22/21 19:57 Sickle Cells Not Reportable 06/22/21 19:57 Target Cells Not Reportable 06/22/21 19:57 Tear Drop Cells Not Reportable 06/22/21 19:57 Ovalocytes Not Reportable 06/22/21 19:57 Helmet Cells Not Reportable 06/22/21 19:57 [place] Bodies Not Reportable 06/22/21 19:57 [place] Rings Not Reportable 06/22/21 19:57 Juliane Cells Not Reportable 06/22/21 19:57 Bite Cells Not Reportable 06/22/21 19:57 Crenated Cell Not Reportable 06/22/21 19:57 Elliptocytes Not Reportable 06/22/21 19:57 Acanthocytes (Spur) Not Reportable 06/22/21 19:57 Rouleaux Not Reportable 06/22/21 19:57 Hemoglobin C Crystals Not Reportable 06/22/21 19:57 Schistocytes Not Reportable 06/22/21 19:57 Malaria parasites Not Reportable 06/22/21 19:57 Erik Bodies Not Reportable 06/22/21 19:57 Hem Pathologist Commnt No 06/22/21 19:57 PT 37.9 Sec. (12.2-14.9) H 06/22/21 19:57 INR 3.52 (0.87-1.13) H 06/22/21 19:57 D-Dimer > 234 ng/mlDDU (0-234) H 06/22/21 19:57 Sodium 137 mmol/L (137-145) 06/25/21 08:46 Potassium 3.1 mmol/L (3.6-5.0) L 06/25/21 08:46 Chloride 93.4 mmol/L (98-107) L 06/25/21 08:46 Carbon Dioxide 30 mmol/L (22-30) 06/25/21 08:46 Anion Gap 17 mmol/L 06/25/21 08:46 BUN 50 mg/dL (9-20) H 06/25/21 08:46 Creatinine 1.9 mg/dL (0.8-1.3) H 06/25/21 08:46 Estimated GFR 45 ml/min 06/25/21 08:46 BUN/Creatinine Ratio 26 % 06/25/21 08:46 Glucose 189 mg/dL (75-100) H 06/25/21 08:46 POC Glucose 158 mg/dL (70-105) H 06/25/21 23:56 Lactic Acid 6.60 mmol/L (0.7-2.0) H* 06/23/21 01:55 Calcium 7.6 mg/dL (8.4-10.2) L 06/25/21 08:46 Total Bilirubin 6.40 mg/dL (0.1-1.2) H 06/22/21 19:57 AST 809 units/L (5-40) H 06/22/21 19:57 ALT 1735 units/L (7-56) H 06/22/21 19:57 Alkaline Phosphatase 109 units/L (35-129) 06/22/21 19:57 Total Creatine Kinase 503 units/L (55-170) H 06/23/21 10:04 CK-MB (CK-2) 11.8 ng/mL (0.0-4.0) H 06/22/21 19:57 CK-MB (CK-2) Rel Index 2.0 (0-4) 06/22/21 19:57 Troponin T 0.067 ng/mL (0.00-0.029) H 06/22/21 19:57 NT-Pro-B Natriuret Pep 69717 pg/mL (0-900) H 06/23/21 10:04 Total Protein 7.0 g/dL (6.3-8.2) 06/22/21 19:57 Albumin 4.1 g/dL (3.9-5) 06/22/21 19:57 Albumin/Globulin Ratio 1.4 % 06/22/21 19:57 Triglycerides 90 mg/dL (2-149) 06/22/21 19:57 Cholesterol 103 mg/dL (50-199) 06/22/21 19:57 LDL Cholesterol Direct 61 mg/dL (50-130) 06/22/21 19:57 HDL Cholesterol 26 mg/dL (40-59) L 06/22/21 19:57 Cholesterol/HDL Ratio 3.96 % 06/22/21 19:57 Urine Color Yellow (Yellow) 06/23/21 Unknown Urine Color Yellow (Yellow) 06/23/21 Unknown Urine Turbidity Clear (Clear) 06/23/21 Unknown Urine Turbidity Clear (Clear) 06/23/21 Unknown Urine pH 5.0 (5.0-7.0) 06/23/21 Unknown Urine pH 5.0 (5.0-7.0) 06/23/21 Unknown Ur Specific [place] 1.011 (1.003-1.030) 06/23/21 Unknown Ur Specific [place] 1.016 (1.003-1.030) 06/23/21 Unknown Urine Protein 30 mg/dl mg/dL (Negative) 06/23/21 Unknown Urine Protein <15 mg/dl mg/dL (Negative) 06/23/21 Unknown Urine Glucose (UA) 50 mg/dL (Negative) 06/23/21 Unknown Urine Glucose (UA) Neg mg/dL (Negative) 06/23/21 Unknown Urine Ketones Neg mg/dL (Negative) 06/23/21 Unknown Urine Ketones Neg mg/dL (Negative) 06/23/21 Unknown Urine Blood Neg (Negative) 06/23/21 Unknown Urine Blood Sm (Negative) 06/23/21 Unknown Urine Nitrite Neg (Negative) 06/23/21 Unknown Urine Nitrite Neg (Negative) 06/23/21 Unknown Urine Bilirubin Neg (Negative) 06/23/21 Unknown Urine Bilirubin Neg (Negative) 06/23/21 Unknown Urine Urobilinogen 2.0 mg/dL (<2.0) 06/23/21 Unknown Urine Urobilinogen < 2.0 mg/dL (<2.0) 06/23/21 Unknown Ur Leukocyte Esterase Neg (Negative) 06/23/21 Unknown Ur Leukocyte Esterase Neg (Negative) 06/23/21 Unknown Urine WBC (Auto) 1.0 /HPF (0.0-6.0) 06/23/21 Unknown Urine WBC (Auto) 1.0 /HPF (0.0-6.0) 06/23/21 Unknown Urine RBC (Auto) 2.0 /HPF (0.0-6.0) 06/23/21 Unknown Urine RBC (Auto) 4.0 /HPF (0.0-6.0) 06/23/21 Unknown U Epithel Cells (Auto) < 1.0 /HPF (0-13.0) 06/23/21 Unknown U Epithel Cells (Auto) < 1.0 /HPF (0-13.0) 06/23/21 Unknown Hyaline Casts 2 /LPF 06/23/21 Unknown Urine Mucus Few /HPF 06/23/21 Unknown Urine Creatinine 67.0 mg/dL (0.1-20.0) H 06/23/21 Unknown Protein/Creatinin Ratio 0.21 06/23/21 Unknown Urine Sodium 14 mmol/L 06/23/21 Unknown Urine Total Protein 14 mg/dL (5-11.8) H 06/23/21 Unknown Nasal Screen MRSA (PCR) Positive (Negative) 06/23/21 Unknown Coronavirus (PCR) Negative (Negative) 06/24/21 Unknown Influenza A (Rapid) Negative (Negative) 06/22/21 19:56 Influenza B (Rapid) Negative (Negative) 06/22/21 19:56 Microbiology: Microbiology 06/22/21 19:57 Peripheral/Venous Blood Culture - Preliminary NO GROWTH AFTER 72 HOURS 06/22/21 19:57 Peripheral/Venous Blood Culture - Preliminary NO GROWTH AFTER 72 HOURS Sanchez/IV: Voiding Method Urinal Active Medications - Current Medications Current Medications: Generic Name Dose Route Start Last Admin Trade Name Freq PRN Reason Stop Dose Admin Acetaminophen 650 mg 06/23/21 01:48 Acetaminophen 325 Mg Tab PO Q4H PRN Pain MILD(1-3)/Fever >100.5/LAURENT Albuterol 2.5 mg 06/23/21 01:48 Albuterol 2.5 Mg/3 Ml Nebu IH Q3HRT PRN Shortness Of Breath Alprazolam 0.25 mg 06/23/21 12:00 06/24/21 22:07 Alprazolam 0.25 Mg Tab PO 0.25 mg Q8H PRN Administration Anxiety Atorvastatin Calcium 20 mg 06/23/21 22:00 06/25/21 22:03 Atorvastatin 20 Mg Tab PO 20 mg QHS BHAVYA Administration Enoxaparin Sodium 90 mg 06/24/21 22:00 06/25/21 22:03 Enoxaparin 100 Mg/1 Ml Inj 1 mg/kg (90 mg) 90 mg SUB-Q Administration Q24H BHAVYA Protocol Famotidine 10 mg 06/23/21 10:00 06/25/21 22:04 Famotidine 10 Mg Tab PO 10 mg BID BHAVYA Administration Furosemide 20 mg 06/25/21 18:00 06/26/21 06:35 Furosemide 20 Mg/2 Ml Inj IV 20 mg 0600,1800 BHAVYA Administration Hydromorphone HCl 0.5 mg 06/23/21 01:48 Hydromorphone 1 Mg/1 Ml Inj IV Q3H PRN Pain , Severe (7-10) Hyoscyamine 0.125 mg 06/23/21 01:52 Hyoscyamine Subl 0.125 Mg Tab SL Q4HR PRN abdominal Spasms Morphine Sulfate 2 mg 06/23/21 01:48 Morphine 2 Mg/1 Ml Inj IV Q4H PRN Pain, Moderate (4-6) Ondansetron HCl 4 mg 06/23/21 01:48 Ondansetron 4 Mg/2 Ml Inj IV Q8H PRN Nausea And Vomiting Sodium Bicarbonate 1,300 mg 06/23/21 20:00 06/25/21 22:03 Sodium Bicarbonate 650 Mg Tab PO 1,300 mg TID BHAVYA Administration Sodium Chloride 10 ml 06/23/21 10:00 06/25/21 22:20 Sodium Chloride 0.9% 10 Ml Flush Syringe IV 10 ml BID BHAVYA Administration Sodium Chloride 10 ml 06/23/21 01:48 Sodium Chloride 0.9% 10 Ml Flush Syringe IV PRN PRN LINE FLUSH
--- NOTE | 2021-06-26 09:25 | Progress Note ---
Assessment and Plan Assessment Acute renal failure on top of CKD Metabolic acidosis, Resolved Hyperkalemia Shortness of breath Acute HFrEF (heart failure with reduced ejection fraction) CVA (cerebral vascular accident) Elevated troponin Lactic acidosis Plan: -No new renal labs for today resulted at present. Serum creatinine yesterday was 1.9 and prior was 2.3, UOP 3600 ml -CHF-On Lasix 20 mg IV BID for now, diuresing well, Cardiology onboard -Co2 level was 30 yesterday, will stop Sodium bicarbonate tablets -Renally dose all medications -Avoid nephrotoxic agents -Monitor I/O's daily -Obtain daily weights -Continue to monitor renal function -Plan of care reviewed by Dr. Walker Subjective Date of service: 06/26/21 Principal diagnosis: CHRIS, HFreF Interval history: Patient seen lying in bed. States swelling has improved. States he wants a cup of ice. Notified RN at bedside. Objective - Vital Signs Vital signs: Vital Signs - 12hr 06/25/21 06/25/21 06/25/21 21:31 22:00 22:01 Temperature Pulse Rate 130 H 131 H Pulse Rate [ From Monitor] Respiratory 13 16 Rate Blood Pressure 106/80 88/59 O2 Sat by Pulse 100 100 99 Oximetry 06/25/21 06/25/21 06/25/21 22:31 23:01 23:19 Temperature Pulse Rate 130 H 130 H 128 H Pulse Rate [ From Monitor] Respiratory 15 20 19 Rate Blood Pressure 88/59 104/80 104/80 O2 Sat by Pulse 100 98 98 Oximetry 06/26/21 06/26/21 06/26/21 00:00 01:01 02:00 Temperature 98.2 F Pulse Rate 129 H 131 H 131 H Pulse Rate [ 128 H From Monitor] Respiratory 17 26 H 19 Rate Blood Pressure 104/65 110/60 93/62 O2 Sat by Pulse 100 100 99 Oximetry 06/26/21 06/26/21 06/26/21 03:01 04:00 04:01 Temperature 98.4 F Pulse Rate 144 H 126 H 128 H Pulse Rate [ 126 H From Monitor] Respiratory 22 18 15 Rate Blood Pressure 93/62 90/47 O2 Sat by Pulse 100 100 97 Oximetry 06/26/21 06/26/21 06/26/21 05:00 06:00 08:00 Temperature 98.3 F Pulse Rate 129 H 137 H Pulse Rate [ From Monitor] Respiratory 18 15 Rate Blood Pressure 88/59 105/72 O2 Sat by Pulse 97 96 Oximetry 06/26/21 08:15 Temperature Pulse Rate Pulse Rate [ From Monitor] Respiratory Rate Blood Pressure O2 Sat by Pulse 100 Oximetry - General Appearance General appearance: well-developed, appears stated age EENT: ATNC, PERRL, hearing intact, vision intact Neck: no JVD, supple Respiratory: Present: Decreased Breath Sounds Cardiology: S1S2 Gastrointestinal: normoactive bowel sounds Integumentary: warm and dry Neurologic: alert and oriented x3, other (has 1+ edema to BLE) - Lab 06/25/21 08:46 06/25/21 08:46 Most recent lab results Calcium 7.6 mg/dL (8.4-10.2) L 06/25/21 08:46 Urine Creatinine 67.0 mg/dL (0.1-20.0) H 06/23/21 Unknown Urine Sodium 14 mmol/L 06/23/21 Unknown Urine Total Protein 14 mg/dL (5-11.8) H 06/23/21 Unknown Medications & Allergies - Medications Allergies/Adverse Reactions: Allergies No Known Allergies Allergy (Verified 10/16/20 23:25) Home Medications: Home Medications Medication Instructions Recorded Confirmed Last Taken Type Aspirin 81 mg PO DAILY #30 tab.chew 07/27/18 06/23/21 06/19/21 09:00 Rx AtorvaSTATin [Lipitor] 20 mg PO QHS #30 tab 07/27/18 06/23/21 06/19/21 22:00 Rx lisinopriL [Zestril TAB] 5 mg PO QDAY #30 tablet 07/27/18 06/23/21 06/20/21 09:00 Rx Furosemide [Lasix TAB] 40 mg PO QDAY #30 tablet 05/07/19 06/23/21 06/19/21 09:00 Rx Potassium Chloride 10 meq PO DAILY #30 tablet.er 05/07/19 06/23/21 06/19/21 09:00 Rx carvediloL [Coreg] 3.125 mg PO BID #60 tablet 05/07/19 06/23/21 06/20/21 09:00 Rx Hyoscyamine Subl [Levsin Sl 0.125 0.125 mg SL Q4HR PRN #15 tablet 05/13/21 06/23/21 06/19/21 15:00 Rx TAB] Ondansetron [Zofran Odt] 4 mg PO Q8HR PRN #15 tab.rapdis 05/13/21 06/23/2106/19 09:00 Rx Active Medications: Generic Name Dose Route Start Last Admin Trade Name Freq PRN Reason Stop Dose Admin Acetaminophen 650 mg 06/23/21 01:48 Acetaminophen 325 Mg Tab PO Q4H PRN Pain MILD(1-3)/Fever >100.5/LAURENT Albuterol 2.5 mg 06/23/21 01:48 Albuterol 2.5 Mg/3 Ml Nebu IH Q3HRT PRN Shortness Of Breath Alprazolam 0.25 mg 06/23/21 12:00 06/24/21 22:07 Alprazolam 0.25 Mg Tab PO 0.25 mg Q8H PRN Administration Anxiety Atorvastatin Calcium 20 mg 06/23/21 22:00 06/25/21 22:03 Atorvastatin 20 Mg Tab PO 20 mg QHS BHAVYA Administration Famotidine 10 mg 06/23/21 10:00 06/25/21 22:04 Famotidine 10 Mg Tab PO 10 mg BID BHAVYA Administration Furosemide 20 mg 06/25/21 18:00 06/26/21 06:35 Furosemide 20 Mg/2 Ml Inj IV 20 mg 0600,1800 BHAVYA Administration Hydromorphone HCl 0.5 mg 06/23/21 01:48 Hydromorphone 1 Mg/1 Ml Inj IV Q3H PRN Pain , Severe (7-10) Hyoscyamine 0.125 mg 06/23/21 01:52 Hyoscyamine Subl 0.125 Mg Tab SL Q4HR PRN abdominal Spasms Morphine Sulfate 2 mg 06/23/21 01:48 Morphine 2 Mg/1 Ml Inj IV Q4H PRN Pain, Moderate (4-6) Ondansetron HCl 4 mg 06/23/21 01:48 Ondansetron 4 Mg/2 Ml Inj IV Q8H PRN Nausea And Vomiting Sodium Bicarbonate 1,300 mg 06/23/21 20:00 06/25/21 22:03 Sodium Bicarbonate 650 Mg Tab PO 1,300 mg TID BHAVYA Administration Sodium Chloride 10 ml 06/23/21 10:00 06/25/21 22:20 Sodium Chloride 0.9% 10 Ml Flush Syringe IV 10 ml BID BHAVYA Administration Sodium Chloride 10 ml 06/23/21 01:48 Sodium Chloride 0.9% 10 Ml Flush Syringe IV PRN PRN LINE FLUSH
--- NOTE | 2021-06-26 09:52 | Progress Note ---
Assessment and Plan Assessment and plan: 55-year-old male present with a chief complaint of shortness of breath nausea vomiting. The patient states for approximate 1 week he has had shortness of breath and a cough has been nonproductive. Patient denies history of fever. Patient also states for the approximate same on the time he has had nausea vomiting. Patient states he has been unable to eat or take his medications for the past week secondary to the nausea vomiting. Patient admits to some diarrhea. The patient states he has not been vaccinated against COVID. In the emergency room patient is found to have potassium of 6.6, BUN 93 creatinine 3.9, lactic acid 7.60, troponin 0 0.067, BNP 18246, AST 809 and ALT 1735. Subsequently Case discussed with nephrology patient already get insulin D50 Kayexalate and calcium gluconate repeat the BMP and nephrology will see the patient in the morning Acute hypoxic respiratory failure Acute on chronic combined systolic and diastolic congestive heart failure with last echo on 07/22/2018 noted to have ejection fraction of 10 to 15%. Sinus tachycardia likely indicating on the management cardiomyopathy Cardiomyopathy Acute kidney injury with vasomotor nephropathy Hyponatremia Hyperkalemia now resolved Transaminitis- IMPROVING History of CVA Noncompliance Prior history of substance abuse including tobacco, EtOH, cocaine although patient states been sober for over a year. Systemic inflammatory response syndrome without organ dysfunction Lactic acidosis Anxiety Thrombocytopenia Plan 06/25: The IV milrinone dose will be reduced to 0.125/kg, in response to low blood pressure. Continue supportive care. We will also decrease Lasix to 20 mg IV twice daily await further input from cardiology. There is some improvement in renal function will monitor closely. Plan discussed with the patient 06/26: Hold anticoagulant considering thormbocytpenia, this is showing improvement, Continue supportive care. Mirilone discontinued today due to persistent tachycardia. Patient likely with endstage cardiomyopathy. Discussed with cardiology, will transfer to Tele. Patient may be at baseline dry weight as Creatnine appears to have plateaued. Consider switching to PO lasix tomorrow if ok with cardiology and nephrology. LFTs sis also improving. Lipitor still held Continue supportive care We will discontinue beta-blockers at this time. 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 Patient confirms improved respiration with increased urine output Await for today's labs Monitor and replace electrolytes as needed Medication compliance discussed with the patient in detail Continue as needed Xanax for anxiety. Continue aspirin we will hold Lipitor per suggestion by cardiology at this time likely due to elevated Ck DVT and GI prophylaxis Oxygen for supportive therapy History Interval history: Patient seen and examined this morning resting comfortably. continue to show clinical improvement Hospitalist Physical - Physical exam Narrative exam: VITAL SIGNS: Reviewed. GENERAL: The patient appears normally developed, Vital signs as documented. Sitting up today. HEAD: No signs of head trauma. EYES: Pupils are equal. Extraocular motions intact. EARS: Hearing grossly intact. MOUTH: Oropharynx is normal. NECK: No adenopathy, no JVD. CHEST: Chest with clear breath sounds bilaterally. No wheezes, rales, or rhonchi. CARDIAC: Tachycardia but with Regular rate and rhythm. S1 and S2, without murmurs, gallops, or rubs. VASCULAR:+2 Edema. Peripheral pulses normal and equal in all extremities. ABDOMEN: Soft, non tender and non distended. No rebound or guarding, and no masses palpated. Bowel Sounds normal. MUSCULOSKELETAL: Good range of motion of all major joints. Extremities without clubbing, cyanosis improving+2 edema. NEUROLOGIC EXAM: Alert and oriented x 3 No focal sensory or strength deficits. Speech normal. Follows commands. PSYCHIATRIC: Mood normal. SKIN: detail exam as documented in skin assessment - Constitutional Vitals: Temp Pulse Resp BP Pulse Ox 98.3 F 137 H 15 105/72 100 06/26/21 08:00 06/26/21 06:00 06/26/21 06:00 06/26/21 06:00 06/26/21 08:15 General appearance: Present: other (Moderate distress) HEART Score - HEART Score Troponin: Troponin T 0.067 ng/mL (0.00-0.029) H 06/22/21 19:57 Results - Labs CBC & Chem 7: 06/26/21 11:08 06/26/21 11:08 Labs: Laboratory Last Values WBC 4.1 K/mm3 (4.5-11.0) L 06/25/21 08:46 RBC 4.24 M/mm3 (3.65-5.03) 06/25/21 08:46 Hgb 12.6 gm/dl (11.8-15.2) 06/25/21 08:46 Hct 39.5 % (35.5-45.6) 06/25/21 08:46 MCV 93 fl (84-94) 06/25/21 08:46 MCH 30 pg (28-32) 06/25/21 08:46 MCHC 32 % (32-34) 06/25/21 08:46 RDW 15.9 % (13.2-15.2) H 06/25/21 08:46 Plt Count 66 K/mm3 (140-440) L 06/25/21 08:46 Lymph % (Auto) 9.4 % (13.4-35.0) L 06/24/21 10:30 [place] % (Auto) 10.4 % (0.0-7.3) H 06/24/21 10:30 Eos % (Auto) 0.6 % (0.0-4.3) 06/24/21 10:30 Baso % (Auto) 0.1 % (0.0-1.8) 06/24/21 10:30 Lymph # (Auto) 0.5 K/mm3 (1.2-5.4) L 06/24/21 10:30 [place] # (Auto) 0.5 K/mm3 (0.0-0.8) 06/24/21 10:30 Eos # (Auto) 0.0 K/mm3 (0.0-0.4) 06/24/21 10:30 Baso # (Auto) 0.0 K/mm3 (0.0-0.1) 06/24/21 10:30 Add Manual Diff Complete 06/22/21 19:57 Total Counted 100 06/22/21 19:57 Seg Neutrophils % 79.5 % (40.0-70.0) H 06/24/21 10:30 Seg Neuts % (Manual) 81.0 % (40.0-70.0) H 06/22/21 19:57 Band Neutrophils % 1.0 % 06/22/21 19:57 Lymphocytes % (Manual) 7.0 % (13.4-35.0) L 06/22/21 19:57 Reactive Lymphs % (Man) 0 % 06/22/21 19:57 Monocytes % (Manual) 11.0 % (0.0-7.3) H 06/22/21 19:57 Eosinophils % (Manual) 0 % (0.0-4.3) 06/22/21 19:57 Basophils % (Manual) 0 % (0.0-1.8) 06/22/21 19:57 Metamyelocytes % 0 % 06/22/21 19:57 Myelocytes % 0 % 06/22/21 19:57 Promyelocytes % 0 % 06/22/21 19:57 Blast Cells % 0 % 06/22/21 19:57 Nucleated RBC % 3.0 % (0.0-0.9) H 06/22/21 19:57 Seg Neutrophils # 4.0 K/mm3 (1.8-7.7) 06/24/21 10:30 Seg Neutrophils # Man 8.4 K/mm3 (1.8-7.7) H 06/22/21 19:57 Band Neutrophils # 0.1 K/mm3 06/22/21 19:57 Lymphocytes # (Manual) 0.7 K/mm3 (1.2-5.4) L 06/22/21 19:57 Abs React Lymphs (Man) 0.0 K/mm3 06/22/21 19:57 Monocytes # (Manual) 1.1 K/mm3 (0.0-0.8) H 06/22/21 19:57 Eosinophils # (Manual) 0.0 K/mm3 (0.0-0.4) 06/22/21 19:57 Basophils # (Manual) 0.0 K/mm3 (0.0-0.1) 06/22/21 19:57 Metamyelocytes # 0.0 K/mm3 06/22/21 19:57 Myelocytes # 0.0 K/mm3 06/22/21 19:57 Promyelocytes # 0.0 K/mm3 06/22/21 19:57 Blast Cells # 0.0 K/mm3 06/22/21 19:57 WBC Morphology Not Reportable 06/22/21 19:57 Hypersegmented Neuts Not Reportable 06/22/21 19:57 Hyposegmented Neuts Not Reportable 06/22/21 19:57 Hypogranular Neuts Not Reportable 06/22/21 19:57 Smudge Cells Not Reportable 06/22/21 19:57 Toxic Granulation Not Reportable 06/22/21 19:57 Toxic Vacuolation Not Reportable 06/22/21 19:57 Dohle Bodies Not Reportable 06/22/21 19:57 Pelger-Huet Anomaly Not Reportable 06/22/21 19:57 Annie Rods Not Reportable 06/22/21 19:57 Platelet Estimate Appears decreased 06/22/21 19:57 Clumped Platelets Not Reportable 06/22/21 19:57 Plt Clumps, EDTA Not Reportable 06/22/21 19:57 Large Platelets Not Reportable 06/22/21 19:57 Giant Platelets Not Reportable 06/22/21 19:57 Platelet Satelliting Not Reportable 06/22/21 19:57 Plt Morphology Comment Not Reportable 06/22/21 19:57 RBC Morphology Normal 06/22/21 19:57 Dimorphic RBCs Not Reportable 06/22/21 19:57 Polychromasia Not Reportable 06/22/21 19:57 Hypochromasia Not Reportable 06/22/21 19:57 Poikilocytosis Not Reportable 06/22/21 19:57 Anisocytosis Not Reportable 06/22/21 19:57 Microcytosis Not Reportable 06/22/21 19:57 Macrocytosis Not Reportable 06/22/21 19:57 Spherocytes Not Reportable 06/22/21 19:57 Pappenheimer Bodies Not Reportable 06/22/21 19:57 Sickle Cells Not Reportable 06/22/21 19:57 Target Cells Not Reportable 06/22/21 19:57 Tear Drop Cells Not Reportable 06/22/21 19:57 Ovalocytes Not Reportable 06/22/21 19:57 Helmet Cells Not Reportable 06/22/21 19:57 [place] Bodies Not Reportable 06/22/21 19:57 [place] Rings Not Reportable 06/22/21 19:57 Juliane Cells Not Reportable 06/22/21 19:57 Bite Cells Not Reportable 06/22/21 19:57 Crenated Cell Not Reportable 06/22/21 19:57 Elliptocytes Not Reportable 06/22/21 19:57 Acanthocytes (Spur) Not Reportable 06/22/21 19:57 Rouleaux Not Reportable 06/22/21 19:57 Hemoglobin C Crystals Not Reportable 06/22/21 19:57 Schistocytes Not Reportable 06/22/21 19:57 Malaria parasites Not Reportable 06/22/21 19:57 Erik Bodies Not Reportable 06/22/21 19:57 Hem Pathologist Commnt No 06/22/21 19:57 PT 37.9 Sec. (12.2-14.9) H 06/22/21 19:57 INR 3.52 (0.87-1.13) H 06/22/21 19:57 D-Dimer > 234 ng/mlDDU (0-234) H 06/22/21 19:57 Sodium 137 mmol/L (137-145) 06/25/21 08:46 Potassium 3.1 mmol/L (3.6-5.0) L 06/25/21 08:46 Chloride 93.4 mmol/L (98-107) L 06/25/21 08:46 Carbon Dioxide 30 mmol/L (22-30) 06/25/21 08:46 Anion Gap 17 mmol/L 06/25/21 08:46 BUN 50 mg/dL (9-20) H 06/25/21 08:46 Creatinine 1.9 mg/dL (0.8-1.3) H 06/25/21 08:46 Estimated GFR 45 ml/min 06/25/21 08:46 BUN/Creatinine Ratio 26 % 06/25/21 08:46 Glucose 189 mg/dL (75-100) H 06/25/21 08:46 POC Glucose 109 mg/dL (70-105) H 06/26/21 07:35 Lactic Acid 6.60 mmol/L (0.7-2.0) H* 06/23/21 01:55 Calcium 7.6 mg/dL (8.4-10.2) L 06/25/21 08:46 Total Bilirubin 6.40 mg/dL (0.1-1.2) H 06/22/21 19:57 AST 809 units/L (5-40) H 06/22/21 19:57 ALT 1735 units/L (7-56) H 06/22/21 19:57 Alkaline Phosphatase 109 units/L (35-129) 06/22/21 19:57 Total Creatine Kinase 503 units/L (55-170) H 06/23/21 10:04 CK-MB (CK-2) 11.8 ng/mL (0.0-4.0) H 06/22/21 19:57 CK-MB (CK-2) Rel Index 2.0 (0-4) 06/22/21 19:57 Troponin T 0.067 ng/mL (0.00-0.029) H 06/22/21 19:57 NT-Pro-B Natriuret Pep 58561 pg/mL (0-900) H 06/23/21 10:04 Total Protein 7.0 g/dL (6.3-8.2) 06/22/21 19:57 Albumin 4.1 g/dL (3.9-5) 06/22/21 19:57 Albumin/Globulin Ratio 1.4 % 06/22/21 19:57 Triglycerides 90 mg/dL (2-149) 06/22/21 19:57 Cholesterol 103 mg/dL (50-199) 06/22/21 19:57 LDL Cholesterol Direct 61 mg/dL (50-130) 06/22/21 19:57 HDL Cholesterol 26 mg/dL (40-59) L 06/22/21 19:57 Cholesterol/HDL Ratio 3.96 % 06/22/21 19:57 Urine Color Yellow (Yellow) 06/23/21 Unknown Urine Color Yellow (Yellow) 06/23/21 Unknown Urine Turbidity Clear (Clear) 06/23/21 Unknown Urine Turbidity Clear (Clear) 06/23/21 Unknown Urine pH 5.0 (5.0-7.0) 06/23/21 Unknown Urine pH 5.0 (5.0-7.0) 06/23/21 Unknown Ur Specific [place] 1.011 (1.003-1.030) 06/23/21 Unknown Ur Specific [place] 1.016 (1.003-1.030) 06/23/21 Unknown Urine Protein 30 mg/dl mg/dL (Negative) 06/23/21 Unknown Urine Protein <15 mg/dl mg/dL (Negative) 06/23/21 Unknown Urine Glucose (UA) 50 mg/dL (Negative) 06/23/21 Unknown Urine Glucose (UA) Neg mg/dL (Negative) 06/23/21 Unknown Urine Ketones Neg mg/dL (Negative) 06/23/21 Unknown Urine Ketones Neg mg/dL (Negative) 06/23/21 Unknown Urine Blood Neg (Negative) 06/23/21 Unknown Urine Blood Sm (Negative) 06/23/21 Unknown Urine Nitrite Neg (Negative) 06/23/21 Unknown Urine Nitrite Neg (Negative) 06/23/21 Unknown Urine Bilirubin Neg (Negative) 06/23/21 Unknown Urine Bilirubin Neg (Negative) 06/23/21 Unknown Urine Urobilinogen 2.0 mg/dL (<2.0) 06/23/21 Unknown Urine Urobilinogen < 2.0 mg/dL (<2.0) 06/23/21 Unknown Ur Leukocyte Esterase Neg (Negative) 06/23/21 Unknown Ur Leukocyte Esterase Neg (Negative) 06/23/21 Unknown Urine WBC (Auto) 1.0 /HPF (0.0-6.0) 06/23/21 Unknown Urine WBC (Auto) 1.0 /HPF (0.0-6.0) 06/23/21 Unknown Urine RBC (Auto) 2.0 /HPF (0.0-6.0) 06/23/21 Unknown Urine RBC (Auto) 4.0 /HPF (0.0-6.0) 06/23/21 Unknown U Epithel Cells (Auto) < 1.0 /HPF (0-13.0) 06/23/21 Unknown U Epithel Cells (Auto) < 1.0 /HPF (0-13.0) 06/23/21 Unknown Hyaline Casts 2 /LPF 06/23/21 Unknown Urine Mucus Few /HPF 06/23/21 Unknown Urine Creatinine 67.0 mg/dL (0.1-20.0) H 06/23/21 Unknown Protein/Creatinin Ratio 0.21 06/23/21 Unknown Urine Sodium 14 mmol/L 06/23/21 Unknown Urine Total Protein 14 mg/dL (5-11.8) H 06/23/21 Unknown Nasal Screen MRSA (PCR) Positive (Negative) 06/23/21 Unknown Coronavirus (PCR) Negative (Negative) 06/24/21 Unknown Influenza A (Rapid) Negative (Negative) 06/22/21 19:56 Influenza B (Rapid) Negative (Negative) 06/22/21 19:56 Microbiology: Microbiology 06/22/21 19:57 Peripheral/Venous Blood Culture - Preliminary NO GROWTH AFTER 72 HOURS 06/22/21 19:57 Peripheral/Venous Blood Culture - Preliminary NO GROWTH AFTER 72 HOURS Sanchez/IV: Voiding Method Urinal Active Medications - Current Medications Current Medications: Generic Name Dose Route Start Last Admin Trade Name Freq PRN Reason Stop Dose Admin Acetaminophen 650 mg 06/23/21 01:48 Acetaminophen 325 Mg Tab PO Q4H PRN Pain MILD(1-3)/Fever >100.5/LAURENT Albuterol 2.5 mg 06/23/21 01:48 Albuterol 2.5 Mg/3 Ml Nebu IH Q3HRT PRN Shortness Of Breath Alprazolam 0.25 mg 06/23/21 12:00 06/24/21 22:07 Alprazolam 0.25 Mg Tab PO 0.25 mg Q8H PRN Administration Anxiety Atorvastatin Calcium 20 mg 06/23/21 22:00 06/25/21 22:03 Atorvastatin 20 Mg Tab PO 20 mg QHS BHAVYA Administration Famotidine 10 mg 06/23/21 10:00 06/25/21 22:04 Famotidine 10 Mg Tab PO 10 mg BID BHAVYA Administration Furosemide 20 mg 06/25/21 18:00 06/26/21 06:35 Furosemide 20 Mg/2 Ml Inj IV 20 mg 0600,1800 BHAVYA Administration Hydromorphone HCl 0.5 mg 06/23/21 01:48 Hydromorphone 1 Mg/1 Ml Inj IV Q3H PRN Pain , Severe (7-10) Hyoscyamine 0.125 mg 06/23/21 01:52 Hyoscyamine Subl 0.125 Mg Tab SL Q4HR PRN abdominal Spasms Morphine Sulfate 2 mg 06/23/21 01:48 Morphine 2 Mg/1 Ml Inj IV Q4H PRN Pain, Moderate (4-6) Ondansetron HCl 4 mg 06/23/21 01:48 Ondansetron 4 Mg/2 Ml Inj IV Q8H PRN Nausea And Vomiting Sodium Bicarbonate 1,300 mg 06/23/21 20:00 06/25/21 22:03 Sodium Bicarbonate 650 Mg Tab PO 1,300 mg TID BHAVYA Administration Sodium Chloride 10 ml 06/23/21 10:00 06/25/21 22:20 Sodium Chloride 0.9% 10 Ml Flush Syringe IV 10 ml BID BHAVYA Administration Sodium Chloride 10 ml 06/23/21 01:48 Sodium Chloride 0.9% 10 Ml Flush Syringe IV PRN PRN LINE FLUSH
[2021-06-26] MEDS: FAMOTIDINE 10 MG TAB PO SCH ×2 (10:03→22:10)
[2021-06-26] MEDS: SODIUM BICARBONATE 650 MG TAB PO SCH (10:03)
--- NOTE | 2021-06-26 10:25 | Progress Note ---
Assessment and Plan 55 y/o with acute respiratory failure secondary to CHF exacerbation. 06/26/21: Continue nocturnal NIV therapy. WIll need outpatient PSG. Suggest ambulatory pulse ox prior to discharge. 06/25/21: Continue nightly bipap therapy. Wean FiO2 as tolerated. Bipap for support. Likely needs QHS as he could have a central component of TRACY Agree with cards and inotropic therapy/support Volume restriction Guarded prognosis. Subjective Date of service: 06/26/21 Principal diagnosis: CHRIS, HFreF Interval history: Patient weaned to room air. Still tachycardic. Objective Vital Signs - 12hr 06/25/21 06/25/21 06/25/21 22:31 23:01 23:19 Temperature Pulse Rate 130 H 130 H 128 H Pulse Rate [ From Monitor] Respiratory 15 20 19 Rate Blood Pressure 88/59 104/80 104/80 O2 Sat by Pulse 100 98 98 Oximetry 06/26/21 06/26/21 06/26/21 00:00 01:01 02:00 Temperature 98.2 F Pulse Rate 129 H 131 H 131 H Pulse Rate [ 128 H From Monitor] Respiratory 17 26 H 19 Rate Blood Pressure 104/65 110/60 93/62 O2 Sat by Pulse 100 100 99 Oximetry 06/26/21 06/26/21 06/26/21 03:01 04:00 04:01 Temperature 98.4 F Pulse Rate 144 H 126 H 128 H Pulse Rate [ 126 H From Monitor] Respiratory 22 18 15 Rate Blood Pressure 93/62 90/47 O2 Sat by Pulse 100 100 97 Oximetry 06/26/21 06/26/21 06/26/21 05:00 06:00 08:00 Temperature 98.3 F Pulse Rate 129 H 137 H Pulse Rate [ From Monitor] Respiratory 18 15 Rate Blood Pressure 88/59 105/72 O2 Sat by Pulse 97 96 Oximetry 06/26/21 08:15 Temperature Pulse Rate Pulse Rate [ From Monitor] Respiratory Rate Blood Pressure O2 Sat by Pulse 100 Oximetry Constitutional: appears uncomfortable Eyes: non-icteric Neck: supple Ascultation: Bilateral: diminished breath sounds (secondary to heart size) Percussion: Bilateral: not dull Cardiovascular: other (tachycardic) Gastrointestinal: soft CBC and BMP: 06/25/21 08:46 06/25/21 08:46 ABG, PT/INR, D-dimer: PT/INR, D-dimer PT 37.9 Sec. (12.2-14.9) H 06/22/21 19:57 INR 3.52 (0.87-1.13) H 06/22/21 19:57 D-Dimer > 234 ng/mlDDU (0-234) H 06/22/21 19:57 Abnormal lab findings: Abnormal Labs 06/22/21 06/22/21 06/22/21 19:57 19:57 19:57 WBC Hct 46.4 H RDW 15.4 H Plt Count 83 L Lymph % (Auto) 11.8 L [place] % (Auto) 11.1 H Lymph # (Auto) [place] # (Auto) 1.2 H Seg Neutrophils % 76.8 H Seg Neuts % (Manual) 81.0 H Lymphocytes % (Manual) 7.0 L Monocytes % (Manual) 11.0 H Nucleated RBC % 3.0 H Seg Neutrophils # 8.0 H Seg Neutrophils # Man 8.4 H Lymphocytes # (Manual) 0.7 L Monocytes # (Manual) 1.1 H PT 37.9 H INR 3.52 H D-Dimer Sodium 125 L Potassium 6.6 H* Chloride 87.6 L Carbon Dioxide 13 L BUN 93 H Creatinine 3.9 H Glucose 111 H POC Glucose Lactic Acid Calcium Total Bilirubin 6.40 H AST 809 H ALT 1735 H Total Creatine Kinase 570 H CK-MB (CK-2) 11.8 H Troponin T 0.067 H NT-Pro-B Natriuret Pep 05949 H HDL Cholesterol 26 L Urine Creatinine Urine Total Protein 06/22/21 06/22/21 06/22/21 19:57 19:57 22:19 WBC Hct RDW Plt Count Lymph % (Auto) [place] % (Auto) Lymph # (Auto) [place] # (Auto) Seg Neutrophils % Seg Neuts % (Manual) Lymphocytes % (Manual) Monocytes % (Manual) Nucleated RBC % Seg Neutrophils # Seg Neutrophils # Man Lymphocytes # (Manual) Monocytes # (Manual) PT INR D-Dimer > 234 H Sodium Potassium Chloride Carbon Dioxide BUN Creatinine Glucose POC Glucose 63 L Lactic Acid 7.60 H* Calcium Total Bilirubin AST ALT Total Creatine Kinase CK-MB (CK-2) Troponin T NT-Pro-B Natriuret Pep HDL Cholesterol Urine Creatinine Urine Total Protein 06/22/21 06/23/21 06/23/21 23:30 00:05 00:51 WBC Hct RDW Plt Count Lymph % (Auto) [place] % (Auto) Lymph # (Auto) [place] # (Auto) Seg Neutrophils % Seg Neuts % (Manual) Lymphocytes % (Manual) Monocytes % (Manual) Nucleated RBC % Seg Neutrophils # Seg Neutrophils # Man Lymphocytes # (Manual) Monocytes # (Manual) PT INR D-Dimer Sodium Potassium Chloride Carbon Dioxide BUN Creatinine Glucose POC Glucose 109 H 199 H 200 H Lactic Acid Calcium Total Bilirubin AST ALT Total Creatine Kinase CK-MB (CK-2) Troponin T NT-Pro-B Natriuret Pep HDL Cholesterol Urine Creatinine Urine Total Protein 06/23/21 06/23/21 06/23/21 01:55 01:55 04:17 WBC Hct RDW Plt Count Lymph % (Auto) [place] % (Auto) Lymph # (Auto) [place] # (Auto) Seg Neutrophils % Seg Neuts % (Manual) Lymphocytes % (Manual) Monocytes % (Manual) Nucleated RBC % Seg Neutrophils # Seg Neutrophils # Man Lymphocytes # (Manual) Monocytes # (Manual) PT INR D-Dimer Sodium 131 L Potassium 5.1 H D Chloride 90.9 L Carbon Dioxide 17 L BUN 95 H Creatinine 4.0 H Glucose 159 H POC Glucose 181 H Lactic Acid 6.60 H* Calcium Total Bilirubin AST ALT Total Creatine Kinase CK-MB (CK-2) Troponin T NT-Pro-B Natriuret Pep HDL Cholesterol Urine Creatinine Urine Total Protein 06/23/21 06/23/21 06/23/21 07:21 10:04 10:04 WBC Hct RDW Plt Count Lymph % (Auto) [place] % (Auto) Lymph # (Auto) [place] # (Auto) Seg Neutrophils % Seg Neuts % (Manual) Lymphocytes % (Manual) Monocytes % (Manual) Nucleated RBC % Seg Neutrophils # Seg Neutrophils # Man Lymphocytes # (Manual) Monocytes # (Manual) PT INR D-Dimer Sodium 129 L Potassium Chloride 92.2 L Carbon Dioxide 18 L BUN 89 H Creatinine 3.2 H Glucose 179 H POC Glucose 191 H Lactic Acid Calcium Total Bilirubin AST ALT Total Creatine Kinase CK-MB (CK-2) Troponin T NT-Pro-B Natriuret Pep 31729 H HDL Cholesterol Urine Creatinine Urine Total Protein 06/23/21 06/23/21 06/24/21 10:04 Unknown 10:30 WBC Hct RDW Plt Count 59 L Lymph % (Auto) 9.4 L [place] % (Auto) 10.4 H Lymph # (Auto) 0.5 L [place] # (Auto) Seg Neutrophils % 79.5 H Seg Neuts % (Manual) Lymphocytes % (Manual) Monocytes % (Manual) Nucleated RBC % Seg Neutrophils # Seg Neutrophils # Man Lymphocytes # (Manual) Monocytes # (Manual) PT INR D-Dimer Sodium Potassium Chloride Carbon Dioxide BUN Creatinine Glucose POC Glucose Lactic Acid Calcium Total Bilirubin AST ALT Total Creatine Kinase 503 H CK-MB (CK-2) Troponin T NT-Pro-B Natriuret Pep HDL Cholesterol Urine Creatinine 67.0 H Urine Total Protein 14 H 06/24/21 06/24/21 06/25/21 17:00 21:07 07:16 WBC Hct RDW Plt Count Lymph % (Auto) [place] % (Auto) Lymph # (Auto) [place] # (Auto) Seg Neutrophils % Seg Neuts % (Manual) Lymphocytes % (Manual) Monocytes % (Manual) Nucleated RBC % Seg Neutrophils # Seg Neutrophils # Man Lymphocytes # (Manual) Monocytes # (Manual) PT INR D-Dimer Sodium 132 L Potassium 3.4 L D Chloride 92.1 L Carbon Dioxide BUN 66 H Creatinine 2.3 H Glucose 133 H POC Glucose 182 H 111 H Lactic Acid Calcium 7.3 L D Total Bilirubin AST ALT Total Creatine Kinase CK-MB (CK-2) Troponin T NT-Pro-B Natriuret Pep HDL Cholesterol Urine Creatinine Urine Total Protein 06/25/21 06/25/21 06/25/21 08:46 08:46 10:56 WBC 4.1 L Hct RDW 15.9 H Plt Count 66 L Lymph % (Auto) [place] % (Auto) Lymph # (Auto) [place] # (Auto) Seg Neutrophils % Seg Neuts % (Manual) Lymphocytes % (Manual) Monocytes % (Manual) Nucleated RBC % Seg Neutrophils # Seg Neutrophils # Man Lymphocytes # (Manual) Monocytes # (Manual) PT INR D-Dimer Sodium Potassium 3.1 L Chloride 93.4 L Carbon Dioxide BUN 50 H Creatinine 1.9 H Glucose 189 H POC Glucose 153 H Lactic Acid Calcium 7.6 L Total Bilirubin AST ALT Total Creatine Kinase CK-MB (CK-2) Troponin T NT-Pro-B Natriuret Pep HDL Cholesterol Urine Creatinine Urine Total Protein 06/25/21 06/26/21 23:56 07:35 WBC Hct RDW Plt Count Lymph % (Auto) [place] % (Auto) Lymph # (Auto) [place] # (Auto) Seg Neutrophils % Seg Neuts % (Manual) Lymphocytes % (Manual) Monocytes % (Manual) Nucleated RBC % Seg Neutrophils # Seg Neutrophils # Man Lymphocytes # (Manual) Monocytes # (Manual) PT INR D-Dimer Sodium Potassium Chloride Carbon Dioxide BUN Creatinine Glucose POC Glucose 158 H 109 H Lactic Acid Calcium Total Bilirubin AST ALT Total Creatine Kinase CK-MB (CK-2) Troponin T NT-Pro-B Natriuret Pep HDL Cholesterol Urine Creatinine Urine Total Protein
[2021-06-26 11:36] LABS: Hematocrit 41.9 % (35.5-45.6); Mean Corpuscular HGB Conc 34 % (32-34); Mean Corpuscular Volume 93 fl (84-94); Platelet Count 112 K/mm3 (140-440); Red Cell Distribution Width 17.1 % (13.2-15.2)
[2021-06-26 11:49] LABS: Albumin 3.6 g/dL (3.9-5); Calcium 8.3 mg/dL (8.4-10.2)
--- NOTE | 2021-06-26 13:39 | Progress Note ---
Assessment and Plan 55-year-old gentleman with multiple medical problems who is followed by Dr. 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 Severe global hypokinesis of LV. LV is severely dilated. Right ventricle is moderate to severely dilated. Severe mitral regurgitation ECHO 10/16/20: Severe global hypokinesis of the LV, EF15-20%, mild RVE, mod MR Echo done 07/22/2018 showed EF 10-15%, mild to mod LVH, abnormal diastolic function, LA mildly dilated, mod MR. LHC done 07/27/2018 showed normal coronaries, EF 15%, LVEDP 22mmHg Plan: Agree with transitioning to p.o. Lasix tomorrow Hold carvedilol/lisinopril/Lipitor for now due to soft BP, elevated creatinine, and transaminitis Continue to hold aspirin due to thrombocytopenia and normal coronaries per previous cardiac cath Milrinone not stopped yesterday. Patient continues to have sinus tach trending 130s to 140s. Stop milrinone and continue to monitor Patient may ultimately need to follow-up with [place] [facility] Patient seen in conjunction with Dr. Luis who agrees with this plan of care - Patient Problems (1) Acute renal failure Current Visit: Yes Status: Acute Qualifiers: (2) Lactic acidosis Current Visit: Yes Status: Acute (3) Shortness of breath Current Visit: Yes Status: Acute (4) Acute HFrEF (heart failure with reduced ejection fraction) Current Visit: No Status: Acute (5) Nicotine dependence Current Visit: No Status: Acute Qualifiers: Nicotine product type: cigarettes Substance use status: in withdrawal Qualified Code(s): F17.213 - Nicotine dependence, cigarettes, with withdrawal (6) Cocaine use Current Visit: No Status: Chronic (7) EtOH dependence Current Visit: No Status: Chronic Qualifiers: Substance use status: uncomplicated Qualified Code(s): F10.20 - Alcohol dependence, uncomplicated (8) NICM (nonischemic cardiomyopathy) Current Visit: No Status: Chronic Subjective Date of service: 06/26/21 Principal diagnosis: CHRIS, HFreF Interval history: Patient resting in bed in no acute distress. Patient reports feeling better Patient trending sinus tach 130s -140s on monitor Objective Vital Signs Temp Pulse Pulse Resp BP Pulse Ox 06/26/21 12:00 98 F 134 H 115 H 18 93/54 100 06/26/21 11:00 134 H 23 105/81 97 06/26/21 10:00 128 H 15 105/81 97 06/26/21 09:00 129 H 17 105/76 98 06/26/21 08:15 100 06/26/21 08:00 98.3 F 141 H 120 H 19 98/70 98 06/26/21 07:00 136 H 22 98/70 100 06/26/21 06:00 137 H 15 105/72 96 06/26/21 05:00 129 H 18 88/59 97 06/26/21 04:01 128 H 15 90/47 97 06/26/21 04:00 98.4 F 126 H 126 H 18 100 06/26/21 03:01 144 H 22 93/62 100 06/26/21 02:00 131 H 19 93/62 99 06/26/21 01:01 131 H 26 H 110/60 100 06/26/21 00:00 98.2 F 129 H 128 H 17 104/65 100 06/25/21 23:19 128 H 19 104/80 98 06/25/21 23:01 130 H 20 104/80 98 06/25/21 22:31 130 H 15 88/59 100 06/25/21 22:01 131 H 16 88/59 99 06/25/21 22:00 100 06/25/21 21:31 130 H 13 106/80 100 06/25/21 21:00 130 H 12 106/80 100 06/25/21 20:31 131 H 24 93/68 100 06/25/21 20:00 131 H 131 H 19 93/68 100 06/25/21 19:31 130 H 24 98/70 100 06/25/21 19:01 131 H 18 98/70 100 06/25/21 19:00 98.6 F 06/25/21 18:31 130 H 18 95/56 100 06/25/21 18:01 132 H 20 95/56 99 06/25/21 17:31 130 H 22 83/49 100 06/25/21 17:01 130 H 17 83/49 99 06/25/21 16:31 131 H 22 83/49 100 06/25/21 16:01 130 H 17 83/49 100 06/25/21 16:00 132 H 132 H 30 H 100 06/25/21 15:31 129 H 18 107/74 100 06/25/21 15:00 98.9 F 130 H 12 107/74 100 06/25/21 14:31 130 H 12 109/78 100 06/25/21 14:00 131 H 10 L 109/78 100 - Physical Examination General: No Apparent Distress HEENT: Positive: PERRL Neck: Negative: neck supple, trachea midline Cardiac: Positive: Regular Rhythm, Tachycardia Lungs: Positive: Normal Breath Sounds Neuro: Positive: Grossly Intact Abdomen: Positive: Soft, Decreased Bowel Sounds Skin: Negative: Rash Extremities: Present: upper extr. pulses, edema, warm - Labs and Meds Cardiac Enzymes 06/26/21 Range/Units 11:08 AST 207 H (5-40) units/L CBC 06/26/21 Range/Units 11:08 WBC 4.6 (4.5-11.0) K/mm3 RBC 4.50 (3.65-5.03) M/mm3 Hgb 14.0 (11.8-15.2) gm/dl Hct 41.9 (35.5-45.6) % Plt Count 112 L (140-440) K/mm3 Comprehensive Metabolic Panel 06/26/21 Range/Units 11:08 Sodium 135 L (137-145) mmol/L Potassium 3.6 (3.6-5.0) mmol/L Chloride 93.0 L (98-107) mmol/L Carbon Dioxide 30 (22-30) mmol/L BUN 37 H (9-20) mg/dL Creatinine 1.7 H (0.8-1.3) mg/dL Glucose 120 H (75-100) mg/dL Calcium 8.3 L (8.4-10.2) mg/dL AST 207 H (5-40) units/L ALT 694 H (7-56) units/L Alkaline Phosphatase 156 H (35-129) units/L Total Protein 6.6 (6.3-8.2) g/dL Albumin 3.6 L (3.9-5) g/dL - Imaging and Cardiology Echo: report reviewed (ECHO 10/16/20: EF 15-20%, moderate MR) Cardiac cath: report reviewed ([facility] 2019: No angiographically significant CAD) - Telemetry EKG Rhythm: Sinus Tachycardia - EKG Sinus rhythms and dysrhythmias: sinus tachycardia
[2021-06-26] MEDS: ALPRAZolam 0.25 MG TAB PO PRN (18:08)
[2021-06-27] MEDS: FUROSEMIDE 20 MG/2 ML INJ IV SCH (05:37)
[2021-06-27 06:17] LABS: Hematocrit 43.5 % (35.5-45.6); Hemoglobin 14.5 gm/dl (11.8-15.2); Mean Corpuscular HGB Conc 33 % (32-34); Mean Corpuscular Volume 93 fl (84-94); Platelet Count 125 K/mm3 (140-440); Red Blood Count 4.67 M/mm3 (3.65-5.03); Red Cell Distribution Width 17.6 % (13.2-15.2)
[2021-06-27 06:42] LABS: Albumin 3.7 g/dL (3.9-5); Calcium 8.4 mg/dL (8.4-10.2)
--- NOTE | 2021-06-27 09:18 | Progress Note ---
Assessment and Plan Acute renal failure on top of CKD Metabolic acidosis Hyperkalemia Shortness of breath Acute HFrEF (heart failure with reduced ejection fraction) CVA (cerebral vascular accident) Elevated troponin Lactic acidosis -Cr stable, making urine. -CHF-On Lasix 20 mg IV BID for now, diuresing well, Cardiology onboard -s/p bicarb tabs for acidosis, -Renally dose all medications -Avoid nephrotoxic agents -Monitor I/O's daily -Obtain daily weights -Continue to monitor renal function Adrian Albarran MD Subjective Date of service: 06/27/21 Principal diagnosis: CHRIS, HFreF Interval history: Making urine. NAD. Objective - Exam Narrative Exam: General appearance: Present: mild distress, well-nourished - EENT Eyes: Present: PERRL ENT: hearing intact, clear oral mucosa - Neck Neck: Present: supple, normal ROM - Respiratory Respiratory effort: normal Respiratory: bilateral: rales - Cardiovascular Heart Sounds: Present: S1 & S2. Absent: rub, click - Extremities Extremities: pulses symmetrical, No edema Peripheral Pulses: within normal limits - Abdominal General gastrointestinal: Present: soft, non-tender, non-distended, normal bowel sounds Male genitourinary: Present: normal - Integumentary Integumentary: Present: clear, warm, dry - Musculoskeletal Musculoskeletal: gait normal, strength equal bilaterally - Psychiatric Psychiatric: appropriate mood/affect, intact judgment & insight - Neurologic Neurologic: CNII-XII intact, moves all extremities - Vital Signs Vital signs: Vital Signs - 12hr 06/26/21 06/26/21 06/26/21 22:00 23:34 23:58 Temperature 98.3 F Pulse Rate 101 H Respiratory 20 Rate Blood Pressure 103/77 O2 Sat by Pulse 97 100 100 Oximetry 06/27/21 06/27/21 04:52 08:28 Temperature 97.7 F Pulse Rate 97 H Respiratory 20 Rate Blood Pressure 98/74 O2 Sat by Pulse 100 100 Oximetry - Lab 06/27/21 05:51 06/27/21 05:51 Most recent lab results Calcium 8.4 mg/dL (8.4-10.2) 06/27/21 05:51 Urine Creatinine 67.0 mg/dL (0.1-20.0) H 06/23/21 Unknown Urine Sodium 14 mmol/L 06/23/21 Unknown Urine Total Protein 14 mg/dL (5-11.8) H 06/23/21 Unknown Medications & Allergies - Medications Allergies/Adverse Reactions: Allergies No Known Allergies Allergy (Verified 10/16/20 23:25) Home Medications: Home Medications Medication Instructions Recorded Confirmed Last Taken Type Aspirin 81 mg PO DAILY #30 tab.chew 07/27/18 06/23/21 06/19/21 09:00 Rx AtorvaSTATin [Lipitor] 20 mg PO QHS #30 tab 07/27/18 06/23/21 06/19/21 22:00 Rx lisinopriL [Zestril TAB] 5 mg PO QDAY #30 tablet 07/27/18 06/23/21 06/20/21 09:00 Rx Furosemide [Lasix TAB] 40 mg PO QDAY #30 tablet 05/07/19 06/23/21 06/19/21 09:00 Rx Potassium Chloride 10 meq PO DAILY #30 tablet.er 05/07/19 06/23/21 06/19/21 09:00 Rx carvediloL [Coreg] 3.125 mg PO BID #60 tablet 05/07/19 06/23/21 06/20/21 09:00 Rx Hyoscyamine Subl [Levsin Sl 0.125 0.125 mg SL Q4HR PRN #15 tablet 05/13/21 06/23/21 06/19/21 15:00 Rx TAB] Ondansetron [Zofran Odt] 4 mg PO Q8HR PRN #15 tab.rapdis 05/13/21 06/23/21 06/19/21 09:00 Rx Active Medications: Generic Name Dose Route Start Last Admin Trade Name Freq PRN Reason Stop Dose Admin Acetaminophen 650 mg 06/23/21 01:48 Acetaminophen 325 Mg Tab PO Q4H PRN Pain MILD(1-3)/Fever >100.5/LAURENT Albuterol 2.5 mg 06/23/21 01:48 Albuterol 2.5 Mg/3 Ml Nebu IH Q3HRT PRN Shortness Of Breath Alprazolam 0.25 mg 06/23/21 12:00 06/26/21 18:08 Alprazolam 0.25 Mg Tab PO 0.25 mg Q8H PRN Administration Anxiety Atorvastatin Calcium 20 mg 06/23/21 22:00 06/26/21 22:10 Atorvastatin 20 Mg Tab PO 20 mg QHS BHAVYA Administration Famotidine 10 mg 06/23/21 10:00 06/26/21 22:10 Famotidine 10 Mg Tab PO 10 mg BID BHAVYA Administration Furosemide 20 mg 06/25/21 18:00 06/27/21 05:37 Furosemide 20 Mg/2 Ml Inj IV 20 mg 0600,1800 BHAVYA Administration Hydromorphone HCl 0.5 mg 06/23/21 01:48 Hydromorphone 1 Mg/1 Ml Inj IV Q3H PRN Pain , Severe (7-10) Hyoscyamine 0.125 mg 06/23/21 01:52 Hyoscyamine Subl 0.125 Mg Tab SL Q4HR PRN abdominal Spasms Morphine Sulfate 2 mg 06/23/21 01:48 Morphine 2 Mg/1 Ml Inj IV Q4H PRN Pain, Moderate (4-6) Ondansetron HCl 4 mg 06/23/21 01:48 Ondansetron 4 Mg/2 Ml Inj IV Q8H PRN Nausea And Vomiting Sodium Chloride 10 ml 06/23/21 10:00 06/26/21 22:10 Sodium Chloride 0.9% 10 Ml Flush Syringe IV 10 ml BID BHAVYA Administration Sodium Chloride 10 ml 06/23/21 01:48 Sodium Chloride 0.9% 10 Ml Flush Syringe IV PRN PRN LINE FLUSH
[2021-06-27] MEDS: FAMOTIDINE 10 MG TAB PO SCH ×2 (10:12→21:17)
[2021-06-27] MEDS ORDERED: MILRINONE-D5W 20 MG/100 ML 20 MG/100 ML BAG IV SCH (12:30)
[2021-06-27] MEDS ORDERED: FUROSEMIDE 20 MG/2 ML INJ IV SCH (13:00)
--- NOTE | 2021-06-27 13:06 | Progress Note ---
Assessment and Plan 55 y/o with acute respiratory failure secondary to CHF exacerbation. 06/27/21: Patient has no qualifying diagnosis to obtain NIV out of hospital. Follow up for outpatient PSG to see if central sleep apnea is present. Will discontinue NIV use in house. 06/26/21: Continue nocturnal NIV therapy. WIll need outpatient PSG. Suggest ambulatory pulse ox prior to discharge. 06/25/21: Continue nightly bipap therapy. Wean FiO2 as tolerated. Bipap for support. Likely needs QHS as he could have a central component of TRACY Agree with cards and inotropic therapy/support Volume restriction Guarded prognosis. Subjective Date of service: 06/27/21 Principal diagnosis: CHRIS, HFreF Interval history: Remains stable on Room air. STill wearing NIV at night Objective Vital Signs - 12hr 06/27/21 06/27/21 06/27/21 04:52 07:43 08:28 Temperature 97.7 F 97.7 F Pulse Rate 97 H 131 H Respiratory 20 20 Rate Blood Pressure 98/74 109/71 O2 Sat by Pulse 100 96 100 Oximetry 06/27/21 06/27/21 10:00 11:23 Temperature 98.7 F Pulse Rate 81 Respiratory 22 Rate Blood Pressure 122/86 O2 Sat by Pulse 97 100 Oximetry Constitutional: appears uncomfortable Eyes: non-icteric Neck: supple Ascultation: Bilateral: diminished breath sounds (secondary to heart size) Percussion: Bilateral: not dull Cardiovascular: other (tachycardic) Gastrointestinal: soft CBC and BMP: 06/27/21 05:51 06/27/21 05:51 ABG, PT/INR, D-dimer: PT/INR, D-dimer PT 37.9 Sec. (12.2-14.9) H 06/22/21 19:57 INR 3.52 (0.87-1.13) H 06/22/21 19:57 D-Dimer > 234 ng/mlDDU (0-234) H 06/22/21 19:57 Abnormal lab findings: Abnormal Labs 06/22/21 06/22/21 06/22/21 19:57 19:57 19:57 WBC Hct 46.4 H RDW 15.4 H Plt Count 83 L Lymph % (Auto) 11.8 L [place] % (Auto) 11.1 H Lymph # (Auto) [place] # (Auto) 1.2 H Seg Neutrophils % 76.8 H Seg Neuts % (Manual) 81.0 H Lymphocytes % (Manual) 7.0 L Monocytes % (Manual) 11.0 H Nucleated RBC % 3.0 H Seg Neutrophils # 8.0 H Seg Neutrophils # Man 8.4 H Lymphocytes # (Manual) 0.7 L Monocytes # (Manual) 1.1 H PT 37.9 H INR 3.52 H D-Dimer Sodium 125 L Potassium 6.6 H* Chloride 87.6 L Carbon Dioxide 13 L BUN 93 H Creatinine 3.9 H Glucose 111 H POC Glucose Lactic Acid Calcium Total Bilirubin 6.40 H AST 809 H ALT 1735 H Alkaline Phosphatase Total Creatine Kinase 570 H CK-MB (CK-2) 11.8 H Troponin T 0.067 H NT-Pro-B Natriuret Pep 49000 H Albumin HDL Cholesterol 26 L Urine Creatinine Urine Total Protein 06/22/21 06/22/21 06/22/21 19:57 19:57 22:19 WBC Hct RDW Plt Count Lymph % (Auto) [place] % (Auto) Lymph # (Auto) [place] # (Auto) Seg Neutrophils % Seg Neuts % (Manual) Lymphocytes % (Manual) Monocytes % (Manual) Nucleated RBC % Seg Neutrophils # Seg Neutrophils # Man Lymphocytes # (Manual) Monocytes # (Manual) PT INR D-Dimer > 234 H Sodium Potassium Chloride Carbon Dioxide BUN Creatinine Glucose POC Glucose 63 L Lactic Acid 7.60 H* Calcium Total Bilirubin AST ALT Alkaline Phosphatase Total Creatine Kinase CK-MB (CK-2) Troponin T NT-Pro-B Natriuret Pep Albumin HDL Cholesterol Urine Creatinine Urine Total Protein 06/22/21 06/23/21 06/23/21 23:30 00:05 00:51 WBC Hct RDW Plt Count Lymph % (Auto) [place] % (Auto) Lymph # (Auto) [place] # (Auto) Seg Neutrophils % Seg Neuts % (Manual) Lymphocytes % (Manual) Monocytes % (Manual) Nucleated RBC % Seg Neutrophils # Seg Neutrophils # Man Lymphocytes # (Manual) Monocytes # (Manual) PT INR D-Dimer Sodium Potassium Chloride Carbon Dioxide BUN Creatinine Glucose POC Glucose 109 H 199 H 200 H Lactic Acid Calcium Total Bilirubin AST ALT Alkaline Phosphatase Total Creatine Kinase CK-MB (CK-2) Troponin T NT-Pro-B Natriuret Pep Albumin HDL Cholesterol Urine Creatinine Urine Total Protein 06/23/21 06/23/21 06/23/21 01:55 01:55 04:17 WBC Hct RDW Plt Count Lymph % (Auto) [place] % (Auto) Lymph # (Auto) [place] # (Auto) Seg Neutrophils % Seg Neuts % (Manual) Lymphocytes % (Manual) Monocytes % (Manual) Nucleated RBC % Seg Neutrophils # Seg Neutrophils # Man Lymphocytes # (Manual) Monocytes # (Manual) PT INR D-Dimer Sodium 131 L Potassium 5.1 H D Chloride 90.9 L Carbon Dioxide 17 L BUN 95 H Creatinine 4.0 H Glucose 159 H POC Glucose 181 H Lactic Acid 6.60 H* Calcium Total Bilirubin AST ALT Alkaline Phosphatase Total Creatine Kinase CK-MB (CK-2) Troponin T NT-Pro-B Natriuret Pep Albumin HDL Cholesterol Urine Creatinine Urine Total Protein 06/23/21 06/23/21 06/23/21 07:21 10:04 10:04 WBC Hct RDW Plt Count Lymph % (Auto) [place] % (Auto) Lymph # (Auto) [place] # (Auto) Seg Neutrophils % Seg Neuts % (Manual) Lymphocytes % (Manual) Monocytes % (Manual) Nucleated RBC % Seg Neutrophils # Seg Neutrophils # Man Lymphocytes # (Manual) Monocytes # (Manual) PT INR D-Dimer Sodium 129 L Potassium Chloride 92.2 L Carbon Dioxide 18 L BUN 89 H Creatinine 3.2 H Glucose 179 H POC Glucose 191 H Lactic Acid Calcium Total Bilirubin AST ALT Alkaline Phosphatase Total Creatine Kinase CK-MB (CK-2) Troponin T NT-Pro-B Natriuret Pep 92516 H Albumin HDL Cholesterol Urine Creatinine Urine Total Protein 06/23/21 06/23/21 06/24/21 10:04 Unknown 10:30 WBC Hct RDW Plt Count 59 L Lymph % (Auto) 9.4 L [place] % (Auto) 10.4 H Lymph # (Auto) 0.5 L [place] # (Auto) Seg Neutrophils % 79.5 H Seg Neuts % (Manual) Lymphocytes % (Manual) Monocytes % (Manual) Nucleated RBC % Seg Neutrophils # Seg Neutrophils # Man Lymphocytes # (Manual) Monocytes # (Manual) PT INR D-Dimer Sodium Potassium Chloride Carbon Dioxide BUN Creatinine Glucose POC Glucose Lactic Acid Calcium Total Bilirubin AST ALT Alkaline Phosphatase Total Creatine Kinase 503 H CK-MB (CK-2) Troponin T NT-Pro-B Natriuret Pep Albumin HDL Cholesterol Urine Creatinine 67.0 H Urine Total Protein 14 H 06/24/21 06/24/21 06/25/21 17:00 21:07 07:16 WBC Hct RDW Plt Count Lymph % (Auto) [place] % (Auto) Lymph # (Auto) [place] # (Auto) Seg Neutrophils % Seg Neuts % (Manual) Lymphocytes % (Manual) Monocytes % (Manual) Nucleated RBC % Seg Neutrophils # Seg Neutrophils # Man Lymphocytes # (Manual) Monocytes # (Manual) PT INR D-Dimer Sodium 132 L Potassium 3.4 L D Chloride 92.1 L Carbon Dioxide BUN 66 H Creatinine 2.3 H Glucose 133 H POC Glucose 182 H 111 H Lactic Acid Calcium 7.3 L D Total Bilirubin AST ALT Alkaline Phosphatase Total Creatine Kinase CK-MB (CK-2) Troponin T NT-Pro-B Natriuret Pep Albumin HDL Cholesterol Urine Creatinine Urine Total Protein 06/25/21 06/25/21 06/25/21 08:46 08:46 10:56 WBC 4.1 L Hct RDW 15.9 H Plt Count 66 L Lymph % (Auto) [place] % (Auto) Lymph # (Auto) [place] # (Auto) Seg Neutrophils % Seg Neuts % (Manual) Lymphocytes % (Manual) Monocytes % (Manual) Nucleated RBC % Seg Neutrophils # Seg Neutrophils # Man Lymphocytes # (Manual) Monocytes # (Manual) PT INR D-Dimer Sodium Potassium 3.1 L Chloride 93.4 L Carbon Dioxide BUN 50 H Creatinine 1.9 H Glucose 189 H POC Glucose 153 H Lactic Acid Calcium 7.6 L Total Bilirubin AST ALT Alkaline Phosphatase Total Creatine Kinase CK-MB (CK-2) Troponin T NT-Pro-B Natriuret Pep Albumin HDL Cholesterol Urine Creatinine Urine Total Protein 06/25/21 06/26/21 06/26/21 23:56 07:35 11:08 WBC Hct RDW 17.1 H Plt Count 112 L Lymph % (Auto) [place] % (Auto) Lymph # (Auto) [place] # (Auto) Seg Neutrophils % Seg Neuts % (Manual) Lymphocytes % (Manual) Monocytes % (Manual) Nucleated RBC % Seg Neutrophils # Seg Neutrophils # Man Lymphocytes # (Manual) Monocytes # (Manual) PT INR D-Dimer Sodium Potassium Chloride Carbon Dioxide BUN Creatinine Glucose POC Glucose 158 H 109 H Lactic Acid Calcium Total Bilirubin AST ALT Alkaline Phosphatase Total Creatine Kinase CK-MB (CK-2) Troponin T NT-Pro-B Natriuret Pep Albumin HDL Cholesterol Urine Creatinine Urine Total Protein 06/26/21 06/27/21 06/27/21 11:08 05:51 05:51 WBC Hct RDW 17.6 H Plt Count 125 L Lymph % (Auto) [place] % (Auto) Lymph # (Auto) [place] # (Auto) Seg Neutrophils % Seg Neuts % (Manual) Lymphocytes % (Manual) Monocytes % (Manual) Nucleated RBC % Seg Neutrophils # Seg Neutrophils # Man Lymphocytes # (Manual) Monocytes # (Manual) PT INR D-Dimer Sodium 135 L 134 L Potassium Chloride 93.0 L 91.1 L Carbon Dioxide BUN 37 H 39 H Creatinine 1.7 H 1.7 H Glucose 120 H 137 H POC Glucose Lactic Acid Calcium 8.3 L Total Bilirubin 2.20 H 3.50 H AST 207 H 174 H ALT 694 H 630 H Alkaline Phosphatase 156 H 182 H Total Creatine Kinase CK-MB (CK-2) Troponin T NT-Pro-B Natriuret Pep Albumin 3.6 L 3.7 L HDL Cholesterol Urine Creatinine Urine Total Protein 06/27/21 06/27/21 07:35 12:11 WBC Hct RDW Plt Count Lymph % (Auto) [place] % (Auto) Lymph # (Auto) [place] # (Auto) Seg Neutrophils % Seg Neuts % (Manual) Lymphocytes % (Manual) Monocytes % (Manual) Nucleated RBC % Seg Neutrophils # Seg Neutrophils # Man Lymphocytes # (Manual) Monocytes # (Manual) PT INR D-Dimer Sodium Potassium Chloride Carbon Dioxide BUN Creatinine Glucose POC Glucose 120 H 115 H Lactic Acid Calcium Total Bilirubin AST ALT Alkaline Phosphatase Total Creatine Kinase CK-MB (CK-2) Troponin T NT-Pro-B Natriuret Pep Albumin HDL Cholesterol Urine Creatinine Urine Total Protein
--- NOTE | 2021-06-27 14:30 | Progress Note ---
Assessment and Plan 55-year-old gentleman with multiple medical problems who is followed by Dr. 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 Severe global hypokinesis of LV. LV is severely dilated. Right ventricle is moderate to severely dilated. Severe mitral regurgitation ECHO 10/16/20: Severe global hypokinesis of the LV, EF15-20%, mild RVE, mod MR Echo done 07/22/2018 showed EF 10-15%, mild to mod LVH, abnormal diastolic function, LA mildly dilated, mod MR. LHC done 07/27/2018 showed normal coronaries, EF 15%, LVEDP 22mmHg Plan: Patient remains sinus tach 130s to 140s on monitor. Patient also has developed cool extremities and bilateral lower extremity edema and he reports increased shortness of breath and weakness We will resume milrinone drip and diuresis with Lasix 20 mg IV twice daily Case discussed with [place] [facility]. Patient pending transfer to [place] for further evaluation Discussed plan of care with patient and patient family member who verbalized understanding and agreement Hold carvedilol/lisinopril/Lipitor for now due to soft BP, elevated creatinine, and transaminitis Continue to hold aspirin due to thrombocytopenia and normal coronaries per previous cardiac cath Patient seen in conjunction with Dr. Luis who agrees with this plan of care - Patient Problems (1) Acute renal failure Current Visit: Yes Status: Acute Qualifiers: (2) Lactic acidosis Current Visit: Yes Status: Acute (3) Shortness of breath Current Visit: Yes Status: Acute (4) Acute HFrEF (heart failure with reduced ejection fraction) Current Visit: No Status: Acute (5) Nicotine dependence Current Visit: No Status: Acute Qualifiers: Nicotine product type: cigarettes Substance use status: in withdrawal Qualified Code(s): F17.213 - Nicotine dependence, cigarettes, with withdrawal (6) Cocaine use Current Visit: No Status: Chronic (7) EtOH dependence Current Visit: No Status: Chronic Qualifiers: Substance use status: uncomplicated Qualified Code(s): F10.20 - Alcohol dependence, uncomplicated (8) NICM (nonischemic cardiomyopathy) Current Visit: No Status: Chronic Subjective Date of service: 06/27/21 Principal diagnosis: CHRIS, HFreF Interval history: Patient resting in bed in no acute distress. Patient reports feeling weak and SOB today Patient trending sinus tach 130s -140s on monitor Objective Vital Signs Temp Pulse Resp BP Pulse Ox 06/27/21 11:23 98.7 F 81 22 122/86 100 06/27/21 10:00 97 06/27/21 08:28 100 06/27/21 07:43 97.7 F 131 H 20 109/71 96 06/27/21 04:52 97.7 F 97 H 20 98/74 100 06/26/21 23:58 100 06/26/21 23:34 98.3 F 101 H 20 103/77 100 06/26/21 22:00 97 06/26/21 19:41 98.0 F 68 18 111/76 98 06/26/21 16:00 126 H 96 06/26/21 15:00 142 H 107/86 97 - Physical Examination General: No Apparent Distress HEENT: Positive: PERRL Neck: Positive: trachea midline Cardiac: Positive: Regular Rhythm, Tachycardia Lungs: Positive: Normal Breath Sounds Neuro: Positive: Grossly Intact Abdomen: Positive: Soft, Decreased Bowel Sounds Skin: Negative: Rash Extremities: Present: upper extr. pulses, edema, warm - Labs and Meds Cardiac Enzymes 06/27/21 Range/Units 05:51 AST 174 H (5-40) units/L CBC 06/27/21 Range/Units 05:51 WBC 6.4 (4.5-11.0) K/mm3 RBC 4.67 (3.65-5.03) M/mm3 Hgb 14.5 (11.8-15.2) gm/dl Hct 43.5 (35.5-45.6) % Plt Count 125 L (140-440) K/mm3 Comprehensive Metabolic Panel 06/27/21 Range/Units 05:51 Sodium 134 L (137-145) mmol/L Potassium 4.3 (3.6-5.0) mmol/L Chloride 91.1 L (98-107) mmol/L Carbon Dioxide 27 (22-30) mmol/L BUN 39 H (9-20) mg/dL Creatinine 1.7 H (0.8-1.3) mg/dL Glucose 137 H (75-100) mg/dL Calcium 8.4 (8.4-10.2) mg/dL AST 174 H (5-40) units/L ALT 630 H (7-56) units/L Alkaline Phosphatase 182 H (35-129) units/L Total Protein 6.8 (6.3-8.2) g/dL Albumin 3.7 L (3.9-5) g/dL - Imaging and Cardiology Echo: report reviewed (ECHO 10/16/20: EF 15-20%, moderate MR) Cardiac cath: report reviewed ([facility] 2018: No angiographically significant CAD) - Telemetry EKG Rhythm: Sinus Tachycardia - EKG Sinus rhythms and dysrhythmias: sinus tachycardia
--- NOTE | 2021-06-27 15:05 | Progress Note ---
Assessment and Plan 55-year-old male with a history of CHF present with a chief complaint of shortness of breath nausea vomiting. In the emergency room patient is found to have potassium of 6.6, BUN 93 creatinine 3.9, lactic acid 7.60, troponin 0 0.067, BNP 18255, AST 809 and ALT 1735. Subsequently Case discussed with nephrology patient already get insulin D50 Kayexalate and calcium gluconate repeat the BMP and nephrology, cardiology service is aware consulted. Problem list: Acute hypoxic respiratory failure, likely due to volume overload from CHF and renal failure Acute on chronic combined systolic and diastolic congestive heart failure with last echo on 07/22/2018 noted to have ejection fraction of 10 to 15%. Sinus tachycardia likely indicating on the management cardiomyopathy Cardiomyopathy Acute kidney injury with vasomotor nephropathy Hyponatremia Hyperkalemia now resolved Transaminitis- IMPROVING History of CVA Noncompliance Prior history of substance abuse including tobacco, EtOH, cocaine although patient states been sober for over a year. Systemic inflammatory response syndrome without organ dysfunction Lactic acidosis Anxiety Thrombocytopenia Plan 06/25: The IV milrinone dose will be reduced to 0.125/kg, in response to low blood pressure. Continue supportive care. We will also decrease Lasix to 20 mg IV twice daily await further input from cardiology. There is some improvement in renal function will monitor closely. Plan discussed with the patient 06/26: Hold anticoagulant considering thormbocytpenia, this is showing improvement, Continue supportive care. Mirilone discontinued today due to persistent tachycardia. Patient likely with endstage cardiomyopathy. Discussed with cardiology, will transfer to Tele. Patient may be at baseline dry weight as Creatnine appears to have plateaued. Consider switching to PO lasix tomorrow if ok with cardiology and nephrology. LFTs sis also improving. Lipitor still held Continue supportive care We will discontinue beta-blockers at this time. Continue diuresis if okay with nephrology and telehealth director. Patient confirms improved respiration with increased urine output Await for today's labs Monitor and replace electrolytes as needed Medication compliance discussed with the patient in detail Continue as needed Xanax for anxiety. Continue aspirin we will hold Lipitor per suggestion by cardiology at this time likely due to elevated Ck DVT and GI prophylaxis Oxygen for supportive therapy 06/27: Patient was restarted on mirilone drip. Plan to cont lasix iv. Patient persistently with signs of volume overload and lower extremity edema. Discussed with cardiology, plan to transfer the patient to [facility] when bed is available. Continue to provide supportive care, monitoring telemetry. Subjective Date of service: 06/27/21 Principal diagnosis: CHRIS, HFreF Interval history: Patient seen and examined. Medical records and medication list reviewed. No acute event overnight noted by the RN. Patient continued to complains of difficulty breathing and unable to lay flat on the bed. Patient is tolerating diet. He also complains of bilateral lower extremity swelling Discussed plan of care at bedside with patient. Objective - Exam Narrative Exam: GENERAL: -Citizen Of [place] male sitting on a bed HEENT: Normocephalic. Atraumatic. No conjunctival congestion or icterus. Patient has moist mucous membranes. NECK: Supple. Trachea midline. CHEST/LUNGS: Crackles auscultated bilaterally, breathing nonlabored. No wheezes HEART/CARDIOVASCULAR: Regular in rate and rhythm. S1 and S2 positive. ABDOMEN: Abdomen is soft, nontender. Patient has normal bowel sounds. SKIN: There is no rash. Warm and dry. NEURO: No focal motor deficit. Follows command. MUSCULOSKELETAL: No joint effusion or tenderness. EXTRIMITY: 2+ pitting edema, no cyanosis or clubbing. PSYCH: Cooperative. - Constitutional Vitals: Vital Signs - 12hr 06/27/21 06/27/21 06/27/21 04:52 07:43 08:28 Temperature 97.7 F 97.7 F Pulse Rate 97 H 131 H Respiratory 20 20 Rate Blood Pressure 98/74 109/71 O2 Sat by Pulse 100 96 100 Oximetry 06/27/21 06/27/21 10:00 11:23 Temperature 98.7 F Pulse Rate 81 Respiratory 22 Rate Blood Pressure 122/86 O2 Sat by Pulse 97 100 Oximetry - Labs CBC & Chem 7: 06/28/21 21:42 06/29/21 04:26 Labs: Abnormal lab results 06/27/21 06/27/21 06/27/21 Range/Units 05:51 05:51 07:35 RDW 17.6 H (13.2-15.2) % Plt Count 125 L (140-440) K/mm3 Sodium 134 L (137-145) mmol/L Chloride 91.1 L (98-107) mmol/L BUN 39 H (9-20) mg/dL Creatinine 1.7 H (0.8-1.3) mg/dL Glucose 137 H (75-100) mg/dL POC Glucose 120 H (70-105) mg/dL Total Bilirubin 3.50 H (0.1-1.2) mg/dL AST 174 H (5-40) units/L ALT 630 H (7-56) units/L Alkaline Phosphatase 182 H (35-129) units/L Albumin 3.7 L (3.9-5) g/dL 06/27/21 Range/Units 12:11 RDW (13.2-15.2) % Plt Count (140-440) K/mm3 Sodium (137-145) mmol/L Chloride (98-107) mmol/L BUN (9-20) mg/dL Creatinine (0.8-1.3) mg/dL Glucose (75-100) mg/dL POC Glucose 115 H (70-105) mg/dL Total Bilirubin (0.1-1.2) mg/dL AST (5-40) units/L ALT (7-56) units/L Alkaline Phosphatase (35-129) units/L Albumin (3.9-5) g/dL HEART Score - HEART Score Troponin: Troponin T 0.067 ng/mL (0.00-0.029) H 06/22/21 19:57
[2021-06-27] MEDS ORDERED: FUROSEMIDE 20 MG TAB PO SCH (18:00)
[2021-06-27] MEDS: ALPRAZolam 0.25 MG TAB PO PRN (21:17)
[2021-06-28] MEDS ORDERED: FUROSEMIDE 20 MG TAB PO SCH (06:00)
--- NOTE | 2021-06-28 08:35 | Progress Note ---
Assessment and Plan 55 y/o with acute respiratory failure secondary to CHF exacerbation. 06/28/21: As stated yesterday, no qualifying diagnosis for NIV, no ABG's drawn during this stay. Can attempt to obtain a room air abg tomorrow morning off bipap if able to do so to see if patient is hypercapnic. He most likely has central apnea given his heart failure but would need PSG to determine this. 06/27/21: Patient has no qualifying diagnosis to obtain NIV out of hospital. Follow up for outpatient PSG to see if central sleep apnea is present. Will discontinue NIV use in house. 06/26/21: Continue nocturnal NIV therapy. WIll need outpatient PSG. Suggest ambulatory pulse ox prior to discharge. 06/25/21: Continue nightly bipap therapy. Wean FiO2 as tolerated. Bipap for support. Likely needs QHS as he could have a central component of TRACY Agree with cards and inotropic therapy/support Volume restriction Guarded prognosis. Subjective Date of service: 06/28/21 Principal diagnosis: CHRIS, HFreF Interval history: Chart reviewed. Per RT note, placed patient on bipap even though I had discontinued my order but an order from the ED remains. No desats documented but states that patient had labored breathing. Objective Vital Signs - 12hr 06/27/21 06/27/21 06/28/21 22:00 23:20 05:05 Temperature 98.2 F 98.1 F Pulse Rate 132 H 55 L 67 Respiratory 16 16 Rate Blood Pressure 120/87 111/80 O2 Sat by Pulse 97 100 99 Oximetry 06/28/21 07:31 Temperature 97.6 F Pulse Rate 80 Respiratory 20 Rate Blood Pressure 95/69 O2 Sat by Pulse 96 Oximetry Constitutional: appears uncomfortable Eyes: non-icteric Neck: supple Ascultation: Bilateral: diminished breath sounds (secondary to heart size) Percussion: Bilateral: not dull Cardiovascular: other (tachycardic) Gastrointestinal: soft CBC and BMP: 06/27/21 05:51 06/27/21 05:51 ABG, PT/INR, D-dimer: PT/INR, D-dimer PT 37.9 Sec. (12.2-14.9) H 06/22/21 19:57 INR 3.52 (0.87-1.13) H 06/22/21 19:57 D-Dimer > 234 ng/mlDDU (0-234) H 06/22/21 19:57 Abnormal lab findings: Abnormal Labs 06/22/21 06/22/21 06/22/21 19:57 19:57 19:57 WBC Hct 46.4 H RDW 15.4 H Plt Count 83 L Lymph % (Auto) 11.8 L [place] % (Auto) 11.1 H Lymph # (Auto) [place] # (Auto) 1.2 H Seg Neutrophils % 76.8 H Seg Neuts % (Manual) 81.0 H Lymphocytes % (Manual) 7.0 L Monocytes % (Manual) 11.0 H Nucleated RBC % 3.0 H Seg Neutrophils # 8.0 H Seg Neutrophils # Man 8.4 H Lymphocytes # (Manual) 0.7 L Monocytes # (Manual) 1.1 H PT 37.9 H INR 3.52 H D-Dimer Sodium 125 L Potassium 6.6 H* Chloride 87.6 L Carbon Dioxide 13 L BUN 93 H Creatinine 3.9 H Glucose 111 H POC Glucose Lactic Acid Calcium Total Bilirubin 6.40 H AST 809 H ALT 1735 H Alkaline Phosphatase Total Creatine Kinase 570 H CK-MB (CK-2) 11.8 H Troponin T 0.067 H NT-Pro-B Natriuret Pep 15271 H Albumin HDL Cholesterol 26 L Urine Creatinine Urine Total Protein 06/22/21 06/22/21 06/22/21 19:57 19:57 22:19 WBC Hct RDW Plt Count Lymph % (Auto) [place] % (Auto) Lymph # (Auto) [place] # (Auto) Seg Neutrophils % Seg Neuts % (Manual) Lymphocytes % (Manual) Monocytes % (Manual) Nucleated RBC % Seg Neutrophils # Seg Neutrophils # Man Lymphocytes # (Manual) Monocytes # (Manual) PT INR D-Dimer > 234 H Sodium Potassium Chloride Carbon Dioxide BUN Creatinine Glucose POC Glucose 63 L Lactic Acid 7.60 H* Calcium Total Bilirubin AST ALT Alkaline Phosphatase Total Creatine Kinase CK-MB (CK-2) Troponin T NT-Pro-B Natriuret Pep Albumin HDL Cholesterol Urine Creatinine Urine Total Protein 06/22/21 06/23/21 06/23/21 23:30 00:05 00:51 WBC Hct RDW Plt Count Lymph % (Auto) [place] % (Auto) Lymph # (Auto) [place] # (Auto) Seg Neutrophils % Seg Neuts % (Manual) Lymphocytes % (Manual) Monocytes % (Manual) Nucleated RBC % Seg Neutrophils # Seg Neutrophils # Man Lymphocytes # (Manual) Monocytes # (Manual) PT INR D-Dimer Sodium Potassium Chloride Carbon Dioxide BUN Creatinine Glucose POC Glucose 109 H 199 H 200 H Lactic Acid Calcium Total Bilirubin AST ALT Alkaline Phosphatase Total Creatine Kinase CK-MB (CK-2) Troponin T NT-Pro-B Natriuret Pep Albumin HDL Cholesterol Urine Creatinine Urine Total Protein 06/23/21 06/23/21 06/23/21 01:55 01:55 04:17 WBC Hct RDW Plt Count Lymph % (Auto) [place] % (Auto) Lymph # (Auto) [place] # (Auto) Seg Neutrophils % Seg Neuts % (Manual) Lymphocytes % (Manual) Monocytes % (Manual) Nucleated RBC % Seg Neutrophils # Seg Neutrophils # Man Lymphocytes # (Manual) Monocytes # (Manual) PT INR D-Dimer Sodium 131 L Potassium 5.1 H D Chloride 90.9 L Carbon Dioxide 17 L BUN 95 H Creatinine 4.0 H Glucose 159 H POC Glucose 181 H Lactic Acid 6.60 H* Calcium Total Bilirubin AST ALT Alkaline Phosphatase Total Creatine Kinase CK-MB (CK-2) Troponin T NT-Pro-B Natriuret Pep Albumin HDL Cholesterol Urine Creatinine Urine Total Protein 06/23/21 06/23/21 06/23/21 07:21 10:04 10:04 WBC Hct RDW Plt Count Lymph % (Auto) [place] % (Auto) Lymph # (Auto) [place] # (Auto) Seg Neutrophils % Seg Neuts % (Manual) Lymphocytes % (Manual) Monocytes % (Manual) Nucleated RBC % Seg Neutrophils # Seg Neutrophils # Man Lymphocytes # (Manual) Monocytes # (Manual) PT INR D-Dimer Sodium 129 L Potassium Chloride 92.2 L Carbon Dioxide 18 L BUN 89 H Creatinine 3.2 H Glucose 179 H POC Glucose 191 H Lactic Acid Calcium Total Bilirubin AST ALT Alkaline Phosphatase Total Creatine Kinase CK-MB (CK-2) Troponin T NT-Pro-B Natriuret Pep 84325 H Albumin HDL Cholesterol Urine Creatinine Urine Total Protein 06/23/21 06/23/21 06/24/21 10:04 Unknown 10:30 WBC Hct RDW Plt Count 59 L Lymph % (Auto) 9.4 L [place] % (Auto) 10.4 H Lymph # (Auto) 0.5 L [place] # (Auto) Seg Neutrophils % 79.5 H Seg Neuts % (Manual) Lymphocytes % (Manual) Monocytes % (Manual) Nucleated RBC % Seg Neutrophils # Seg Neutrophils # Man Lymphocytes # (Manual) Monocytes # (Manual) PT INR D-Dimer Sodium Potassium Chloride Carbon Dioxide BUN Creatinine Glucose POC Glucose Lactic Acid Calcium Total Bilirubin AST ALT Alkaline Phosphatase Total Creatine Kinase 503 H CK-MB (CK-2) Troponin T NT-Pro-B Natriuret Pep Albumin HDL Cholesterol Urine Creatinine 67.0 H Urine Total Protein 14 H 06/24/21 06/24/21 06/25/21 17:00 21:07 07:16 WBC Hct RDW Plt Count Lymph % (Auto) [place] % (Auto) Lymph # (Auto) [place] # (Auto) Seg Neutrophils % Seg Neuts % (Manual) Lymphocytes % (Manual) Monocytes % (Manual) Nucleated RBC % Seg Neutrophils # Seg Neutrophils # Man Lymphocytes # (Manual) Monocytes # (Manual) PT INR D-Dimer Sodium 132 L Potassium 3.4 L D Chloride 92.1 L Carbon Dioxide BUN 66 H Creatinine 2.3 H Glucose 133 H POC Glucose 182 H 111 H Lactic Acid Calcium 7.3 L D Total Bilirubin AST ALT Alkaline Phosphatase Total Creatine Kinase CK-MB (CK-2) Troponin T NT-Pro-B Natriuret Pep Albumin HDL Cholesterol Urine Creatinine Urine Total Protein 06/25/21 06/25/21 06/25/21 08:46 08:46 10:56 WBC 4.1 L Hct RDW 15.9 H Plt Count 66 L Lymph % (Auto) [place] % (Auto) Lymph # (Auto) [place] # (Auto) Seg Neutrophils % Seg Neuts % (Manual) Lymphocytes % (Manual) Monocytes % (Manual) Nucleated RBC % Seg Neutrophils # Seg Neutrophils # Man Lymphocytes # (Manual) Monocytes # (Manual) PT INR D-Dimer Sodium Potassium 3.1 L Chloride 93.4 L Carbon Dioxide BUN 50 H Creatinine 1.9 H Glucose 189 H POC Glucose 153 H Lactic Acid Calcium 7.6 L Total Bilirubin AST ALT Alkaline Phosphatase Total Creatine Kinase CK-MB (CK-2) Troponin T NT-Pro-B Natriuret Pep Albumin HDL Cholesterol Urine Creatinine Urine Total Protein 06/25/21 06/26/21 06/26/21 23:56 07:35 11:08 WBC Hct RDW 17.1 H Plt Count 112 L Lymph % (Auto) [place] % (Auto) Lymph # (Auto) [place] # (Auto) Seg Neutrophils % Seg Neuts % (Manual) Lymphocytes % (Manual) Monocytes % (Manual) Nucleated RBC % Seg Neutrophils # Seg Neutrophils # Man Lymphocytes # (Manual) Monocytes # (Manual) PT INR D-Dimer Sodium Potassium Chloride Carbon Dioxide BUN Creatinine Glucose POC Glucose 158 H 109 H Lactic Acid Calcium Total Bilirubin AST ALT Alkaline Phosphatase Total Creatine Kinase CK-MB (CK-2) Troponin T NT-Pro-B Natriuret Pep Albumin HDL Cholesterol Urine Creatinine Urine Total Protein 06/26/21 06/27/21 06/27/21 11:08 05:51 05:51 WBC Hct RDW 17.6 H Plt Count 125 L Lymph % (Auto) [place] % (Auto) Lymph # (Auto) [place] # (Auto) Seg Neutrophils % Seg Neuts % (Manual) Lymphocytes % (Manual) Monocytes % (Manual) Nucleated RBC % Seg Neutrophils # Seg Neutrophils # Man Lymphocytes # (Manual) Monocytes # (Manual) PT INR D-Dimer Sodium 135 L 134 L Potassium Chloride 93.0 L 91.1 L Carbon Dioxide BUN 37 H 39 H Creatinine 1.7 H 1.7 H Glucose 120 H 137 H POC Glucose Lactic Acid Calcium 8.3 L Total Bilirubin 2.20 H 3.50 H AST 207 H 174 H ALT 694 H 630 H Alkaline Phosphatase 156 H 182 H Total Creatine Kinase CK-MB (CK-2) Troponin T NT-Pro-B Natriuret Pep Albumin 3.6 L 3.7 L HDL Cholesterol Urine Creatinine Urine Total Protein 06/27/21 06/27/21 06/27/21 07:35 12:11 16:16 WBC Hct RDW Plt Count Lymph % (Auto) [place] % (Auto) Lymph # (Auto) [place] # (Auto) Seg Neutrophils % Seg Neuts % (Manual) Lymphocytes % (Manual) Monocytes % (Manual) Nucleated RBC % Seg Neutrophils # Seg Neutrophils # Man Lymphocytes # (Manual) Monocytes # (Manual) PT INR D-Dimer Sodium Potassium Chloride Carbon Dioxide BUN Creatinine Glucose POC Glucose 120 H 115 H 141 H Lactic Acid Calcium Total Bilirubin AST ALT Alkaline Phosphatase Total Creatine Kinase CK-MB (CK-2) Troponin T NT-Pro-B Natriuret Pep Albumin HDL Cholesterol Urine Creatinine Urine Total Protein 06/27/21 06/28/21 20:48 07:33 WBC Hct RDW Plt Count Lymph % (Auto) [place] % (Auto) Lymph # (Auto) [place] # (Auto) Seg Neutrophils % Seg Neuts % (Manual) Lymphocytes % (Manual) Monocytes % (Manual) Nucleated RBC % Seg Neutrophils # Seg Neutrophils # Man Lymphocytes # (Manual) Monocytes # (Manual) PT INR D-Dimer Sodium Potassium Chloride Carbon Dioxide BUN Creatinine Glucose POC Glucose 133 H 115 H Lactic Acid Calcium Total Bilirubin AST ALT Alkaline Phosphatase Total Creatine Kinase CK-MB (CK-2) Troponin T NT-Pro-B Natriuret Pep Albumin HDL Cholesterol Urine Creatinine Urine Total Protein
--- NOTE | 2021-06-28 09:13 | Progress Note ---
Assessment and Plan Acute renal failure on top of CKD Metabolic acidosis Hyperkalemia Shortness of breath Acute HFrEF (heart failure with reduced ejection fraction) CVA (cerebral vascular accident) Elevated troponin Lactic acidosis -BMP is pending this AM -s/p bicarb tabs for acidosis, -Renally dose all medications -Avoid nephrotoxic agents -Monitor I/O's daily -Obtain daily weights -Continue to monitor renal function Subjective Date of service: 06/28/21 Principal diagnosis: CHRIS, HFreF Interval history: No overnight events Objective - Vital Signs Vital signs: Vital Signs - 12hr 06/27/21 06/27/21 06/28/21 22:00 23:20 05:05 Temperature 98.2 F 98.1 F Pulse Rate 132 H 55 L 67 Respiratory 16 16 Rate Blood Pressure 120/87 111/80 O2 Sat by Pulse 97 100 99 Oximetry 06/28/21 07:31 Temperature 97.6 F Pulse Rate 80 Respiratory 20 Rate Blood Pressure 95/69 O2 Sat by Pulse 96 Oximetry - Lab 06/27/21 05:51 06/27/21 05:51 Most recent lab results Calcium 8.4 mg/dL (8.4-10.2) 06/27/21 05:51 Urine Creatinine 67.0 mg/dL (0.1-20.0) H 06/23/21 Unknown Urine Sodium 14 mmol/L 06/23/21 Unknown Urine Total Protein 14 mg/dL (5-11.8) H 06/23/21 Unknown Medications & Allergies - Medications Allergies/Adverse Reactions: Allergies No Known Allergies Allergy (Verified 10/16/20 23:25) Home Medications: Home Medications Medication Instructions Recorded Confirmed Last Taken Type Aspirin 81 mg PO DAILY #30 tab.chew 07/27/18 06/23/21 06/19/21 09:00 Rx AtorvaSTATin [Lipitor] 20 mg PO QHS #30 tab 07/27/18 06/23/21 06/19/21 22:00 Rx lisinopriL [Zestril TAB] 5 mg PO QDAY #30 tablet 07/27/18 06/23/21 06/20/21 09:00 Rx Furosemide [Lasix TAB] 40 mg PO QDAY #30 tablet 05/07/19 06/23/21 06/19/21 09:00 Rx Potassium Chloride 10 meq PO DAILY #30 tablet.er 05/07/19 06/23/21 06/19/21 09:00 Rx carvediloL [Coreg] 3.125 mg PO BID #60 tablet 05/07/19 06/23/21 06/20/21 09:00 Rx Hyoscyamine Subl [Levsin Sl 0.125 0.125 mg SL Q4HR PRN #15 tablet 05/13/21 06/23/21 06/19/21 15:00 Rx TAB] Ondansetron [Zofran Odt] 4 mg PO Q8HR PRN #15 tab.rapdis 05/13/21 06/23/21 06/19/21 09:00 Rx Active Medications: Generic Name Dose Route Start Last Admin Trade Name Freq PRN Reason Stop Dose Admin Acetaminophen 650 mg 06/23/21 01:48 Acetaminophen 325 Mg Tab PO Q4H PRN Pain MILD(1-3)/Fever >100.5/LAURENT Albuterol 2.5 mg 06/23/21 01:48 Albuterol 2.5 Mg/3 Ml Nebu IH Q3HRT PRN Shortness Of Breath Alprazolam 0.25 mg 06/23/21 12:00 06/27/21 21:17 Alprazolam 0.25 Mg Tab PO 0.25 mg Q8H PRN Administration Anxiety Atorvastatin Calcium 20 mg 06/23/21 22:00 06/27/21 21:17 Atorvastatin 20 Mg Tab PO 20 mg QHS BHAVYA Administration Famotidine 10 mg 06/23/21 10:00 06/27/21 21:17 Famotidine 10 Mg Tab PO 10 mg BID BHAVYA Administration Furosemide 20 mg 06/28/21 06:00 06/28/21 05:38 Furosemide 20 Mg Tab PO 20 mg 0600,1800 BHAVYA Administration Hydromorphone HCl 0.5 mg 06/23/21 01:48 Hydromorphone 1 Mg/1 Ml Inj IV Q3H PRN Pain , Severe (7-10) Hyoscyamine 0.125 mg 06/23/21 01:52 Hyoscyamine Subl 0.125 Mg Tab SL Q4HR PRN abdominal Spasms Milrinone Lactate/Dextrose 20 mg in 100 mls @ 1.95 mls/hr 06/27/21 12:30 06/27/21 12:54 Milrinone-D5w 20 Mg/100 Ml IV 0.1 mcg/kg/min DIRECT BHAVYA 1.95 mls/hr Administration Protocol 0.1 MCG/KG/MIN Morphine Sulfate 2 mg 06/23/21 01:48 Morphine 2 Mg/1 Ml Inj IV Q4H PRN Pain, Moderate (4-6) Ondansetron HCl 4 mg 06/23/21 01:48 Ondansetron 4 Mg/2 Ml Inj IV Q8H PRN Nausea And Vomiting Sodium Chloride 10 ml 06/23/21 10:00 06/27/21 21:17 Sodium Chloride 0.9% 10 Ml Flush Syringe IV 10 ml BID BHAVYA Administration Sodium Chloride 10 ml 06/23/21 01:48 Sodium Chloride 0.9% 10 Ml Flush Syringe IV PRN PRN LINE FLUSH
[2021-06-28] MEDS: FAMOTIDINE 10 MG TAB PO SCH (11:57)
[2021-06-28] MEDS ORDERED: AMIODARONE 150 MG in DEXTROSE 5% IN WATER 97 ML IV ONE (12:40)
--- NOTE | 2021-06-28 12:41 | Event Note ---
Date: 06/28/21 I went and reevaluated the patient this afternoon. He is now apparently in a flutter with 2-1 conduction. This on top of his myriad of complex comorbidities including severe dilated nonischemic cardiomyopathy, severe mitral regurgitation, acute on chronic kidney disease. We will going to stop milrinone for now. Initiate IV amiodarone and systemic anticoagulation. Follow-up creatinine today. Nephrology is on board. He has an incredibly narrow fluid equilibrium. Several days ago I contacted the [facility] I felt like he needed advanced care from a heart failure perspective. They are tight on beds and he is still on the waiting list to be transferred. We will continue to update the family closely. Also had a long discussion with the patient regarding her findings and plan of care today. We will continue to follow the patient closely. All parties are aware that his overall prognosis is poor.
[2021-06-28] MEDS ORDERED: AMIODARONE 900 MG in DEXTROSE 5% IN WATER 482 ML IV SCH (13:00)
--- NOTE | 2021-06-28 15:00 | Progress Note ---
Assessment and Plan 55-year-old male with a history of CHF present with a chief complaint of shortness of breath nausea vomiting. In the emergency room patient is found to have potassium of 6.6, BUN 93 creatinine 3.9, lactic acid 7.60, troponin 0 0.067, BNP 72688, AST 809 and ALT 1735. Subsequently Case discussed with nephrology patient already get insulin D50 Kayexalate and calcium gluconate repeat the BMP and nephrology, cardiology service is aware consulted. Problem list: Acute hypoxic respiratory failure, likely due to volume overload from CHF and renal failure Acute on chronic combined systolic and diastolic congestive heart failure with last echo on 07/22/2018 noted to have ejection fraction of 10 to 15%. Sinus tachycardia likely indicating on the management cardiomyopathy Cardiomyopathy Acute kidney injury with vasomotor nephropathy Hyponatremia Hyperkalemia now resolved Transaminitis- IMPROVING History of CVA Noncompliance Prior history of substance abuse including tobacco, EtOH, cocaine although patient states been sober for over a year. Systemic inflammatory response syndrome without organ dysfunction Lactic acidosis Anxiety Thrombocytopenia Atrial flutter/fibrillation Plan 06/25: The IV milrinone dose will be reduced to 0.125/kg, in response to low blood pressure. Continue supportive care. We will also decrease Lasix to 20 mg IV twice daily await further input from cardiology. There is some improvement in renal function will monitor closely. Plan discussed with the patient 06/26: Hold anticoagulant considering thormbocytpenia, this is showing improvement, Continue supportive care. Mirilone discontinued today due to persistent tachycardia. Patient likely with endstage cardiomyopathy. Discussed with cardiology, will transfer to [facility]. Patient may be at baseline dry weight as Creatnine appears to have plateaued. Consider switching to PO lasix tomorrow if ok with cardiology and nephrology. LFTs sis also improving. Lipitor still held Continue supportive care We will discontinue beta-blockers at this time. Continue diuresis if okay with nephrology and corporate representative. Patient confirms improved respiration with increased urine output Await for today's labs Monitor and replace electrolytes as needed Medication compliance discussed with the patient in detail Continue as needed Xanax for anxiety. Continue aspirin we will hold Lipitor per suggestion by cardiology at this time likely due to elevated Ck DVT and GI prophylaxis Oxygen for supportive therapy 06/27: Patient was restarted on mirilone drip. Plan to cont lasix iv. Patient persistently with signs of volume overload and lower extremity edema. Discussed with cardiology, plan to transfer the patient to [place] when bed is available. Continue to provide supportive care, monitoring telemetry. 06/28: Patient remains tachycardic on the telemetry. Suspicion for atrial fibrillation versus flutter. placed on amioderone iv, stopped mirilone drip today. Continue IV Lasix. Pending transfer to [place]. Ordered morning labs, follow clinically. Guarded prognosis. Subjective Date of service: 06/28/21 Principal diagnosis: CHRIS, HFreF Interval history: Patient seen and examined. Medical records and medication list reviewed. No acute event overnight noted by the RN. Patient continued to complains of difficulty breathing and unable to lay flat on the bed. Patient is tolerating diet. He also complains of bilateral lower extremity swelling and appears more restless Discussed plan of care at bedside with patient. Objective - Exam Narrative Exam: GENERAL: -[place] male sitting on a bed appears little restless HEENT: Normocephalic. Atraumatic. No conjunctival congestion or icterus. Patient has moist mucous membranes. NECK: Supple. Trachea midline. CHEST/LUNGS: Crackles auscultated bilaterally, breathing nonlabored. No wheezes HEART/CARDIOVASCULAR: Regular in rate and rhythm. S1 and S2 positive. ABDOMEN: Abdomen is soft, nontender. Patient has normal bowel sounds. SKIN: There is no rash. Warm and dry. NEURO: No focal motor deficit. Follows command. MUSCULOSKELETAL: No joint effusion or tenderness. EXTRIMITY: 2+ pitting edema, no cyanosis or clubbing. PSYCH: Cooperative but complains that he feels very uncomfortable. - Constitutional Vitals: Vital Signs - 12hr 06/28/21 06/28/21 06/28/21 05:05 07:31 10:00 Temperature 98.1 F 97.6 F Pulse Rate 67 80 Respiratory 16 20 Rate Blood Pressure 111/80 95/69 O2 Sat by Pulse 99 96 92 Oximetry 06/28/21 11:22 Temperature 98.0 F Pulse Rate 79 Respiratory Rate Blood Pressure 113/84 O2 Sat by Pulse 98 Oximetry - Labs CBC & Chem 7: 06/28/21 21:42 06/29/21 04:26 Labs: Abnormal lab results 06/27/21 06/27/21 06/28/21 Range/Units 16:16 20:48 07:33 POC Glucose 141 H 133 H 115 H (70-105) mg/dL 06/28/21 Range/Units 11:23 POC Glucose 132 H (70-105) mg/dL HEART Score - HEART Score Troponin: Troponin T 0.067 ng/mL (0.00-0.029) H 06/22/21 19:57
[2021-06-28] MEDS: AMIODARONE 360 MG in DEXTROSE 5% IN WATER 192.8 ML IV SCH ×2 (15:06→22:50)
--- NOTE | 2021-06-28 15:14 | Progress Note ---
Assessment and Plan 55-year-old gentleman with multiple medical problems who is followed by Dr. Mando Addison at [facility] store receiving specialist presents to the emergency department complaining of increasing shortness of breath, nausea, and vomiting x1 week Acute renal failure-nephrology follow Hyponatremia Hyperkalemia Acute on chronic HFrEF Respiratory failure Sinus tachycardia Transaminitis Hypertension CVA Noncompliance History of tobacco/EtOH/cocaine (patient denies tobacco/EtOH/cocaine in the past year) Echo 06/23/2021-EF 10 to 15%. Severe global hypokinesis of LV. LV is severely dilated. Right ventricle is moderate to severely dilated. Severe mitral regurgitation ECHO 10/16/20: Severe global hypokinesis of the LV, EF15-20%, mild RVE, mod MR Echo done 07/22/2018 showed EF 10-15%, mild to mod LVH, abnormal diastolic function, LA mildly dilated, mod MR. LHC done 07/27/2018 showed normal coronaries, EF 15%, LVEDP 22mmHg Plan: Patient currently atrial flutter with RVR. Stop milrinone Initiate amiodarone bolus and drip. Anticoagulate with Eliquis BMP and CBC ordered Case discussed with [place] [facility]. Patient pending transfer to [place] for further evaluation. Discussed plan of care with patient and patient family member who verbalized understanding and agreement Hold carvedilol/lisinopril/Lipitor for now due to soft BP, elevated creatinine, and transaminitis Due to patient's multiple comorbidities may wish to consider transferring patient to [facility]. Discussed with hospitalist Patient seen in conjunction with Dr. Luis who agrees with this plan of care - Patient Problems (1) Acute renal failure Current Visit: Yes Status: Acute Qualifiers: (2) Lactic acidosis Current Visit: Yes Status: Acute (3) Shortness of breath Current Visit: Yes Status: Acute (4) Acute HFrEF (heart failure with reduced ejection fraction) Current Visit: No Status: Acute (5) Nicotine dependence Current Visit: No Status: Acute Qualifiers: Nicotine product type: cigarettes Substance use status: in withdrawal Qualified Code(s): F17.213 - Nicotine dependence, cigarettes, with withdrawal (6) Cocaine use Current Visit: No Status: Chronic (7) EtOH dependence Current Visit: No Status: Chronic Qualifiers: Substance use status: uncomplicated Qualified Code(s): F10.20 - Alcohol dependence, uncomplicated (8) NICM (nonischemic cardiomyopathy) Current Visit: No Status: Chronic Subjective Date of service: 06/28/21 Principal diagnosis: CHRIS, HFreF Interval history: Patient resting in bed in no acute distress. Patient reports feeling slightly better Patient trending atrial flutter 2-1 conduction 150s on monitor Objective Vital Signs Temp Pulse Resp BP BP Pulse Ox 06/28/21 11:22 98.0 F 79 113/84 98 06/28/21 10:00 92 06/28/21 07:31 97.6 F 80 20 95/69 96 06/28/21 05:05 98.1 F 67 16 111/80 99 06/27/21 23:20 98.2 F 55 L 16 120/87 100 06/27/21 22:00 132 H 97 06/27/21 20:07 98.0 F 106 H 20 103/79 97 06/27/21 19:58 110 H 20 100 06/27/21 19:57 99 06/27/21 16:30 98.6 F 79 20 113/88 100 06/27/21 16:25 97.9 F 159 H 16 113/88 100 - Physical Examination General: No Apparent Distress HEENT: Positive: PERRL Neck: Positive: trachea midline Cardiac: Positive: Irregularly Regular, Tachycardia Lungs: Positive: Decreased Breath Sounds Neuro: Positive: Grossly Intact Abdomen: Positive: Soft, Decreased Bowel Sounds Skin: Negative: Rash Extremities: Present: upper extr. pulses, edema, warm - Imaging and Cardiology Echo: report reviewed (ECHO 10/16/20: EF 15-20%, moderate MR) Cardiac cath: report reviewed ([facility] 2019: No angiographically significant CAD) - Telemetry EKG Rhythm: Atrial Flutter - EKG Supraventricular dysrhythmia: atrial flutter
[2021-06-28] MEDS: APIXABAN 5 MG TAB PO SCH (17:12)
[2021-06-28] MEDS: ALPRAZolam 0.25 MG TAB PO PRN (17:12)
[2021-06-28] MEDS ORDERED: DEXTROSE 10% *Hypoglycemia IV ONE (21:25)
[2021-06-28 21:52] LABS: Hematocrit 43.4 % (35.5-45.6); Mean Corpuscular HGB Conc 32 % (32-34); Mean Corpuscular Volume 97 fl (84-94); Platelet Count 121 K/mm3 (140-440); Red Blood Count 4.46 M/mm3 (3.65-5.03); Red Cell Distribution Width 18.2 % (13.2-15.2)
[2021-06-28 22:00] LABS: INR 2.9 (0.87-1.13)
[2021-06-28 22:01] LABS: Calcium 8.9 mg/dL (8.4-10.2); Partial Thromboplastin Time 33.8 Sec. (24.2-36.6)
[2021-06-28 22:10] LABS: ABG Base Excess -15.2 mmol/L (-2.0-3.0); ABG HCO3 9.1 mmol/L (20.0-26.0); ABG Methemoglobin 0.5 % (0.0-1.5); ABG Oxygen Saturation 97.1 % (95.0-99.0); ABG PCO2 19.8 mm Hg; ABG PH 7.282 pH Units (7.350-7.450); ABG PO2 93.9 mm Hg (80.0-90.0)
[2021-06-28] MEDS ORDERED: SODIUM BICARB 8.4% 50 MEQ/50 ML SYRINGE IV ONE (22:22)
[2021-06-28] MEDS ORDERED: NORepinephrine/NS 8 MG-250 ML 8 MG/250 ML INFUS..BTL IV SCH (23:00)
[2021-06-28] MEDS ORDERED: DEXTROSE 10% IN WATER 1,000 ML IV SCH (23:00)
[2021-06-29] MEDS ORDERED: LIP THERAPY VASELINE TP PRN (03:10)
[2021-06-29 05:35] LABS: Calcium 9.8 mg/dL (8.4-10.2)
[2021-06-29] MEDS: FAMOTIDINE 10 MG TAB PO SCH ×2 (05:48→10:58)
[2021-06-29] MEDS: APIXABAN 5 MG TAB PO SCH (10:58)
[2021-06-29] MEDS: AMIODARONE 360 MG in DEXTROSE 5% IN WATER 192.8 ML IV SCH (11:02)
--- NOTE | 2021-06-29 11:54 | Progress Note ---
Hospitalist Physical - Constitutional Vitals: Temp Pulse Resp BP Pulse Ox 97.8 F 111 H 26 H 115/71 95 06/29/21 04:00 06/29/21 09:00 06/29/21 09:00 06/29/21 09:00 06/29/21 09:00 General appearance: Present: other (Moderate distress) HEART Score - HEART Score Troponin: Troponin T 0.067 ng/mL (0.00-0.029) H 06/22/21 19:57 Results - Labs CBC & Chem 7: 06/28/21 21:42 06/29/21 04:26 Labs: Laboratory Last Values WBC 10.8 K/mm3 (4.5-11.0) 06/28/21 21:42 RBC 4.46 M/mm3 (3.65-5.03) 06/28/21 21:42 Hgb 14.0 gm/dl (11.8-15.2) 06/28/21 21:42 Hct 43.4 % (35.5-45.6) 06/28/21 21:42 MCV 97 fl (84-94) H 06/28/21 21:42 MCH 31 pg (28-32) 06/28/21 21:42 MCHC 32 % (32-34) 06/28/21 21:42 RDW 18.2 % (13.2-15.2) H 06/28/21 21:42 Plt Count 121 K/mm3 (140-440) L 06/28/21 21:42 Lymph % (Auto) 9.4 % (13.4-35.0) L 06/24/21 10:30 [place] % (Auto) 10.4 % (0.0-7.3) H 06/24/21 10:30 Eos % (Auto) 0.6 % (0.0-4.3) 06/24/21 10:30 Baso % (Auto) 0.1 % (0.0-1.8) 06/24/21 10:30 Lymph # (Auto) 0.5 K/mm3 (1.2-5.4) L 06/24/21 10:30 [place] # (Auto) 0.5 K/mm3 (0.0-0.8) 06/24/21 10:30 Eos # (Auto) 0.0 K/mm3 (0.0-0.4) 06/24/21 10:30 Baso # (Auto) 0.0 K/mm3 (0.0-0.1) 06/24/21 10:30 Add Manual Diff Complete 06/22/21 19:57 Total Counted 100 06/22/21 19:57 Seg Neutrophils % 79.5 % (40.0-70.0) H 06/24/21 10:30 Seg Neuts % (Manual) 81.0 % (40.0-70.0) H 06/22/21 19:57 Band Neutrophils % 1.0 % 06/22/21 19:57 Lymphocytes % (Manual) 7.0 % (13.4-35.0) L 06/22/21 19:57 Reactive Lymphs % (Man) 0 % 06/22/21 19:57 Monocytes % (Manual) 11.0 % (0.0-7.3) H 06/22/21 19:57 Eosinophils % (Manual) 0 % (0.0-4.3) 06/22/21 19:57 Basophils % (Manual) 0 % (0.0-1.8) 06/22/21 19:57 Metamyelocytes % 0 % 06/22/21 19:57 Myelocytes % 0 % 06/22/21 19:57 Promyelocytes % 0 % 06/22/21 19:57 Blast Cells % 0 % 06/22/21 19:57 Nucleated RBC % 3.0 % (0.0-0.9) H 06/22/21 19:57 Seg Neutrophils # 4.0 K/mm3 (1.8-7.7) 06/24/21 10:30 Seg Neutrophils # Man 8.4 K/mm3 (1.8-7.7) H 06/22/21 19:57 Band Neutrophils # 0.1 K/mm3 06/22/21 19:57 Lymphocytes # (Manual) 0.7 K/mm3 (1.2-5.4) L 06/22/21 19:57 Abs React Lymphs (Man) 0.0 K/mm3 06/22/21 19:57 Monocytes # (Manual) 1.1 K/mm3 (0.0-0.8) H 06/22/21 19:57 Eosinophils # (Manual) 0.0 K/mm3 (0.0-0.4) 06/22/21 19:57 Basophils # (Manual) 0.0 K/mm3 (0.0-0.1) 06/22/21 19:57 Metamyelocytes # 0.0 K/mm3 06/22/21 19:57 Myelocytes # 0.0 K/mm3 06/22/21 19:57 Promyelocytes # 0.0 K/mm3 06/22/21 19:57 Blast Cells # 0.0 K/mm3 06/22/21 19:57 WBC Morphology Not Reportable 06/22/21 19:57 Hypersegmented Neuts Not Reportable 06/22/21 19:57 Hyposegmented Neuts Not Reportable 06/22/21 19:57 Hypogranular Neuts Not Reportable 06/22/21 19:57 Smudge Cells Not Reportable 06/22/21 19:57 Toxic Granulation Not Reportable 06/22/21 19:57 Toxic Vacuolation Not Reportable 06/22/21 19:57 Dohle Bodies Not Reportable 06/22/21 19:57 Pelger-Huet Anomaly Not Reportable 06/22/21 19:57 Annie Rods Not Reportable 06/22/21 19:57 Platelet Estimate Appears decreased 06/22/21 19:57 Clumped Platelets Not Reportable 06/22/21 19:57 Plt Clumps, EDTA Not Reportable 06/22/21 19:57 Large Platelets Not Reportable 06/22/21 19:57 Giant Platelets Not Reportable 06/22/21 19:57 Platelet Satelliting Not Reportable 06/22/21 19:57 Plt Morphology Comment Not Reportable 06/22/21 19:57 RBC Morphology Normal 06/22/21 19:57 Dimorphic RBCs Not Reportable 06/22/21 19:57 Polychromasia Not Reportable 06/22/21 19:57 Hypochromasia Not Reportable 06/22/21 19:57 Poikilocytosis Not Reportable 06/22/21 19:57 Anisocytosis Not Reportable 06/22/21 19:57 Microcytosis Not Reportable 06/22/21 19:57 Macrocytosis Not Reportable 06/22/21 19:57 Spherocytes Not Reportable 06/22/21 19:57 Pappenheimer Bodies Not Reportable 06/22/21 19:57 Sickle Cells Not Reportable 06/22/21 19:57 Target Cells Not Reportable 06/22/21 19:57 Tear Drop Cells Not Reportable 06/22/21 19:57 Ovalocytes Not Reportable 06/22/21 19:57 Helmet Cells Not Reportable 06/22/21 19:57 [place] Bodies Not Reportable 06/22/21 19:57 [place] Rings Not Reportable 06/22/21 19:57 Juliane Cells Not Reportable 06/22/21 19:57 Bite Cells Not Reportable 06/22/21 19:57 Crenated Cell Not Reportable 06/22/21 19:57 Elliptocytes Not Reportable 06/22/21 19:57 Acanthocytes (Spur) Not Reportable 06/22/21 19:57 Rouleaux Not Reportable 06/22/21 19:57 Hemoglobin C Crystals Not Reportable 06/22/21 19:57 Schistocytes Not Reportable 06/22/21 19:57 Malaria parasites Not Reportable 06/22/21 19:57 Erik Bodies Not Reportable 06/22/21 19:57 Hem Pathologist Commnt No 06/22/21 19:57 PT 34.2 Sec. (12.2-14.9) H 06/28/21 21:42 INR 2.90 (0.87-1.13) H 06/28/21 21:42 APTT 33.8 Sec. (24.2-36.6) 06/28/21 21:42 D-Dimer > 234 ng/mlDDU (0-234) H 06/22/21 19:57 ABG pH 7.282 pH Units (7.350-7.450) L 06/28/21 22:02 ABG pCO2 19.8 mm Hg 06/28/21 22:02 ABG pO2 93.9 mm Hg (80.0-90.0) H 06/28/21 22:02 ABG HCO3 9.1 mmol/L (20.0-26.0) L 06/28/21 22:02 ABG O2 Saturation 97.1 % (95.0-99.0) 06/28/21 22:02 ABG O2 Content 19.4 (0.0-44) 06/28/21 22:02 ABG Base Excess -15.2 mmol/L (-2.0-3.0) L 06/28/21 22:02 ABG Hemoglobin 14.4 gm/dl (14.0-18.0) 06/28/21 22:02 ABG Carboxyhemoglobin 1.6 % (0.0-5.0) 06/28/21 22:02 ABG Methemoglobin 0.5 % (0.0-1.5) 06/28/21 22:02 Oxyhemoglobin 95.1 % (95.0-99.0) 06/28/21 22:02 FiO2 40 % 06/28/21 22:02 Sodium 131 mmol/L (137-145) L 06/29/21 04:26 Potassium 5.2 mmol/L (3.6-5.0) H D 06/29/21 04:26 Chloride 76.3 mmol/L (98-107) L 06/29/21 04:26 Carbon Dioxide 10 mmol/L (22-30) L 06/29/21 04:26 Anion Gap 50 mmol/L 06/29/21 04:26 BUN 65 mg/dL (9-20) H 06/29/21 04:26 Creatinine 3.4 mg/dL (0.8-1.3) H 06/29/21 04:26 Estimated GFR 23 ml/min 06/29/21 04:26 BUN/Creatinine Ratio 19 % 06/29/21 04:26 Glucose 76 mg/dL (75-100) 06/29/21 04:26 POC Glucose 110 mg/dL (70-105) H 06/29/21 07:58 Lactic Acid 6.60 mmol/L (0.7-2.0) H* 06/23/21 01:55 Calcium 9.8 mg/dL (8.4-10.2) 06/29/21 04:26 Total Bilirubin 3.50 mg/dL (0.1-1.2) H 06/27/21 05:51 AST 174 units/L (5-40) H 06/27/21 05:51 ALT 630 units/L (7-56) H 06/27/21 05:51 Alkaline Phosphatase 182 units/L (35-129) H 06/27/21 05:51 Total Creatine Kinase 503 units/L (55-170) H 06/23/21 10:04 CK-MB (CK-2) 11.8 ng/mL (0.0-4.0) H 06/22/21 19:57 CK-MB (CK-2) Rel Index 2.0 (0-4) 06/22/21 19:57 Troponin T 0.067 ng/mL (0.00-0.029) H 06/22/21 19:57 NT-Pro-B Natriuret Pep 24028 pg/mL (0-900) H 06/23/21 10:04 Total Protein 6.8 g/dL (6.3-8.2) 06/27/21 05:51 Albumin 3.7 g/dL (3.9-5) L 06/27/21 05:51 Albumin/Globulin Ratio 1.2 % 06/27/21 05:51 Triglycerides 90 mg/dL (2-149) 06/22/21 19:57 Cholesterol 103 mg/dL (50-199) 06/22/21 19:57 LDL Cholesterol Direct 61 mg/dL (50-130) 06/22/21 19:57 HDL Cholesterol 26 mg/dL (40-59) L 06/22/21 19:57 Cholesterol/HDL Ratio 3.96 % 06/22/21 19:57 Urine Color Yellow (Yellow) 06/23/21 Unknown Urine Color Yellow (Yellow) 06/23/21 Unknown Urine Turbidity Clear (Clear) 06/23/21 Unknown Urine Turbidity Clear (Clear) 06/23/21 Unknown Urine pH 5.0 (5.0-7.0) 06/23/21 Unknown Urine pH 5.0 (5.0-7.0) 06/23/21 Unknown Ur Specific [place] 1.011 (1.003-1.030) 06/23/21 Unknown Ur Specific [place] 1.016 (1.003-1.030) 06/23/21 Unknown Urine Protein 30 mg/dl mg/dL (Negative) 06/23/21 Unknown Urine Protein <15 mg/dl mg/dL (Negative) 06/23/21 Unknown Urine Glucose (UA) 50 mg/dL (Negative) 06/23/21 Unknown Urine Glucose (UA) Neg mg/dL (Negative) 06/23/21 Unknown Urine Ketones Neg mg/dL (Negative) 06/23/21 Unknown Urine Ketones Neg mg/dL (Negative) 06/23/21 Unknown Urine Blood Neg (Negative) 06/23/21 Unknown Urine Blood Sm (Negative) 06/23/21 Unknown Urine Nitrite Neg (Negative) 06/23/21 Unknown Urine Nitrite Neg (Negative) 06/23/21 Unknown Urine Bilirubin Neg (Negative) 06/23/21 Unknown Urine Bilirubin Neg (Negative) 06/23/21 Unknown Urine Urobilinogen 2.0 mg/dL (<2.0) 06/23/21 Unknown Urine Urobilinogen < 2.0 mg/dL (<2.0) 06/23/21 Unknown Ur Leukocyte Esterase Neg (Negative) 06/23/21 Unknown Ur Leukocyte Esterase Neg (Negative) 06/23/21 Unknown Urine WBC (Auto) 1.0 /HPF (0.0-6.0) 06/23/21 Unknown Urine WBC (Auto) 1.0 /HPF (0.0-6.0) 06/23/21 Unknown Urine RBC (Auto) 2.0 /HPF (0.0-6.0) 06/23/21 Unknown Urine RBC (Auto) 4.0 /HPF (0.0-6.0) 06/23/21 Unknown U Epithel Cells (Auto) < 1.0 /HPF (0-13.0) 06/23/21 Unknown U Epithel Cells (Auto) < 1.0 /HPF (0-13.0) 06/23/21 Unknown Hyaline Casts 2 /LPF 06/23/21 Unknown Urine Mucus Few /HPF 06/23/21 Unknown Urine Creatinine 67.0 mg/dL (0.1-20.0) H 06/23/21 Unknown Protein/Creatinin Ratio 0.21 06/23/21 Unknown Urine Sodium 14 mmol/L 06/23/21 Unknown Urine Total Protein 14 mg/dL (5-11.8) H 06/23/21 Unknown Nasal Screen MRSA (PCR) Positive (Negative) 06/23/21 Unknown Coronavirus (PCR) Negative (Negative) 06/24/21 Unknown Influenza A (Rapid) Negative (Negative) 06/22/21 19:56 Influenza B (Rapid) Negative (Negative) 06/22/21 19:56 Sanchez/IV: Voiding Method Urinal Active Medications - Current Medications Current Medications: Generic Name Dose Route Start Last Admin Trade Name Freq PRN Reason Stop Dose Admin Acetaminophen 650 mg 06/23/21 01:48 Acetaminophen 325 Mg Tab PO Q4H PRN Pain MILD(1-3)/Fever >100.5/LAURENT Albuterol 2.5 mg 06/23/21 01:48 Albuterol 2.5 Mg/3 Ml Nebu IH Q3HRT PRN Shortness Of Breath Alprazolam 0.25 mg 06/23/21 12:00 06/28/21 17:12 Alprazolam 0.25 Mg Tab PO 0.25 mg Q8H PRN Administration Anxiety Apixaban 5 mg 06/28/21 13:00 06/29/21 10:58 Apixaban 5 Mg Tab PO 5 mg Q12HR BHAVYA Administration Protocol Atorvastatin Calcium 20 mg 06/23/21 22:00 06/29/21 05:48 Atorvastatin 20 Mg Tab PO Not Given QHS BHAVYA Famotidine 10 mg 06/23/21 10:00 06/29/21 10:58 Famotidine 10 Mg Tab PO 10 mg BID BHAVYA Administration Furosemide 20 mg 06/28/21 06:00 06/28/21 05:38 Furosemide 20 Mg Tab PO 20 mg 0600,1800 BHAVYA Administration Hydromorphone HCl 0.5 mg 06/23/21 01:48 Hydromorphone 1 Mg/1 Ml Inj IV Q3H PRN Pain , Severe (7-10) Hydrophilic Ointment 1 applic 06/29/21 03:10 Lip Therapy Vaseline TP DIRECT PRN Dry Lips Hyoscyamine 0.125 mg 06/23/21 01:52 Hyoscyamine Subl 0.125 Mg Tab SL Q4HR PRN abdominal Spasms Amiodarone HCl 360 mg/ 200 mls @ 33.333 mls/hr 06/28/21 13:00 06/29/21 11:02 Dextrose IV 16.66 mls/hr DIRECT BHAVYA Administration Dextrose 1,000 mls @ 42 mls/hr 06/28/21 23:00 06/28/21 23:57 D10w IV 42 mls/hr DIRECT BHAVYA Administration NORepinephrine/NS 8 MG-250 ML 8 mg in 250 mls @ 3.75 mls/hr 06/28/21 23:00 Norepinephrine/Ns 8 Mg-250 Ml (Double Conc) IV TITRATE BHAVYA Protocol 2 MCG/MIN Morphine Sulfate 2 mg 06/23/21 01:48 Morphine 2 Mg/1 Ml Inj IV Q4H PRN Pain, Moderate (4-6) Ondansetron HCl 4 mg 06/23/21 01:48 Ondansetron 4 Mg/2 Ml Inj IV Q8H PRN Nausea And Vomiting Sodium Bicarbonate 1,300 mg 06/29/21 14:00 Sodium Bicarbonate 650 Mg Tab PO TID BHAVYA Sodium Chloride 10 ml 06/23/21 10:00 06/28/21 22:50 Sodium Chloride 0.9% 10 Ml Flush Syringe IV 10 ml BID BHAVYA Administration Sodium Chloride 10 ml 06/23/21 01:48 Sodium Chloride 0.9% 10 Ml Flush Syringe IV PRN PRN LINE FLUSH
--- NOTE | 2021-06-29 11:59 | Progress Note ---
Assessment and Plan Assessment Acute renal failure on top of CKD Metabolic acidosis, Resolved Hyperkalemia Shortness of breath Acute HFrEF (heart failure with reduced ejection fraction) CVA (cerebral vascular accident) Elevated troponin Lactic acidosis S/P Code Met 06/28/21 Plan: -Renal labs reviewed. Serum creatinine is 3.4 today, yesterday's was 3.1, rising serum creatinine -Likely developed IATN from Hypotension during Code Met last night -CHF-On Lasix 20 mg po BID, Cardiology onboard, awaiting transfer to [place] -Acidosis- received IV Sodium bicarb. Start Sodium Bicarbonate 1300 mg po TID -Hyperkalemia, Mild- Kayexalate 15 gram po x 1. -BMP in a.m -Renally dose all medications -Avoid nephrotoxic agents -Monitor I/O's daily -Obtain daily weights -Continue to monitor renal function -No acute indication for SCREENER AND BLENDER -Plan of care reviewed by Dr. Walker Subjective Date of service: 06/29/21 Principal diagnosis: CHRIS, HFreF Interval history: Patient seen lying in bed. He asked about [place] transfer. RN at bedside. Objective - Vital Signs Vital signs: Vital Signs - 12hr 06/29/21 06/29/21 06/29/21 00:00 00:42 01:00 Temperature 97.5 F L Pulse Rate 111 H 112 H 111 H Pulse Rate [ 112 H From Monitor] Respiratory 27 H 32 H 21 Rate Blood Pressure 120/72 107/65 108/85 O2 Sat by Pulse 30 L 93 88 Oximetry 06/29/21 06/29/21 06/29/21 02:00 03:00 04:00 Temperature 97.8 F Pulse Rate 112 H 113 H 112 H Pulse Rate [ From Monitor] Respiratory 27 H 17 36 H Rate Blood Pressure 120/99 54/17 102/83 O2 Sat by Pulse 87 89 87 Oximetry 06/29/21 06/29/21 06/29/21 04:02 05:00 06:00 Temperature Pulse Rate 105 H 107 H Pulse Rate [ 112 H From Monitor] Respiratory 29 H 23 26 H Rate Blood Pressure 101/77 103/67 O2 Sat by Pulse 89 91 86 Oximetry 06/29/21 06/29/21 06/29/21 07:00 07:15 08:00 Temperature Pulse Rate 109 H 108 H Pulse Rate [ From Monitor] Respiratory 24 21 Rate Blood Pressure 115/76 105/65 O2 Sat by Pulse 92 98 98 Oximetry 06/29/21 09:00 Temperature Pulse Rate 111 H Pulse Rate [ From Monitor] Respiratory 26 H Rate Blood Pressure 115/71 O2 Sat by Pulse 95 Oximetry - General Appearance General appearance: well-developed, appears stated age EENT: ATNC, PERRL, hearing intact, vision intact Neck: no JVD, supple Respiratory: Present: Decreased Breath Sounds Cardiology: S1S2 Integumentary: warm and dry Neurologic: alert and oriented x3 Musculoskeletal: joint swelling - Lab 06/28/21 21:42 06/29/21 04:26 Most recent lab results ABG pH 7.282 pH Units (7.350-7.450) L 06/28/21 22:02 ABG pCO2 19.8 mm Hg 06/28/21 22:02 ABG pO2 93.9 mm Hg (80.0-90.0) H 06/28/21 22:02 ABG HCO3 9.1 mmol/L (20.0-26.0) L 06/28/21 22:02 ABG O2 Saturation 97.1 % (95.0-99.0) 06/28/21 22:02 Calcium 9.8 mg/dL (8.4-10.2) 06/29/21 04:26 Urine Creatinine 67.0 mg/dL (0.1-20.0) H 06/23/21 Unknown Urine Sodium 14 mmol/L 06/23/21 Unknown Urine Total Protein 14 mg/dL (5-11.8) H 06/23/21 Unknown Medications & Allergies - Medications Allergies/Adverse Reactions: Allergies No Known Allergies Allergy (Verified 10/16/20 23:25) Home Medications: Home Medications Medication Instructions Recorded Confirmed Last Taken Type Aspirin 81 mg PO DAILY #30 tab.chew 07/27/18 06/23/21 06/19/21 09:00 Rx AtorvaSTATin [Lipitor] 20 mg PO QHS #30 tab 07/27/18 06/23/21 06/19/21 22:00 Rx lisinopriL [Zestril TAB] 5 mg PO QDAY #30 tablet 07/27/18 06/23/21 06/20/21 0 9:00 Rx Furosemide [Lasix TAB] 40 mg PO QDAY #30 tablet 05/07/19 06/23/21 06/19/21 09:00 Rx Potassium Chloride 10 meq PO DAILY #30 tablet.er 05/07/19 06/23/21 06/19/21 09:00 Rx carvediloL [Coreg] 3.125 mg PO BID #60 tablet 05/07/19 06/23/21 06/20/21 09:00 Rx Hyoscyamine Subl [Levsin Sl 0.125 0.125 mg SL Q4HR PRN #15 tablet 05/13/21 06/23/21 06/19/21 15:00 Rx TAB] Ondansetron [Zofran Odt] 4 mg PO Q8HR PRN #15 tab.rapdis 05/13/21 06/23/21 06/19/21 09:00 Rx Active Medications: Generic Name Dose Route Start Last Admin Trade Name Freq PRN Reason Stop Dose Admin Acetaminophen 650 mg 06/23/21 01:48 Acetaminophen 325 Mg Tab PO Q4H PRN Pain MILD(1-3)/Fever >100.5/LAURENT Albuterol 2.5 mg 06/23/21 01:48 Albuterol 2.5 Mg/3 Ml Nebu IH Q3HRT PRN Shortness Of Breath Alprazolam 0.25 mg 06/23/21 12:00 06/28/21 17:12 Alprazolam 0.25 Mg Tab PO 0.25 mg Q8H PRN Administration Anxiety Apixaban 5 mg 06/28/21 13:00 06/29/21 10:58 Apixaban 5 Mg Tab PO 5 mg Q12HR BHAVYA Administration Protocol Atorvastatin Calcium 20 mg 06/23/21 22:00 06/29/21 05:48 Atorvastatin 20 Mg Tab PO Not Given QHS BHAVYA Famotidine 10 mg 06/23/21 10:00 06/29/21 10:58 Famotidine 10 Mg Tab PO 10 mg BID BHAVYA Administration Furosemide 20 mg 06/28/21 06:00 06/28/21 05:38 Furosemide 20 Mg Tab PO 20 mg 0600,1800 BHAVYA Administration Hydromorphone HCl 0.5 mg 06/23/21 01:48 Hydromorphone 1 Mg/1 Ml Inj IV Q3H PRN Pain , Severe (7-10) Hydrophilic Ointment 1 applic 06/29/21 03:10 Lip Therapy Vaseline TP DIRECT PRN Dry Lips Hyoscyamine 0.125 mg 06/23/21 01:52 Hyoscyamine Subl 0.125 Mg Tab SL Q4HR PRN abdominal Spasms Amiodarone HCl 360 mg/ 200 mls @ 33.333 mls/hr 06/28/21 13:00 06/29/21 11:02 Dextrose IV 16.66 mls/hr DIRECT HBAVYA Administration Dextrose 1,000 mls @ 42 mls/hr 06/28/21 23:00 06/28/21 23:57 D10w IV 42 mls/hr DIRECT BHAVYA Administration NORepinephrine/NS 8 MG-250 ML 8 mg in 250 mls @ 3.75 mls/hr 06/28/21 23:00 Norepinephrine/Ns 8 Mg-250 Ml (Double Conc) IV TITRATE BHAVYA Protocol 2 MCG/MIN Morphine Sulfate 2 mg 06/23/21 01:48 Morphine 2 Mg/1 Ml Inj IV Q4H PRN Pain, Moderate (4-6) Ondansetron HCl 4 mg 06/23/21 01:48 Ondansetron 4 Mg/2 Ml Inj IV Q8H PRN Nausea And Vomiting Sodium Bicarbonate 1,300 mg 06/29/21 14:00 Sodium Bicarbonate 650 Mg Tab PO TID BHAVYA Sodium Chloride 10 ml 06/23/21 10:00 06/28/21 22:50 Sodium Chloride 0.9% 10 Ml Flush Syringe IV 10 ml BID BHAVYA Administration Sodium Chloride 10 ml 06/23/21 01:48 Sodium Chloride 0.9% 10 Ml Flush Syringe IV PRN PRN LINE FLUSH
[2021-06-29] MEDS ORDERED: SODIUM POLYSTYRENE 15 GM/60 ML ORAL LIQD PO NR (12:37)
[2021-06-29] MEDS ORDERED: SODIUM BICARBONATE 650 MG TAB PO SCH (14:00)
[2021-06-29] MEDS ORDERED: MILRINONE-D5W 20 MG/100 ML 20 MG/100 ML BAG IV SCH (16:05)
[2021-06-29 16:17] LABS: Heparin-Induced Platelet Antib Negative (Negative); Unfractionated Heparin Negative (Negative)
--- NOTE | 2021-06-29 16:20 | Discharge Summary ---
<ROSAURA MARTINEZ - Last Filed: 06/29/21 16:35> Providers - Providers Date of Admission: 06/23/21 01:48 Date of discharge: 06/29/21 Attending physician: AARON ADAM MD 06/22/21 22:11 Consult to Physician [CONS] Stat Comment: Dr. Regalado spoke with Dr. Albarran @ 1340 Consulting Provider: NEAL ALBARRAN Physician Instructions: Reason For Exam: Acute renal failure, hyperkalemia 06/23/21 01:48 Consult to Physician [CONS] Routine Comment: Consulting Provider: WILIAM GONSALES Physician Instructions: Reason For Exam: chf 06/23/21 10:28 Consult to Physician [CONS] Routine Comment: Consulting Provider: PREMA BOWLES Physician Instructions: Reason For Exam: Respiratory failure Primary care physician: MAME RICHARDS Hospitalization Reason for admission: CHF exacerbation Condition: Poor Hospital course: 55-year-old male with a history of CHF present with a chief complaint of shortness of breath nausea vomiting. Patient was initially admitted to the floor for acute kidney Injury and CHF exacerbation was on milrinone gtt . Patient decompensated overnight on 06/28/21 and was a code met due to decreased level of consciousness and hypotension whcih resolved s/p 2amps of Bcarb. Patient is also in Aflutter with RVR, milrinone gtt was held and now on Amiodarone gtt per Cardio. Problem list: Acute hypoxic respiratory failure, likely due to volume overload from CHF and renal failure Acute on chronic combined systolic and diastolic congestive heart failure with last echo on 07/22/2018 noted to have ejection fraction of 10 to 15%. Sinus tachycardia likely indicating on the management cardiomyopathy Cardiomyopathy Acute kidney injury with vasomotor nephropathy Hyponatremia Hyperkalemia now resolved Transaminitis- IMPROVING History of CVA Noncompliance Prior history of substance abuse including tobacco, EtOH, cocaine although patient states been sober for over a year. Systemic inflammatory response syndrome without organ dysfunction Lactic acidosis Anxiety Thrombocytopenia Atrial flutter/fibrillation Plan 06/25: The IV milrinone dose will be reduced to 0.125/kg, in response to low blood pressure. Continue supportive care. We will also decrease Lasix to 20 mg IV twice daily await further input from cardiology. There is some improvement in renal function will monitor closely. Plan discussed with the patient 06/26: Hold anticoagulant considering thormbocytpenia, this is showing improvement, Continue supportive care. Mirilone discontinued today due to persistent tachycardia. Patient likely with endstage cardiomyopathy. Discussed with cardiology, will transfer to [facility]. Patient may be at baseline dry weight as Creatnine appears to have plateaued. Consider switching to PO lasix tomorrow if ok with cardiology and nephrology. LFTs sis also improving. Lipitor still held Continue supportive care We will discontinue beta-blockers at this time. 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 Patient confirms improved respiration with increased urine output Await for today's labs Monitor and replace electrolytes as needed Medication compliance discussed with the patient in detail Continue as needed Xanax for anxiety. Continue aspirin we will hold Lipitor per suggestion by cardiology at this time likely due to elevated Ck DVT and GI prophylaxis Oxygen for supportive therapy 06/27: Patient was restarted on mirilone drip. Plan to cont lasix iv. Patient persistently with signs of volume overload and lower extremity edema. Discussed with cardiology, plan to transfer the patient to [place] when bed is available. Continue to provide supportive care, monitoring telemetry. 06/28: Patient remains tachycardic on the telemetry. Suspicion for atrial fibrillation versus flutter. placed on amioderone iv, stopped mirilone drip today. Continue IV Lasix. Pending transfer to [place]. Ordered morning labs, follow clinically. Guarded prognosis. 06/29: Patient is on 6L NC this am, AAO, remains with significant dyspnea. Amiodarone gtt is still running for Aflutter, HR 100 to 110s, BP is stable. D/w Cardio plan to resume milrinone gtt and patient is being transfer to [place] today, accepting physician is Dr. Petrona Crowley. Disposition: INTERMEDIATE CARE FACILITY Final Discharge Diagnosis (Prints w/discharge instructions): Acute on Chronic HFrEF Time spent for discharge: 35 Core Measure Documentation - Palliative Care Palliative Care/ Comfort Measures: Not Applicable - Core Measures Any of the following diagnoses?: heart failure - Heart Failure Discharge Requirements SIERRA/ARB for LVSD if EF <40%: No Reason for no SIERRA/ARB: Hypotension Beta bella at discharge: No Reason for no beta bella on DC: Hypotension Exam - Constitutional Vitals: Temp Pulse Resp BP Pulse Ox 97.8 F 117 H 26 H 105/82 99 03/04/22 04:00 06/29/21 14:00 06/29/21 14:00 06/29/21 14:00 06/29/21 14:00 General appearance: Present: severe distress, obese - EENT Eyes: Present: PERRL ENT: hearing intact - Neck Neck: Present: normal ROM - Respiratory Respiratory effort: labored, other (Dyspnea with exertion) Respiratory: bilateral: diminished - Cardiovascular Rhythm: irregularly irregular Heart Sounds: Present: S1 & S2 - Extremities Extremities: no ischemia, pulses intact, pulses symmetrical Extremity abnormal: edema - Peripheral Assessment Bilateral Lower Extremity Edema Type: Pitting Edema Degree: 3+ Capillary Refill: < 3 seconds Skin Temperature: Cool Peripheral Pulses: within normal limits - Abdominal General gastrointestinal: Present: soft, non-distended, normal bowel sounds Male genitourinary: Present: deferred - Rectal Rectal Exam: deferred - Integumentary Integumentary: Present: warm, dry - Musculoskeletal Musculoskeletal: generalized weakness - Psychiatric Psychiatric: cooperative - Neurologic Neurologic: moves all extremities - Allied Health Allied health notes reviewed: nursing, case management Plan Activity: advance as tolerated Diet: low fat, low cholesterol, low salt, renal Wound: open to air Special Instructions: restrict fluid intake to, record daily weights Follow up with: MAME RICHARDS MD [Primary Care Provider] - 3-5 Days <AARON ADAM - Last Filed: 06/30/21 07:03> Providers - Providers Date of Admission: 06/23/21 01:48 Attending physician: AARON ADAM MD 06/22/21 22:11 Consult to Physician [CONS] Stat Comment: Dr. Regalado spoke with Dr. Albarran @ 2209 Consulting Provider: NEAL ALBARRAN Physician Instructions: Reason For Exam: Acute renal failure, hyperkalemia 06/23/21 01:48 Consult to Physician [CONS] Routine Comment: Consulting Provider: WILIAM GONSALES Physician Instructions: Reason For Exam: chf 06/23/21 10:28 Consult to Physician [CONS] Routine Comment: Consulting Provider: PREMA BOWLES Physician Instructions: Reason For Exam: Respiratory failure Primary care physician: MAME RICHARDS Hospitalization Hospital course: I saw and evaluated the patient. I agree with the findings and the plan of care as documented in the Nurse Practitioner's~note, with the following corrections and additions. Exam - Constitutional Vitals: Temp Pulse Resp BP Pulse Ox 97.8 F 111 H 31 H 107/83 93 06/29/21 04:00 06/29/21 16:00 06/29/21 16:00 06/29/21 16:00 06/29/21 16:00
--- NOTE | 2021-06-29 16:23 | Progress Note ---
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 Severe global hypokinesis of LV. LV is severely dilated. Right ventricle is moderate to severely dilated. Severe mitral regurgitation ECHO 10/16/20: Severe global hypokinesis of the LV, EF15-20%, mild RVE, mod MR Echo done 07/22/2018 showed EF 10-15%, mild to mod LVH, abnormal diastolic function, LA mildly dilated, mod MR. LHC done 07/27/2018 showed normal coronaries, EF 15%, LVEDP 22mmHg Plan: Patient was transferred to ICU overnight due to hypotension Patient lower extremities feel cool to touch patient reports feeling lethargic and worse this a.m. patient may need inotropic support. Will restart milrinone drip Continue amiodarone drip Anticoagulate with Eliquis BMP and CBC ordered We have attempted multiple times that patient transferred to [place] with several discussions with staff at [place] however, Per discussion with accepting physician at [place] heart failure clinic patient is to be transferred today to [place] for further evaluation Hold carvedilol/lisinopril/Lipitor for now due to soft BP, elevated creatinine, and transaminitis Patient seen in conjunction with Dr. Luis who agrees with this plan of care - Patient Problems (1) Acute renal failure Current Visit: Yes Status: Acute Qualifiers: (2) Lactic acidosis Current Visit: Yes Status: Acute (3) Shortness of breath Current Visit: Yes Status: Acute (4) Acute HFrEF (heart failure with reduced ejection fraction) Current Visit: No Status: Acute (5) Nicotine dependence Current Visit: No Status: Acute Qualifiers: Nicotine product type: cigarettes Substance use status: in withdrawal Qualified Code(s): F17.213 - Nicotine dependence, cigarettes, with withdrawal (6) Cocaine use Current Visit: No Status: Chronic (7) EtOH dependence Current Visit: No Status: Chronic Qualifiers: Substance use status: uncomplicated Qualified Code(s): F10.20 - Alcohol dependence, uncomplicated (8) NICM (nonischemic cardiomyopathy) Current Visit: No Status: Chronic Subjective Date of service: 06/29/21 Principal diagnosis: CHRIS, HFreF Interval history: Patient resting in bed in no acute distress. Patient appears lethargic this a.m. and reports nausea Patient converted to sinus tach on monitor rate trending 120s to 130 Objective Vital Signs Temp Pulse Pulse Resp BP Pulse Ox 06/29/21 14:00 117 H 26 H 105/82 99 06/29/21 13:00 121 H 28 H 99/81 99 06/29/21 12:00 121 H 106 H 31 H 114/70 75 L 06/29/21 11:00 120 H 26 H 124/92 98 06/29/21 10:00 114 H 28 H 119/82 91 06/29/21 09:00 111 H 26 H 115/71 95 06/29/21 08:00 109 H 118 H 31 H 105/65 93 06/29/21 07:15 98 06/29/21 07:00 109 H 24 115/76 92 06/29/21 06:00 107 H 26 H 103/67 86 06/29/21 05:00 105 H 23 101/77 91 06/29/21 04:02 112 H 29 H 89 06/29/21 04:00 97.8 F 112 H 36 H 102/83 87 06/29/21 03:00 113 H 17 54/17 89 06/29/21 02:00 112 H 27 H 120/99 87 06/29/21 01:00 111 H 21 108/85 88 06/29/21 00:42 112 H 32 H 107/65 93 06/29/21 00:00 97.5 F L 111 H 112 H 27 H 120/72 30 L 06/28/21 23:00 114 H 29 H 78/60 63 L 06/28/21 22:44 73 L 06/28/21 22:00 97 06/28/21 19:48 97 06/28/21 19:40 98.4 F 74 16 126/95 90 - Physical Examination General: No Apparent Distress HEENT: Positive: PERRL Neck: Positive: trachea midline Cardiac: Positive: Regular Rhythm, Tachycardia Lungs: Positive: Decreased Breath Sounds Neuro: Positive: Grossly Intact Abdomen: Positive: Soft, Decreased Bowel Sounds Skin: Negative: Rash Extremities: Present: upper extr. pulses, edema, Cool - Labs and Meds Coagulation 06/28/21 Range/Units 21:42 PT 34.2 H (12.2-14.9) Sec. INR 2.90 H (0.87-1.13) APTT 33.8 (24.2-36.6) Sec. CBC 06/28/21 Range/Units 21:42 WBC 10.8 (4.5-11.0) K/mm3 RBC 4.46 (3.65-5.03) M/mm3 Hgb 14.0 (11.8-15.2) gm/dl Hct 43.4 (35.5-45.6) % Plt Count 121 L (140-440) K/mm3 Comprehensive Metabolic Panel 06/28/21 06/29/21 Range/Units 21:42 04:26 Sodium 130 L 131 L (137-145) mmol/L Potassium 4.2 5.2 H D (3.6-5.0) mmol/L Chloride 80.0 L 76.3 L (98-107) mmol/L Carbon Dioxide 14 L D 10 L (22-30) mmol/L BUN 60 H 65 H (9-20) mg/dL Creatinine 3.1 H D 3.4 H (0.8-1.3) mg/dL Glucose 96 76 (75-100) mg/dL Calcium 8.9 9.8 (8.4-10.2) mg/dL - Imaging and Cardiology Echo: report reviewed (ECHO 10/16/20: EF 15-20%, moderate MR) Cardiac cath: report reviewed ([facility] 2018: No angiographically significant CAD) - Telemetry EKG Rhythm: Sinus Tachycardia - EKG Sinus rhythms and dysrhythmias: sinus tachycardia
--- NOTE | 2021-06-29 17:36 | Electrocardiograph Report ---
[facility] Test Date: 2021-06-28 Test Time: 21:58:28 Pat Name: SHANKAR COSTA Department: Room: A255 1 Gender: M Site Acquisition Specialist: ZENY : 1965 Requested By: TOBIN ROSE Order Number: [id number] Reading MD: Cece Vela Measurements Intervals [place] Rate: 113 P: MA: QRS: 267 QRSD: 124 T: 80 QT: 376 QTc: 520 Interpretive Statements Atrial flutter with predominant 2:1 AV block Nonspecific IVCD with LAD Possible inferior infarct, old Compared to ECG 06/22/2021 20:02:15 No significant change Electronically Signed On 06-29-2021 17:36:38 EST by Cece Vela
[2021-06-29 17:38] VITALS: BP 107/83
== END 2021-06-29 16:43 | disposition short-term general hospital (02) | DRG 291 ==
LOC: ED 18:49 → IMCU 06-23 01:48 → CC1 06-23 06:12 → IMCU 06-23 06:27 → 4A 06-26 15:32 → CC1 06-28 23:12
PROVIDERS: ADMIT Hospitalist; ATTEND Internal Medicine
PROC: 5A09457 Assistance with Respiratory Ventilation, 24-96 Consecutive Hours, Continuous Positive Airway Pressure (ICD-10-PCS; 2021-06-22)
PROC: 5A09357 Assistance with Respiratory Ventilation, Less than 24 Consecutive Hours, Continuous Positive Airway Pressure (ICD-10-PCS; principal; 2021-06-26)
PROC: 4A033R1 Measurement of Arterial Saturation, Peripheral, Percutaneous Approach (ICD-10-PCS; 2021-06-28)
PROC: 5A09357 Assistance with Respiratory Ventilation, Less than 24 Consecutive Hours, Continuous Positive Airway Pressure (ICD-10-PCS; 2021-06-29)
DX: I13.0 Hypertensive heart and chronic kidney disease with heart failure and stage 1 through stage 4 chronic kidney disease, or unspecified chronic kidney disease (principal); J96.01 Acute respiratory failure with hypoxia; I50.43 Acute on chronic combined systolic (congestive) and diastolic (congestive) heart failure; N17.0 Acute kidney failure with tubular necrosis; E87.1 Hypo-osmolality and hyponatremia; E87.2 Acidosis; R65.10 Systemic inflammatory response syndrome (SIRS) of non-infectious origin without acute organ dysfunction; I48.92 Unspecified atrial flutter; Z20.822 Contact with and (suspected) exposure to COVID-19; E87.5 Hyperkalemia; N18.9 Chronic kidney disease, unspecified; R77.8 Other specified abnormalities of plasma proteins; Z91.19 Patient's noncompliance with other medical treatment and regimen; I42.9 Cardiomyopathy, unspecified; F41.9 Anxiety disorder, unspecified; D69.6 Thrombocytopenia, unspecified; I48.91 Unspecified atrial fibrillation; Z86.73 Personal history of transient ischemic attack (TIA), and cerebral infarction without residual deficits; Z79.82 Long term (current) use of aspirin; Z79.899 Other long term (current) drug therapy
CPT/HCPCS: 36415; 36600; 71045; 76770; 78580; 80048; 80053; 80061; 81001; 82140; 82550; 82553; 82570; 82803; 82962; 83880; 84156; 84300; 84484; 85007; 85025; 85027; 85379; 85610; 85730; 86022; 87040; 87400; 87641; 93005; 93010; 93306; 93970; 94640; 94644; 94660; 94760; G0378; J3490; J7060; Q0162; Q9967; A9540; C8929; J0282; J0610; J0696; J1644; J1650; J1815; J1940; J2260; J2405; J2765; J7030; J7070; U0003